=== PATIENT | female | born 1955 | race Caucasian/White ===

== ENCOUNTER 2022-09-25 13:59 | Outpatient (RCR) | payer MEDICARE, SELFPAY | END 2022-10-31 16:17 | disposition home or self-care (01) | LOC: PT 13:59 | PROVIDERS: PCP Internal Medicine; Visit Provider Internal Medicine | DX: M19.012 Primary osteoarthritis, left shoulder (principal); M25.512 Pain in left shoulder | CPT/HCPCS: 97010; 97035; 97110; 97140; 97161; G0283 ==

== ENCOUNTER 2022-12-15 09:55 | Outpatient (OUT) | payer MEDICARE, SELFPAY ==
--- NOTE | 2022-12-15 | MM_ITS ---
Patient: CY NGO Exam Date: 12/15/2022 : 1955 Gender:F Ordering : DR Capo Palm D.O. Admission #: [id number] Family : Order #: [id number] CLICK HERE TO VIEW EXAM RADIOLOGY REPORT PROCEDURE: MM TOMOSYNTHESIS SCREENING BI COMPARISON: MG MAMM DX 3D RT CAD, 12/11/2021. MG MAMM RT DIAG FU, 06/06/2021. MG MAMM SCREEN 3D ASHU CAD, 05/24/2021. MG MAMM SCREEN ASHU W CAD, 12/18/2016. INDICATIONS: Z12.31 Calculator Name NCI Breast Cancer Risk Assessment Tool 5 Year Breast Cancer Risk 2.60% Lifetime Breast Cancer Risk 8.00% Personal Breast Cancer No Personal Ovarian Cancer No Treatments None Family Cancers Aunt-paternal with breast cancer at age ~60; Father with leukemia cancer at age 45. LOCATION: [facility] BREAST COMPOSITION: Heterogeneously dense,which may obscure small masses. FINDINGS: DIAGNOSTIC CATEGORY 2--BENIGN FINDING: RIGHT BREAST: No significant suspicious finding. Scattered benign-appearing calcifications are present. No significant change has occurred. LEFT BREAST: No significant suspicious finding. Scattered benign-appearing calcifications are present. No significant change has occurred. RECOMMENDATIONS: ROUTINE MAMMOGRAM AND CLINICAL EVALUATION IN 12 MONTHS. PLEASE NOTE: A NORMAL MAMMOGRAM DOES NOT EXCLUDE THE POSSIBILITY OF BREAST CANCER. A CLINICALLY SUSPICIOUS PALPABLE LUMP SHOULD BE BIOPSIED. Dictated by: Luis Ascencio M.D. on 12/15/2022 at 14:36 Approved by: Luis Ascencio M.D. on 12/15/2022 at 14:39
== END 2022-12-15 09:56 | disposition home or self-care (01) ==
LOC: MAMMO 09:55
PROVIDERS: PCP Internal Medicine; Visit Provider Internal Medicine
DX: Z12.31 Encounter for screening mammogram for malignant neoplasm of breast (principal); Z80.3 Family history of malignant neoplasm of breast; Z80.6 Family history of leukemia
CPT/HCPCS: 77063; 77067

== ENCOUNTER 2022-12-22 09:52 | Outpatient (OUT) | payer MEDICARE, SELFPAY ==
--- NOTE | 2022-12-22 10:00 | XR_ITS ---
The [address] [address] Patient Name: CY NGO MRN: [id number] date: 1955 Sex: F Assigned Patient Location[facility] Current Patient Location: RAD Accession/Order Number: [id number] Exam Date: 12/22/2022 10:08 Report Date: 12/22/2022 17:41 At the request of: REJI DUNN Procedure: XR DEXA axial skeleton EXAMINATION: XR DEXA axial skeleton, 12/22/2022 10:08 AM EDT HISTORY: Menopause Z78.0 COMPARISON: 2017. TECHNIQUE: Dual-energy X-ray absorptiometry (DEXA) bone density study performed for the axial skeleton. FINDINGS: Bone mineral density AP spine L1-L4 measures 1.492 g/sq cm. Young adult T score 2.6. WHO classification: Normal. Lowest bone mineral density left femoral neck measures 1.090 g/sq cm. T score 0.4. WHO classification: Normal. XR/XR DEXA axial skeleton IMPRESSION: Normal bone mineral density. Low fracture risk Electronically authenticated by: GINGER JANE Date: 12/22/2022 17:41
== END 2022-12-22 09:53 | disposition home or self-care (01) ==
LOC: RAD 09:52
PROVIDERS: PCP Internal Medicine; Visit Provider Internal Medicine
DX: Z78.0 Asymptomatic menopausal state (principal)
CPT/HCPCS: 77080

== ENCOUNTER 2023-07-20 11:40 | Outpatient (OUT) | payer MEDICARE, SELFPAY ==
--- NOTE | 2023-07-20 11:48 | XR_ITS ---
The [address] [address] Patient Name: CY NGO MRN: [id number] date: 1955 Sex: F Assigned Patient Location: [facility] Current Patient Location: Accession/Order Number: [id number] Exam Date: 07/20/2023 11:57 Report Date: 07/21/2023 06:50 At the request of: REJI DUNN Procedure: XR shoulder LT min 2V PROCEDURE: XR shoulder LT min 2V HISTORY: left shoulder pain M25.512 COMPARISON: None. FINDINGS: BONES:Marked narrowing of the glenohumeral joint space with suspected zimt-ln-iraw articulation and small subchondral cysts. Suspect periarticular degenerative osteophytes along the inferior margin of the humeral head. Moderate narrowing of acromioclavicular joint with small undersurface osteophytes. SOFT TISSUES:No visible soft tissue swelling. EFFUSION:None visible. OTHER: Negative. XR/XR shoulder LT min 2V IMPRESSION: 1. 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 Electronically authenticated by: FANY MEDRANO Date: 07/21/2023 06:50
== END 2023-07-20 11:41 | disposition home or self-care (01) ==
LOC: RAD 11:42
PROVIDERS: PCP Internal Medicine; Visit Provider Internal Medicine
DX: M25.512 Pain in left shoulder (principal); M19.012 Primary osteoarthritis, left shoulder
CPT/HCPCS: 73030

== ENCOUNTER 2023-08-05 10:01 | Outpatient (OUT) | payer MEDICARE, SELFPAY ==
--- NOTE | 2023-08-05 10:09 | XR_ITS ---
The [address] [address] Patient Name: CY NGO MRN: [id number] date: 1955 Sex: F Assigned Patient Location: RAD Current Patient Location: [facility] Accession/Order Number: [id number] Exam Date: 08/05/2023 10:11 Report Date: 08/05/2023 13:26 At the request of: REJI DUNN Procedure: XR abdomen 1V EXAMINATION: XR abdomen 1V HISTORY: Right Lower Quadrant R10.31 COMPARISON: No relevant comparison available. FINDINGS: KIDNEY/URETER - RIGHT: No visible renal or ureteral calcifications. KIDNEY/URETER - LEFT: No visible renal or ureteral calcifications. PELVIS: No visible ureteral calcifications. Any visible calcifications favor phleboliths. BOWEL: Moderate amount of stool throughout the colon BONES: No acute abnormality. Degenerative changes of the spine and hips OTHER: Negative. No abnormal gaseous collections. XR/XR abdomen 1V IMPRESSION: Moderate stool throughout the colon Electronically authenticated by: GINGER JANE Date: 08/05/2023 13:26
== END 2023-08-05 10:02 | disposition home or self-care (01) ==
LOC: RAD 10:02
PROVIDERS: PCP Internal Medicine; Visit Provider Internal Medicine
DX: R10.31 Right lower quadrant pain (principal)
CPT/HCPCS: 74018

== ENCOUNTER 2023-09-01 14:01 | Outpatient (OUT) | payer MEDICARE, SELFPAY ==
[2023-09-01 14:50] LABS: Basophils Percent Auto 0.8 % (0.2-2.0); Eosinophils Absolute Auto 0.1 10^3/uL (0.0-0.7); Eosinophils Percent Auto 2.5 % (0.9-7.0); Hematocrit 39.8 % (36.0-48.0); Hemoglobin 13.2 g/dL (12.0-16.0); Immature Granulocytes Abs Auto 0.01 10^3/uL (0.00-0.03); Immature Granulocytes Pct Auto 0.2 % (0.0-0.5); Lymphocytes Absolute Auto 1.4 10^3/uL (1.2-3.8); Lymphocytes Percent Auto 26.2 % (20.5-60.0); Mean Corpuscular HGB Conc 33.2 g/dL (29.9-35.2); Mean Corpuscular Hemoglobin 31.9 pg (26.7-34.0); Mean Corpuscular Volume 96.1 fL (81.0-99.0); Mean Platelet Volume 11.2 fL (9.5-13.5); Monocytes Absolute Auto 0.5 10^3/uL (0.3-0.8); Monocytes Percent Auto 9.5 % (1.7-12.0); Neutrophils Absolute Auto 3.2 10^3/uL (1.4-6.5); Neutrophils Percent Auto 60.8 % (43.0-75.0); Platelet Count 222 10^3/uL (150-450); Red Blood Count 4.14 10^6/uL (4.20-5.40); Red Cell Distribution Width 13.2 % (11.0-15.0); White Blood Count 5.3 10^3/uL (4.0-11.0)
[2023-09-01 15:01] LABS: Alanine Aminotransferase 34 U/L (14-59); Albumin Level 3.6 g/dL (3.4-5.0); Alkaline Phosphatase 114 U/L (46-116); Anion Gap 14.4; Aspartate Amino Transferase 23 U/L (15-37); BUN Creatinine Ratio 16.9; Bilirubin Total 0.6 mg/dL (0.2-1.0); Calcium 9.4 mg/dL (8.5-10.1); Carbon Dioxide 27.3 mmol/L (21.0-32.0); Chloride 106 mmol/L (98-107); Estimated GFR (African America >60 (>=60); Estimated GFR (Non-African Ame >60 (>=60); Globulin 3.5 g/dL; Glucose 93 mg/dL (74-106); Potassium 3.7 mmol/L (3.5-5.1); Sodium 144 mmol/L (136-145); Total Protein 7.1 g/dL (6.4-8.2)
[2023-09-02 15:00] LABS: C. Difficile PCR NEGATIVE (NEGATIVE)
== END 2023-09-01 14:02 | disposition home or self-care (01) ==
LOC: LAB 14:03
PROVIDERS: PCP Internal Medicine; Visit Provider Internal Medicine
DX: R19.7 Diarrhea, unspecified (principal)
CPT/HCPCS: 36415; 80053; 85025; 87045; 87046; 87427; 87493

== ENCOUNTER 2023-12-08 08:34 | Outpatient (OUT) | payer MEDICARE, SELFPAY ==
--- NOTE | 2023-12-08 | CT_ITS ---
The [address] [address] Patient Name: CY NGO MRN: [id number] date: 1955 Sex: F Assigned Patient Location: CT Current Patient Location: Accession/Order Number: [id number] Exam Date: 12/08/2023 09:30 Report Date: 12/09/2023 11:53 At the request of: REJI DUNN Procedure: CT abdomen pelvis wo con EXAM: CT abdomen pelvis wo con HISTORY: UNSPECIFIED ABDOMINAL PAIN, RIGHT FLANK PAIN COMPARISON: None. TECHNIQUE: Axial soft tissue windows of the abdomen and pelvis with coronal and sagittal reformats. CT dose reduction technique was used including Automated Exposure Control. Findings: The liver, gallbladder, spleen, pancreas, and adrenal glands are unremarkable. No renal stones or collecting system dilatation. Small bilateral extrarenal pelvises. The visualized portions of the bilateral ureters are nondilated. The bowel is unremarkable without evidence of wall thickening or obstruction. The appendix is not definitely identified. The aorta is normal caliber. No enlarged abdominal lymph nodes or free abdominal fluid. Tiny fat-containing umbilicus hernia. Pelvis: Unremarkable bladder. The uterus is surgically absent. No enlarged pelvic lymph nodes or free pelvic fluid. No aggressive sclerotic or lytic osseous lesions. Grade 1 anterolisthesis of L4 on L5. Multilevel degenerative spondylosis. CT/CT abdomen pelvis wo con IMPRESSION: 1. No acute abdominal or pelvic abnormality. 2. Other nonemergent findings, as described above. Electronically authenticated by: ANABELLE ZAMBRANO Date: 12/09/2023 11:53
== END 2023-12-08 08:35 | disposition home or self-care (01) ==
LOC: CT 08:34
PROVIDERS: PCP Internal Medicine; Visit Provider Internal Medicine
DX: R10.9 Unspecified abdominal pain (principal)
CPT/HCPCS: 74176

== ENCOUNTER 2023-12-17 13:57 | Outpatient (OUT) | payer MEDICARE, SELFPAY ==
--- NOTE | 2023-12-17 | MM_ITS ---
Patient Name: CY NGO MR#: [id number] : 1955 Exam Date: 12/17/2023 Ordering Doctor: DR Capo Palm D.O. RADIOLOGY REPORT PROCEDURE: MM TOMOSYNTHESIS SCREENING BI COMPARISON: MM TOMOSYNTHESIS SCREENING BI, 12/15/2022. MG MAMM DX 3D RT CAD, 12/11/2021. MG MAMM RT DIAG FU, 06/06/2021. MG MAMM SCREEN ASHU W CAD, 12/18/2016. INDICATIONS: Screening for malignant neoplasm Calculator Name [facility] Breast Cancer Risk Assessment Tool 5 Year Breast Cancer Risk 2.60% Lifetime Breast Cancer Risk 7.60% Personal Breast Cancer No Personal Ovarian Cancer No Treatments None Family Cancers Aunt-paternal with breast cancer at age ~60; Father with leukemia cancer at age 45. LOCATION: [facility] BREAST COMPOSITION: The breasts are heterogeneously dense,which may obscure small masses. FINDINGS: DIAGNOSTIC CATEGORY 2--BENIGN FINDING: RIGHT BREAST: No significant suspicious finding. Stable biopsy marker clip. Scattered benign-appearing calcifications are present. No significant change has occurred. LEFT BREAST: No significant suspicious finding. Scattered benign-appearing calcifications are present. Stable benign-appearing lymph node. No significant change has occurred. RECOMMENDATIONS: ROUTINE MAMMOGRAM AND CLINICAL EVALUATION IN 12 MONTHS. PLEASE NOTE: A NORMAL MAMMOGRAM DOES NOT EXCLUDE THE POSSIBILITY OF BREAST CANCER. A CLINICALLY SUSPICIOUS PALPABLE LUMP SHOULD BE BIOPSIED. Dictated by: Luis Ascencio M.D. on 12/17/2023 at 15:37 Approved by: Luis Ascencio M.D. on 12/17/2023 at 15:43
--- OUTSIDE RECORDS SUMMARY | 2023-12-17 14:20 | XMS_ITS | CCD ---
Author Organization [facility] Care Team Providers Care Study Specialist Name Role Phone CAPO PALM Primary Care Physician SHAUN, DR SCANLON Attending Unavailable BALL, DR SCANLON Admitting Unavailable BALL, DR SCANLON Primary Care Unavailable BALL, DR SCANLON Consulting Unavailable BALL, DR SCANLON Primary Care Unavailable BALL, DR SCANLON Consulting Unavailable BALL, DR SCANLON Attending Unavailable BALL, DR SCANLON Admitting Unavailable ZIEBER, DR FANY Brock Consulting Unavailable APLING, CARLOS ALBERTO Estrella Attending Unavailable APLING, CARLOS ALBERTO Estrella Admitting Unavailable BALL, DR SCANLON Primary Care Unavailable APLING, CARLOS ALBERTO Estrella Consulting Unavailable BALL, DR SCANLON Consulting Unavailable BALL, DR SCANLON Attending Unavailable BALL, DR SCANLON Primary Care Unavailable BALL, DR SCANLON Admitting Unavailable ZIEBER, DR FANY Brock Consulting Unavailable BALL, DR SCANLON Attending Unavailable BALL, DR SCANLON Primary Care Unavailable BALL, DR SCANLON Admitting Unavailable BALL, DR SCANLON Consulting Unavailable WEST, DR GINGER Monge Consulting Unavailable MISC, DR CUI Attending Unavailable MISC, DR CUI Admitting Unavailable BALL, DR SCANLON Primary Care Unavailable MISC, DR CUI Consulting Unavailable BALL, DR SCANLON Attending Unavailable BRIDGES, JOHN Consulting Unavailable BALL, DR SCANLON Primary Care Unavailable BALL, DR SCANLON Admitting Unavailable REQUEST, DR RICARDO LISTED Attending Unavaila ble REQUEST, DR RICARDO LISTED Admitting Unavaila ble BALL, DR SCANLON Primary Care Unavailable REQUEST, DR RICARDO LISTED Consulting Unavaila ble APLING, CARLOS ALBERTO Estrella Attending Unavailable APLING, CARLOS ALBERTO Estrella Admitting Unavailable BALL, DR SCANLON Primary Care Unavailable BALL, DR SCANLON Attending Unavailable BALL, DR SCANLON Admitting Unavailable WEST, DR GINGER Monge Consulting Unavailable BALL, DR SCANLON Primary Care Unavailable BALL, DR SCANLON Attending Unavailable BALL, DR SCANLON Admitting Unavailable BALL, DR SCANLON Primary Care Unavailable BALL, DR SCANLON Consulting Unavailable WEST, DR GINGER Monge Consulting Unavailable BALL, DR SCANLON Attending Unavailable BALL, DR SCANLON Admitting Unavailable BALL, DR SCANLON Primary Care Unavailable BALL, DR SCANLON Consulting Unavailable Shaun, DO Scanlon Primary Care Provider [facility], [facility] Attending Provider [phone] Capo Palm Unavailable DO Capo Palm Primary Care Provider DO Akil Martinez Attending Provider JOSEFINA DOWNS Attending Unavailable HUNTERLIZZIE BALL Attending Unavailable RAVEN, RACQUEL Hunter Attending Unavailable BALL, CAPO Hahn Referring Unavailable RAVEN, RACQUEL Hunter Attending Unavailable BALL, CAPO Hahn Referring Unavailable RAVEN, RACQUEL Hunter Attending Unavailable BALL, CAPO E Referring Unavailable RAVEN, RACQUEL Hunter Attending Unavailable BALL, CAPO E Referring Unavailable RAVEN, RACQUEL Hunter Attending Unavailable BALL, CAPO Hahn Referring Unavailable KARIN, ANABELLE Sweet Attending Unavailable KARIN, ANABELLE Sweet Referring Unavailable RAVEN, RACQUEL Hunter Attending Unavailable BALL, CAPO Hahn Referring Unavailable RAVEN, RACQUEL Hunter Attending Unavailable BALL, CAPO E Referring Unavailable RAVEN, RACQUEL Hunter Attending Unavailable BALL, CAPO Hahn Referring Unavailable RAVEN, RACQUEL Hunter Attending Unavailable BALL, CAPO Hahn Referring Unavailable RAVEN, RACQUEL Hunter Attending Unavailable BALL, CAPO Hahn Referring Unavailable RAVEN, RACQUEL Hunter Attending Unavailable BALL, CAPO E Referring Unavailable Jeanmarie, Akil Sweet Attending Unavailable Jeanmarie, Akil A Admitting Unavailable Ball, Capo Primary Care Unavailable Ball, Capo Primary Care Unavailable Jeanmarie, Akil Sweet Attending Unavailable Jeanmarie, Akil A Admitting Unavailable Ball, Capo Primary Care Unavailable Jeanmarie, Akil Sweet Attending Unavailable Jeanmarie, Akil A Admitting Unavailable Ball, Capo Primary Care Unavailable Jeanmarie, Akil A Attending Unavailable Jeanmarie, Akil A Admitting Unavailable Ball, Capo Primary Care Unavailable Jeanmarie, Akil Sweet Attending Unavailable Jeanmarie, Akil A Admitting Unavailable Jeanmarie, Akil Sweet Attending Unavailable Ball, Capo Primary Care Unavailable Jeanmarie, Akil A Admitting Unavailable Jeanmarie, Akil A Attending Unavailable Jeanmarie, Akil A Admitting Unavailable Ball, Capo Primary Care Unavailable Allergies Allergy Classification Reported Allergen(s) Allergy Type Date of Onset Reaction(s) Facility (6 sources) Sulfonamides (Antibiotic); Translations: [sulfa drugs] Drug allergy Eruption of skin (disorder) [facility] (1 source) Sulfonamides (Antibiotic) Drug allergy (disorder) 05-20-19 17 [facility] (2 sources) Sulfonamides (Antibiotic); Translations: [Sulfa (Sulfonamide Antibiotics)] Allergy to substance [facility]-19 [facility] (7 sources) Sulf-10 Drug allergy rash [facility] (2 sources) patient allergy list reviewed by nurse or physicia Propensity to adverse reactions 10-22-19 14 Comment:Done [facility] (2 sources) Allergies Reconciled Propensity to adverse reactions Unknown [facility] (6 sources) Substance with sulfonamide structure and antibacterial mechanism of action (substance) Drug allergy 12-15-19 18 Unknown [facility] Other Medications Current Medications Medication Drug Class(es) Dates Sig (Normalized) Sig (Original) Daily Vitamins for Women (4 sources) Daily Vitamins f or Women Active [facility] (8 sources) Start: 08-25-2023 take 1 tablet by mouth once daily [facility] Active 1 TAB PO Daily August 25, 2023 12:00am meclizine hydrochloride 25 mg chewable tablet (2 sources) Antiemetic Start: 05-04-2023 take 1 tablet by mouth every eight hours as needed Meclizine HCl 25 MG 1 tablet as needed Orally every 8 hours as needed for vertigo, may cause sedation for 5 days Apr, Active Multivitamin preparation (14 sources) Start: 06-25-2021 take 1 tablet by mouth once daily Multivitamin Active 1 TAB PO Daily June 25, 2021 12:00am omeprazole 40 mg delayed release oral capsule (20 sources) Proton Pump Inhibitor Start: 11-17-2023 omeprazole 40 mg Cap-DR 40 mg = 1 cap(s), Refills(s) 0 Start Date: 11/17/23 Status: Ordered Start: 08-03-2023 Omeprazole Act mckinley 40 MG PO Daily August 03, 2023 12:00am Take on an empty stomach, 30 minutes prior to bkfst Start: 06-25-2021 End: 07-10-2023 take 20 mg by mouth once daily Omeprazole Discontinued 20 MG PO Daily June 25, 2021 12:00am July 10, 2023 10:00am Start: 01-07-2021 Prilosec Oral, Daily, Refills(s) 0 Start Date: 01/07/21 Status: Ordered One A Day Women 50 Plus (5 sources) Start: 12-07-2018 One A Day Wome n 50 Plus Refill(s) 0 Start Date: 12/07/18 Status: Ordered sertraline 100 mg oral tablet (20 sources) Serotonin Reuptake Inhibitor Start: 11-17-2023 sertraline 100 mg Ta b 100 mg = 1 tab(s), Refills(s) 0 Start Date: 11/17/23 Status: Ordered Start: 07-21-2023 End: 10-20-2023 take 100 mg by mouth once daily Sertraline Discontinued 100 MG PO Daily 90 July 22, 2023 9:26am October 20, 2023 6:15pm Completed/Discontinued Medications Medication Drug Class(es) Dates Sig (Normalized) Sig (Original) acetaminophen 500 mg oral tablet (6 sources) Start: 09-08-2023 End: 10-22-2023 take 500 mg by mouth every six hours Acetaminophen Discontinued 500 MG PO Q6H September 08, 2023 12:00am October 22, 2023 10:58am DO NOT RECONCILE UNTIL DOS 09/09/23 TO BE USED POST OP aspirin 81 mg chewable tablet (6 sources) Platelet Aggregation Inhibitor, Nonsteroidal Anti-inflammatory Drug Start: 09-08-2023 End: 10-22-2023 take 81 mg by mouth twice daily Aspirin Discontinued 81 MG PO Twice daily 60 30 September 08, 2023 12:00am October 22, 2023 10:53am DO NOT RECONCILE UNTIL DOS 09/09/23 TO BE USED POST OP citalopram 40 mg oral tablet (20 sources) Serotonin Reuptake Inhibitor Start: 07-16-2023 End: 07-21-2023 take 40 mg by mouth once daily Citalopram Discontinued 40 MG PO Daily 90 90 July 16, 2023 12:00am July 21, 2023 8:48am Start: 06-25-2021 End: 07-16-2023 take 20 mg by mouth once daily Citalopram Discontinued 20 MG PO Daily June 25, 2021 12:00am July 16, 2023 9:47pm Start: 12-07-2018 citalopram Ora l, Daily, Refills(s) 0 Start Date: 12/07/18 Status: Ordered diclofenac sodium 0.03 mg/mg topical gel (17 sources) Nonsteroidal Anti-inflammatory Drug Start: 07-10-2023 End: 08-25-2023 Diclofenac Sodium Discontinued 1 APPLIC TOPICAL Twice daily July 10, 2023 12:00am August 25, 2023 11:38am Diclofenac Sodiu m 3 % 1 application Externally Twice a day Active docusate sodium 100 mg oral capsule (6 sources) Start: 09-08-2023 End: 10-22-2023 take 1 capsule by mouth twice daily Docusate Sodium (Colace) 100 mg capsule Discontinued 100 MG PO Twice daily 20 September 08, 2023 12:00am October 22, 2023 10:53am DO NOT RECONCILE UNTIL DOS 09/09/23 TO BE USED POST OP hyoscyamine sulfate 0.125 mg disintegrating oral tablet (7 sources) Start: 08-27-2023 End: 09-09-2023 take 0.125 mg by mouth four times daily Hyoscyamine Sulfate Discontinued 0.125 MG PO Four times daily 20 August 27, 2023 12:00am September 09, 2023 6:34am lactobacillus acidophilus [id number] unt oral capsule (14 sources) Start: 06-25-2021 End: 07-10-2023 Lactobacillus Acidophilus (Acidophilus) Capsule Discontinued 1000 MMU CELLS PO Daily June 25, 2021 12:00am July 10, 2023 9:59am Start: 06-25-2021 End: 07-10-2023 Lactobacillus Acidophilus (A cidophilus) Capsule Discontinued 1000 MMU CELLS PO Daily June 25, 2021 12:00am July 10, 2023 9:59am Start: 06-25-2021 Lactobacillus Acidophilus (Acidophilus) Capsule Active 1000 MMU CELLS PO Daily June 25, 2021 12:00am meloxicam 15 mg oral tablet (20 sources) Nonsteroidal Anti-inflammatory Drug Start: 09-08-2023 End: 10-22-2023 take 15 mg by mouth once daily Meloxicam Discontinued 15 MG PO daily 14 September 08, 2023 12:00am October 22, 2023 10:53am DO NOT RECONCILE UNTIL DOS 09/09/23 TO BE USED POST OP Start: 05-11-2023 End: 08-25-2023 take 15 mg by mouth once daily Meloxicam Discontinued 15 MG PO Daily 30 May 11, 2023 1:00am August 25, 2023 11:38am Start: 09-16-2022 take 1 tablet by cristi th every twenty-four hours Meloxicam 15 MG 1 tablet Orally Once a day for 30 days Aug, Active oxybutynin chloride 5 mg oral tablet (20 sources) Cholinergic Muscarinic Antagonist Start: 07-10-2023 End: 07-16-2023 take 5 mg by mouth once daily Oxybutynin Chloride Discontinued 5 MG PO Daily July 10, 2023 12:00am July 16, 2023 11:08am Start: 04-15-2022 End: 11-11-2022 take 1 tablet by mouth once daily oxybutynin 5 mg ER Tab 5 mg = 1 tab(s), Oral, Daily, # 90 tab(s), Refills(s) 3, Pharmacy: [facility], 157, cm, 10/21/22 9:06:00 EDT, Height/Length Dosing, 90, kg, 10/21/22 9:06:00 EDT, Weight Dosing Start Date: 10/21/22 Status: Ordered Start: 08-14-2021 take 1 tablet by cristi once daily Ditropan XL 5 mg Tab-ER 5 mg = 1 tab(s), Oral, Daily, # 30 tab(s), Refills(s) 6, Pharmacy: [facility]/pharmacy #[id number], 157, cm, 08/14/21 14:15:00 EDT, Height/Length Dosing, 90, kg, 08/14/21 14:15:00 EDT, Weight Dosing Start Date: 08/14/21 Status: Ordered take 1 tablet by cristi th every twenty-four hours oxyBUTYnin Chloride 5 MG 1 tablet Orally Once a day Active oxyCODONE hydrochloride 5 mg oral tablet (6 sources) Opioid Agonist Start: 09-08-2023 End: 10-22-2023 take 5 mg by mouth every six hours Oxycodone Discontinued 5 MG PO Q6H 28 7 September 08, 2023 October 22, 2023 10:53am DO NOT RECONCILE UNTIL DOS 09/09/23 TO BE USED POST OP polyethylene glycol 3350 [id number] mg powder for oral solution (6 sources) Osmotic Laxative Start: 09-08-2023 End: 10-22-2023 Polyethylene Glycol 3350 (Miralax) 17 gram powder in packet Discontinued 17 GM PO daily 14 September 08, 2023 12:00am October 22, 2023 10:58am 1 packet mixed with 8 ounces of fluid. DO NOT RECONCILE UNTIL DOS 09/09/23 TO BE USED POST OP Problems Active Problems Problem Classification Problem Date Documented Da te Episodic/Chronic Abdominal pain (20 sources) Abdominal pain; Translations: [Flank pain] Onset: 2 Resolved: 2 12-07-2018 Episodic Acquired foot deformities (8 sources) Talipes planus; Translations: [Flat foot [pes planus] (acquired), right foot] Episodic Acquired foot deformities (8 sources) Talipes planus; Translations: [Flat foot [pes planus] (acquired), left foot] Episodic Anxiety disorders (20 sources) Generalized anxiety disorder; Translations: [Generalized anxiety disorder] Onset: 6 07-16-2023 Chronic Cancer of breast (1 source) Personal history of malignant neoplasm of breast; Translations: [PERS HX MALIGNANT NEOPLASM BREAST] Onset: 2 Episodic Complications of surgical procedures or medical care (3 sources) Postprocedural asymptomatic ovarian failure; Translations: [Asymptomatic postprocedural ovarian failure] Chronic Conditions associated with dizziness or vertigo (20 sources) Benign paroxysmal positional vertigo; Translations: [Benign paroxysmal positional vertigo] Onset: 6 Episodic Diabetes mellitus without complication (3 sources) Type 2 diabetes mellitus without complication; Translations: [Diabetes mellitus without mention of complication, type II or unspecified type, not stated as uncontrolled] Onset: 3 Chronic Diabetes mellitus without complication (20 sources) Impaired fasting glycemia; Translations: [Impaired fasting glucose] 07-10-2023 Episodic Esophageal disorders (13 sources) Gastroesophageal reflux disease; Translations: [Gastroesophageal reflux disease with hiatal hernia] 12-07-2018 Chronic Genitourinary symptoms and ill-defined conditions (18 sources) Urge incontinence; Translations: [Post-micturition incontinence ] Onset: 2 Chronic Genitourinary symptoms and ill-defined conditions (20 sources) Increased frequency of urination; Translations: [Frequency of micturition] Onset: 7 Episodic Headache; including migraine (3 sources) Headache; Translations: [Headache, unspecified] Episodic Immunizations and screening for infectious disease (6 sources) Vaccination given; Translations: [Encounter for immunization] Resolved: 2 Episodic Leukemias (1 source) Personal history of leukemia; Translations: [PERSONAL HISTORY OF LEUKEMIA] Onset: 2 Episodic Menopausal disorders (10 sources) Decreased estrogen level; Translations: [Other primary ovarian failure] Chronic Miscellaneous mental health disorders (7 sources) Occipital headache; Translations: [Occipital headache] Chronic Mood disorders (16 sources) Depressive disorder; Translations: [Single episode of major depression in full remission] 12-07-2018 Chronic Nonspecific chest pain (8 sources) Chest wall pain; Translations: [Other chest pain] Episodic Osteoarthritis (20 sources) Osteoarthritis; Translations: [Osteoarthritis of joint of left shoulder region] Onset: 3 12-07-2018 Chronic Other and unspecified benign neoplasm (7 sources) History of polyp of colon; Translations: [Personal history of colonic polyps] Episodic Other connective tissue disease (4 sources) Presence of left artificial knee joint; Translations: [PRESENCE LEFT ARTIFICIAL KNEE JOINT] Onset: 1 Chronic Other connective tissue disease (5 sources) History of reverse prosthetic total arthroplasty of left shoulder; Translations: [Presence of left artificial shoulder joint] 09-17-2023 Chronic Other connective tissue disease (8 sources) Presence of left artificial shoulder joint; Translations: [Shoulder joint replacement] Onset: 4 09-17-2023 Chronic Other connective tissue disease (7 sources) Tendinitis of left rotator cuff; Translations: [Other shoulder lesions, left shoulder] Episodic Other connective tissue disease (2 sources) Other shoulder lesions, left shoulder Episodic Other connective tissue disease (3 sources) Nontraumatic rupture of rotator cuff of left shoulder; Translations: [Unspecified rotator cuff tear or rupture of left shoulder, not specified as traumatic] Episodic Other diseases of bladder and urethra (3 sources) Overactive bladder; Translations: [Overactive bladder] Onset: 8 Chronic Other diseases of bladder and urethra (10 sources) Traumatic urethral stricture; 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, female] Onset: 2 Episodic Other diseases of kidney and ureters (5 sources) Cyst of kidney 01-27-2019 Episodic Other diseases of veins and lymphatics (20 sources) Peripheral venous insufficiency; Translations: [Venous insufficiency (chronic) (peripheral)] 07-10-2023 Episodic Other diseases of veins and lymphatics (7 sources) Venous insufficiency (chronic) (peripheral); Translations: [Venous (peripheral) insufficiency, unspecified] 08-27-2023 Episodic Other ear and sense organ disorders (3 sources) Infective otitis externa; Translations: [Unspecified infective otitis externa] Onset: 4 Chronic Other ear and sense organ disorders (3 sources) Malignant otitis externa; Translations: [Malignant otitis externa, unspecified ear] Onset: 4 Chronic Other ear and sense organ disorders (9 sources) Impacted cerumen; Translations: [Impacted cerumen, bilateral] Onset: 4 Resolved: 0 Episodic Other eye disorders (11 sources) Other forms of nystagmus; Translations: [OTHER FORMS OF NYSTAGMUS] Onset: 2 Chronic Other eye disorders (3 sources) Nystagmus; Translations: [Other forms of nystagmus] Chronic Other gastrointestinal disorders (5 sources) Diarrhea, unspecified; Translations: [Diarrhea] Onset: 1 Episodic Other gastrointestinal disorders (4 sources) Diarrhea; Translations: [Diarrhea, unspecified] Resolved: 2 10-28-2023 Episodic Other inflammatory condition of skin (2 sources) Pruritus, unspecified; Translations: [Pruritus] 10-28-2023 Episodic Other injuries and conditions due to external causes (3 sources) History of fall; Translations: [History of falling] Episodic Other injuries and conditions due to external causes (3 sources) Sprains and strains of joints and adjacent muscles; Translations: [Other specified sites of sprains and strains] Episodic Other nervous system disorders (10 sources) Abnormal gait; Translations: [Unsteadiness on feet] Episodic Other nervous system disorders (12 sources) Impaired cognition; Translations: [Other symptoms and signs involving cognitive functions and awareness] 07-16-2023 Episodic Other nervous system disorders (10 sources) Other symptoms and signs involving cognitive functions and awareness; Translations: [Other signs and symptoms involving cognition] 07-16-2023 Episodic Other non-traumatic joint disorders (20 sources) Pain in left shoulder; Translations: [Left shoulder pain] Onset: 4 07-16-2023 Episodic Other nutritional; endocrine; and metabolic disorders (15 sources) Obesity; Translations: [Obesity, unspecified] 12-07-2018 Chronic Other nutritional; endocrine; and metabolic disorders (9 sources) Body mass index 30+ - obesity; Translations: [Body mass index 36.0-36.9, adult] Onset: 3 10-21-2022 Chronic Other nutritional; endocrine; and metabolic disorders (6 sources) Obese class II; Translations: [Body mass index (BMI) 35.0-35.9, adult] Onset: 3 Chronic Other nutritional; endocrine; and metabolic disorders (4 sources) Obesity caused by energy imbalance; Translations: [Other obesity due to excess calories] Chronic Other nutritional; endocrine; and metabolic disorders (2 sources) Other obesity due to excess calories Chronic Other nutritional; endocrine; and metabolic disorders (2 sources) Body mass index (BMI) 32.0-32.9, adult Chronic Other nutritional; endocrine; and metabolic disorders (1 source) Obesity, unspecified; Translations: [Obesity, unspecified] 08-27-2023 Chronic Other screening for suspected conditions (not mental disorders or infectious disease) (20 sources) Other abnormal and inconclusive findings on diagnostic imaging of breast; Translations: [Encounter for screening mammogram for malignant neoplasm of breast] Onset: 2 Episodic Other upper respiratory infections (15 sources) Acute pharyngitis; Translations: [Acute pharyngitis, unspecified] Onset: 3 Episodic Residual codes; unclassified (10 sources) Obstructive sleep apnea syndrome; Translations: [Obstructive sleep apnea (adult) (pediatric)] Chronic Residual codes; unclassified (2 sources) Obstructive sleep apnea (adult) (pediatric) Chronic Residual codes; unclassified (3 sources) Family history of diabetes mellitus; Translations: [Family history of diabetes mellitus] Episodic Residual codes; unclassified (1 source) Asymptomatic menopausal state Episodic Screening and history of mental health and substance abuse codes (5 sources) Ex-smoker 12-07-2018 Episodic Sprains and strains (3 sources) Sprain of knee and leg; Translations: [Sprain and strain of other specified sites of knee and leg] Episodic Unclassified (3 sources) CONTACT W/AND (SUSP) EXPOS COVID-19; Translations: [CONTACT W/AND (SUSP) EXPOS COVID-19] Onset: 1 Past or Other Problems Problem Classification Problem Date Documented Date Episodic/Chronic Acute bronchitis (3 sources) Acute bronchitis; Translations: [Acute bronchitis, unspecified] Onset: 05-21-2015 Episodic Bacterial infection; unspecified site (3 sources) Bacterial infectious disease; Translations: [Bacterial infection, unspecified, in conditions classified elsewhere and of unspecified site] Onset: 06-15-2018 Episodic Intestinal infection (3 sources) Clostridial gastroenteritis; Translations: [Enterocolitis due to Clostridium difficile, not specified as recurrent] Resolved: 02-04-2022 Episodic Malaise and fatigue (3 sources) Malaise and fatigue; Translations: [Other malaise and fatigue] Onset: 08-07-2014 Episodic Nonmalignant breast conditions (1 source) Mammographic calcification found on diagnostic imaging of breast; Translations: [MAMMO CALCIF FOUND DX IMAG BRST] Onset: 05-28-2021 Episodic Other ear and sense organ disorders (3 sources) Acute contact otitis externa; Translations: [Acute contact otitis externa, right ear] Resolved: 02-04-2022 Episodic Other nutritional; endocrine; and metabolic disorders (3 sources) Morbid obesity; Translations: [Morbid (severe) obesity due to excess calories] Resolved: 02-04-2022 Chronic Otitis media and related conditions (6 sources) Otitis media; Translations: [Otitis media, unspecified, right ear] Resolved: 02-04-2022 Episodic Residual codes; unclassified (1 source) Acquired absence of both cervix and uterus; Translations: [ACQUIRED ABSENCE BOTH CERVIX AND UTERUS] Onset: 09-05-2021 Episodic Residual codes; unclassified (1 source) Acquired absence of ovaries, unilateral; Translations: [ACQUIRED ABSENCE OVARIES UNILATERAL] Onset: 09-05-2021 Episodic Residual codes; unclassified (1 source) Family history of malignant neoplasm of breast; Translations: [FAMILY HX MALIG NEOPLASM OF BREAST] Onset: 05-28-2021 Episodic Residual codes; unclassified (1 source) Family history of leukemia; Translations: [FAMILY HISTORY OF LEUKEMIA] Onset: 05-28-2021 Episodic Unclassified (1 source) CONTACT W/AND (SUSP) EXPOS COVID-19; Translations: [CONTACT W/AND (SUSP) EXPOS COVID-19] Onset: 02-28-2021 Viral infection (6 sources) Herpes zoster without complication; Translations: [Herpes zoster without mention of complication] Onset: 07-29-2013 Episodic Results Test Name Value Interpretation Reference Range Facility Urology Office/Clinic Noteon 11-17-2023 Urology Office/Clinic Note Urology Office/Clinic Note Chief Complaint urethral strictura and leaking of urine HPI Staff 1 year f/u Dx: other post-traumatic urethral stricture in female, leaking of urine. Last cysto/UD 01/21/21. *Oxybutynin ER 5mg qd. Pt states that her PCP had her stop this medication. Dysuria: denies Incomplete bladder emptying: pt feels she is emptying PVR 12ml today Hematuria: denies Frequency: every 2-3 hours Urgency: moderate can delay 10- 60 minutes. Sudden urge that makes her lowry to the bathroom a few times a week Nocturia: denies Stream: strong the majority of the time Leaking: yes Post void dripping: denies Wearing pads/ Depends: wears a pad for peace of mind Urge incontinence: yes a few times but states not as often as it used to be Stress incontinence: denies Incontinence without Sensory Awareness: denies Abdominal pain: denies Flank pain: _denies Sexual complaints: no History of Present Illness Tests reviewed: reviewed UA I have reviewed the previous health record information and history for this patient from LILIANA Nicholas. I have reviewed and verified the staff HPI to be accurate for this encounter. Review of Systems PHQ Score Initial Depression Screen Score: 0 SCORE No fever, chills, malaise, myalgia. No rash/lesions. No chest pain, palpitations, or SOB. No abdominal pain, nausea, vomiting. No unilateral calf swelling, redness, pain Physical Exam Vitals & Measurements T: 37 ?C(Temporal Artery) HR: 63(Peripheral) RR: 16 BP: 123/71 HT: 62 in HT: 157 cm WT: 87.3 kg WT: 192.06 lb BMI: 35.42 General: nontoxic, NAD Mouth: moist mucosa Lungs: normal respiratory effort Cardio: regular rate, good distal perfusion Abdomen: nondistended, no suprapubic distention or tenderness, no CVA tenderness Neurologic: Grossly normal Skin: No rashes or suspicious lesions Assessment/Plan 1. Leaking of urine (N39.41: Urge incontinence) PVR (cc): 01/07/21 - 116 04/15/22 - 0 10/21/22 - 16 11/17/23 - 12 BBSQ 16 (moderate sxs). UA today shows trace-intact blood, negative nitrites + small leuks. Pt was started on Oxybutynin 5mg daily at last OV but pt states her PCP had her d/c med. [place] like it was causing some GI issues. Reassured pt she is emptying well & offered pt to try a different medication if she felt necessary but pt declines any further treatment as of right now as her sxs are not very bothersome. No urinary complaints, denies any UTIs, denies gross hematuria or dysuria. -Follow up PRN 2. Other post-traumatic urethral stricture, female (N35.028: Other post-traumatic urethral stricture, female) S/p cysto/UD 01/21/21. Continues to have good strong/steady stream. No straining/hesitancy. No UTIs in the past year. No complaints. -See #1. Offered continued scheduled follow up with our clinic vs following up PRN. Pt prefers the latter Follow-up With When Contact Information HIMANSHU BENÍTEZ, JOSEFINA Hahn, URL [address] [address] Additional Instructions: PRN Patient Education Overactive Bladder, Adult Documentation recorded by the gurinder Jack accurately reflects the services(s) I performed and decisions made by me. Authenticated by Josefina Downs PA-C on 11/17/2023 13:08:08. Clement Silva, personally scribed for Josefina Downs PA-C on 11/17/2023 13:04:44. . Problem List/Past Medical History Ongoing Abdominal pain BMI 36.0-36.9,adult Cyst of left kidney Depression Flank pain Former smoker GERD (gastroesophageal reflux disease) Hematuria Hiatal hernia with GERD Leaking of urine OA (osteoarthritis) Obesity Other post-traumatic urethral stricture, female Post-void dribbling Urinary urgency Urine frequency Historical No qualifying data Procedure/Surgical History Arthroplasty of left shoulder (2023), Cystourethroscopy with dilation of urethral stricture (01/21/2021), Cystourethroscopy with dilation of urethral stricture (12/16/2018), Total knee arthroplasty. (06/21/2018), Total knee arthroplasty (2008), Appendectomy, Biopsy of breast, Colonoscopy, Oophorectomy. Medications omeprazole 40 mg Cap-DR, 40 mg= 1 cap(s) One A Day Women 50 Plus oxybutynin 5 mg ER Tab, 5 mg= 1 tab(s), Oral, Daily, 3 refills, Not taking: PCP had pt stop Prilosec, Oral, Daily sertraline 100 mg Tab, 100 mg= 1 tab(s) Allergies sulfa drugs (Rash) Social History Alcohol Current, 1-2 times per month, 12/07/2018 Tobacco Former smoker, quit more than 30 days ago Tobacco Use:. Never Smokeless Tobacco Use:. Cigarettes, Stopped age 19 Years. Household tobacco concerns: No. Yes, 11/17/2023 Family History Dementia: Mother. Diabetes: Mother. Leukemia: Father. Immunizations Vaccine Date Status Comments SARS-CoV-2 (COVID-19) [id number] 09/16/2022 Recorded influenza virus vaccine, inactivated 01/27/2022 Recorded SARS-CoV-2 (COVID-19) (more content not included)... Normal [facility] Comment on above: Result Comment: Elec tronically Signed By: JOSEFINA DOWNS PA-C\.br\Date and Time Signed: 11/17/23 13:08 EDT\.br\Electronically Co-Signed By: Clement Jack\.br\Date and Time Co-Signed: 11/17/23 13:[address] shoulder LT wo [place] 09-20 CT shoulder LT wo [facility] Main [address] [address] [address] Scan Report Signed Patient: Sayda Fraire MR#: [id number] [birth year] : 1955 Acct:[id number] Age/Sex: 68 / F ADM Date: 09/30/23 Loc: CT Room: Type: REG CLI Attending Dr: Akil Martinez DO Copies to: Akil Martinez DO Ordering Provider: Akil Martinez DO Date of Service: 09/30/23 CT/CT shoulder LT wo con: assess position of RTSA components CT LEFT SHOULDER WITHOUT CONTRAST WITH 3-D RECONSTRUCTIONS COMPARISON: 09/17/[address] 08/14/2023 CLINICAL DATA: Follow-up after recent shoulder replacement. Spiral images were obtained to the shoulder without contrast. Sagittal, coronal and 3-D volume rendered reconstructions were reviewed. This CT exam was performed using one or more following dose reduction techniques: Automated exposure control, adjustment of the mA and/or kV according to patient size, or use of iterative reconstruction technique. There is a reverse shoulder prosthesis. There is some associated streak artifact. No dislocation is identified. There is minimal irregularity at the proximal humerus along the inferior margin of the articular aspect of the humeral component. This is unchanged in the comparison and is likely related to degenerative changes seen previously. There is also still mild hypertrophic degenerative change at the acromioclavicular joint. There is no obvious acute fracture in the field of view. No hematoma or sizable joint effusion is seen. There is minimal atelectasis or scarring at the left lung. CT/CT shoulder LT wo con IMPRESSION: LEFT SHOULDER PROSTHESIS, WITHOUT OBVIOUS COMPLICATION. Impression dictated by: Wendy Olson M.D.09/30/2023 4:19 PM Dictation Location: [place] [address] Transcribed By: [facility] 09/30/23 1619 Dictated By: Wendy Olson MD 09/30/23 1612 Signed By: 09/30/23 1619 Normal [facility] XR shoulder LT min 2V*on XR shoulder LT min 2V* [facility] [place] [facility] [address] [place] [address] XRay Report Signed Patient: Sayda Fraire MR#: [id number] [birth year] : 1955 Acct:[id number] Age/Sex: 68 / F ADM Date: 09/17/23 Loc: [facility] Room: Type: REG CLI Attending Dr: Akil Martinez DO Copies to: Akil Martinez DO Ordering Provider: Akil Martinez DO Date of Service: 09/17/23 XR/XR shoulder LT min 2V*: Z96.612 - Presence of left artificial shoulder joint LEFT SHOULDER - - 7 views. CLINICAL HISTORY: Status post reverse left total shoulder arthroplasty COMPARISON: Left shoulder 09/09/2023 FINDINGS: No hardware complication or acute bony process. XR/XR shoulder LT min 2V* IMPRESSION: NO HARDWARE COMPLICATION. Impression dictated by: Gonzalez Galo Jr., D.OJose09/17/2023 3:43 PM Dictation Location: [facility] Transcribed By: [facility] 09/17/23 154 Dictated By: Gonzalez Galo Jr, DO 09/17/23 154 Signed By: 09/17/23 154 Normal [facility] Sahil 09-09-2023 L Specimen: [id number] Received: 09/09/23 Status: GUY Regrace Num: [id number] Spec Type: Surgical Subm Dr: Akil Martinez DO Tissues: A Joint/Knee (LT SHOULDER) Procedures: HE/2, Gross/Micro L4, Decalcification Age/ Patient Sex Location Account Attending Physician Sayda Fraire 68/F [place] [id number] Akil Martinez DO SPEC NUM: [id number] RECD: 09/09/23 STATUS: GUY VAZQUEZ NUM: [id number] BROCK: 09/09/23- SUBM DR: Akil Martinez DO ENTERED: 09/09/[address] [facility] [address]: SPEC TYPE: Surgical DEPT: S ORDERED: HE/2, Gross/Micro L4, Decalcification ORDERED: HE/2, Gross/Micro L4, Decalcification Pathological Diagnosis Bone and tissue, left shoulder, arthroplasty: Degenerative changes consistent with osteoarthritis. Clinical Information DJD Gross Description Received in formalin labeled with the patient's name, date of and left shoulder bone and tissue is a 4.4 cm in diameter hemispherical humeral head along with a 5.2 x 4.1 x 1.0 cm aggregate of hemorrhagic soft tissue. There is a 3.4 x 3.0 cm focus of eburnation on the articular surface of the bone. Sectioning into the bone reveals unremarkable yellow spongy bone matrix with no lesions or necrosis present. A gross photo is included. [employer] sections are submitted in A1 (bone following decalcification) and A2 (soft tissue). CPT Codes 33896 BONE AND TISSUE ---- ---- Specimen: [id number] Received: 09/09/23 Status: GUY Ginette Num: [id number] Spec Type: Surgical Subm Dr: Akil Martinez DO Tissues: A Joint/Knee (LT SHOULDER) Procedures: HE/2, Gross/Micro L4, Decalcification ---- Patient: Sayda Fraire [id number] (Continued) ---- Signed (signature on file) Chidi Ng MD 09/10/23 0312 Normal [facility] XR shoulder LT 1Von 09-09-19 XR shoulder LT 1V [facility] [place] [address] XRay Report Signed Patient: Sayda Fraire MR#: [id number] [birth year] : 1955 Acct:[id number] Age/Sex: 68 / F ADM Date: 09/09/23 Loc: [place] Room: Type: [facility] Attending Dr: Akil Martinez DO Copies to: Akil Martinez DO Ordering Provider: Akil Martinez DO Date of Service: 09/09/23 XR/XR shoulder LT 1V: LEFT SHOULDER IN OR PORTABLE LEFT SHOULDER - 1 image CLINICAL DATA: Shoulder replacement COMPARISON: 08/13/2023 A single AP view of the shoulder was obtained following placement of a reverse shoulder prosthesis. As visualized, the hardware appears intact and in appropriate position. There is no obvious acute fracture or dislocation within limits of this single view. XR/XR shoulder LT 1V IMPRESSION: INTERVAL SHOULDER REPLACEMENT. Impression dictated by: Wendy Olson M.D.09/09/2023 11:07 AM Dictation Location: [place] [address] Transcribed By: [facility] 09/09/23 1107 Dictated By: Wendy Olson MD 09/09/23 1106 Signed By: 09/09/23 1107 Normal [facility] Basophils Auto (Bld) [#/Vol] on 09-01-2023 Basophils (Bld) [#/Vol] 0.0 10 3/uL 0.0-0.1 [facility] Basophils/100 WBC Auto (Bld) on 09-01-2023 Basophils/100 WBC (Bld) 0.8 % 0.2-2.0 [facility] Eosinophils/100 WBC Auto (Bl d)on 09-01-2023 Eosinophils/100 WBC (Bld) 2.5 % 0.9-7.0 [facility] Erythrocyte distribution wid th Auto (RBC) [Ratio]on 09-01-2023 Erythrocyte distribution width (RBC) [Ratio] 13.2 % 11.0-15.0 [facility] Estimated glomerular filtrat ion rate (GFR) non- Americanon 09-01-2023 GFR/1.73 sq M.predicted among non-blacks MDRD (S/P/Bld) [Vol rate/Area] mL/min/{1.73_m2} >=60 [facility] Globulin Calc (S) [Mass/Vol] on 09-01-2023 Globulin (S) [Mass/Vol] 3.5 g/dL [facility] Hematocrit Auto (Bld) [Volum e fraction]on 09-01-2023 Hematocrit (Bld) [Volume fraction] 39.8 % 36.0-48.0 [facility] Hemoglobin [Mass/volume] in Bloodon 09-01-2023 Hemoglobin (Bld) [Mass/Vol] 13.2 g/dL 12.0-16.0 [facility] Laboratory - Chemistry and C hemistry - challengeon 09-01-2023 Albumin [Mass/Vol] 3.6 g/dL 3.4-5.0 [facility] ALP [Catalytic activity/Vol] 114 U/L 46-116 [facility] ALT [Catalytic activity/Vol] 34 U/L 14-59 [facility] AST [Catalytic activity/Vol] 23 U/L 15-37 [facility] Bilirubin [Mass/Vol] 0.6 mg/dL 0.2-1.0 [facility] Calcium [Mass/Vol] 9.4 mg/dL 8.5-10.1 [facility] Chloride [Moles/Vol] 106 mmol/L 98-107 [facility] CO2 [Moles/Vol] 27.3 mmol/L 21.0-32.0 [facility] Creatinine [Mass/Vol] 0.77 mg/dL 0.55-1.02 [facility] GFR/1.73 sq M.predicted MDRD (S/P/Bld) [Vol rate/Area] mL/min/{1.73_m2} >=60 [facility] Glucose [Mass/Vol] 93 mg/dL 74-106 [facility] Potassium [Moles/Vol] 3.7 mmol/L 3.5-5.1 [facility] Protein [Mass/Vol] 7.1 g/dL 6.4-8.2 [facility] Sodium [Moles/Vol] 144 mmol/L 136-145 [facility] Urea nitrogen [Mass/Vol] 13.0 mg/dL 7.0-18.0 [facility] Urea nitrogen/Creatinine [Mass ratio] 16.9 mg/mg [facility] Laboratory - Hematology and Cell countson 09-01-2023 Immature granulocytes/100 WBC (Bld) 0.2 % 0.0-0.5 [facility] Leukocytes [#/volume] correc beckie for nucleated erythrocytes in Blood by Automated counon 09-01-2023 WBC corrected for nucl RBC Auto (Bld) [#/Vol] 5.3 10 3/uL 4.0-11.0 [facility] Lymphocytes Auto (Bld) [#/Vo l]on 09-01-2023 Lymphocytes (Bld) [#/Vol] 1.4 10 3/uL 1.2-3.8 [facility] Lymphocytes/100 WBC Auto (Bl d)on 09-01-2023 Lymphocytes/100 WBC (Bld) 26.2 % 20.5-60.0 [facility] MCH Auto (RBC) [Entitic mass ]on 09-01-2023 MCH (RBC) [Entitic mass] 31.9 pg 26.7-34.0 [facility] MCHC Auto (RBC) [Mass/Vol]on 09-01-2023 MCHC (RBC) [Mass/Vol] 33.2 g/dL 29.9-35.2 [facility] MCV Auto (RBC) [Entitic vol] on 09-01-2023 MCV (RBC) [Entitic vol] 96.1 fL 81.0-99.0 [facility] Monocytes Auto (Bld) [#/Vol] on 09-01-2023 Monocytes (Bld) [#/Vol] 0.5 10 3/uL 0.3-0.8 [facility] Monocytes/100 WBC Auto (Bld) on 09-01-2023 Monocytes/100 WBC (Bld) 9.5 % 1.7-12.0 [facility] Neutrophils Auto (Bld) [#/Vo l]on 09-01-2023 Neutrophils (Bld) [#/Vol] 3.2 10 3/uL 1.4-6.5 [facility] Neutrophils/100 WBC Auto (Bl d)on 09-01-2023 Neutrophils/100 WBC (Bld) 60.8 % 43.0-75.0 [facility] No Panel Informationon 08-31 Clostridium difficile (PCR)(LAB) Negative NEGATIVE [facility] Miscellaneous Test Comment See comment [facility] Comment on above: Specimen Source: ST - Stool - Stool - 700.100 Stool Campylobacter Culture Res 1 \R\ Campylobacter Culture\R\ No Campylobacter species isolated. [facility] Comment on above: [facility], Eosinophils # (Auto) 0.1 10 3/uL 0.0-0.7 [facility] Immature Granulocyte # (Auto) 0.01 10 3/uL 0.00-0.03 [facility] No Panel InformationOrdered By: [place] on 09-01-2023 E coli Shiga Toxin EIA Fi [facility] Salmonella/Shigella Screen [facility] Platelet mean volume Auto (B ld) [Entitic vol]on 09-01-2023 Platelet mean volume (Bld) [Entitic vol] 11.2 fL 9.5-13.5 [facility] Platelets Auto (Bld) [#/Vol] on 09-01-2023 Platelets (Bld) [#/Vol] 222 10 3/uL 150-450 [facility] RBC Auto (Bld) [#/Vol]on RBC (Bld) [#/Vol] 4.14 10 6/uL Low 4.20-5.40 [facility] Serum or plasma albumin/glob ulin mass ratioon 09-01-2023 Albumin/Globulin [Mass ratio] 1.0 {ratio} [facility] Serum or plasma anion gap de terminationon 09-01-2023 Anion gap [Moles/Vol] 14.4 mmol/L [facility] Alanine aminotransferase [En zymatic activity/volume] in Serum or PlasmaOrdered By: Akil Martinez on 08-25-2023 ALT [Catalytic activity/Vol] 18 U/L Normal 7-52 [facility] Comment on above: Performed By: #### C BC, CMP wRFX A1C #### [place] [address] [place] Albumin [Mass/volume] in Ser um or Plasma by Bromocresol green (BCG) dye binding methoOrdered By: Akil Martinez on 08-25-2023 Albumin BCG dye [Mass/Vol] 4.2 g/dL 3.5-5.7 [facility] Alkaline phosphatase [Enzyma tic activity/volume] in Serum or PlasmaOrdered By: Akil Martinez on 08-25-2023 ALP [Catalytic activity/Vol] 88 U/L Normal 34-104 [facility] Comment on above: Result Comment: PERF ORMED BY: [place] [address] PATHOLOGIST [employer]ET[employer]ATION KANDI ECHEVARRIA M.D. Performed By: #### C BC, CMP wRFX A1C #### [address] Aspartate aminotransferase [ Enzymatic activity/volume] in Serum or PlasmaOrdered By: Akil Martinez on 08-25-2023 AST [Catalytic activity/Vol] 18 U/L Normal 13-39 [facility] Comment on above: Performed By: #### C BC, CMP wRFX A1C #### [address] Automated basophil %Ordered By: Akil Martinez on 08-25-2023 Basophils/100 WBC (Bld) 0.9 % Normal . [facility] Comment on above: Performed By: #### C BC, CMP wRFX A1C #### [place] [address] [place] Automated basophil countOrde red By: Akil Martinez on 08-25-2023 Basophils (Bld) [#/Vol] 0.0 10*3/uL Normal 0.0-0.2 [facility] Comment on above: Result Comment: PERF ORMED BY: [place] [address] PATHOLOGIST [employer] KANDI ECHEVARRIA M.D. Performed By: #### C BC, CMP wRFX A1C #### [facility] [address] [place] [address] Automated blood monocyte cou ntOrdered By: Akil Martinez on 08-25-2023 Monocytes (Bld) [#/Vol] 0.5 10*3/uL Normal 0.0-0.8 [facility] Comment on above: Performed By: #### C BC, CMP wRFX A1C #### [address] Automated eosinophil %Ordere d By: Akil Martinez on 08-25-2023 Eosinophils/100 WBC (Bld) 2.2 % Normal . [facility] Comment on above: Performed By: #### C BC, CMP wRFX A1C #### [address] Automated eosinophil countOr dered By: Akil Martinez on 08-25-2023 Eosinophils (Bld) [#/Vol] 0.1 10*3/uL Normal 0.0-0.45 [facility] Comment on above: Performed By: #### C BC, CMP wRFX A1C #### [facility] [address] [place] [address] Automated monocyte %Ordered By: Akil Martinez on 08-25-2023 Monocytes/100 WBC (Bld) 8.9 % Normal . [facility] Comment on above: Performed By: #### C BC, CMP wRFX A1C #### [facility] [address] [place] [address] Automated neutrophil %Ordere d By: Akil Martinez on 08-25-2023 Neutrophils/100 WBC (Bld) 65.3 % Normal . [facility] Comment on above: Performed By: #### C BC, CMP wRFX A1C #### [facility] [address] Bilirubin Test strip Ql (U)O rdered By: Akil Martinez on 08-25-2023 Bilirubin Ql (U) Negative Negative [facility] Bilirubin.total [Mass/volume ] in Serum or PlasmaOrdered By: Akil Martinez on 08-25-2023 Bilirubin [Mass/Vol] 0.5 mg/dL Normal 0.3-1.0 [facility] Comment on above: Performed By: #### C BC, CMP wRFX A1C #### [address] CMP with reflex to A1Con Albumin [Mass/Vol] 4.2 g/dL Normal 3.5-5.7 [facility] Comment on above: Performed By: #### C BC, CMP wRFX A1C #### [address] GFR/1.73 sq M.predicted MDRD (S/P/Bld) [Vol rate/Area] mL/min/{1.73_m2} Normal [facility] Comment on above: Performed By: #### C BC, CMP wRFX A1C #### [address] Calcium [Mass/volume] in Ser um or PlasmaOrdered By: Akil Martinez on 08-25-2023 Calcium [Mass/Vol] 9.6 mg/dL Normal 8.6-10.3 [facility] Comment on above: Performed By: #### C BC, CMP wRFX A1C #### [place] [address] [place] Carbon dioxide, total [Moles /volume] in Serum or PlasmaOrdered By: Akil Martinez on 08-25-2023 CO2 [Moles/Vol] 27.5 mmol/L Normal 21.0-31.0 [facility] Comment on above: Performed By: #### C BC, CMP wRFX A1C #### [place] [address] [place] Chloride [Moles/volume] in S raheel or PlasmaOrdered By: Akil Martinez on 08-25-2023 Chloride [Moles/Vol] 107 mmol/L Normal 98-107 [facility] Comment on above: Performed By: #### C BC, CMP wRFX A1C #### [address] Color of Urine by AutoOrdere d By: Akil Martinez on 08-25-2023 Color (U) Light-yellow Normal Yellow [facility] Comment on above: Order Comment: Name Collection Type:: Clean-Voided Midstream Performed By: #### U A #### [address] Complete Blood Count Auto Di ffon 08-25-2023 Mean Corpuscular HGB Conc 33.6 g/dL Normal 32.0-35.0 [facility] Comment on above: Performed By: #### C BC, CMP wRFX A1C #### [address] NRBC% 0.1 /100{WBC} Normal 0-0.5 [facility] Comment on above: Performed By: #### C BC, CMP wRFX A1C #### [address] Creatinine [Mass/volume] in Serum or PlasmaOrdered By: Akil Martinez on 08-25-2023 Creatinine [Mass/Vol] 0.73 mg/dL Normal 0.60-1.20 [facility] Comment on above: Performed By: #### C BC, CMP wRFX A1C #### [place] [address] [place] ECG 12 lead ECGon 08-25-2023 ECG 12 lead ECG [facility] Main [place] [address] [place] [address] Electrocardiograph Report Signed Patient: Sayda Fraire MR#: [id number] [birth year] : 1955 Acct:[id number] Age/Sex: 68 / F ADM Date: 08/25/23 Loc: PS Room: Type: [facility] Attending Dr: Akil Martinez DO Ordering Provider: Akil Martinez DO Date of Service: 08/25/2307/14/1100 ECG/ECG 12 lead ECG: LEFT REVERSE TOTAL SHOULDER ARTHROPLASTY Copies to: Test Reason : Blood Pressure : / mmHG Vent. Rate : 056 BPM Atrial Rate : 056 BPM P-R Int : 134 ms QRS Dur : 090 ms QT Int : 428 ms P-R-T Axes : 042 -05 040 degrees QTc Int : 413 ms Sinus bradycardia Otherwise normal ECG No previous ECGs available Confirmed by SANTANA STEPHENS MD ([id number]) on 08/25/2023 5:46:17 PM Referred By: JEANMARIE Electronically Signed By:SANTANA STEPHENS MD Transcribed By: ASHA Signed By Santana Stephens MD 0 08/25/23 1746 Normal [facility] Erythrocyte distribution wid th [Ratio] by Automated countOrdered By: Akil Martinez on 08-25-2023 Erythrocyte distribution width (RBC) [Ratio] 13.8 % Normal 11.9-15.3 [facility] Comment on above: Performed By: #### C BC, CMP wRFX A1C #### [facility] [address] [place] [id number] [place] Erythrocytes [#/volume] in B lood by Automated countOrdered By: Akil Martinez on 08-25-2023 RBC (Bld) [#/Vol] 3.95 10*6/uL Normal 3.60-5.00 [facility] Comment on above: Performed By: #### C BC, CMP wRFX A1C #### [facility] [address] [place] [address] [place] Glucose [Mass/volume] in Ser um or PlasmaOrdered By: Akil Martinez on 08-25-2023 Glucose [Mass/Vol] 97 mg/dL Normal 70-100 [facility] Comment on above: Performed By: #### C BC, CMP wRFX A1C #### [facility] [address] [place] [address] [place] Glucose [Mass/volume] in Uri ne by Test stripOrdered By: Akil Martinez on 08-25-2023 Glucose Test strip (U) [Mass/Vol] Normal mg/dL Normal [facility] Hematocrit [Volume Fraction] of Blood by Automated countOrdered By: Akil Martinez on 08-25-2023 Hematocrit (Bld) [Volume fraction] 37.7 % Normal 34.0-46.4 [facility] Comment on above: Performed By: #### C BC, CMP wRFX A1C #### [address] Hemoglobin Test strip Ql (U) Ordered By: Akil Martinez on 08-25-2023 Hemoglobin Ql (U) Trace High Negative [facility] Hemoglobin [Mass/volume] in BloodOrdered By: Akil Martinez on 08-25-2023 Hemoglobin (Bld) [Mass/Vol] 12.7 g/dL Normal 11.8-15.4 [facility] Comment on above: Performed By: #### C BC, CMP wRFX A1C #### [address] Ketones [Presence] in Urine by Test stripOrdered By: Akil Martinez on 08-25-2023 Ketones Ql (U) Negative Normal Negative [facility] Comment on above: Order Comment: Name Collection Type:: Clean-Voided Midstream Performed By: #### U A #### [address] Leukocyte esterase [Presence ] in Urine by Test stripOrdered By: Akil Martinez on 08-25-2023 Leukocyte esterase Test strip Ql (U) Negative Normal Negative [facility] Comment on above: Order Comment: Name Collection Type:: Clean-Voided Midstream Performed By: #### U A #### [place] [address] [place] Leukocytes [#/volume] correc beckie for nucleated erythrocytes in Blood by Automated counOrdered By: Akil Martinez on 08-25-2023 WBC corrected for nucl RBC Auto (Bld) [#/Vol] 5.6 10*3/uL 3.8-11.6 [facility] Leukocytes [#/volume] in Blo od by Automated countOrdered By: Akil Martinez on 08-25-2023 WBC (Bld) [#/Vol] 5.6 10*3/uL Normal 3.8-11.6 [facility] Comment on above: Performed By: #### C BC, CMP wRFX A1C #### [facility] [address] [place] [address] [place] Lymphocytes [#/volume] in Bl ood by Automated countOrdered By: Akil Martinez on 08-25-2023 Lymphocytes (Bld) [#/Vol] 1.3 10*3/uL Normal 1.00-4.8 [facility] Comment on above: Performed By: #### C BC, CMP wRFX A1C #### [address] Lymphocytes/100 leukocytes i n Blood by Automated countOrdered By: Akil Martinez on 08-25-2023 Lymphocytes/100 WBC (Bld) 22.7 % Normal . [facility] Comment on above: Performed By: #### C BC, CMP wRFX A1C #### [facility] [address] [place] [address] [place] MCH [Entitic mass] by Automa beckie countOrdered By: Akil Martinez on 08-25-2023 MCH (RBC) [Entitic mass] 32.1 pg Normal 24.7-34.3 [facility] Comment on above: Performed By: #### C BC, CMP wRFX A1C #### [facility] [address] [place] [address] MCHC Auto (RBC) [Mass/Vol]Or dered By: Akil Martinez on 08-25-2023 MCHC (RBC) [Mass/Vol] 33.6 g/dL 32.0-35.0 [facility] MCV [Entitic volume] by Auto mated countOrdered By: Akil Martinez on 08-25-2023 MCV (RBC) [Entitic vol] 95.4 fL Normal 80-100 [facility] Comment on above: Performed By: #### C BC, CMP wRFX A1C #### [facility] [address] [place] [address] [place] MRSA Cultureon 08-25-2023 MRSA Culture No MRSA Isolated 2 Days PERFORMED BY: [place] [address] PATHOLOGIST SVP MONETIZATION KANDI ECHEVARRIA M.D. Normal [facility] Comment on above: Performed By: #### C UMRSA #### [place] [address] [place] Neutrophils [#/volume] in Bl ood by Automated countOrdered By: Akil Martinez on 08-25-2023 Neutrophils (Bld) [#/Vol] 3.7 10*3/uL Normal 1.8-7.7 [facility] Comment on above: Performed By: #### C BC, CMP wRFX A1C #### [address] Nitrite Test strip Ql (U)Ord ered By: Akil Martinez on 08-25-2023 Nitrite Ql (U) Negative Negative [facility] No Panel InformationOrdered By: Akil Martinez on 08-25-2023 Estimated GFR (CKD-EPI) > 60.0 mL/Min [facility] Creatinine Clearance (Chem N/A [facility] Nucleated erythrocytes [Pres ence] in Blood by Automated countOrdered By: Akil Martinez on 08-25-2023 Nucleated RBC Auto Ql (Bld) 0.1 /100{WBC} 0-0.5 [facility] Platelet mean volume [Entiti c volume] in Blood by Automated countOrdered By: Akil Martinez on 08-25-2023 Platelet mean volume (Bld) [Entitic vol] 9.5 fL Normal 6.3-10.7 [facility] Comment on above: Performed By: #### C BC, CMP wRFX A1C #### [place] [address] [place] Platelets [#/volume] in Bloo d by Automated countOrdered By: Akil Martinez on 08-25-2023 Platelets (Bld) [#/Vol] 192 10*3/uL Normal 150-450 [facility] Comment on above: Performed By: #### C BC, CMP wRFX A1C #### [facility] [address] [place] [address] Potassium [Moles/volume] in Serum or PlasmaOrdered By: Akil Martinez on 08-25-2023 Potassium [Moles/Vol] 3.8 mmol/L Normal 3.5-5.1 [facility] Comment on above: Performed By: #### C BC, CMP wRFX A1C #### [address] Protein Test strip (U) [Mass /Vol]Ordered By: Akil Martinez on 08-25-2023 Protein (U) [Mass/Vol] Negative Negative [facility] Protein [Mass/volume] in Ser um or PlasmaOrdered By: Akil Martinez on 08-25-2023 Protein [Mass/Vol] 6.4 g/dL Normal 6.4-8.9 [facility] Comment on above: Performed By: #### C BC, CMP wRFX A1C #### [address] Serum globulin measurement b y calculation (mass/volume)Ordered By: Akil Martinez on 08-25-2023 Globulin (S) [Mass/Vol] 2.2 g/dL Normal [facility] Comment on above: Performed By: #### C BC, CMP wRFX A1C #### [facility] [address] [place] [address] Serum or plasma albumin/glob ulin mass ratioOrdered By: Akil Martinez on 08-25-2023 Albumin/Globulin [Mass ratio] 1.9 {ratio} Normal [facility] Comment on above: Performed By: #### C BC, CMP wRFX A1C #### [address] Serum or plasma anion gap de terminationOrdered By: Akil Martinez on 08-25-2023 Anion gap [Moles/Vol] 11.3 mmol/L Normal 6.0-15.0 [facility] Comment on above: Performed By: #### C BC, CMP wRFX A1C #### [address] Sodium [Moles/volume] in Ser um or PlasmaOrdered By: Akil Martinez on 08-25-2023 Sodium [Moles/Vol] 142 mmol/L Normal 136-145 [facility] Comment on above: Performed By: #### C BC, CMP wRFX A1C #### [facility] [address] [place] [address] Specific gravity Test strip (U) [Rel density]Ordered By: Akil Martinez on 08-25-2023 Specific gravity (U) [Rel density] 1.015 1.001-1.030 [facility] Urea nitrogen [Mass/volume] in Serum or PlasmaOrdered By: Akil Martinez on 08-25-2023 Urea nitrogen [Mass/Vol] 15 mg/dL Normal 7-25 [facility] Comment on above: Performed By: #### C BC, CMP wRFX A1C #### [address] Urinalysison 08-25-2023 Bilirubin,Urine Negative Normal Negative [facility] Comment on above: Order Comment: Name Collection Type:: Clean-Voided Midstream Performed By: #### U A #### [address] Glucose Ql (U) Normal Normal Normal [facility] Comment on above: Order Comment: Name Collection Type:: Clean-Voided Midstream Performed By: #### U A #### [place] [address] [place] Nitrite,Urine Negative Normal Negative [facility] Comment on above: Order Comment: Name Collection Type:: Clean-Voided Midstream Performed By: #### U A #### [address] Occult Blood,Urine Trace High Negative [facility] Comment on above: Order Comment: Name Collection Type:: Clean-Voided Midstream Result Comment: PERF ORMED BY: [place] [address] PATHOLOGIST SVP MONETIZATION KANDI ECHEVARRIA M.D. Performed By: #### U A #### [address] Protein,Urine Negative Normal Negative [facility] Comment on above: Order Comment: Name Collection Type:: Clean-Voided Midstream Performed By: #### U A #### [address] Specificy [place],Urine 1.015 Normal 1.001-1.030 [facility] Comment on above: Order Comment: Name Collection Type:: Clean-Voided Midstream Performed By: #### U A #### [address] Urobilinogen,Urine Normal Normal Normal [facility] Comment on above: Order Comment: Name Collection Type:: Clean-Voided Midstream Performed By: #### U A #### [address] Urine appearanceOrdered By: Akil Martinez on 08-25-2023 Appearance (U) Clear Normal Clear [facility] Comment on above: Order Comment: Name Collection Type:: Clean-Voided Midstream Performed By: #### U A #### [address] Urobilinogen Test strip (U) [Mass/Vol]Ordered By: Akil Martinez on 08-25-2023 Urobilinogen (U) [Mass/Vol] Normal mg/dL Normal [facility] Wound methicillin resistant Staphylococcus aureus (MRSA) cultureOrdered By: Akil Martinez on 08-25-2023 MRSA isol Org specific cx Ql (Unsp spec) No MRSA Isolated 2 Days [facility] pH of Urine by Test stripOrd ered By: Akil Martinez on 08-25-2023 pH (U) 5.5 [pH] Normal 5.0-9.0 [facility] Comment on above: Order Comment: Name Collection Type:: Clean-Voided Midstream Performed By: #### U A #### [place] [address] [facility] [address] shoulder LT wo conon - CT shoulder LT wo con [facility] [address] [place] [address] [place] [address] CT Scan Report Signed Patient: Sayda Fraire MR#: [id number] [birth year] : 1955 Acct:[id number] Age/Sex: 68 / F ADM Date: 08/14/23 Loc: CT Room: Type: [facility] Attending Dr: Akil Martinez DO Copies to: Akil Martinez DO Ordering Provider: Akil Martinez DO Date of Service: 08/14/23 CT/CT shoulder LT wo con: M19.012 - Primary osteoarthritis, left shoulder CT shoulder LT wo con 08/14/2023 3:11 PM SIGNS AND SYMPTOMS: M19.012 - Primary osteoarthritis, left shoulder TECHNIQUE: Multidetector CT axial slices of the left shoulder without IV contrast. Multiplanar and 3-D reformats were performed and viewed on a separate workstation and reviewed to further define anatomy and possible pathology. CT was performed with one or more of the following dose reduction techniques: Automated exposure control, adjustment of the mA and/or kV according to patient size, or use of iterative reconstruction technique. COMPARISON: None. FINDINGS: There is mild hypertrophy of the acromioclavicular joint. There is severe narrowing of the glenohumeral joint with subcortical cystic change and sclerosis on both sides of the joint space. Osteophyte formation is noted diffusely. There is an accompanying glenohumeral joint effusion with a ganglion cyst extending anteriorly measuring 3.2 x 0.9 x 1.4 cm. There is no evidence of fracture or dislocation. The visualized left hemithorax is grossly intact. There is dependent atelectasis with mild interstitial prominence. Atherosclerotic changes are noted in the thoracic aorta. CT/CT shoulder LT wo con IMPRESSION: No fracture or dislocation. Severe degenerative changes are noted in the glenohumeral joint with an accompanying joint effusion. There is mild hypertrophy of the acromioclavicular joint. Impression dictated by: Forrest Johnston M.D.08/14/2023 4:02 PM Dictation Location: RADIO-PC-07 Transcribed By: [facility] 08/14/23 1602 Dictated By: Forrest Johnston II, MD 08/14/23 1556 Signed By: 08/14/23 1602 Normal [facility] XR shoulder LT min 2V*on XR shoulder LT min 2V* [facility] [address] [place] [address] XRay Report Signed Patient: Sayda Fraire MR#: [id number] [birth year] : 1955 Acct:[id number] Age/Sex: 68 / F ADM Date: 08/13/23 Loc: [facility] Room: Type: [facility] Attending Dr: Akil Martinez DO Copies to: Akil Martinez DO Ordering Provider: Akil Martinez DO Date of Service: 08/13/23 XR/XR shoulder LT min 2V*: M19.012 - Primary osteoarthritis, left shoulder LEFT SHOULDER - - 4 views CLINICAL HISTORY: Posterolateral left shoulder pain which is chronic. COMPARISON: None FINDINGS: Severe degenerative changes of the glenohumeral joint without acute bony process. There appears to be associated anterior subluxation. Moderate degenerative changes of the AC joint. No acute bony process. XR/XR shoulder LT min 2V* IMPRESSION: SEVERE DEGENERATIVE CHANGES OF THE GLENOHUMERAL JOINT WITHOUT ACUTE BONY PROCESS. Impression dictated by: Gonzalez Galo Jr., D.O.08/13/2023 3:51 PM Dictation Location: [facility]14 Transcribed By: [facility] 08/13/23 1551 Dictated By: Gonzalez Galo Jr, DO 08/13/23 1549 Signed By: 08/13/23 1551 Normal [facility] Albumin [Mass/volume] in Ser um or PlasmaOrdered By: [facility] on 12-28-2021 Albumin [Mass/Vol] 3.7 g/dL 3.2-5.5 [facility] Blood hemoglobin measurement (mass/volume)Ordered By: [facility] on 12-28-2021 Hemoglobin (Bld) [Mass/Vol] 13.7 g/dL 11.8-15.4 [facility] Cholesterol [Mass/volume] in Serum or PlasmaOrdered By: [facility] on 12-28-2021 Cholesterol [Mass/Vol] 215 mg/dL 140-200 [facility] Comment on above: Chol less than 200 m g/dl low riskChol 201-239 mg/dl borderline riskChol 240 mg/dl and greater high risk Cholesterol in LDL Calc [Mas s/Vol]Ordered By: [facility] on 12-28-2021 Cholesterol in LDL [Mass/Vol] 142 mg/dL 0-100 [facility] Comment on above: LDL ATP III CLASSIFI CATIONLDL less than 100 mg/dL OptimalLDL 100-129 mg/dL Near or above optimalLDL 130-159 mg/dL Borderline highLDL 160-189 mg/dL HighLDL greater than 189 mg/dL Very high Cholesterol in VLDL Calc [Ma ss/Vol]Ordered By: [facility] on 12-28-2021 Cholesterol in VLDL [Mass/Vol] 16 mg/dL [facility] Creatinine and Glomerular fi ltration rate.predicted panel (S/P/Bld)Ordered By: [facility] on 12-28-2021 Creatinine [Mass/Vol] 0.81 mg/dL 0.44-1.03 [facility] Erythrocyte distribution wid th Auto (RBC) [Ratio]Ordered By: [facility] on 12-28-2021 Erythrocyte distribution width (RBC) [Ratio] 13.6 % 11.9-15.3 [facility] Estimated glomerular filtrat ion rate (GFR) non- AmericanOrdered By: [facility] on 12-28-2021 GFR/1.73 sq M.predicted among non-blacks MDRD (S/P/Bld) [Vol rate/Area] > 60 mL/Min [facility] Glucose mean value [Mass/vol ume] in Blood Estimated from glycated hemoglobinOrdered By: [facility] on 12-28-2021 Average glucose Estimated from glycated hemoglobin (Bld) [Mass/Vol] 123 mg/dL [facility] Hematocrit Auto (Bld) [Volum e fraction]Ordered By: [facility] on 12-28-2021 Hematocrit (Bld) [Volume fraction] 41.0 % 34.0-46.4 [facility] Laboratory - Hematology and Cell countsOrdered By: [facility] on 12-28-2021 HbA1c (Bld) [Mass fraction] 5.9 % 4.3-5.6 [facility] Comment on above: Increased risk for d iabetes: 5.7 - 6.4diabetes: >6.4glycemic control for adults with diabetes: <7.0 MCH Auto (RBC) [Entitic mass ]Ordered By: [facility] on 12-28-2021 MCH (RBC) [Entitic mass] 32.0 pg 24.7-34.3 [facility] MCHC Auto (RBC) [Mass/Vol]Or dered By: [facility] on 12-28-2021 MCHC (RBC) [Mass/Vol] 33.5 g/dL 32.0-35.0 [facility] MCV Auto (RBC) [Entitic vol] Ordered By: [facility] on 12-28-2021 MCV (RBC) [Entitic vol] 95.7 fL 80-100 [facility] No Panel InformationOrdered By: [facility] on 12-28-2021 Estimated GFR () > 60 mL/Min [facility] Comment on above: GFR estimated refere nce range: According to KDOQI guidelines, <60 ml/min/1.73m2 is sufficient to diagnose a patient with chronic kidney disease. Pharmacy Creatinine Clearance (Chem N/A [facility] Triglycerides Reflex 83 mg/dL 35-149 [facility] Comment on above: TRIG ATP III CLASSIF ICATIONTRIG less than 150 mg/dL NormalTRIG 150-199 mg/dL Borderline highTRIG 200-500 mg/dL High TRIG greater than 500 mg/dL Very highStandard traceable to the Center for Disease Conrtrol and Prevention (CDC) test method. Platelet mean volume Auto (B ld) [Entitic vol]Ordered By: [facility] on 12-28-2021 Platelet mean volume (Bld) [Entitic vol] 10.2 fL 6.3-10.7 [facility] Platelets Auto (Bld) [#/Vol] Ordered By: [facility] on 12-28-2021 Platelets (Bld) [#/Vol] 190 10*3/uL 150-450 [facility] Protein [Mass/volume] in Ser um or PlasmaOrdered By: [facility] on 12-28-2021 Protein [Mass/Vol] 6.2 g/dL 6.1-7.9 [facility] RBC Auto (Bld) [#/Vol]Ordere d By: [facility] on 12-28-2021 RBC (Bld) [#/Vol] 4.29 10*6/uL 3.60-5.00 [facility] Serum or plasma alanine stephenson otransferase measurement without P-5'-P (enzymatic activiOrdered By: [facility] on 12-28-2021 ALT No additional P-5'-P [Catalytic activity/Vol] 16 U/L 10-60 [facility] Serum or plasma alkaline brandy sphatase measurement (enzymatic activity/volume)Ordered By: [facility] on 12-28-2021 ALP [Catalytic activity/Vol] 91 U/L 32-92 [facility] Serum or plasma anion gap de terminationOrdered By: [facility] on 12-28-2021 Anion gap [Moles/Vol] 9.3 mmol/L 6.0-15.0 [facility] Serum or plasma aspartate am inotransferase measurement (enzymatic activity/volume)Ordered By: [facility] on 12-28-2021 AST [Catalytic activity/Vol] 19 U/L 10-42 [facility] Serum or plasma calcium jennifer urement (mass/volume)Ordered By: [facility] on 12-28-2021 Calcium [Mass/Vol] 9.7 mg/dL 8.2-10.2 [facility] Serum or plasma chloride claudia surement (moles/volume)Ordered By: [facility] on 12-28-2021 Chloride [Moles/Vol] 105 mmol/L 95-114 [facility] Serum or plasma glucose jennifer urement (mass/volume)Ordered By: [facility] on 12-28-2021 Glucose [Mass/Vol] 111 mg/dL 70-100 [facility] Comment on above: ADA recommended refe rence rangeRandom Glucose Reference Range is dependent on time and content of last meal. Glucose of more than 200 mg/dL in a nonstressed, ambulatory subject supports the diagnosis of Diabetes Mellitus. Serum or plasma high density lipoprotein (HDL) cholesterol measurementOrdered By: [facility] on 12-28-2021 Cholesterol in HDL [Mass/Vol] 56 mg/dL 35-85 [facility] Comment on above: HDL CHOL ATP-III CLA SSIFICATION Cardiovascular RiskHDL > or equal to 60 mg/dL LOWHDL < 40 mg/dL HIGH Serum or plasma potassium me asurement (moles/volume)Ordered By: [facility] on 12-28-2021 Potassium [Moles/Vol] 4.1 mmol/L 3.5-5.1 [facility] Serum or plasma sodium measu rement (moles/volume)Ordered By: [facility] on 12-28-2021 Sodium [Moles/Vol] 140 mmol/L 136-146 [facility] Serum or plasma total biliru bin measurement (mass/volume)Ordered By: [facility] on 12-28-2021 Bilirubin [Mass/Vol] 0.7 mg/dL 0.3-1.2 [facility] Serum or plasma total carbon dioxide measurement (moles/volume)Ordered By: [facility] on 12-28-2021 CO2 [Moles/Vol] 29.8 mmol/L 22.0-30.0 [facility] Serum or plasma total choles terol/high density lipoprotein (HDL) cholesterol mass ratOrdered By: [facility] on 12-28-2021 Cholesterol.total/Crystal sterol in HDL [Mass ratio] 3.8 {ratio} <5.0 [facility] Serum or plasma urea nitroge n measurement (mass/volume)Ordered By: [facility] on 12-28-2021 Urea nitrogen [Mass/Vol] 13 mg/dL 9-23 [facility] TSH DL <= 0.005 mIU/L QnOrde red By: [facility] on 12-28-2021 TSH Qn 2.13 m[IU]/L 0.45-5.33 [facility] WBC Auto (Bld) [#/Vol]Ordere d By: [facility] on 12-28-2021 WBC (Bld) [#/Vol] 4.3 10*3/uL 3.8-11.6 [facility] MG MAMM DX 3D RT CADon 12-11 MG MAMM DX 3D RT CAD Patient: JENI TAMIKA ASHLEY Estrella. Exam Date: 12/11/2021 : 1955 Gender:F Ordering : DR CAPO PALM D.O. Admission #: [id number] Family : Order #: [id number] CLICK HERE TO VIEW EXAM RADIOLOGY REPORT PROCEDURE: MAMMOGRAM DIAGNOSTIC 3D RIGHT CAD COMPARISON: MG MAMM RT DIAG FU, 06/06/2021. MG MAMM SCREEN 3D ASHU CAD, 05/24/2021. MG MAMM SCREEN ASHU W CAD, 04/24/2020. DIGITIZED_MAMMO, 03/20/2009. INDICATIONS: Abnormal findings on diagnostic imaging of breast Calculator Name NCI Breast Cancer Risk Assessment Tool 5 Year Breast Cancer Risk 2.60% Lifetime Breast Cancer Risk 8.30% Personal Breast Cancer No Personal Ovarian Cancer No Treatments None Family Cancers Aunt-paternal with breast cancer at age 60; Father with leukemia cancer at age 45. LOCATION: [facility] BREAST COMPOSITION: Heterogeneously dense,which may obscure small masses. FINDINGS: DIAGNOSTIC CATEGORY 2--BENIGN FINDING: RIGHT BREAST: No significant suspicious finding. Stable appearance of the numerous calcifications within the anterior breast which have been biopsied twice with benign results. No significant interval change. Annual screening mammography is recommended. RECOMMENDATIONS: ROUTINE MAMMOGRAM AND CLINICAL EVALUATION IN 12 MONTHS. PLEASE NOTE: A NORMAL MAMMOGRAM DOES NOT EXCLUDE THE POSSIBILITY OF BREAST CANCER. A CLINICALLY SUSPICIOUS PALPABLE LUMP SHOULD BE BIOPSIED. Dictated by: Fany Ascencio M.D. on 12/11/2021 at 08:30 Approved by: Fany Ascencio M.D. on 12/11/2021 at 08:34 Normal [facility] ASIYA - VITAMIN D LCon 022 Vitamin D, 25-Hydroxy 45.7 ng/mL Normal 30.0-100.0 [facility] Comment on above: Result Comment: Mahi min D deficiency has been defined by the [place] of [employer] and an Endocrine Society practice guideline as a level of serum 25-OH vitamin D less than 20 ng/mL (1,2). The Endocrine Society went on to further define vitamin D insufficiency as a level between 21 and 29 ng/mL (2). 1. IOM ([place] [employer]). 2010. Dietary reference intakes for calcium and D. [place]: The National Academies Press. 2. Isela MF, Mathew GERBER, Max MCMAHON, et al. Evaluation, treatment, and prevention of vitamin D deficiency: an Endocrine Society clinical practice guideline. JCEM. 2010; 96(7):1911-30. Performed By: #### D ATVDLC #### [facility] [address] [place] [address] Dr. Oksana Shaw CBC AUTO DIFFon 11-21-2021 BASO # 0.1 103/ul Normal 0.0-0.1 [facility] Comment on above: Performed By: #### D ATCBC #### [facility] [address] [place] [address] Dr. Oksana Shaw Basophils/100 WBC (Bld) 1.4 % Normal 0.2-2.0 [facility] Comment on above: Performed By: #### D ATCBC #### [facility] [address] [place] [address] Dr. Oksana Shaw EO # 0.2 103/ul Normal 0.0-0.7 [facility] Comment on above: Performed By: #### D ATCBC #### [facility] [address] [place] [address] Dr. Oksana Shaw Eosinophils/100 WBC (Bld) 4.2 % Normal 0.9-7.0 [facility] Comment on above: Performed By: #### D ATCBC #### [facility] [address] [place] [address] Dr. Oksana Shaw Erythrocyte distribution width (RBC) [Ratio] 13.1 % Normal 11.0-15.0 [facility] Comment on above: Performed By: #### D ATCBC #### [facility] [address] [place] [address] Dr. Oksana Shaw Hematocrit (Bld) [Volume fraction] 41.2 % Normal 36.0-48.0 [facility] Comment on above: Performed By: #### D ATCBC #### [facility] [address] [place] [address] Dr. Oksana Shaw Hemoglobin (Bld) [Mass/Vol] 13.7 g/dL Normal 12.0-16.0 [facility] Comment on above: Performed By: #### D ATCBC #### [facility] [address] [address] [address] Oksana Shaw IG # 0.00 10e3/ul Normal 0.00-0.03 [facility] Comment on above: Performed By: #### D ATCBC #### [facility] [address] [place] [address] Dr. Oksana Shaw IG % 0.0 % Normal 0.0-0.5 [facility] Comment on above: Performed By: #### D ATCBC #### [facility] [address] [place] [address] Dr. Oksana Shaw LYMPH # 1.6 103/ul Normal 1.2-3.8 [facility] Comment on above: Performed By: #### D ATCBC #### [facility] [address] [place] [address] Dr. Oksana Shaw Lymphocytes/100 WBC (Bld) 31.5 % Normal 20.5-60.0 [facility] Comment on above: Performed By: #### D ATCBC #### [facility] [address] [place] [address] Dr. Oksana Shaw MCH (RBC) [Entitic mass] 32.0 pg Normal 26.7-34.0 [facility] Comment on above: Performed By: #### D ATCBC #### [facility] [address] [place] [address] Dr. Oksana Shaw MCHC (RBC) [Mass/Vol] 33.3 g/dL Normal 29.9-35.2 [facility] Comment on above: Performed By: #### D ATCBC #### [facility] [address] [place] [address] Dr. Oksana Shaw MCV (RBC) [Entitic vol] 96.3 fL Normal 81.0-99.0 [facility] Comment on above: Performed By: #### D ATCBC #### [facility] [address] [place] [address] Dr. Oksana Shaw MONO # 0.5 103/ul Normal 0.3-0.8 [facility] Comment on above: Performed By: #### D ATCBC #### [facility] [address] [place] [address] Dr. Oksana Shaw Monocytes/100 WBC (Bld) 10.0 % Normal 1.7-12.0 [facility] Comment on above: Performed By: #### D ATCBC #### [facility] [address] [place] [address] Dr. Oksana Shaw NEUT # 2.7 103/ul Normal 1.4-6.5 [facility] Comment on above: Performed By: #### D ATCBC #### [facility] [address] [place] [address] Dr. Oksana Shaw Neutrophils/100 WBC (Bld) 52.9 % Normal 43.0-75.0 [facility] Comment on above: Performed By: #### D ATCBC #### [facility] [address] [place] [address] Dr. Oksana Shaw Platelet mean volume (Bld) [Entitic vol] 10.8 fL Normal 9.5-13.5 [facility] Comment on above: Performed By: #### D ATCBC #### [facility] [address] [place] [address] Dr. Oksana Shaw PLT 199 103/ul Normal 150-450 [facility] Comment on above: Performed By: #### D ATCBC #### [facility] [address] [place] [address] Dr. Oksana Shaw RBC 4.28 106/ul Normal 4.20-5.40 [facility] Comment on above: Performed By: #### D ATCBC #### [facility] [address] [place] [address] Dr. Oksana Shaw WBC 5.0 103/ul Normal 4.0-11.0 [facility] Comment on above: Performed By: #### D ATCBC #### [facility] [address] [place] [address] Dr. Oksana Shaw ASIYA - TSHon 11-21-2021 TSH 1.881 uIU/mL Normal 0.358-3.740 [facility] Comment on above: Performed By: #### D ATBMP, DATTSH ####[facility] [address] [address]Dr. Oksana Shaw TSH RANGE SEE BELOW Normal [facility] Comment on above: Result Comment: <0.3 4 UIU/ml HYPERTHYROID 0.34-5.60 UIU/ml EUTHYROID >5.60 UIU/ml HYPOTHYROID Performed By: #### D ATBMP, DATTSH ####[facility] [address] [place], [place] [address]Dr. Oksana Shaw ASIYA- BMP WITH LIPIDon 2021 Anion gap [Moles/Vol] 13.7 mmol/L Normal [facility] Comment on above: Performed By: #### D ATBMP, DATTS ####[facility] [address] [place], [place] [address]Dr. Oksana Shaw Calcium [Mass/Vol] 9.4 mg/dL Normal 8.5-10.1 [facility] Comment on above: Performed By: #### D ATBMP, DATTS ####[facility] [address] [place], [place] [address]Dr. Oksana Shaw Chloride [Moles/Vol] 104 mmol/L Normal 98-107 [facility] Comment on above: Performed By: #### D ATBMP, DATTS ####[facility] [address] [place], [place] [address]Dr. Oksana Shaw Cholesterol [Mass/Vol] 222 mg/dL Critically high <=200 [facility] Comment on above: Performed By: #### D ATBMP, DATTS ####[facility] [address] [place], [place] [address]Dr. Oksana Shaw Cholesterol in HDL [Mass/Vol] 54 mg/dL Normal 40-60 [facility] Comment on above: Performed By: #### D ATBMP, DATTSH ####[facility] [address] [place], [place] [address]Dr. Oksana Shaw Cholesterol in LDL [Mass/Vol] 144.4 mg/dL Normal [facility] Comment on above: Performed By: #### D ATBMP, DATTS ####[facility] [address] [id number]. Oksana Shaw CO2 [Moles/Vol] 28.3 mmol/L Normal 21.0-32.0 [facility] Comment on above: Performed By: #### D ATBMP, DATTSH ####[facility] [address] [id number]. Oksana Shaw Creatinine [Mass/Vol] 0.91 mg/dL Normal 0.55-1.02 [facility] Comment on above: Performed By: #### D ATP, DATTSH ####[facility] [address] [place], [place] [address]Dr. Oksana Shaw EGFR-AF LAO >60 Normal >=60 [facility] Comment on above: Performed By: #### D ATP, DATTSH ####[facility] [address] [place], [place] [address]Dr. Oksana Shaw EGFR-NON AF LAO >60 Normal >=60 [facility] Comment on above: Performed By: #### D AT[facility], DATTS ####[facility] [address] [place], [place] [address]Dr. Oksana Shaw Glucose [Mass/Vol] 110 mg/dL Critically high 74-106 T [facility] Comment on above: Performed By: #### D ATBMP, DATTS ####[facility] [address] [place], [place] [address]Dr. Oksana Shaw HDL NORMAL > or = 60 mg/dl - LO W CARDIOVASCULAR RISK <40 mg/dl - HIGH CARDIOVASCULAR RISK Normal [facility] Comment on above: Performed By: #### D ATBMP, DATTSH ####[facility] [address] [place], [place] [address]Dr. Oksana Shaw LDL CALC NORMAL SEE BELOW Normal [facility] Comment on above: Result Comment: <100 mg/dl OPTIMAL 100 - 129 mg/dl NEAR OR ABOVE OPTIMAL 130 - 159 mg/dl BORDERLINE HIGH 160 - 189 mg/dl HIGH >190 mg/dl VERY HIGH Performed By: #### D ATBMP, DATTS ####[facility] [address] [address]Dr. Oksana Shaw Potassium [Moles/Vol] 4.0 mmol/L Normal 3.5-5.1 [facility] Comment on above: Performed By: #### D ATBMP, DATTSH ####[facility] [address] [address]Dr. Oksana Shaw Sodium [Moles/Vol] 142 mmol/L Normal 136-145 [facility] Comment on above: Performed By: #### D ATP, DATTSH ####[facility] [address] [address]Dr. Oksana Shaw Triglyceride [Mass/Vol] 118 mg/dL Normal <=150 T [facility] Comment on above: Performed By: #### D ATP, DATTS ####[facility] [address] [address]Dr. Natalyleta Shaw Urea nitrogen [Mass/Vol] 16.0 mg/dL Normal 7.0-18.0 [facility] Comment on above: Performed By: #### D ATCOMM[facility], DATTS ####[facility] [address] [place], [place] [address]Dr. Oksana Shaw Urea nitrogen/Creatinine [Mass ratio] 17.6 mg/mg Normal [facility] Comment on above: Performed By: #### D ATP, DATTS ####[facility] [address] [address]Dr. Oksana Shaw VLDL CALC 23.6 mg/dL Normal [facility] Comment on above: Performed By: #### D ATP, DATTS ####[facility] [address] [place], [place] [address]Dr. Oksana Shaw MRI BRAIN WO W CONon 022 MRI BRAIN WO W CON Begin Addendum # 1 Additional thin sections pre and postcontrast performed through the IACs.. No focal or enhancing mass identified within the internal auditory canals or cerebellar pontine angle. No evidence of acoustic schwannoma. Original Report EXAMINATION: MRI BRAIN WO W CON HISTORY: Nystagmus COMPARISON: No relevant comparison available. TECHNIQUE: A variety of imaging planes and parameters were utilized for visualization of suspected pathology. Images were performed with 16 ml Dotarem contrast. FINDINGS: CEREBRUM: No edema, hemorrhage, mass, acute infarction, or inappropriate atrophy. Mild to moderate scattered hyperintense foci are present, typical for a patient of this age, most commonly caused by small vessel ischemic changes. CEREBELLUM: No edema, hemorrhage, mass, acute infarction, or inappropriate atrophy. BRAINSTEM: No edema, hemorrhage, mass, acute infarction, or inappropriate atrophy. CSF SPACES: Ventricles, cisterns, and sulci are appropriate for age. No hydrocephalus, subarachnoid hemorrhage, or mass. SKULL: No mass or other significant visible lesion. SINUSES: Limited views demonstrate no significant mucosal thickening or fluid. ORBITS: Limited views are unremarkable. OTHER: No abnormal meningeal or parenchymal enhancement. IMPRESSION: Mild to moderate white matter signal abnormality. Chronic small vessel ischemic changes are favored No acute infarct Normal [facility] CREATININEon 11-01-2021 Creatinine [Mass/Vol] 0.81 mg/dL Normal 0.55-1.02 [facility] Comment on above: Performed By: #### C SILKE #### [facility] [address] [address] [address] Oksana Shaw EGFR-AF LAO >60 Normal >=60 [facility] Comment on above: Performed By: #### C SILKE #### [facility] [address] [address] [address] Oksana Shaw EGFR-NON AF LAO >60 Normal >=60 [facility] Comment on above: Performed By: #### C SILKE #### [facility] [address] [address] [address] Oksana Shaw US PELVISon 09-03-2021 US PELVIS Ultrasound pelvis, non-obstetric CLINICAL: Lower abdominal pain difficulty urinating, bilateral pelvic pain TECHNIQUE: Transabdominal pelvic ultrasound was performed. FINDINGS: Comparison: None. The uterus and right ovary are not visualized compatible with history of surgical resection. The left ovary measures 2.1 x 1.9 x 1.4 cm. There is color flow to the left ovary. There is no dominant left ovarian or adnexal abnormality. There is no free pelvic fluid or mass seen on either side. Bladder appears grossly normal on limited images. IMPRESSION: 1. Small left ovary, normal in appearance for patient's age. 2. Hysterectomy and right oophorectomy. No adnexal abnormality. 3. No free pelvic fluid. Electronically authenticated by: JOHN BRIDGES Date: 2021-09-03 13:45 Normal [facility] MG MAMM RT DIAG FUon 022 MG MAMM RT DIAG FU Patient: ALVIN FRAIRE. Exam Date: 06/06/2021 : 1955 Gender:F Ordering : DR CAPO PALM D.O. Admission #: [id number] Family : Order #: [id number] CLICK HERE TO VIEW EXAM RADIOLOGY REPORT PROCEDURE: MAMMOGRAM RIGHT DIAGNOSTIC DIGITAL FOLLOW UP COMPARISON: MG MAMM SCREEN ASHU W CAD, 04/24/2020. MG MAMM SCREEN 3D ASHU CAD, 05/24/2021. INDICATIONS: Abnormal findings on diagnostic imaging of breast Calculator Name NCI Breast Cancer Risk Assessment Tool 5 Year Breast Cancer Risk 2.60% Lifetime Breast Cancer Risk 8.30% Personal Breast Cancer No Personal Ovarian Cancer No Treatments None Family Cancers Aunt-paternal with breast cancer at age 60; Father with leukemia cancer at age 45. LOCATION: [facility] BREAST COMPOSITION: Heterogeneously dense,which may obscure small masses. FINDINGS: DIAGNOSTIC CATEGORY 3--PROBABLY BENIGN FINDING. THE FOLLOWING FINDING(S) HAS A HIGH PROBABILITY OF A BENIGN ETIOLOGY: Geographic and clustered microcalcifications identified in the upper-outer quadrant, while this is slightly changed from prior exams this area has been biopsied twice in the past. The calcifications are somewhat coarse. Six-month follow-up was recommended to the patient. RECOMMENDATIONS: SHORT TERM FOLLOW-UP DIAGNOSTIC MAMMOGRAM RIGHT BREAST IN 6 MONTHS. PLEASE NOTE: A NORMAL MAMMOGRAM DOES NOT EXCLUDE THE POSSIBILITY OF BREAST CANCER. A CLINICALLY SUSPICIOUS PALPABLE LUMP SHOULD BE BIOPSIED. Dictated by: Ginger Iraheta MD on 06/06/2021 at 15:28 Approved by: Ginger Iraheta MD on 06/06/2021 at 15:29 Normal [facility] MG MAMM SCREEN 3D ASHU CADon 05-24-2021 MG MAMM SCREEN 3D ASHU CAD Patient: SAYDA FRAIRE Exam Date: 05/24/2021 : 1955 Gender:F Ordering : DR CAPO PALM D.O. Admission #: [id number] Family : Order #: [id number] CLICK HERE TO VIEW EXAM RADIOLOGY REPORT PROCEDURE: MAMMOGRAM SCREENING 3D BILATERAL CAD COMPARISON: MG MAMM SCREEN ASHU W CAD, 12/28/2018. MG MAMM SCREEN ASHU W CAD, 04/24/2020. INDICATIONS: Screening mammography Calculator Name NCI Breast Cancer Risk Assessment Tool 5 Year Breast Cancer Risk 2.60% Lifetime Breast Cancer Risk 8.30% Personal Breast Cancer No Personal Ovarian Cancer No Treatments None Family Cancers Aunt-paternal with breast cancer at age 60; Father with leukemia cancer at age 45. LOCATION: [facility] BREAST COMPOSITION: Heterogeneously dense,which may obscure small masses. FINDINGS: DIAGNOSTIC CATEGORY 0--INCOMPLETE: NEED ADDITIONAL IMAGING EVALUATION. Scattered benign-appearing calcifications are present. Scattered benign-appearing lymph nodes are present. RIGHT BREAST: Interval change in a cluster of microcalcifications upper outer quadrant, mid breast previously with 3 calcifications, currently with 5 calcifications. This is in an area that has been biopsied twice previously indicated by a spring and top hat micro clip marker. Spot compression recommended for further evaluation. LEFT BREAST: No significant suspicious finding. RECOMMENDATIONS: ADDITIONAL MAMMOGRAPHIC VIEWS REQUIRED: RIGHT BREAST - spot compression PLEASE NOTE: A NORMAL MAMMOGRAM DOES NOT EXCLUDE THE POSSIBILITY OF BREAST CANCER. A CLINICALLY SUSPICIOUS PALPABLE LUMP SHOULD BE BIOPSIED. Dictated by: Ginger Iraheta MD on 05/24/2021 at 13:47 Approved by: Ginger Iraheta MD on 05/24/2021 at 14:26 Normal [facility] CLOSTRIDIUM DIFFICILE PCRon 03-08-2021 C difficile Toxin Gene DEMETRIUS Positive Abnormal Negative [facility] Comment on above: Result Comment: Dang nt Requested Flag Toxigenic C difficile: Positive Epidemic Strain Bl/NAP1/027: Presumptive Negative Performed By: #### C DIFNAA #### [facility] [address] [address] [address] Oksana Shaw CULTURE STOOLon 03-06-2021 CULTURE STOOL Culture Observations : NO GROWTH SALMONELLA, SHIGELLA, YERSINIA, CAMPY, E.COLI 0157, OR STAPH AT 72 HRS Normal [facility] Comment on above: Performed By: #### S TOOLCX ####[facility] [address] [address]Dr. Oksana Shaw CBC AUTO DIFFon 03-05-2021 BASO # 0.0 103/ul Normal 0.0-0.1 [facility] Comment on above: Performed By: #### C BC #### [facility] [address] [address] [address] Oksana Shaw Basophils/100 WBC (Bld) 0.5 % Normal 0.2-2.0 [facility] Comment on above: Performed By: #### C BC #### [facility] [address] [address] [address] Oksana Shaw EO # 0.1 103/ul Normal 0.0-0.7 [facility] Comment on above: Performed By: #### C BC #### [facility] [address] [place] [address] Dr. Oksana Shaw Eosinophils/100 WBC (Bld) 1.8 % Normal 0.9-7.0 [facility] Comment on above: Performed By: #### C BC #### [facility] [address] [address] [address] Oksana Shaw Erythrocyte distribution width (RBC) [Ratio] 13.2 % Normal 11.0-15.0 [facility] Comment on above: Performed By: #### C BC #### [facility] [address] [place] [address] Dr. Oksana Shaw Hematocrit (Bld) [Volume fraction] 40.4 % Normal 36.0-48.0 [facility] Comment on above: Performed By: #### C BC #### [facility] [address] [address] [address] Oksana Shaw Hemoglobin (Bld) [Mass/Vol] 13.4 g/dL Normal 12.0-16.0 [facility] Comment on above: Performed By: #### C BC #### [facility] [address] [address] [address] Oksana Shaw IG # 0.01 10e3/ul Normal 0.00-0.03 [facility] Comment on above: Performed By: #### C BC #### [facility] [address] [place] [address] Dr. Oksana Shaw IG % 0.2 % Normal 0.0-0.5 [facility] Comment on above: Performed By: #### C BC #### [facility] [address] [place] [address] Dr. Oksana Shaw LYMPH # 2.0 103/ul Normal 1.2-3.8 [facility] Comment on above: Performed By: #### C BC #### [facility] [address] [place] [address] Dr. Oksana Shaw Lymphocytes/100 WBC (Bld) 31.6 % Normal 20.5-60.0 [facility] Comment on above: Performed By: #### C BC #### [facility] [address] [place] [address] Dr. Oksana Shaw MANUAL DIFF REQ NO Normal [facility] Comment on above: Performed By: #### C BC #### [facility] [address] [place] [address] Dr. Oksana Shaw MCH (RBC) [Entitic mass] 31.5 pg Normal 26.7-34.0 [facility] Comment on above: Performed By: #### C BC #### [facility] [address] [place] [address] Dr. Oksana Shaw MCHC (RBC) [Mass/Vol] 33.2 g/dL Normal 29.9-35.2 [facility] Comment on above: Performed By: #### C BC #### [facility] [address] [place] [address] Dr. Oksana Shaw MCV (RBC) [Entitic vol] 95.1 fL Normal 81.0-99.0 [facility] Comment on above: Performed By: #### C BC #### [facility] [address] [place] [address] Dr. Oksana Shaw MONO # 0.7 103/ul Normal 0.3-0.8 [facility] Comment on above: Performed By: #### C BC #### [facility] [address] [place] [address] Dr. Oksana Shaw Monocytes/100 WBC (Bld) 10.6 % Normal 1.7-12.0 [facility] Comment on above: Performed By: #### C BC #### [facility] [address] [place] [address] Dr. Oksana Shaw NEUT # 3.4 103/ul Normal 1.4-6.5 [facility] Comment on above: Performed By: #### C BC #### [facility] [address] [place] [address] Dr. Oksana Shaw Neutrophils/100 WBC (Bld) 55.3 % Normal 43.0-75.0 [facility] Comment on above: Performed By: #### C BC #### [facility] [address] [place] [address] Dr. Oksana Shaw Platelet mean volume (Bld) [Entitic vol] 10.4 fL Normal 9.5-13.5 [facility] Comment on above: Performed By: #### C BC #### [facility] [address] [place] [address] Dr. Oksana Shaw PLT 247 103/ul Normal 150-450 [facility] Comment on above: Performed By: #### C BC #### [facility] [address] [place] [address] Dr. Oksana Shaw RBC 4.25 106/ul Normal 4.20-5.40 [facility] Comment on above: Performed By: #### C BC #### [facility] [address] [place] [address] Dr. Oksana Shaw WBC 6.2 103/ul Normal 4.0-11.0 [facility] Comment on above: Performed By: #### C BC #### [facility] [address] [place] [address] Dr. Oksana Shaw PROF CHEM 8 (BAS METB)on Anion gap [Moles/Vol] 12.5 mmol/L Normal [facility] Comment on above: Performed By: #### B MP #### [facility] [address] [place], [place] [address] Dr. Oksana Shaw Calcium [Mass/Vol] 9.6 mg/dL Normal 8.4-10.[address] [facility] Comment on above: Performed By: #### B MP #### [facility] [address] [place] [address] Dr. Oksana Shaw Chloride [Moles/Vol] 105 mmol/L Normal 98-107 [facility] Comment on above: Performed By: #### B MP #### [facility] [address] [address] [address] Oksana Shaw CO2 [Moles/Vol] 28.8 mmol/L Normal 22.0-30.0 [facility] Comment on above: Performed By: #### B MP #### [facility] [address] [place] [address] Dr. Oksana Shaw Creatinine [Mass/Vol] 0.87 mg/dL Normal 0.52-1.04 [facility] Comment on above: Performed By: #### B MP #### [facility] [address] [place] [address] Dr. Oksana Shaw EGFR-AF LAO >60 Normal >=60 [facility] Comment on above: Performed By: #### B MP #### [facility] [address] [address] [address] Oksana Shaw EGFR-NON AF LAO >60 Normal >=60 [facility] Comment on above: Performed By: #### B MP #### [facility] [address] [place] [address] Dr. kOsana Shaw Glucose [Mass/Vol] 95 mg/dL Normal 74-[address] [facility] Comment on above: Performed By: #### B MP #### [facility] [address] [address] [address] Oksnaa Shaw Potassium [Moles/Vol] 3.3 mmol/L Critically low 3.4-5.0 [facility] Comment on above: Performed By: #### B MP #### [facility] [address] [place] [address] Dr. Oksana Shaw Sodium [Moles/Vol] 143 mmol/L Normal 137-145 [facility] Comment on above: Performed By: #### B MP #### [facility] [address] [place], [place] [address] Dr. Oksana Shaw Urea nitrogen [Mass/Vol] 15.0 mg/dL Normal 7.0-17.0 [facility] [facility] Comment on above: Performed By: #### B MP #### [facility] [address] [place], [place] [address] Dr. Oksana Shaw Urea nitrogen/Creatinine [Mass ratio] 17.2 mg/mg Normal [facility] Comment on above: Performed By: #### B MP #### [facility] [address] [place], [place] [address] Dr. Oksana Shaw Covid-19 PCR ([facility])on SARS-CoV-2 (COVID-19) RNA DEMETRIUS+probe Ql (Unsp spec) Not detected Normal NOT DETECTED [facility] Comment on above: Result Comment: This test is not yet approved or cleared by the [place] FDA. When there are no FDA-approved or cleared tests available, and other criteria are met, FDA can make tests available under an emergency access mechanism called an Emergency Use Authorization (EUA). The EUA for this test is supported by the [place] of Health and Human Service's (HHS's) declaration that circumstances exist to justify the emergency use of in vitro diagnostics for the detection and/or diagnosis of the virus that causes COVID-19. This EUA will remain in effect (meaning this test can be used) for the duration of the COVID-19 declaration justifying emergency of IVDs, unless it is terminated or revoked by FDA (after which the test may no longer be used). When diagnostic testing is negative, the possibility of a false negative should be considered in the context of a patient's recent exposures and the presence of clinical signs and symptoms consistent with SARS-CoV-2. Performed By: #### C VDTBH ####[facility] [id number] [place], [place] [address]ZoDr. Oksana Shaw GLYCOHEMOGLOBIN A1Con 2020 ADA RECOMMENDATION ADA THERAPEUTIC TARG ET 6.0 - 7.0 ACTION SUGGESTED > 7.0 Normal [facility] Comment on above: Performed By: #### A 1C ####[facility] [id number] [place], [place] [address]No. Oksana Shaw Glucose [Mass/Vol] 123 mg/dL Normal [facility] Comment on above: Performed By: #### A 1C ####[facility] [id number] [place], [place] [address]Hz. kOsana Shaw HbA1c (Bld) [Mass fraction] 5.9 % Normal <=6.0 [facility] Comment on above: Performed By: #### A 1C ####[facility] [id number] [place], [place] [address]Vd. Oksana Shaw NM BONE IMAGE 3 PHASEon 12-22 NM BONE IMAGE 3 PHASE EXAMINATION: [facility] NE IMAGE 3 PHASE HISTORY: Artificial knee joint present ; left knee pain COMPARISON: No relevant comparison available. TECHNIQUE: 25.1 mCi Technetium 99m MDP was injected intravenously followed by acquisition of dynamic flow, immediate blood pool, and delayed static images. FINDINGS: IMAGED AREA: Bilateral knees FLOW PHASE: Normal. BLOOD POOL PHASE: Normal. DELAYED IMAGES: Mildly increased radiotracer activity of the left femoral condyles and tibial plateau along the margins of the prosthetic components. OTHER: Negative. IMPRESSION: 1. No suspicious findings. Expected mild radiotracer activity along the margins of left knee prosthetic components secondary to chronic ongoing bone remodeling. Electronically authenticated by: FANY ASCENCIO Date: 2021-01-11 17:22 Normal [facility] Vital Signs Date Time Vital Sign Value Performing Clinician Facility 11-17-2023 12:33-0400 Blood Pressure Location JOSEFINA DOWNS [facility] 11-17-2023 12:33-0400 Body temperature 98.6 [degF] JOSEFINA DOWNS [facility] 11-17-2023 12:33-0400 Diastolic blood pressure 71 mm[Hg] JOSEFINA DOWNS [facility] 11-17-2023 12:33-0400 Heart rate 63 /min JOSEFINA HIMANSHU [facility] 11-17-2023 12:33-0400 Respiratory rate 16 /min JOSEFINA HIMANSHU [facility] 11-17-2023 12:33-0400 Systolic blood pressure 123 mm[Hg] JOSEFINA HIMANSHU [facility] 10-28-2023 12:14-0400 Body height 160.02 cm DO Capo Ball Work Phone: [facility] 10-28-2023 12:14-0400 Body mass index (BMI) [Ratio] 31.4 kg/m2 DO Capo Ball Work Phone: [facility] 10-28-2023 12:14-0400 Body weight 80.34 kg DO Capo Ball Work Phone: [facility] 10-28-2023 12:14-0400 Diastolic blood pressure 76 mm[Hg] DO Capo Ball Work Phone: [facility] 10-28-2023 12:14-0400 Heart rate 60 /min DO Capo Ball Work Phone: [facility] 10-28-2023 12:14-0400 Respiratory rate 12 /min DO Capo Ball Work Phone: [facility] 10-28-2023 12:14-0400 Systolic blood pressure 120 mm[Hg] DO Capo Ball Work Phone: [facility] 09-09-2023 10:50-0400 Diastolic blood pressure 72 mm[Hg] DO Capo Ball Work Phone: [facility] 09-09-2023 10:50-0400 Heart rate 70 /min DO Capo Ball Work Phone: [facility] 09-09-2023 10:50-0400 Respiratory rate 20 /min DO Capo Ball Work Phone: [facility] 09-09-2023 10:50-0400 SaO2% (BldA) [Mass fraction] 96 % DO Capo Ball Work Phone: [facility] 09-09-2023 10:50-0400 Systolic blood pressure 116 mm[Hg] DO Capo Ball Work Phone: [facility] 09-09-2023 09:55-0400 Body temperature 98 [degF] DO Capo Ball Work Phone: [facility] 09-09-2023 09:30-0400 Inhaled oxygen flow rate 10 L/min DO Capo Ball Work Phone: [facility] 09-09-2023 07:28-0400 Body mass index (BMI) [Ratio] 33.5 kg/m2 DO Capo Ball Work Phone: [facility] 09-09-2023 06:59-0400 Body height 160.02 cm DO Capo Ball Work Phone: [facility] 09-09-2023 06:59-0400 Body weight 86 kg DO Capo Ball Work Phone: [facility] 08-27-2023 11:07-0400 Body height 157.48 cm DO Capo Ball Work Phone: [facility] 08-27-2023 11:07-0400 Body mass index (BMI) [Ratio] 34.2 kg/m2 DO Capo Ball Work Phone: [facility] 08-27-2023 11:07-0400 Body weight 85.04 kg DO Capo Ball Work Phone: [facility] 08-27-2023 11:07-0400 Diastolic blood pressure 82 mm[Hg] DO Capo Ball Work Phone: [facility] 08-27-2023 11:07-0400 Heart rate 60 /min DO Capo Ball Work Phone: [facility] 08-27-2023 11:07-0400 Respiratory rate 12 /min DO Capo Ball Work Phone: [facility] 08-27-2023 11:07-0400 Systolic blood pressure 127 mm[Hg] DO Capo Ball Work Phone: [facility] 08-13-2023 13:06-0400 Body height 157.48 cm DO Capo Ball Work Phone: [facility] 08-13-2023 13:06-0400 Body mass index (BMI) [Ratio] 34.4 kg/m2 DO Capo Ball Work Phone: [facility] 08-13-2023 13:06-0400 Body weight 85.27 kg DO Capo Ball Work Phone: [facility] 08-03-2023 10:48-0400 Body height 160.02 cm [facility] 08-03-2023 10:48-0400 Body mass index (BMI) [Ratio] 33.7 kg/m2 [facility] 08-03-2023 10:48-0400 Body weight 86.35 kg [facility] 08-03-2023 10:48-0400 Diastolic blood pressure 85 mm[Hg] [facility] 08-03-2023 10:48-0400 Heart rate 62 /min [facility] 08-03-2023 10:48-0400 Respiratory rate 12 /min [facility] 08-03-2023 10:48-0400 Systolic blood pressure 144 mm[Hg] [facility] 07-16-2023 10:32-0400 Body height 160.02 cm [facility] 07-16-2023 10:32-0400 Body mass index (BMI) [Ratio] 34.1 kg/m2 [facility] 07-16-2023 10:32-0400 Body weight 87.31 kg [facility] 07-16-2023 10:32-0400 Diastolic blood pressure 82 mm[Hg] [facility] 07-16-2023 10:32-0400 Heart rate 54 /min [facility] 07-16-2023 10:32-0400 Respiratory rate 12 /min [facility] 07-16-2023 10:32-0400 Systolic blood pressure 128 mm[Hg] [facility] 05-04-2023 14:30-0500 Body height 160.02 cm Capo Ball Other [employer] Other 05-04-2023 14:30-0500 Body mass index (BMI) [Ratio] 34.33 kg/m2 Capo Ball Other [employer] Other 05-04-2023 14:30-0500 Body weight 87.91 kg Capo Ball Other [employer] Other 05-04-2023 14:30-0500 Diastolic blood pressure 88 mm[Hg] Capo Ball Other [employer] Other 05-04-2023 14:30-0500 Respiratory rate 12 /min Capo Ball Other [employer] Other 05-04-2023 14:30-0500 Systolic blood pressure 139 mm[Hg] Capo Ball Other [employer] Other 02-26-2023 12:00-0500 Body height 160.02 cm Capo Ball Other [employer] Other 02-26-2023 12:00-0500 Body mass index (BMI) [Ratio] 32.77 kg/m2 Capo Ball Other [employer] Other 02-26-2023 12:00-0500 Body weight 83.92 kg Capo Ball Other [employer] Other 02-02-2023 10:30-0500 Body height 160.02 cm Capo Ball Other [employer] Other 02-02-2023 10:30-0500 Body mass index (BMI) [Ratio] 32.91 kg/m2 Capo Ball Other [employer] Other 02-02-2023 10:30-0500 Body weight 84.28 kg Capo Ball Other [employer] Other 02-02-2023 10:30-0500 Diastolic blood pressure 83 mm[Hg] Capo Ball Other [employer] Other 02-02-2023 10:30-0500 Respiratory rate 12 /min Capo Ball Other [employer] Other 02-02-2023 10:30-0500 Systolic blood pressure 132 mm[Hg] Capo Ball Other [place] [employer] Other 10-21-2022 08:52-0400 Blood Pressure Location JOSEFINA HIMANSHU [facility] 10-21-2022 08:52-0400 Diastolic blood pressure 83 mm[Hg] JOSEFINA HIMANSHU [facility] 10-21-2022 08:52-0400 Heart rate 49 /min JOSEFINA HIMANSHU [facility] 10-21-2022 08:52-0400 Systolic blood pressure 145 mm[Hg] JOSEFINA HIMANSHU [facility] 09-16-2022 13:30-0400 Body height 160.02 cm Capo Ball Other [employer] Other 09-16-2022 13:30-0400 Body mass index (BMI) [Ratio] 32.2 kg/m2 Capo Ball Other [employer] Other 09-16-2022 13:30-0400 Body weight 82.46 kg Capo Ball Other [facility] [employer] Other 09-16-2022 13:30-0400 Diastolic blood pressure 83 mm[Hg] Capo Ball Other [facility] [employer] Other 09-16-2022 13:30-0400 Respiratory rate 12 /min Capo Ball Other [facility] [employer] Other 09-16-2022 13:30-0400 Systolic blood pressure 125 mm[Hg] Capo Ball Other [facility] [employer] Other 04-15-2022 09:28-0500 Blood Pressure Location JOSEFINA HIMANSHU [facility] 04-15-2022 09:28-0500 Diastolic blood pressure 74 mm[Hg] JOSEFINA HIMANSHU [facility] 04-15-2022 09:28-0500 Heart rate 68 /min JOSEFINA HIMANSHU [facility] 04-15-2022 09:28-0500 Respiratory rate 16 /min JOSEFINA HIMANSHU [facility] 04-15-2022 09:28-0500 Systolic blood pressure 132 mm[Hg] JOSEFINA HIMANSHU [facility] 10-02-2021 13:15-0400 Blood Pressure Location JOSEFINA HIMANSHU [facility] 10-02-2021 13:15-0400 Diastolic blood pressure 77 mm[Hg] JOSEFINA HIMANSHU [facility] 10-02-2021 13:15-0400 Heart rate 80 /min [facility]FINA HIMANSHU [facility] 10-02-2021 13:15-0400 Respiratory rate 16 /min JOSEFINA HIMANSHU [facility] 10-02-2021 13:15-0400 Systolic blood pressure 128 mm[Hg] JOSEFINA HIMANSHU [facility] 08-14-2021 14:13-0400 Blood Pressure Location JOSEFINA HIMANSHU [facility] [employer] 08-14-2021 14:13-0400 Diastolic blood pressure 79 mm[Hg] JOSEFINA HIMANSHU [facility] [employer] 08-14-2021 14:13-0400 Heart rate 68 /min JOSEFINA HIMANSHU [facility] 08-14-2021 14:13-0400 Systolic blood pressure 132 mm[Hg] JOSEFINA HIMANSHU [facility] Encounters Encounter Date Encounter Type Care Provider Facility Start: 12-14-2023 ambulatory Akil Martinez Facility :[facility] Start: 12-09-2023 End: 12-09-2023 ambulatory RACQUEL CARBAJAL Not Available Start: 12-02-2023 End: 12-02-2023 ambulatory RACQUEL CARBAJAL Not Available Start: 11-18-2023 End: 11-18-2023 ambulatory RACQUEL Hunter RAVEN Not Available Start: 11-17-2023 End: 11-17-2023 ambulatory JOSEFINA DOWNS Facility: [facility] Start: 11-17-2023 End: 11-17-2023 Patient encounter procedure JOSEFINA DOWNS [facility] Start: 11-04-2023 End: 11-04-2023 ambulatory RACQUEL Hunter RAVEN Not Available Start: 10-28-2023 End: 10-28-2023 ambulatory DO Capo Ball Work Phone: [facility] Work Phone: Start: 10-28-2023 End: 10-28-2023 Patient encounter procedure DO Capo Ball Work Phone: [facility] Work Phone: Start: 10-26-2023 Registered Recurring DO Benjam in Ball Work Phone: [facility] [place] Start: 10-22-2023 End: 10-22-2023 ambulatory DO Capo Ball Work Phone: [facility] Work Phone: Start: 10-22-2023 End: 10-22-2023 Patient encounter procedure DO Capo Ball Work Phone: [facility] Work Phone: Start: 10-20-2023 Registered Recurring DO Benjam in Ball Work Phone: [facility] [place] Start: 09-30-2023 End: 09-30-2023 Patient encounter procedure DO Capo Ball Work Phone: [facility]-CT Scan [place] Work Phone: Start: 09-30-2023 End: 09-30-2023 ambulatory DO Capo Ball Work Phone: [facility] Work Phone: Start: 09-17-2023 End: 09-17-2023 ambulatory DO Capo Ball Work Phone: [facility] Work Phone: Start: 09-17-2023 End: 09-17-2023 Patient encounter procedure DO Capo Ball Work Phone: [facility] Work Phone: Start: 09-09-2023 Non-patient / Non-visit DO Fletcher rené Ball Work Phone: [facility] Work Phone: Start: 09-09-2023 End: 09-09-2023 Admission to same day surgery center DO Capo Ball Work Phone: [facility]Surgery Center [place] Start: 09-09-2023 End: 09-09-2023 ambulatory DO Capo Ball Work Phone: [facility] Work Phone: Start: 09-07-2023 End: 09-07-2023 ambulatory RACQUEL CARBAJAL Not Available Start: 09-01-2023 Non-patient / Non-visit DO Fletcher rené Ball [facility] Phone[facility] Work Phone: Start: 08-27-2023 End: 08-27-2023 ambulatory DO Capo Ball Work Phone: [facility] Work Phone: Start: 08-27-2023 End: 08-27-2023 Patient encounter procedure DO Capo Ball Work Phone: [facility] Work Phone: Start: 08-25-2023 End: 08-25-2023 Patient encounter procedure DO Capo Ball Work Phone: [facility]-Pre-Surgical Testing Work Phone: Start: 08-25-2023 End: 08-25-2023 ambulatory DO Capo Ball Work Phone: [facility] Work Phone: Start: 08-25-2023 Encounter for preprocedural laboratory examination Akil Martinez [facility] Start: 08-21-2023 End: 08-21-2023 ambulatory RACQUEL CARBAJAL Not Available Start: 08-14-2023 End: 08-14-2023 Patient encounter procedure DO Capo Ball Work Phone: [facility] [place] Work Phone: Start: 08-14-2023 End: 08-14-2023 ambulatory DO Capo Ball Work Phone: [facility] Work Phone: Start: 08-13-2023 End: 08-13-2023 ambulatory DO Capo Ball Work Phone: [facility] Work Phone: Start: 08-13-2023 End: 08-13-2023 Patient encounter procedure DO Capo Ball Work Phone: [facility] Work Phone: Start: 08-03-2023 End: 08-03-2023 ambulatory [facility] Work Phone: Start: 08-03-2023 End: 08-03-2023 Patient encounter procedure [facility] Work Phone: Start: 07-16-2023 End: 07-16-2023 ambulatory [facility] Work Phone: Start: 07-16-2023 End: 07-16-2023 Patient encounter procedure [facility] Work Phone: Start: 07-14-2023 End: 07-14-2023 ambulatory ANABELLE FRAZIER Not Available Start: 07-01-2023 End: 07-01-2023 ambulatory RACQUEL CARBAJAL Not Available Start: 06-22-2023 End: 06-22-2023 ambulatory RACQUEL CARBAJAL Not Available Start: 06-01-2023 End: 06-01-2023 ambulatory RACQUEL CARBAJAL Not Available Start: 05-20-2023 End: 05-20-2023 ambulatory RACQUEL CARBAJAL Not Available Start: 05-12-2023 End: 05-12-2023 ambulatory RACQUEL CARBAJAL Not Available Start: 05-04-2023 End: 05-04-2023 ambulatory Capo Palm Other [employer] Other Start: 05-04-2023 Office outpatient vi sit 15 minutes Capo Ball [facility] Start: 05-04-2023 Telephone encounter Capo Ball [facility] Start: 04-14-2023 End: 04-14-2023 ambulatory LIZZIE HARRISON Not Available Start: 02-26-2023 End: 02-26-2023 ambulatory Capo Ball Other [employer] Other Start: 02-26-2023 Office outpatient vi sit 15 minutes Capo Ball [facility] Start: 02-02-2023 End: 02-02-2023 ambulatory Capo Ball Other [employer] Other Start: 02-02-2023 Patient encounter procedure Capo Ball [facility] Start: 12-23-2022 End: 12-23-2022 ambulatory Capo Ball Other [employer] Other Start: 12-23-2022 Telephone encounter Capo Ball [facility] Start: 12-15-2022 End: 12-15-2022 ambulatory Capo Ball Other [employer] Other Start: 12-15-2022 Telephone encounter Capo Ball [facility] Start: 10-21-2022 End: 10-21-2022 Patient encounter procedure JOSEFINA DOWNS [facility] Start: 09-16-2022 End: 09-16-2022 ambulatory Capo Ball Other [employer] Other Start: 09-16-2022 Office outpatient vi sit 15 minutes [facility] Start: 04-15-2022 End: 04-15-2022 Patient encounter procedure JOSEFINA DOWNS [facility] Start: 01-27-2022 Adult health examination Terrence Palm Other [place] [employer] Other Start: 12-28-2021 End: 12-28-2021 ambulatory DO Capo Palm Work Phone: [facility] Work Phone: Start: 12-28-2021 End: 12-28-2021 Departed Referred DO Capo Palm Work Phone: [facility] Start: 12-11-2021 End: 12-12-[address] CAPO PALM Facility:[facility] Start: 11-21-2021 End: 11-22-[address] HALEIGH SHAY Facility:[facility] Start: 11-01-2021 End: 11-02-[address] CAPO PALM Facility:[facility] Start: 10-02-2021 End: 10-02-2021 Patient encounter procedure JOSEFINA DOWNS [facility] Start: 09-03-2021 End: 09-04-[address] CAPO PALM Facility:[facility] Start: 08-14-2021 End: 08-14-2021 Patient encounter procedure JOSEFINA DOWNS [facility] Start: 06-06-2021 End: 06-07-[address] CAPO PALM Facility:[facility] Start: 05-24-2021 End: 05-25-[address] CAPO PALM Facility:[facility] Start: 03-06-2021 End: 03-06-[address] CAPO PALM Facility:[facility] Start: 03-05-2021 End: 03-06-[address] CAPO PALM Facility:[facility] Start: 02-28-2021 End: 02-28-[address] CAPO PALM Facility:[facility] Start: 01-25-2021 End: 03-04-2021 ambulatory CARLOS ALBERTO WHITE Facility:[facility] Start: 01-21-2021 End: 01-22-[address] DOCTOR SIFUENTES Facility:[facility] Start: 01-11-2021 End: 01-12-[address] FANY ASCENCIO Facility:[facility] Start: 04-16-2020 Gynecological examination normal Capo Teranode Other [employer] Other Procedures Date Procedure Procedure Detail Performing Clinician Start: 09-30-2023 CT of left shoulder DO Capo Ball Work Phone: Start: 09-17-2023 Plain X-ray of left shoulder DO Capo Ball Work Phone: Start: 09-09-2023 Plain X-ray of left shoulder DO Capo Ball Work Phone: Start: 09-09-2023 OR Total Shoulder Reverse & Anatomic (Left) DO Capo Ball Work Phone: Start: 09-01-2023 E coli Shiga Toxin EIA DO Capo Ball Work Phone: Start: 09-01-2023 Salmonella/Shigella Screen DO Capo B all Work Phone: Start: 08-25-2023 Methicillin resistant Staphylococcus aureus culture DO Capo Ball Work Phone: Start: 08-14-2023 CT of left shoulder DO Capo Ball Work Phone: Start: 08-13-2023 Plain X-ray of left shoulder DO Capo Ball Work Phone: Start: 03-23-2023 Arthroplasty of left shoulder JOSEFINA DOWNS Start: 01-21-2021 Cystourethroscopy with dilation of urethral stricture JOSEFINA DOWNS Start: 12-16-2018 Cystourethroscopy with dilation of urethral stricture JOSEFINA DOWNS Start: 06-21-2018 Total knee replacement JOSEFINA Dumont Start: 06-01-2018 Pre-surgery evaluation Capo Martinez Start: 11-04-2016 General examination of patient Capo Martinez Start: 11-04-2016 Screening mammography Capo Martinez Start: 03-23-2008 Total knee replacement JOSEFINA DOWNS Appendectomy JOSEFINA DOWNS Biopsy of breast JOSEFINA OLMSTEAD Colonoscopy JOSEFINA DOWNS End: 02-04-2022 Depression screening Capo Martinez H/O: artificial joint Status pos t total shoulder arthroplasty DO Capo Palm Work Phone: Oophorectomy JOSEFINA DOWNS Screening for malign ant neoplasm of breast Capo Martinez Plan of Treatment Date Care Activity Detail Author Start: 09-17-2023 Plain X-ray of left shoulder XR shoulder LT min 2V* [facility] Start: 09-17-2023 XR Shoulder - left Views [facility] Start: 09-09-2023 [facility] Start: 09-09-2023 [facility] Start: 09-09-2023 Referral to occupati onal therapist [facility] Start: 08-25-2023 Methicillin resistan t Staphylococcus aureus culture MRSA Culture [facility] Start: 08-25-2023 MRSA Culture MRSA Culture [facility] Start: 08-13-2023 Plain X-ray of left shoulder XR shoulder LT min 2V* [facility] Start: 08-13-2023 XR Shoulder - left Views [facility] Start: 08-04-2023 Patient referral [facility] Work Phone: CT Shoulder - left W O contrast [facility] CT Shoulder - left W O contrast [facility] Diagnostic radiograp hy of abdomen [facility] Methicillin resistan t Staphylococcus aureus [Presence] in Unspecified specimen by Organism specific culture [facility] Patient Education Know your Meds [facility] Work Phone: Patient referral [place] [facility] Work Phone: XR Shoulder - left Views [facility] Immunizations Immunization Date Immunization Notes Care Provider Fa silvano 02-02-2023 influenza virus vaccine, unspecified formulation [facility] 02-02-2023 influenza, high dose seasonal, preservative-free [facility] Other [facility] 09-16-2022 COVID-19 Pfizer (bivalent) [facility] [place] Other [facility] 01-27-2022 influenza virus vaccine, split virus (incl. purified surface antigen) [facility] Other [facility] 01-27-2022 influenza virus vaccine, unspecified formulation JOSEFINA DOWNS [facility] 01-27-2022 influenza, high dose seasonal, preservative-free [place] [place] Other [facility] Other 08-16-2021 SARS-CoV-2 (COVID-19 ) Ad26 vaccine, recombinant JOSEFINA HIMANSHU [facility] Comment on above: Result Comment: 2022: [id number] 01-30-2021 influenza virus vaccine, split virus (incl. purified surface antigen) [facility] Other [facility] 01-30-2021 influenza virus vaccine, unspecified formulation [facility] 01-21-2021 influenza virus vaccine, unspecified formulation JOSEFINA DOWNS [facility] 09-14-2020 tetanus and diphther ia toxoids, adsorbed, preservative free, for adult use (2 Lf of tetanus toxoid and 2 Lf of diphtheria toxoid) JOSEFINA DOWNS [facility] 09-14-2020 tetanus and diphther ia toxoids, adsorbed, preservative free, for adult use (5 Lf of tetanus toxoid and 2 Lf of diphtheria toxoid) [facility] Other [facility] 06-08-2020 COVID-19 Ad26.COV2.S ([facility]) DO [facility] Work Phone: [facility] Comment on above: Result Comment: 2022: [id number] 05-21-2020 SARS-CoV-2 (COVID-19 ) Ad26 vaccine, recombinant JOSEFINA DOWNS [facility] 01-30-2020 influenza virus vaccine, split virus (incl. purified surface antigen) [facility] Other [facility] 01-30-2020 influenza virus vaccine, unspecified formulation JOESFINA DOWNS [facility] 01-30-2020 pneumococcal polysaccharide vaccine, 23 valent JOSEFINA DOWNS [facility] 02-08-2019 influenza virus vaccine, unspecified formulation JOSEFINA DOWNS [facility] 01-25-2019 influenza virus vaccine, split virus (incl. purified surface antigen) Capo Shaun Other [facility] 01-25-2019 influenza virus vaccine, unspecified formulation [facility] 01-25-2019 pneumococcal conjuga te vaccine, 13 valent [facility] Other [facility] 01-06-2018 influenza virus vaccine, unspecified formulation JOSEFINA HIMANSHU [facility] 12-26-2017 influenza virus vaccine, unspecified formulation JOSEFNIA HIMANSHU [facility] 01-01-2017 influenza virus vaccine, unspecified formulation JOSEFINA HIMANSHU [facility] 01-12-2015 influenza virus vaccine, unspecified formulation JOSEFINA HIMANSHU [facility] 12-21-2014 influenza virus vaccine, unspecified formulation JOSEFINA HIMANSHU [facility] 01-04-2013 tetanus and diphther ia toxoids, adsorbed, preservative free, for adult use (5 Lf of tetanus toxoid and 2 Lf of diphtheria toxoid) [facility] Other [facility] Payers Date Payer Category Payer Self-pay [id number] 1961 Medicare [id number] 1961 Medicare [id number] 1961 Self-pay [id number] 1955 Unknown [id number] 2.16.84 0.1.890812.3.579.2.593 1953 Unknown [id number] 2.16.84 0.1.099324.3.579.2.593 1953 Unknown [id number] 2.16.84 0.1.604882.3.579.2.593 1953 Unknown [id number] 2.16.84 0.1.432171.3.579.2.593 1953 Unknown [id number] 2.16.84 0.1.779598.3.579.2.593 1953 Unknown [id number] 2.16.84 0.1.978292.3.579.2.593 1953 Unknown [id number] 2.16.84 0.1.955848.3.579.2.593 1953 Unknown [id number] 2.16.84 0.1.286478.3.579.2.593 1953 Unknown [id number] 2.16.84 0.1.660068.3.579.2.593 1953 Unknown [id number] 2.16.84 0.1.740537.3.579.2.593 1953 Unknown [id number] 2.16.8 40.1.796726.3.579.2.727 1953 Unknown [id number] 2.16.84 0.1.427415.3.579.2.1259 1953 Unknown [id number] 2.16.84 0.1.111812.3.579.2.1259 1953 Unknown [id number] 2.16.84 0.1.052753.3.579.2.1259 1953 Unknown [id number] 2.16.84 0.1.619327.3.579.2.1259 1953 Unknown [id number] 2.16.84 0.1.184222.3.579.2.1259 1953 Unknown [id number] 2.16.84 0.1.053202.3.579.2.1259 1953 Unknown [id number] 2.16.84 0.1.049145.3.579.2.1259 1953 Unknown [id number] 2.16.84 0.1.378022.3.579.2.1259 1953 Unknown [id number] 2.16.84 0.1.321029.3.579.2.1259 1953 Unknown [id number] 2.16.84 0.1.607855.3.579.2.1259 1953 Unknown [id number] 2.16.84 0.1.287904.3.579.2.1259 1953 Unknown [id number] 2.16.84 0.1.399686.3.579.2.1259 1953 Unknown [id number] 2.16.84 0.1.009799.3.579.2.1259 1953 Unknown [id number] 2.16.84 0.1.685511.3.579.2.1259 Unknown [id number] 2.16.84 0.1.301956.3.579.2.593 Unknown [id number] 2.16.84 0.1.286871.3.579.2.593 Unknown [facility] [id number] Unknown [id number] 2.16.8 40.1.552475.3.579.2.531 Unknown [id number] 2.16.8 40.1.589260.3.579.2.531 Unknown [id number] 2.16.8 40.1.970888.3.579.2.531 Unknown [id number] 2.16.8 40.1.174637.3.579.2.531 Unknown [id number] 2.16.8 40.1.354873.3.579.2.531 Unknown [id number] 2.16.8 40.1.383015.3.579.2.531 Unknown [id number] 2.16.8 40.1.334687.3.579.2.531 Social History Date Type Detail Facility Start: 04-02-2021 End: 11-17-2023 Tobacco smoking status Ex-smoker (finding) [facility] Tobacco smoking status Never [facility] Sex Assigned At Female [facility] Start: 06-25-2021 Tobacco smoking stat us AZIS Never smoked tobacco (finding) [facility] Start: 1955 Sex Assigned At Female F [facility] Medical Equipment Procedure Code Equipment Code Equipment Origin al Text Equipment Identifier Dates Orthopaedic bone screw, non-bioabsorbable, non-sterile ()[id number] FDA Start: 09-09-2023 Orthopaedic bone screw, non-bioabsorbable, non-sterile ()[id number] FDA Start: 09-09-2023 Polyethylene rev erse shoulder prosthesis cup ()[id number] FDA Start: 09-09-2023 Coated shoulder humeral stem prosthesis ()[id number] FDA Start: 09-09-2023 Reverse shoulder prosthesis head ()[id number] FDA Start: 09-09-2023 Orthopaedic bone screw, non-bioabsorbable, non-sterile ()[id number] FDA Start: 09-09-2023 Reverse shoulder prosthesis base plate ()[id number] FDA Start: 09-09-2023 Goals Date Patient Goal Desired Activity /State Functional Status Date Assessment Result Facility 11-17-2023 Functional Status N/A [facility] 10-21-2022 Functional Status N/A [facility] 04-15-2022 Functional Status N/A [facility] 10-02-2021 Functional Status N/A [facility] Clinical Notes 08-14-2021 to 11-17-2023 Note Date & Type Note Facility 11-17-2023 Hospital Discharg e instructions Patient Education 11/17/2023 13:02:40 Overactive Bladder, Adult Overactive Bladder, Adult Overactive bladder is a condition in which a person has a sudden and frequent need to urinate. A person might also leak urine if he or she cannot get to the bathroom fast enough (urinary incontinence). Sometimes, symptoms can interfere with work or social activities. What are the causes? Overactive bladder is associated with poor nerve signals between your bladder and your brain. Your bladder may get the signal to empty before it is full. You may also have very sensitive muscles that make your bladder squeeze too soon. This condition may also be caused by other factors, such as: Medical conditions: ?Urinary tract infection. ?Infection of nearby tissues. ?Prostate enlargement. ?Bladder stones, inflammation, or tumors. ?Diabetes. ?Muscle or nerve weakness, especially from these conditions: ?A spinal cord injury. ?Stroke. ?Multiple sclerosis. ?Parkinson's disease. Other causes: ?Surgery on the uterus or urethra. ?Drinking too much caffeine or alcohol. ?Certain medicines, especially those that eliminate extra fluid in the body (diuretics). ?Constipation. What increases the risk? You may be at greater risk for overactive bladder if you: Are an older adult. Smoke. Are going through menopause. Have prostate problems. Have a neurological disease, such as stroke, dementia, Parkinson's disease, or multiple sclerosis (MS). Eat or drink alcohol, spicy food, caffeine, and other things that irritate the bladder. Are overweight or obese. What are the signs or symptoms? Symptoms of this condition include a sudden, strong urge to urinate. Other symptoms include: Leaking urine. Urinating 8 or more times a day. Waking up to urinate 2 or more times overnight. How is this diagnosed? This condition may be diagnosed based on: Your symptoms and medical history. A physical exam. Blood or urine tests to check for possible causes, such as infection. You may also need to see a health care provider who specializes in urinary tract problems. This is called a urologist. How is this treated? Treatment for overactive bladder depends on the cause of your condition and whether it is mild or severe. Treatment may include: Bladder training, such as: ?Learning to control the urge to urinate by following a schedule to urinate at regular intervals. ?Doing Kegel exercises to strengthen the pelvic floor muscles that support your bladder. Special devices, such as: ?Biofeedback. This uses sensors to help you become aware of your body's signals. ?Electrical stimulation. This uses electrodes placed inside the body (implanted) or outside the body. These electrodes send gentle pulses of electricity to strengthen the nerves or muscles that control the bladder. ?Women may use a plastic device, called a pessary, that fits into the vagina and supports the bladder. Medicines, such as: ?Antibiotics to treat bladder infection. ?Antispasmodics to stop the bladder from releasing urine at the wrong time. ?Tricyclic antidepressants to relax bladder muscles. ?Injections of botulinum toxin type A directly into the bladder tissue to relax bladder muscles. Surgery, such as: ?A device may be implanted to help manage the nerve signals that control urination. ?An electrode may be implanted to stimulate electrical signals in the bladder. ?A procedure may be done to change the shape of the bladder. This is done only in very severe cases. Follow these instructions at home: Eating and drinking Make diet or lifestyle changes recommended by your health care provider. These may include: ?Drinking fluids throughout the day and not only with meals. ?Cutting down on caffeine or alcohol. ?Eating a healthy and balanced diet to prevent constipation. This may include: ?Choosing foods that are high in fiber, such as beans, whole grains, and fresh fruits and vegetables. ?Limiting foods that are high in fat and processed sugars, such as fried and sweet foods. Lifestyle Lose weight if needed. Do not use any products that contain nicotine or tobacco. These include cigarettes, chewing tobacco, and vaping devices, such as e-cigarettes. If you need help quitting, ask your health care provider. General instructions Take dwwp-jjo-xmpuqzi and prescription medicines only as told by your health care provider. If you were prescribed an antibiotic medicine, take it as told by your health care provider. Do not stop taking the antibiotic even if you start to feel better. Use any implants or pessary as told by your health care provider. If needed, wear pads to absorb urine leakage. Keep a log to track how much and when you drink, and when you need to urinate. This will help your health care provider monitor your condition. Keep all follow-up visits. This is important. Contact a health care provider if: You have a fever or chills. Your symptoms do not get better with treatment. Your pain and discomfort get worse. You have more frequent urges to urinate. Get help right away if: You are not able to control your bladder. Summary Overactive bladder refers to a condition in which a person has a sudden and frequent need to urinate. Several conditions may lead to an overactive bladder. Treatment for overactive bladder depends on the cause and severity of your condition. Making lifestyle changes, doing Kegel exercises, keeping a log, and taking medicines can help with this condition. This information is not intended to replace advice given to you by your health care provider. Make sure you discuss any questions you have with your health care provider. Document Revised: 11/26/2020 Document Reviewed: 11/26/2020 [employer] Patient Education 2022 [email or web address]. Follow Up Care 10/21/2022 09:32:15 With:HIMANSHU BENÍTEZ, JOSEFINA Hahn, URL Address: [address] [place] [address] When: Unknown Comments:BANDAR [facility] 11-17-2023 Note Patient Education Obstetrics and Gynecology Overactive Bladder, Adult Overactive bladder is a condition in which a person has a sudden and frequent need to urinate. A person might also leak urine if he or she cannot get to the bathroom fast enough (urinary incontinence). Sometimes, symptoms can interfere with work or social activities. What are the causes? Overactive bladder is associated with poor nerve signals between your bladder and your brain. Your bladder may get the signal to empty before it is full. You may also have very sensitive muscles that make your bladder squeeze too soon. This condition may also be caused by other factors, such as: ? Medical conditions: ? Urinary tract infection. ? Infection of nearby tissues. ? Prostate enlargement. ? Bladder stones, inflammation, or tumors. ? Diabetes. ? Muscle or nerve weakness, especially from these conditions: ? A spinal cord injury. ? Stroke. ? Multiple sclerosis. ? Parkinson's disease. ? Other causes: ? Surgery on the uterus or urethra. ? Drinking too much caffeine or alcohol. ? Certain medicines, especially those that eliminate extra fluid in the body (diuretics). ? Constipation. What increases the risk? You may be at greater risk for overactive bladder if you: ? Are an older adult. ? Smoke. ? Are going through menopause. ? Have prostate problems. ? Have a neurological disease, such as stroke, dementia, Parkinson's disease, or multiple sclerosis (MS). ? Eat or drink alcohol, spicy food, caffeine, and other things that irritate the bladder. ? Are overweight or obese. What are the signs or symptoms? Symptoms of this condition include a sudden, strong urge to urinate. Other symptoms include: ? Leaking urine. ? Urinating 8 or more times a day. ? Waking up to urinate 2 or more times overnight. How is this diagnosed? This condition may be diagnosed based on: ? Your symptoms and medical history. ? A physical exam. ? Blood or urine tests to check for possible causes, such as infection. You may also need to see a health care provider who specializes in urinary tract problems. This is called a urologist. How is this treated? Treatment for overactive bladder depends on the cause of your condition and whether it is mild or severe. Treatment may include: ? Bladder training, such as: ? Learning to control the urge to urinate by following a schedule to urinate at regular intervals. ? Doing Kegel exercises to strengthen the pelvic floor muscles that support your bladder. ? Special devices, such as: ? Biofeedback. This uses sensors to help you become aware of your body's signals. ? Electrical stimulation. This uses electrodes placed inside the body (implanted) or outside the body. These electrodes send gentle pulses of electricity to strengthen the nerves or muscles that control the bladder. ? Women may use a plastic device, called a pessary, that fits into the vagina and supports the bladder. ? Medicines, such as: ? Antibiotics to treat bladder infection. ? Antispasmodics to stop the bladder from releasing urine at the wrong time. ? Tricyclic antidepressants to relax bladder muscles. ? Injections of botulinum toxin type A directly into the bladder tissue to relax bladder muscles. ? Surgery, such as: ? A device may be implanted to help manage the nerve signals that control urination. ? An electrode may be implanted to stimulate electrical signals in the bladder. ? A procedure may be done to change the shape of the bladder. This is done only in very severe cases. Follow these instructions at home: Eating and drinking ? Make diet or lifestyle changes recommended by your health care provider. These may include: ? Drinking fluids throughout the day and not only with meals. ? Cutting down on caffeine or alcohol. ? Eating a healthy and balanced diet to prevent constipation. This may include: ? Choosing foods that are high in fiber, such as beans, whole grains, and fresh fruits and vegetables. ? Limiting foods that are high in fat and processed sugars, such as fried and sweet foods. Lifestyle ? Lose weight if needed. ? Do not use any products that contain nicotine or tobacco. These include cigarettes, chewing tobacco, and vaping devices, such as e-cigarettes. If you need help quitting, ask your health care provider. General instructions ? Take kuls-ovu-jiktkbf and prescription medicines only as told by your health care provider. ? If you were prescribed an antibiotic medicine, take it as told by your health care provider. Do not stop taking the antibiotic even if you start to feel better. ? Use any implants or pessary as told by your health care provider. ? If needed, wear pads to absorb urine leakage. ? Keep a log to track how much and when you drink, and when you need to urinate. This will help your health care (more content not included)... [facility] 05-04-2023 Evaluation note Encounter Date Diagnosis Assessment Notes Apr, Benign paroxysmal positional vertigo of right ear (ICD-10 - H81.11) Hallpike's maneuver positive for right sided BPPV. Instructed on Garret maneuvers. Initiate Meclizine but understands may cause sedation and isn't a cure. Continue home exercises Refer to PT Apr, Obstructive sleep apnea (ICD-10 - G47.33) This patient is aware of the benefits associated with VIV: With continued use, the patient reduces the risk for IN, CVA, HTN, cardiac dysrhythmias and sudden cardiac deaths.The patient is also aware of the association between VIV and morning headaches, daytime somnolence, fatigue and obesity, which also has been improved with continued use.The patient is compliant with treatment, wearing the equipment every night for greater than 4 hours.The patient is instructed to continue use of the CPAP for VIV treatment. [facility] Other [id number] Evaluation note* Encounter Date Diagnosis Assessment Notes Treatment Notes Treatment Clinical Notes Feb, Obstructive sleep apnea (ICD-10 - G47.33) This patient is aware of the benefits associated with VIV: With continued use, the patient reduces the risk for IN, CVA, HTN, cardiac dysrhythmias and sudden cardiac deaths.The patient is also aware of the association between VIV and morning headaches, daytime somnolence, fatigue and obesity, which also has been improved with continued use.The patient is compliant with treatment, wearing the equipment every night for greater than 4 hours.The patient is instructed to continue use of the CPAP for VIV treatment. Feb, Other obesity due to excess calories (ICD-10 - E66.09) This patient has been instructed on a low-fat, high-fiber diet. They are instructed to reduce calories, portion sizes and snacks. It is recommended that they exercise for 30 minutes, 3-5 times weekly. Feb, Body mass index [BMI] 32.0-32.9, adult (ICD-10 - Z68.32) [facility] 11-13-2023 Evaluation note* Encounter Date Diagnosis Assessment Notes Treatment Notes Treatment Clinical Notes Jan, Medicare annual wellness visit, subsequent (ICD-10 - Z00.00) Personalized health advice was given to the beneficiary including a written plan for screenings discussed and provided. Advanced care planning reviewed and/or information given as requested. Additional counseling was provided here today in regards to, [ ]. The above visit was performed by [ ], under direct supervision of [ ]. Document reviewed and amended by provider signed below. Jan, Tendinitis of left rotator cuff (ICD-10 - M75.82) ROM exercises, ice/heat and Mobic. Tylenol and Voltaren Gel. Completed PT and instructed to continue ROM exercises. Discussed subacromial injection and referral to orthopedics Jan, Primary osteoarthritis of left shoulder (ICD-10 - M19.012) ROM exercises, ice/heat and Mobic. Tylenol and Voltaren Gel. Completed PT and instructed to continue ROM exercises. Discussed subacromial injection and referral to orthopedics Jan, Other obesity due to excess calories (ICD-10 - E66.09) This patient has been instructed on a low-fat, high-fiber diet. They are instructed to reduce calories, portion sizes and snacks. It is recommended that they exercise for 30 minutes, 3-5 times weekly. Jan, Body mass index [BMI ] 32.0-32.9, adult (ICD-10 - Z68.32) Jan, Recurrent major depressive disorder, in full remission (ICD-10 - F33.42) Healthy diet and exercise. Keep active No change in medical therapy Jan, Screening mammogram for breast cancer (ICD-10 - Z12.31) Instructed patient on monthly SBE and yearly mammograms. [facility] Other 09-25-2023 Evaluation note* Encounter Date Diagnosis Assessment Notes Treatment Notes Treatment Clinical Notes Nov, Menopause (ICD-10 - Z78.0) [facility] 08-01-2023 Hospital Discharge instructions Patient Education 10/21/2022 09:29:33 Urinary Incontinence Urinary Incontinence Urinary incontinence refers to a condition in which a person is unable to control where and when topass urine. A person with this condition will urinate involuntarily. This means that the person urinates when he or she does not mean to. What are the causes? This condition may be caused by: Medicines. Infections. Constipation. Overactive bladder muscles. Weak bladder muscles. Weak pelvic floor muscles. These muscles provide support for the bladder, intestine, and, in women,the uterus. Enlarged prostate in men. The prostate is a gland near the bladder. When it gets too big, it can pinch the urethra. With the urethra blocked, the bladder can weaken and lose the ability to empty properly. Surgery. Emotional factors, such as anxiety, stress, or post-traumatic stress disorder (PTSD). Spinal cord injury, nerve injury, or other neurological conditions. Pelvic organ prolapse. This happens in women when organs move out of place and into the vagina. This movement can prevent the bladder and urethra from working properly. What increases the risk? The following factors may make you more likely to develop this condition: Age. The older you are, the higher the risk. Obesity. Being physically inactive. and childbirth. Menopause. Diseases that affect the nerves or spinal cord. Long-term, or chronic, coughing. This can increase pressure on the bladder and pelvic floor muscles. What are the signs or symptoms? Symptoms may vary depending on the type of urinary incontinence you have. They include: A sudden urge to urinate, and passing urine involuntarily before you can get to a bathroom (urge incontinence). Suddenly passing urine when doing activities that force urine to pass, such as coughing, laughing, exercising, or sneezing (stress incontinence). Needing to urinate often but urinating only a small amount, or constantly dribbling urine (overflowincontinence). Urinating because you cannot get to the bathroom in time due to a physical disability, such as arthritis or injury, or due to a communication or thinking problem, such as Alzheimer's disease (functional incontinence). How is this diagnosed? This condition may be diagnosed based on: Your medical history. A physical exam. Tests, such as: ?Urine tests. ?X-rays of your kidney and bladder. ?Ultrasound. ?CT scan. ?Cystoscopy. In this procedure, a health care provider inserts a tube with a light and camera (cystoscope) through the urethra and into the bladder to check for problems. ?Urodynamic testing. These tests assess how well the bladder, urethra, and sphincter can store and release urine. There are different types of urodynamic tests, and they vary depending on what the test is measuring. To help diagnose your condition, your health care provider may recommend that you keep a log of when you urinate and how much you urinate. How is this treated? Treatment for this condition depends on the type of incontinence that you have and its cause. Treatment may include: Lifestyle changes, such as: ?Quitting smoking. ?Maintaining a healthy weight. ?Staying active. Try to get 150 minutes of moderate-intensity exercise every week. Ask your health care provider which activities are safe for you. ?Eating a healthy diet. ?Avoid high-fat foods, like fried foods. ?Avoid refined carbohydrates like white bread and white rice. ?Limit how much alcohol and caffeine you drink. ?Increase your fiber intake. Healthy sources of fiber include beans, whole grains, and fresh fruitsand vegetables. Behavioral changes, such as: ?Pelvic floor muscle exercises. ?Bladder training, such as lengthening the amount of time between bathroom breaks, or using the bathroom at regular intervals. ?Using techniques to suppress bladder urges. This can include distraction techniques or controlled breathing exercises. Medicines, such as: ?Medicines to relax the bladder muscles and prevent bladder spasms. ?Medicines to help slow or prevent the growth of a man's prostate. ?Botox injections. These can help relax the bladder muscles. Treatments, such as: ?Using pulses of electricity to help change bladder reflexes (electrical nerve stimulation). ?For women, using a mobile paramedical examiner to prevent urine leaks. This is a small, tampon-like, disposabledevice that is inserted into the urethra. ?Injecting collagen or carbon beads (bulking agents) into the urinary sphincter. These can help thicken tissue and close the bladder opening. ?Surgery. Follow these instructions at home: Lifestyle Limit alcohol and caffeine. These can fill your bladder quickly and irritate it. Keep yourself clean to help prevent odors and skin damage. Ask your health care provider about special skin creams and cleansers that can protect the skin from urine. Consider wearing pads or adult diapers. Make sure to change them regularly, and always change them right after experiencing incontinence. General instructions Take kfcd-rfr-[id number] and prescription medicines only as told by your health care provider. Use the bathroom about every 3 4 hours, even if you do not feel the need to urinate. Try to empty your bladder completely every time. After urinating, wait a minute. Then try to urinate again. Make sure you are in a relaxed position while urinating. If your incontinence is caused by nerve problems, keep a log of the medicines you take and the times you go to the bathroom. Keep all follow-up visits. This is important. Where to find more information [employer] [place] [employer]estive [employer] Kidney [employer]: www.niddk.nih.gov [employer] [employer]: www.urologyhealth.org Contact a health care provider if: You have pain that gets worse. Your incontinence gets worse. Get help right away if: You have a fever or chills. You are unable to urinate. You have redness in your groin area or down your legs. Summary Urinary incontinence refers to a condition in which a person is unable to control where and when topass urine. This condition may be caused by medicines, infection, weak bladder muscles, weak pelvic floor muscles, enlargement of the prostate (in men), or surgery. Factors such as older age, obesity, and childbirth, menopause, neurological diseases, andchronic coughing may increase your risk for developing this condition. Types of urinary incontinence include urge incontinence, stress incontinence, overflow incontinence, and functional incontinence. This condition is usually treated first with lifestyle and behavioral changes, such as quitting smoking, eating a healthier diet, and doing regular pelvic floor exercises. Other treatment options include medicines, bulking agents, medical devices, electrical nerve stimulation, or surgery. This information is not intended to replace advice given to you by your health care provider. Make sure you discuss any questions you have with your health care provider. Document Revised: 10/12/2020 Document Reviewed: 10/12/2020 [employer] Patient Education 2022 [email or web address]. Follow Up Care 04/15/2022 10:00:46 With:JOSEFINA DOWNS PA-C, URL Address: [address] [place] [address] When: Unknown [facility] [email or web address] 06-27-2023 Evaluation note* Encounter Date Diagnosis Assessment Notes Treatment Notes Treatment Clinical Notes Aug, Primary osteoarthritis of left shoulder (ICD-10 - M19.012) ROM exercises, heat/ice and Mobic. Tylenol as needed. Refer to PT Subacromial injection? MRI if no improvement Aug, Tendinitis of left rotator cuff (ICD-10 - M75.82) Aug, Right-sided chest wall pain (ICD-10 - R07.89) Reassure, Tylenol as needed. Notify office w/ SOB, cough, N/V or abdominal pain Aug, Flat foot [pes planus] (acquired), right foot (ICD-10 - M21.41) Continue to wear custom orthotics have helped. Ice, heat and elevate. Weight reduction would be helpful Aug, Flat foot [pes planus] (acquired), left foot (ICD-10 - M21.42) [employer] Other 01-24-2023 Hospital Discharge instructions Patient Education 04/15/2022 09:23:46 Overactive Bladder, Adult Overactive Bladder, Adult Overactive bladder refers to a condition in which a person has a sudden need to pass urine. The person may leak urine if he or she cannot get to the bathroom fast enough (urinary incontinence). A person with this condition may also wake up several times in the night to go to the bathroom. Overactive bladder is associated with poor nerve signals between your bladder and your brain. Your bladder may get the signal to empty before it is full. You may also have very sensitive muscles thatmake your bladder squeeze too soon. These symptoms might interfere with daily work or social activities. What are the causes? This condition may be associated with or caused by: Urinary tract infection. Infection of nearby tissues, such as the prostate. Prostate enlargement. Surgery on the uterus or urethra. Bladder stones, inflammation, or tumors. Drinking too much caffeine or alcohol. Certain medicines, especially medicines that get rid of extra fluid in the body (diuretics). Muscle or nerve weakness, especially from: ?A spinal cord injury. ?Stroke. ?Multiple sclerosis. ?Parkinson's disease. Diabetes. Constipation. What increases the risk? You may be at greater risk for overactive bladder if you: Are an older adult. Smoke. Are going through menopause. Have prostate problems. Have a neurological disease, such as stroke, dementia, Parkinson's disease, or multiple sclerosis (MS). Eat or drink things that irritate the bladder. These include alcohol, spicy food, and caffeine. Are overweight or obese. What are the signs or symptoms? Symptoms of this condition include: Sudden, strong urge to urinate. Leaking urine. Urinating 8 or more times a day. Waking up to urinate 2 or more times a night. How is this diagnosed? Your health care provider may suspect overactive bladder based on your symptoms. He or she will diagnose this condition by: A physical exam and medical history. Blood or urine tests. You might need bladder or urine tests to help determine what is causing your overactive bladder. You might also need to see a health care provider who specializes in urinary tract problems (urologist). How is this treated? Treatment for overactive bladder depends on the cause of your condition and whether it is mild or severe. You can also make lifestyle changes at home. Options include: Bladder training. This may include: ?Learning to control the urge to urinate by following a schedule that directs you to urinate at regular intervals (timed voiding). ?Doing Kegel exercises to strengthen your pelvic floor muscles, which support your bladder. Toning these muscles can help you control urination, even if your bladder muscles are overactive. Special devices. This may include: ?Biofeedback, which uses sensors to help you become aware of your body's signals. ?Electrical stimulation, which uses electrodes placed inside the body (implanted) or outside the body. These electrodes send gentle pulses of electricity to strengthen the nerves or muscles that control the bladder. ?Women may use a plastic device that fits into the vagina and supports the bladder (pessary). Medicines. ?Antibiotics to treat bladder infection. ?Antispasmodics to stop the bladder from releasing urine at the wrong time. ?Tricyclic antidepressants to relax bladder muscles. ?Injections of botulinum toxin type A directly into the bladder tissue to relax bladder muscles. Lifestyle changes. This may include: ?Weight loss. Talk to your health care provider about weight loss methods that would work best for you. ?Diet changes. This may include reducing how much alcohol and caffeine you consume, or drinking fluids at different times of the day. ?Not smoking. Do not use any products that contain nicotine or tobacco, such as cigarettes and e-cigarettes. If you need help quitting, ask your health care provider. Surgery. ?A device may be implanted to help manage the nerve signals that control urination. ?An electrode may be implanted to stimulate electrical signals in the bladder. ?A procedure may be done to change the shape of the bladder. This is done only in very severe cases. Follow these instructions at home: Lifestyle Make any diet or lifestyle changes that are recommended by your health care provider. These may include: ?Drinking less fluid or drinking fluids at different times of the day. ?Cutting down on caffeine or alcohol. ?Doing Kegel exercises. ?Losing weight if needed. ?Eating a healthy and balanced diet to prevent constipation. This may include: ?Eating foods that are high in fiber, such as fresh fruits and vegetables, whole grains, and beans. ?Limiting foods that are high in fat and processed sugars, such as fried and sweet foods. General instructions Take sbvi-tgs-bzdmjdy and prescription medicines only as told by your health care provider. If you were prescribed an antibiotic medicine, take it as told by your health care provider. Do notstop taking the antibiotic even if you start to feel better. Use any implants or pessary as told by your health care provider. If needed, wear pads to absorb urine leakage. Keep a journal or log to track how much and when you drink and when you feel the need to urinate. This will help your health care provider monitor your condition. Keep all follow-up visits as told by your health care provider. This is important. Contact a health care provider if: You have a fever. Your symptoms do not get better with treatment. Your pain and discomfort get worse. You have more frequent urges to urinate. Get help right away if: You are not able to control your bladder. Summary Overactive bladder refers to a condition in which a person has a sudden need to pass urine. Several conditions may lead to an overactive bladder. Treatment for overactive bladder depends on the cause and severity of your condition. Follow your health care provider's instructions about lifestyle changes, doing Kegel exercises, keeping a journal, and taking medicines. This information is not intended to replace advice given to you by your health care provider. Make sure you discuss any questions you have with your health care provider. Document Released: 01/03/2010 Document Revised: 06/30/2019 Document Reviewed: 03/25/2018 [employer] Patient Education 2019 [email or web address]. Follow Up Care 04/02/2021 10:16:29 With:HIMANSHU BENÍTEZ, JOSEFINA Hahn, URL Address: [address] [place] [address] When: Unknown [facility] 07-13-2022 Hospital Discharge instructions Patient Education 10/02/2021 13:39:53 Overactive Bladder, Adult Overactive Bladder, Adult Overactive bladder refers to a condition in which a person has a sudden need to pass urine. The person may leak urine if he or she cannot get to the bathroom fast enough (urinary incontinence). A person with this condition may also wake up several times in the night to go to the bathroom. Overactive bladder is associated with poor nerve signals between your bladder and your brain. Your bladder may get the signal to empty before it is full. You may also have very sensitive muscles thatmake your bladder squeeze too soon. These symptoms might interfere with daily work or social activities. What are the causes? This condition may be associated with or caused by: Urinary tract infection. Infection of nearby tissues, such as the prostate. Prostate enlargement. Surgery on the uterus or urethra. Bladder stones, inflammation, or tumors. Drinking too much caffeine or alcohol. Certain medicines, especially medicines that get rid of extra fluid in the body (diuretics). Muscle or nerve weakness, especially from: ?A spinal cord injury. ?Stroke. ?Multiple sclerosis. ?Parkinson's disease. Diabetes. Constipation. What increases the risk? You may be at greater risk for overactive bladder if you: Are an older adult. Smoke. Are going through menopause. Have prostate problems. Have a neurological disease, such as stroke, dementia, Parkinson's disease, or multiple sclerosis (MS). Eat or drink things that irritate the bladder. These include alcohol, spicy food, and caffeine. Are overweight or obese. What are the signs or symptoms? Symptoms of this condition include: Sudden, strong urge to urinate. Leaking urine. Urinating 8 or more times a day. Waking up to urinate 2 or more times a night. How is this diagnosed? Your health care provider may suspect overactive bladder based on your symptoms. He or she will diagnose this condition by: A physical exam and medical history. Blood or urine tests. You might need bladder or urine tests to help determine what is causing your overactive bladder. You might also need to see a health care provider who specializes in urinary tract problems (urologist). How is this treated? Treatment for overactive bladder depends on the cause of your condition and whether it is mild or severe. You can also make lifestyle changes at home. Options include: Bladder training. This may include: ?Learning to control the urge to urinate by following a schedule that directs you to urinate at regular intervals (timed voiding). ?Doing Kegel exercises to strengthen your pelvic floor muscles, which support your bladder. Toning these muscles can help you control urination, even if your bladder muscles are overactive. Special devices. This may include: ?Biofeedback, which uses sensors to help you become aware of your body's signals. ?Electrical stimulation, which uses electrodes placed inside the body (implanted) or outside the body. These electrodes send gentle pulses of electricity to strengthen the nerves or muscles that control the bladder. ?Women may use a plastic device that fits into the vagina and supports the bladder (pessary). Medicines. ?Antibiotics to treat bladder infection. ?Antispasmodics to stop the bladder from releasing urine at the wrong time. ?Tricyclic antidepressants to relax bladder muscles. ?Injections of botulinum toxin type A directly into the bladder tissue to relax bladder muscles. Lifestyle changes. This may include: ?Weight loss. Talk to your health care provider about weight loss methods that would work best for you. ?Diet changes. This may include reducing how much alcohol and caffeine you consume, or drinking fluids at different times of the day. ?Not smoking. Do not use any products that contain nicotine or tobacco, such as cigarettes and e-cigarettes. If you need help quitting, ask your health care provider. Surgery. ?A device may be implanted to help manage the nerve signals that control urination. ?An electrode may be implanted to stimulate electrical signals in the bladder. ?A procedure may be done to change the shape of the bladder. This is done only in very severe cases. Follow these instructions at home: Lifestyle Make any diet or lifestyle changes that are recommended by your health care provider. These may include: ?Drinking less fluid or drinking fluids at different times of the day. ?Cutting down on caffeine or alcohol. ?Doing Kegel exercises. ?Losing weight if needed. ?Eating a healthy and balanced diet to prevent constipation. This may include: ?Eating foods that are high in fiber, such as fresh fruits and vegetables, whole grains, and beans. ?Limiting foods that are high in fat and processed sugars, such as fried and sweet foods. General instructions Take ayir-wax-zpbbsek and prescription medicines only as told by your health care provider. If you were prescribed an antibiotic medicine, take it as told by your health care provider. Do notstop taking the antibiotic even if you start to feel better. Use any implants or pessary as told by your health care provider. If needed, wear pads to absorb urine leakage. Keep a journal or log to track how much and when you drink and when you feel the need to urinate. This will help your health care provider monitor your condition. Keep all follow-up visits as told by your health care provider. This is important. Contact a health care provider if: You have a fever. Your symptoms do not get better with treatment. Your pain and discomfort get worse. You have more frequent urges to urinate. Get help right away if: You are not able to control your bladder. Summary Overactive bladder refers to a condition in which a person has a sudden need to pass urine. Several conditions may lead to an overactive bladder. Treatment for overactive bladder depends on the cause and severity of your condition. Follow your health care provider's instructions about lifestyle changes, doing Kegel exercises, keeping a journal, and taking medicines. This information is not intended to replace advice given to you by your health care provider. Make sure you discuss any questions you have with your health care provider. Document Released: 01/03/2010 Document Revised: 06/30/2019 Document Reviewed: 03/25/2018 [employer] Patient Education 2020 [email or web address]. Follow Up Care 08/14/2021 14:49:03 With:JOSEFINA DOWNS PA-C, URL Address: [address] [place] [address] When: Unknown [facility] 05-25-2022 Hospital Discharge instructions Patient Education 08/14/2021 14:35:29 Urinary Incontinence Urinary Incontinence Urinary incontinence refers to a condition in which a person is unable to control where and when topass urine. A person with this condition will urinate when he or she does not mean to (involuntarily). What are the causes? This condition may be caused by: Medicines. Infections. Constipation. Overactive bladder muscles. Weak bladder muscles. Weak pelvic floor muscles. These muscles provide support for the bladder, intestine, and, in women,the uterus. Enlarged prostate in men. The prostate is a gland near the bladder. When it gets too big, it can pinch the urethra. With the urethra blocked, the bladder can weaken and lose the ability to empty properly. Surgery. Emotional factors, such as anxiety, stress, or post-traumatic stress disorder (PTSD). Pelvic organ prolapse. This happens in women when organs shift out of place and into the vagina. This shift can prevent the bladder and urethra from working properly. What increases the risk? The following factors may make you more likely to develop this condition: Older age. Obesity and physical inactivity. and childbirth. Menopause. Diseases that affect the nerves or spinal cord (neurological diseases). Long-term (chronic) coughing. This can increase pressure on the bladder and pelvic floor muscles. What are the signs or symptoms? Symptoms may vary depending on the type of urinary incontinence you have. They include: A sudden urge to urinate, but passing urine involuntarily before you can get to a bathroom (urge incontinence). Suddenly passing urine with any activity that forces urine to pass, such as coughing, laughing, exercise, or sneezing (stress incontinence). Needing to urinate often, but urinating only a small amount, or constantly dribbling urine (overflow incontinence). Urinating because you cannot get to the bathroom in time due to a physical disability, such as arthritis or injury, or communication and thinking problems, such as Alzheimer disease (functional incontinence). How is this diagnosed? This condition may be diagnosed based on: Your medical history. A physical exam. Tests, such as: ?Urine tests. ?X-rays of your kidney and bladder. ?Ultrasound. ?CT scan. ?Cystoscopy. In this procedure, a health care provider inserts a tube with a light and camera (cystoscope) through the urethra and into the bladder in order to check for problems. ?Urodynamic testing. These tests assess how well the bladder, urethra, and sphincter can store and release urine. There are different types of urodynamic tests, and they vary depending on what the test is measuring. To help diagnose your condition, your health care provider may recommend that you keep a log of when you urinate and how much you urinate. How is this treated? Treatment for this condition depends on the type of incontinence that you have and its cause. Treatment may include: Lifestyle changes, such as: ?Quitting smoking. ?Maintaining a healthy weight. ?Staying active. Try to get 150 minutes of moderate-intensity exercise every week. Ask your health care provider which activities are safe for you. ?Eating a healthy diet. ?Avoid high-fat foods, like fried foods. ?Avoid refined carbohydrates like white bread and white rice. ?Limit how much alcohol and caffeine you drink. ?Increase your fiber intake. Foods such as fresh fruits, vegetables, beans, and whole grains are healthy sources of fiber. Pelvic floor muscle exercises. Bladder training, such as lengthening the amount of time between bathroom breaks, or using the bathroom at regular intervals. Using techniques to suppress bladder urges. This can include distraction techniques or controlled breathing exercises. Medicines to relax the bladder muscles and prevent bladder spasms. Medicines to help slow or prevent the growth of a man's prostate. Botox injections. These can help relax the bladder muscles. Using pulses of electricity to help change bladder reflexes (electrical nerve stimulation). For women, using a mobile paramedical examiner to prevent urine leaks. This is a small, tampon-like, disposable device that is inserted into the urethra. Injecting collagen or carbon beads (bulking agents) into the urinary sphincter. These can help thicken tissue and close the bladder opening. Surgery. Follow these instructions at home: Lifestyle Limit alcohol and caffeine. These can fill your bladder quickly and irritate it. Keep yourself clean to help prevent odors and skin damage. Ask your doctor about special skin creams and cleansers that can protect the skin from urine. Consider wearing pads or adult diapers. Make sure to change them regularly, and always change them right after experiencing incontinence. General instructions Take axee-rgl-xxgaays and prescription medicines only as told by your health care provider. Use the bathroom about every 3 4 hours, even if you do not feel the need to urinate. Try to empty your bladder completely every time. After urinating, wait a minute. Then try to urinate again. Make sure you are in a relaxed position while urinating. If your incontinence is caused by nerve problems, keep a log of the medicines you take and the times you go to the bathroom. Keep all follow-up visits as told by your health care provider. This is important. Contact a health care provider if: You have pain that gets worse. Your incontinence gets worse. Get help right away if: You have a fever or chills. You are unable to urinate. You have redness in your groin area or down your legs. Summary Urinary incontinence refers to a condition in which a person is unable to control where and when topass urine. This condition may be caused by medicines, infection, weak bladder muscles, weak pelvic floor muscles, enlargement of the prostate (in men), or surgery. The following factors increase your risk for developing this condition: older age, obesity, and childbirth, menopause, neurological diseases, and chronic coughing. There are several types of urinary incontinence. They include urge incontinence, stress incontinence, overflow incontinence, and functional incontinence. This condition is usually treated first with lifestyle and behavioral changes, such as quitting smoking, eating a healthier diet, and doing regular pelvic floor exercises. Other treatment options include medicines, bulking agents, medical devices, electrical nerve stimulation, or surgery. This information is not intended to replace advice given to you by your health care provider. Make sure you discuss any questions you have with your health care provider. Document Released: 04/16/2005 Document Revised: 03/19/2018 Document Reviewed: 06/18/2017 [employer] Patient Education 2020 [employer] Follow Up Care 08/09/2021 15:38:15 With:JOSEFINA DOWNS PA-C, URL Address: [address] [place] [place] [id number] [phone] When: Unknown [facility] evaluation + Plan note Future Appointments Appointment Date:10/02/2021 01:00:00 PM Scheduled Provider:JOSEFINA DOWNS PA-C Location:[facility] Appointment Type:URO Office Visit Appointment Date:04/08/2022 10:45:00 AM Scheduled Provider:Charly Blanton Jr., MD Location:[facility] Appointment Type:URO Office Visit [facility] evaluation + Plan note Future Appointments Appointment Date:04/08/2022 10:45:00 AM Scheduled Provider:Charly Blanton Jr., MD Location:[facility] Appointment Type:URO Office Visit [facility] evaluation + Plan note Future Appointments Appointment Date:10/14/2022 10:00:00 AM Scheduled Provider:JOSEFINA DOWNS PA-C Location:[facility] Appointment Type:URO Office Visit [facility] evaluation + Plan note Future Appointments Appointment Date:10/27/2023 10:00:00 AM Scheduled Provider:JOSEFINA DOWNS PA-C Location:[facility] Appointment Type:URO Office Visit [facility] evaluation noteNo assessment information available [facility] Work Phone: Evaluzqygr noteNo InformationNort [employer] Other Evaluunlnq note* Diagnosis Onset Date Resolution Status Left shoulder pain acute [facility] Work Phone: Evaluation note* Diagnosis Onset Date Resolution Status BPPV (benign paroxysmal positional vertigo) acute Brain fog acute SHERRILL (generalized anxiety disorder) acute Left shoulder pain acute Primary osteoarthritis of left shoulder acute Abdominal pain, RLQ (right lower quadrant) acute BPPV (benign paroxysmal positional vertigo) acute SHERRILL (generalized anxiety disorder) acute IFG (impaired fasting glucose) acute Left shoulder pain acute Primary osteoarthritis of left shoulder acute [facility] Work Phone: Evaluation note* Diagnosis Onset Date Resolution Status BPPV (benign paroxysmal positional vertigo) acute Brain fog acute SHERRILL (generalized anxiety disorder) acute Left shoulder pain acute Primary osteoarthritis of left shoulder acute Abdominal pain, RLQ (right lower quadrant) acute BPPV (benign paroxysmal positional vertigo) acute SHERRILL (generalized anxiety disorder) acute IFG (impaired fasting glucose) acute Left shoulder pain acute Primary osteoarthritis of left shoulder acute Primary osteoarthritis of left shoulder acute Pre-op examination noneactiv e [facility] Work Phone: Evaluation note* Diagnosis Onset Date Resolution Status BPPV (benign paroxysmal positional vertigo) acute SHERRILL (generalized anxiety disorder) acute Left shoulder pain acute Primary osteoarthritis of left shoulder acute Brain fog resolved BPPV (benign paroxysmal positional vertigo) acute SHERRILL (generalized anxiety disorder) acute IFG (impaired fasting glucose) acute Left shoulder pain acute Primary osteoarthritis of left shoulder acute Primary osteoarthritis of left shoulder acute Pre-op examination noneactiv e [facility] Work Phone: Evaluation note* Diagnosis Onset Date Resolution Status BPPV (benign paroxysmal positional vertigo) acute SHERRILL (generalized anxiety disorder) acute Left shoulder pain acute Primary osteoarthritis of left shoulder acute Brain fog resolved BPPV (benign paroxysmal positional vertigo) acute SHERRILL (generalized anxiety disorder) acute IFG (impaired fasting glucose) acute Left shoulder pain acute Primary osteoarthritis of left shoulder acute Primary osteoarthritis of left shoulder acute Pre-op examination noneactiv e Chronic venous insufficiency acute SHERRILL (generalized anxiety disorder) acute IFG (impaired fasting glucose) acute Obesity acute Primary osteoarthritis of left shoulder acute Preop exam for internal medicine noneactive [facility] Work Phone: Evaluation note* Diagnosis Onset Date Resolution Status BPPV (benign paroxysmal positional vertigo) acute SHERRILL (generalized anxiety disorder) acute Left shoulder pain acute Primary osteoarthritis of left shoulder acute Brain fog resolved BPPV (benign paroxysmal positional vertigo) acute SHERRILL (generalized anxiety disorder) acute IFG (impaired fasting glucose) acute Left shoulder pain acute Primary osteoarthritis of left shoulder acute Primary osteoarthritis of left shoulder acute Pre-op examination noneactiv e Chronic venous insufficiency acute SHERRILL (generalized anxiety disorder) acute IFG (impaired fasting glucose) acute Primary osteoarthritis of left shoulder acute Preop exam for internal medicine noneactive [facility] Work Phone: Evaluation note* Diagnosis Onset Date Resolution Status BPPV (benign paroxysmal positional vertigo) acute HSERRILL (generalized anxiety disorder) acute Left shoulder pain acute Primary osteoarthritis of left shoulder acute Brain fog resolved BPPV (benign paroxysmal positional vertigo) acute SHERRILL (generalized anxiety disorder) acute IFG (impaired fasting glucose) acute Left shoulder pain acute Primary osteoarthritis of left shoulder acute Primary osteoarthritis of left shoulder acute Pre-op examination noneactiv e Chronic venous insufficiency acute SHERRILL (generalized anxiety disorder) acute IFG (impaired fasting glucose) acute Primary osteoarthritis of left shoulder acute Preop exam for internal medicine noneactive 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 acute [facility] Work Phone: Evaluation note* Diagnosis Onset Date Resolution Status BPPV (benign paroxysmal positional vertigo) acute SHERRILL (generalized anxiety disorder) acute IFG (impaired fasting glucose) acute Left shoulder pain acute Primary osteoarthritis of left shoulder acute Primary osteoarthritis of left shoulder acute Pre-op examination noneactiv e Chronic venous insufficiency acute SHERRILL (generalized anxiety disorder) acute IFG (impaired fasting glucose) acute Primary osteoarthritis of left shoulder acute Preop exam for internal medicine noneactive 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 acute 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 acute [facility] Work Phone: Evaluation note* Diagnosis Onset Date Resolution Status BPPV (benign paroxysmal positional vertigo) acute SHERRILL (generalized anxiety disorder) acute IFG (impaired fasting glucose) acute Left shoulder pain acute Primary osteoarthritis of left shoulder acute Primary osteoarthritis of left shoulder acute Pre-op examination noneactiv e Chronic venous insufficiency acute SHERRILL (generalized anxiety disorder) acute IFG (impaired fasting glucose) acute Primary osteoarthritis of left shoulder acute Preop exam for internal medicine noneactive 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 acute 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 acute BPPV (benign paroxysmal positional vertigo) acute Diarrhea acute SHERRILL (generalized anxiety disorder) acute IFG (impaired fasting glucose) acute Pruritus acute [facility] Work Phone: History general Narrative - Reported* Type Description Date Medical History Depression, unspecified depressi on type Medical History IFG (impaired fasting glucose) Medical History Unsteadiness Medical History Occipital headache Medical History Nystagmus, end-position Medical History Estrogen deficiency Medical History Chronic venous insufficiency Medical History Obstructive sleep apnea Surgical History colonoscopy Surgical History EGD Surgical History hysterectomy Surgical History knee replacement Surgical History appendectomy Surgical History CTS Surgical History biopsy Hospitalization History see above Official [employer] Other Hospital course Narrative No data available for this section [facility] Hospital Discharge instructions Additional Instructions POSTOPERATIVE INSTRUCTIONS FOR SHOULDER ARTHROPLASTY Akil Matrinez DO Orthopedic Surgeon [facility] GENERAL INSTRUCTIONS: Use Cryocuff/ice packs to the shoulder as much as you can tolerate (30 minutes on/30 minutes off) over the first 48-72 hours post-operatively. DO NOT apply ice directly to the skin. Always place a towel between the ice pack and skin. Low grade temperatures are common after surgery. Please notify the office if your temperature exceeds 101.5 degrees Fahrenheit. DO NOT make critical decisions or sign legal papers for the first 24 hours after surgery or while taking pain medication. MEDICATIONS AND DIET: You may resume all pre-operative medications unless otherwise specified. Only take pain medication as prescribed, as needed. We encourage ambulation to help prevent blood clots from developing in your legs You should take pain medication with food. It is not uncommon to have nausea or an upset stomach after surgery. Medication refills require a 48 hour notice; no exceptions will be made. NO REFILLS will be authorized over the weekend. A maximum of 4g (4,000mg) of acetaminophen can be taken within a 24 hour period. Ensure no more than this is taken in a day If you have a reaction to your medications, stop taking them and call the office immediately. If you develop a significant rash, or have trouble breathing, call 911 or go immediately to the nearest emergency room. ACTIVITY: Your operative extremity is in shoulder sling. Please wear this as all times. You may remove this for bathing purposes. You may also come out of the sling 2-3 times per day and work on gentle range of motion to your elbow. Wear the sling while sleeping at night. You are non-weightbearing on your operative arm. DRESSING/BANDAGES: Your surgical bandage may show some drainage over the first 24-48 hours following surgery. You may remove your dressing on post-operative day 7 If your bandage becomes saturated, please notify the office. You may shower 5 days after your surgery with your incision on. Ensure there is a tight seal around your dressing to make sure your incision stays dry. Once the bandage is off on post-operative day 7, you may shower if there has been no drainage from the incision for 24 hours. For showering, simply allow water to wash over the incision. Do not scrub the area. DO NOT submerge the incision in a bath, hot tub, swimming pool, or any other body of water for the first 4 weeks following surgery. Do not put any lotions or creams on the incision for the first 4-6 weeks after the surgery FOLLOW UP: Your first post-operative appointment should already be scheduled for you. If you do not already have a post-operative appointment, call the office to schedule an appointment. You should be seen in the office 10-14 days following your surgery unless otherwise specified. If you notice any increasing swelling, wound redness, or drainage, please contact our office immediately. Akil Martinez DO Orthopedic Surgeon [facility] Office: [address] [place] [address] Office number: [phone] [facility] Work Phone: Progress note No data available for this section [facility] Summary Purpose Family History No Family History Records Found Relationship Condition Age at Onset Recorded Date/T shandra Not Specified Dementia Unknown father Malignant neoplasm Unknown Relationship Condition Age at Onset Recorded Date/T shandra Not Specified Dementia Unknown father Malignant neoplasm Unknown father Unknown Malignant neoplasm Unknown Relationship Condition Age at Onset Recorded Date/T shandra Not Specified Dementia Unknown Unknown Hypertension Unknown father Blood disorder Unknown Relationship Condition Age at Onset Recorded Date/T shandra mother Dementia Unknown Unknown Hypertension Unknown father Blood disorder Unknown Advance Directives No Advanced Directives Records Found Advance Directive Response Recorded Date/ Time Advance Directives No April 14, 2023 3:03pm Chief Complaint and Reason for Visit Chief Complaint CBC, A1C, TSH Chief Complaint shoulder pain worsen ing Reason for Visit Left shoulder pain Chief Complaint shoulder pain worsen ing 6 month follow up Reason for Visit BPPV (benign paroxys mal positional vertigo) Brain fog SHERRILL (generalized anxiety disorder) Left shoulder pain Primary osteoarthritis of left shoulder Abdominal pain, RLQ (right lower quadrant) BPPV (benign paroxysmal positional vertigo) SHERRILL (generalized anxiety disorder) IFG (impaired fasting glucose) Left shoulder pain Primary osteoarthritis of left shoulder Chief Complaint shoulder pain worsen ing 6 month follow up CON[address]ULT [address] SHAUN BAHENA SHOULDER PAIN, WX M19.012 - Primary osteoarthritis, left shoulder Reason for Visit BPPV (benign paroxys mal positional vertigo) Brain fog SHERRILL (generalized anxiety disorder) Left shoulder pain Primary osteoarthritis of left shoulder Abdominal pain, RLQ (right lower quadrant) BPPV (benign paroxysmal positional vertigo) SHERRILL (generalized anxiety disorder) IFG (impaired fasting glucose) Left shoulder pain Primary osteoarthritis of left shoulder Primary osteoarthritis of left shoulder Pre-op examination Chief Complaint shoulder pain worsen ing 6 month follow up CONSULT DR SHAUN BAHENA SHOULDER PAIN, WX M19.012 - Primary osteoarthritis, left shoulder M19.012 Reason for Visit BPPV (benign paroxys mal positional vertigo) Brain fog SHERRILL (generalized anxiety disorder) Left shoulder pain Primary osteoarthritis of left shoulder Abdominal pain, RLQ (right lower quadrant) BPPV (benign paroxysmal positional vertigo) SHERRILL (generalized anxiety disorder) IFG (impaired fasting glucose) Left shoulder pain Primary osteoarthritis of left shoulder Primary osteoarthritis of left shoulder Pre-op examination Chief Complaint shoulder pain worsen ing 6 month follow up CONSULT DR PALM LT SHOULDER PAIN, WX M19.012 - Primary osteoarthritis, left shoulder M19.012 Shoulder pain Reason for Visit BPPV (benign paroxys mal positional vertigo) SHERRILL (generalized anxiety disorder) Left shoulder pain Primary osteoarthritis of left shoulder Brain fog BPPV (benign paroxysmal positional vertigo) SHERRILL (generalized anxiety disorder) IFG (impaired fasting glucose) Left shoulder pain Primary osteoarthritis of left shoulder Primary osteoarthritis of left shoulder Pre-op examination Chief Complaint shoulder pain worsen ing 6 month follow up CONSULT DR SHAUN BAHENA SHOULDER PAIN, WX M19.012 - Primary osteoarthritis, left shoulder M19.012 Shoulder pain Surgery Clearance Reason for Visit BPPV (benign paroxys mal positional vertigo) SHERRILL (generalized anxiety disorder) Left shoulder pain Primary osteoarthritis of left shoulder Brain fog BPPV (benign paroxysmal positional vertigo) SHERRILL (generalized anxiety disorder) IFG (impaired fasting glucose) Left shoulder pain Primary osteoarthritis of left shoulder Primary osteoarthritis of left shoulder Pre-op examination Chronic venous insufficiency SHERRILL (generalized anxiety disorder) IFG (impaired fasting glucose) Obesity Primary osteoarthritis of left shoulder Preop exam for internal medicine Chief Complaint shoulder pain worsen ing 6 month follow up CONSULT DR SHAUN BAHENA SHOULDER PAIN, WX M19.012 - Primary osteoarthritis, left shoulder M19.012 Shoulder pain Surgery Clearance Shoulder pain Shoulder pain Reason for Visit BPPV (benign paroxys mal positional vertigo) SHERRILL (generalized anxiety disorder) Left shoulder pain Primary osteoarthritis of left shoulder Brain fog BPPV (benign paroxysmal positional vertigo) SHERRILL (generalized anxiety disorder) IFG (impaired fasting glucose) Left shoulder pain Primary osteoarthritis of left shoulder Primary osteoarthritis of left shoulder Pre-op examination Chronic venous insufficiency SHERRILL (generalized anxiety disorder) IFG (impaired fasting glucose) Primary osteoarthritis of left shoulder Preop exam for internal medicine Chief Complaint shoulder pain worsen ing 6 month follow up CONSULT DR PALM LT SHOULDER PAIN, WX M19.012 - Primary osteoarthritis, left shoulder M19.012 Shoulder pain Surgery Clearance Shoulder pain Shoulder pain 1 WEEK POST OP Z96.612 - Presence of left artificial shoulder magaly Reason for Visit BPPV (benign paroxys mal positional vertigo) SHERRILL (generalized anxiety disorder) Left shoulder pain Primary osteoarthritis of left shoulder Brain fog BPPV (benign paroxysmal positional vertigo) SHERRILL (generalized anxiety disorder) IFG (impaired fasting glucose) Left shoulder pain Primary osteoarthritis of left shoulder Primary osteoarthritis of left shoulder Pre-op examination Chronic venous insufficiency SHERRILL (generalized anxiety disorder) IFG (impaired fasting glucose) Primary osteoarthritis of left shoulder Preop exam for internal medicine Status post reverse total arthroplasty of left shoulder Chief Complaint shoulder pain worsen ing 6 month follow up CONSULT DR SHAUN BAHENA SHOULDER PAIN, WX M19.012 - Primary osteoarthritis, left shoulder M19.012 Shoulder pain Surgery Clearance Shoulder pain Shoulder pain 1 WEEK POST OP Z96.612 - Presence of left artificial shoulder magaly Z96.612 Reason for Visit BPPV (benign paroxys mal positional vertigo) SHERRILL (generalized anxiety disorder) Left shoulder pain Primary osteoarthritis of left shoulder Brain fog BPPV (benign paroxysmal positional vertigo) SHERRILL (generalized anxiety disorder) IFG (impaired fasting glucose) Left shoulder pain Primary osteoarthritis of left shoulder Primary osteoarthritis of left shoulder Pre-op examination Chronic venous insufficiency SHERRILL (generalized anxiety disorder) IFG (impaired fasting glucose) Primary osteoarthritis of left shoulder Preop exam for internal medicine Status post reverse total arthroplasty of left shoulder Chief Complaint 6 month follow up CONSULT DR PALM LT SHOULDER PAIN, WX M19.012 - Primary osteoarthritis, left shoulder M19.012 Shoulder pain Surgery Clearance Shoulder pain Shoulder pain 1 WEEK POST OP Z96.612 - Presence of left artificial shoulder magaly Z96.612 L reverse shoulder arthroplasty Reason for Visit BPPV (benign paroxys mal positional vertigo) SHERRILL (generalized anxiety disorder) IFG (impaired fasting glucose) Left shoulder pain Primary osteoarthritis of left shoulder Primary osteoarthritis of left shoulder Pre-op examination Chronic venous insufficiency SHERRILL (generalized anxiety disorder) IFG (impaired fasting glucose) Primary osteoarthritis of left shoulder Preop exam for internal medicine 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 Chief Complaint 6 month follow up CONSULT DR PALM LT SHOULDER PAIN, WX M19.012 - Primary osteoarthritis, left shoulder M19.012 Shoulder pain Surgery Clearance Shoulder pain Shoulder pain 1 WEEK POST OP Z96.612 - Presence of left artificial shoulder magaly Z96.612 L reverse shoulder arthroplasty all over itchiness Reason for Visit BPPV (benign paroxys mal positional vertigo) SHERRILL (generalized anxiety disorder) IFG (impaired fasting glucose) Left shoulder pain Primary osteoarthritis of left shoulder Primary osteoarthritis of left shoulder Pre-op examination Chronic venous insufficiency SHERRILL (generalized anxiety disorder) IFG (impaired fasting glucose) Primary osteoarthritis of left shoulder Preop exam for internal medicine 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 BPPV (benign paroxysmal positional vertigo) Diarrhea SHERRILL (generalized anxiety disorder) IFG (impaired fasting glucose) Pruritus Additional Source Comments Care Team (unrecognized sect ion and content) Team Status: Inactive Member Role Status Dates Capo Palm DO Primary Care Provider Active Outreach Community Attending Provider Active Team Status: Active Member Role Status Dates Capo Palm DO Primary Care Provider Active Team Status: Inactive Member Role Status Dates Capo Palm DO Primary Care Provide r, Attending Provider Active Start: July 16, 2023 End: July 16, 2023 Team Status: Inactive Member Role Status Dates Capo Palm DO Primary Care Provide r, Attending Provider Active Start: August 03, 2023 End: August 03, 2023 Team Status: Inactive Member Role Status Dates Capo Ball , DO Primary Care Provider Active Start: August 13, 2023 End: August 13, 2023 Akil Martinez , DO Attending Provider Active St art: August 13, 2023 End: August 13, 2023 Team Status: Active Member Role Status Dates Capo Palm DO Primary Care Provider Active Start: August 13, 2023 Akil Martinez , DO Attending Provider Active St art: August 13, 2023 Team Status: Inactive Member Role Status Dates Capo Palm DO Primary Care Provider Active Start: August 14, 2023 End: August 14, 2023 Akil Martinez , DO Attending Provider Active St art: August 14, 2023 End: August 14, 2023 Team Status: Inactive Member Role Status Dates Capo Palm DO Primary Care Provider Active Start: August 25, 2023 End: August 25, 2023 Akil Martinez , DO Attending Provider Active St art: August 25, 2023 End: August 25, 2023 Team Status: Inactive Member Role Status Dates Capo Palm DO Primary Care Provide r, Attending Provider Active Start: August 27, 2023 End: August 27, 2023 Team Status: Active Member Role Status Dates Capo Palm DO Primary Care Provide r, Attending Provider Active Start: September 01, 2023 Team Status: Inactive Member Role Status Dates Capo Palm DO Primary Care Provider Active Start: September 09, 2023 End: September 09, 2023 Akil Martinez , Attending Provider Active St art: September 09, 2023 End: September 09, 2023 Team Status: Active Member Role Status Dates Capo Palm DO Primary Care Provider Active Start: September 09, 2023 Akil Martinez DO Attending Provider, Other Provider Active Start: September 09, 2023 Team Status: Inactive Member Role Status Dates Capo Palm DO Primary Care Provider Active Start: September 17, 2023 End: September 17, 2023 Akil Martinez , Attending Provider Active St art: September 17, 2023 End: September 17, 2023 Team Status: Active Member Role Status Dates Capo Palm DO Primary Care Provider Active Start: September 17, 2023 Akil Martinez DO Attending Provider Active St art: September 17, 2023 Team Status: Inactive Member Role Status Dates Capo Palm DO Primary Care Provider Active Start: September 30, 2023 End: September 30, 2023 Akil Martinez DO Attending Provider Active St art: September 30, 2023 End: September 30, 2023 Team Status: Active Member Role Status Dates Capo Palm DO Primary Care Provider Active Start: October 20, 2023 Akil Martinez DO Attending Provider Active St art: October 20, 2023 Team Status: Inactive Member Role Status Dates Capo Palm DO Primary Care Provider Active Start: October 22, 2023 End: October 22, 2023 Akil Martinez , DO Attending Provider Active St art: October 22, 2023 End: October 22, 2023 Team Status: Active Member Role Status Dates Capo Palm DO Primary Care Provider Active Start: October 26, 2023 Akil Martinez , DO Attending Provider Active St art: October 26, 2023 Team Status: Inactive Member Role Status Dates Capo Palm DO Primary Care Provide r, Attending Provider Active Start: October 28, 2023 End: October 28, 2023 INFORMATION SOURCE (unrecogn ized section and content) DATE CREATED AUTHOR 12/18/2021 [facility] DATE CREATED AUTHOR AUTHOR'S ORGANIZ ATION 11/19/2023 [facility] DATE CREATED AUTHOR AUTHOR'S ORGANIZ ATION 12/11/2023 [facility] EPIC DATE CREATED AUTHOR AUTHOR'S ORGANIZ ATION 12/16/2023 [facility] Goals (unrecognized section and content) Goals may be documented in a n alternate section REASON FOR VISIT (unrecogniz ed section and content) sore ankle and armBone densi ty testDexa [id number] cpap machineDizzinessdizziness FOR RECORDS PERTAINING TO PATIENTS WHO ARE OR HAVE BEEN ENROLLED IN A CHEMICAL DEPENDENCY/SUBSTANCEABUSE PROGRAM, SOME INFORMATION MAY BE OMITTED. This clinical summary was aggregated from multiple sources. Caution should be exercised in using it in the provision of clinical care. This summary normalizes information from multiple sources, and as a consequence, information in this document may materially change the coding, format and clinical context of patient data. In addition, data may be omitted in some cases. CLINICAL DECISIONS SHOULD BE BASED ON THE PRIMARY CLINICAL RECORDS. [facility] [employer] [facility]. provides no warranty or guarantee of the accuracy or completeness of information in this document.
== END 2023-12-17 13:58 | disposition home or self-care (01) ==
LOC: MAMMO 13:58
PROVIDERS: PCP Internal Medicine; Visit Provider Internal Medicine
DX: Z12.31 Encounter for screening mammogram for malignant neoplasm of breast (principal); Z80.3 Family history of malignant neoplasm of breast; Z80.6 Family history of leukemia
CPT/HCPCS: 77063; 77067

== ENCOUNTER 2023-12-31 15:14 | Outpatient (OUT) | payer MEDICARE, SELFPAY ==
--- OUTSIDE RECORDS SUMMARY | 2023-12-31 15:24 | XMS_ITS | CCD ---
Author Organization [facility] Care Team Providers Care Building Economist Name Role Phone CAPO PALM Primary Care [...] Unavailable Shaun, DO Scanlon Primary Care Provider Community, [facility] Attending Provider Capo Palm Unavailable DO Capo Palm Primary Care Provider [phone] DO Akil Martinez Attending Provider JOSEFINA DOWNS Attending Unavailable LIZZIE HARRISON Attending Unavailable RAVEN, RACQUEL Hunter Attending Unavailable BALL, CAPO E Referring Unavailable RAVEN, RACQUEL Hunter Attending Unavailable BALL, CAPO E Referring Unavailable RAVEN, RACQUEL Hunter Attending Unavailable BALL, CAPO E Referring Unavailable RAVEN, RACQUEL Hunter Attending Unavailable BALL, CAPO E Referring Unavailable RAVEN, RACQUEL Hunter Attending Unavailable BALL, CAPO E Referring Unavailable KARIN, ANABELLE Sweet Attending Unavailable KARIN, ANABELLE Sweet Referring Unavailable RAVEN, RACQUEL Hunter Attending Unavailable BALL, CAPO E Referring Unavailable RAVEN, RACQUEL Hunter Attending Unavailable BALL, CAPO E Referring Unavailable RAVEN, RACQUEL Hunter Attending Unavailable BALL, ACPO E Referring Unavailable RAVEN, RACQUEL Hunter Attending Unavailable BALL, CAPO E Referring Unavailable RAVEN, RACQUEL Hunter Attending Unavailable BALL, CAPO E Referring Unavailable RAVEN, RACQUEL Hunter Attending Unavailable BALL, CAPO E Referring Unavailable BallDO Scanlon Primary Care Provider DO Akil Martinez Attending Provider Capo Palm Primary Care Unavailable Jeanmarie, Akil A Admitting Unavailable Jeanmarie, Akil Sweet Attending Unavailable Jeanmarie, Akil A Admitting Unavailable Ball, Capo Primary Care Unavailable Jeanmarie, Akil A Attending Unavailable Jeanmarie, Akil A Admitting Unavailable Ball, Capo Primary Care Unavailable Jeanmarie, Akil A Attending Unavailable Jeanmarie, Akil A Attending Unavailable Ball, Capo Primary Care Unavailable Jeanmarie, Akil A Admitting Unavailable Jeanmarie, Akil A Admitting Unavailable Ball, Capo Primary Care Unavailable Jeanmarie, Akil A Attending Unavailable Jeanmarie, Akil A Attending Unavailable Ball, Capo Primary Care Unavailable Jeanmarie, Akil A Admitting Unavailable Jeanmarie, Akil A Attending Unavailable Ball, Capo Primary Care Unavailable Jeanmarie, Akil A Admitting Unavailable Ball, Capo Primary Care Unavailable Jeanmarie, Akil A Attending Unavailable Jeanmarie, Aikl A Admitting Unavailable Allergies Allergy Classification Reported Allergen(s) Allergy Type Date of Onset Reaction(s) Facility (6 sources) Sulfonamides (Antibiotic); Translations: [sulfa drugs] Drug allergy Eruption of skin (disorder) [facility] (1 source) Sulfonamides (Antibiotic) Drug allergy (disorder) 05-20-19 17 [facility] (2 sources) Sulfonamides (Antibiotic); Translations: [Sulfa (Sulfonamide Antibiotics)] Allergy to substance 06-26-19 22 [facility] (7 sources) Sulf-10 Drug allergy rash [facility] (2 sources) patient allergy list reviewed by nurse or physicia Propensity to adverse reactions 10-22-19 14 Comment:Done [facility] Other (2 sources) Allergies Reconciled Propensity to adverse reactions Unknown [facility] Other (6 sources) Substance with sulfonamide structure and antibacterial mechanism of action (substance) Drug allergy 12-15-19 18 Unknown [facility] Other Medications Current Medications Medication Drug Class(es) Dates Sig (Normalized) Sig (Original) Daily Vitamins for Women (4 sources) Daily Vitamins f or Women Active [facility] (10 sources) Start: 08-25-2023 take 1 tablet by [...] for 5 days Apr, Active Multivitamin preparation (16 sources) Start: 06-25-2021 take 1 tablet by mouth once daily Multivitamin Active 1 TAB PO Daily June 25, 2021 12:00am omeprazole 40 mg delayed release oral capsule (20 sources) Proton Pump Inhibitor Start: 08-03-2023 End: 11-05-2023 Omeprazole Active 40 MG PO Daily 90 90 November 05, 2023 2:10pm Take on an empty stomach, 30 minutes [...] Refill(s) 0 Start Date: 12/07/18 Status: Ordered Completed/Discontinued Medications Medication Drug Class(es) Dates Sig (Normalized) Sig (Original) acetaminophen 500 mg oral tablet (8 sources) Start: 09-08-2023 End: 10-22-2023 take 500 mg by mouth every six hours Acetaminophen Discontinued 500 MG PO Q6H September 08, 2023 12:00am October 22, 2023 10:58am DO NOT RECONCILE UNTIL DOS 09/09/23 TO BE USED POST OP aspirin 81 mg chewable tablet (8 sources) Platelet Aggregation Inhibitor, Nonsteroidal Anti-inflammatory Drug Start: 09-08-2023 End: 10-22-2023 take 81 mg by mouth twice daily Aspirin Discontinued 81 MG PO Twice daily 60 September 08, 2023 12:00am October 22, 2023 [...] Ordered diclofenac sodium 0.03 mg/mg topical gel (19 sources) Nonsteroidal Anti-inflammatory Drug Start: 07-10-2023 End: 08-25-2023 Diclofenac Sodium Discontinued 1 APPLIC TOPICAL Twice daily July 10, 2023 12:00am August 25, 2023 11:38am Diclofenac Sodiu m 3 % 1 application Externally Twice a day Active docusate sodium 100 mg oral capsule (8 sources) Start: 09-08-2023 End: 10-22-2023 take 1 capsule by mouth twice daily Docusate Sodium (Colace) 100 mg capsule Discontinued 100 MG PO Twice daily 20 September 08, 2023 12:00am October 22, 2023 10:53am DO NOT RECONCILE UNTIL DOS 09/09/23 TO BE USED POST OP hyoscyamine sulfate 0.125 mg disintegrating oral tablet (9 sources) Start: 08-27-2023 End: 09-09-2023 take 0.125 mg by mouth four times daily Hyoscyamine Sulfate Discontinued 0.125 MG PO Four times daily 20 August 27, 2023 12:00am September 09, 2023 6:34am lactobacillus acidophilus [id number] unt oral capsule (16 sources) Start: 06-25-2021 End: 07-10-2023 Lactobacillus Acidophilus [...] Daily, # 90 tab(s), Refills(s) 3, Pharmacy: [facility], 157, cm, 10/21/22 9:06:00 EDT, Height/Length Dosing, 90, kg, 10/21/22 9:06:00 EDT, Weight Dosing Start Date: 10/21/22 Status: Ordered Start: 08-14-2021 take 1 tablet by cristi th once daily Ditropan XL 5 mg Tab-ER 5 mg = 1 tab(s), Oral, Daily, # 30 tab(s), Refills(s) 6, Pharmacy: [facility]/pharmacy #[id number], 157, cm, 08/14/21 14:15:00 EDT, Height/Length Dosing, 90, kg, 08/14/21 14:15:00 EDT, Weight Dosing Start Date: 08/14/21 Status: Ordered take 1 tablet by cristi every twenty-four hours oxyBUTYnin Chloride 5 MG 1 tablet Orally Once a day Active oxyCODONE hydrochloride 5 mg oral tablet (8 sources) Opioid Agonist Start: 09-08-2023 End: 10-22-2023 take 5 mg by mouth every six hours Oxycodone Discontinued 5 MG PO Q6H 28 September 08, 2023 October 22, 2023 10:53am DO NOT RECONCILE UNTIL DOS 09/09/23 TO BE USED POST OP polyethylene glycol 3350 07698 mg powder for oral solution (8 sources) Osmotic Laxative Start: 09-08-2023 End: 10-22-2023 Polyethylene Glycol 3350 (Miralax) 17 gram powder in packet Discontinued 17 GM PO daily 14 September 08, 2023 12:00am October 22, 2023 10:58am 1 packet mixed with 8 ounces of fluid. DO NOT RECONCILE UNTIL DOS 09/09/23 TO BE USED POST OP sertraline 100 mg oral tablet (20 sources) Serotonin Reuptake Inhibitor Start: 07-21-2023 End: 10-20-2023 take 100 mg by mouth once daily Sertraline Discontinued 100 MG PO Daily 90 90 July 22, 2023 9:26am October 20, 2023 6:15pm Problems Active Problems Problem Classification Problem Date [...] Onset: 1 Chronic Other connective tissue disease (7 sources) History of reverse prosthetic total arthroplasty of left shoulder; Translations: [Presence of left artificial shoulder joint] 09-17-2023 Chronic Other connective tissue disease (12 sources) Presence of left artificial shoulder joint; [...] forms of nystagmus] Chronic Other gastrointestinal disorders (9 sources) Diarrhea, unspecified; Translations: [Diarrhea] Onset: 1 Episodic Other gastrointestinal disorders (6 sources) Diarrhea; Translations: [Diarrhea, unspecified] Resolved: 2 10-28-2023 Episodic Other inflammatory condition of skin (6 sources) Pruritus, unspecified; Translations: [Pruritus] 10-28-2023 Episodic [...] on feet] Episodic Other nervous system disorders (14 sources) Impaired cognition; Translations: [Other symptoms and signs involving cognitive functions and awareness] 07-16-2023 Episodic Other nervous system disorders (10 sources) Other symptoms and signs involving cognitive functions and awareness; Translations: [Other signs and symptoms involving cognition] 07-16-2023 Episodic Other non-traumatic joint disorders (20 sources) Pain in left shoulder; Translations: [Left shoulder pain] Onset: 4 07-16-2023 Episodic Other nutritional; endocrine; and metabolic disorders (17 sources) Obesity; Translations: [Obesity, unspecified] 12-07-2018 Chronic [...] Translations: [CONTACT W/AND (SUSP) EXPOS COVID-19] Onset: Past or Other Problems Problem Classification Problem [...] Test Name Value Interpretation Reference Range Facility XR shoulder LT min 2V*on XR shoulder LT min 2V* [facility] [address] [place] [address] XRay Report Signed Patient: Sayda Fraire MR#: [id number] [birth year] : 1955 Acct:[id number] Age/Sex: 68 / F ADM Date: 12/17/23 Loc: [facility] Room: Type[facility] Attending Dr: Akil Martinez DO Copies to: Akil Martinez DO Ordering Provider: Akil Martinez DO Date of Service: 12/17/23 XR/XR shoulder LT min 2V*: Z96.612 - 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 XR/XR shoulder LT min 2V* IMPRESSION: NO HARDWARE COMPLICATION. Impression dictated by: Gonzalez Galo Jr., D.OJose12/17/2023 3:44 PM Dictation Location: [place] [address] Transcribed By: [facility] 12/17/23 1544 Dictated By: Gonzalez Galo Jr, DO 12/17/23 1544 Signed By: 12/17/23 1544 Normal [facility] Urology Office/Clinic Noteon 11-17-2023 Urology Office/Clinic Note [...] states her PCP had her d/c med. [place] like it was causing some GI issues. [...] Contact Information HIMANSHU BENÍTEZ, JOSEFINA Hahn, URL [phone] [place] [address] Additional Instructions: PRN Patient Education Overactive Bladder, Adult Documentation recorded by the scribe Clement Jack accurately reflects the services(s) I performed and decisions made by me. Authenticated by Josefina Downs PA-C on 11/17/2023 13:08:08. I, Clement Jack, personally scribed for Josefina Downs PA-C on [...] Immunizations Vaccine Date Status Comments SARS-CoV-2 (COVID-19) [id number] 09/16/2022 Recorded influenza virus vaccine, inactivated 01/27/2022 Recorded SARS-CoV-2 (COVID-19) (more content not included)... Normal [facility] Comment on above: Result Comment: Elec tronically Signed By: JOSEFINA DOWNS PA-C\.br\Date and Time Signed: 11/17/23 13:08 EDT\.br\Electronically Co-Signed By: Clement Jack\.br\Date and Time Co-Signed: 11/17/23 13:[address] shoulder LT wo conon - CT shoulder LT wo con [facility] [place] [address] CT Scan Report Signed Patient: Sayda Fraire MR#: [id number] [birth year] : 1955 Acct:[id number] Age/Sex: 68 / F ADM Date: 09/30/23 Loc: CT Room: Type: [facility] Attending Dr: Akil Martinez DO Copies [...] Wendy Olson M.D.09/30/2023 4:19 PM Dictation Location: RADIO--02 Transcribed By: [facility] 09/30/23 161 Dictated By: Wendy Olson MD 09/30/23 161 Signed By: 09/30/231618 Normal [facility] XR shoulder LT min 2V*on XR shoulder LT min 2V* [facility] [address] [place] [address] XRay Report Signed Patient: Sayda Fraire MR#: [id number] [birth year] : 1955 Acct:[id number] Age/Sex: 68 / F ADM Date: 09/17/23 Loc: [facility] Room: Type[facility] Attending Dr: Akil Martinez DO Copies [...] Galo Jr., D.OJose09/17/2023 3:43 PM Dictation Location: [facility] [address] Transcribed By: [facility] 09/17/23 1543 Dictated By: Gonzalez Galo Jr, DO 09/17/23 1543 Signed By: 09/17/23 154 Normal [facility] Sahil 09-09-2023 L Specimen: [id number] Received: 09/09/23 Status: GUY Lópezq Num: [id number] Spec Type: Surgical Subm Dr: Akil Martinez DO Tissues: A Joint/Knee (LT SHOULDER) Procedures: HE/2, Gross/Micro L4, Decalcification Age/ Patient Sex Location Account Attending Physician Sayda Fraire 68/F [place] [id number] Akil Martinez DO SPEC NUM: [id number] RECD: 09/09/23 STATUS: GUY PENG NUM: [id number] BROCK: 09/09/23- SUBM DR: Akil Martinez DO ENTERED: 09/09/[address] [facility] [address]: SPEC TYPE: Surgical DEPT: S ORDERED: [...] necrosis present. A gross photo is included. Audit Tech sections are submitted in A1 (bone following decalcification) and A2 (soft tissue). CPT Codes 42914 BONE AND TISSUE ---- ---- Specimen: [id number] Received: 09/09/23 Status: GUY Peng Num: [id number] Spec Type: Surgical Subm Dr: Akil Martinez DO Tissues: A Joint/Knee (LT SHOULDER) Procedures: HE/2, Gross/Micro L4, Decalcification ---- Patient: Sayda Fraire [id number] (Continued) ---- Signed (signature on file) Chidi Ng MD 09/10/23 4680 Normal [facility] XR shoulder LT 1Von 09-09-19 24 XR shoulder LT 1V [facility] [place] [address] XRay Report Signed Patient: Sayda Fraire MR#: [id number] : 1955 Acct:[id number] Age/Sex: 68 / F ADM Date: 09/09/23 Loc: [place] Room: Type: [facility] Attending Dr: Akil Martinez DO Copies [...] Wendy Olson M.D.09/09/2023 11:07 AM Dictation Location: [place] [address] Transcribed By: [facility] 09/09/23 110 Dictated By: Wendy Olson MD 09/09/23 110 Signed By: 09/09/23 110 Normal [facility] Basophils Auto (Bld) [#/Vol] on 09-01-2023 Basophils (Bld) [#/Vol] 0.0 10 3/uL 0.0-0.1 [facility] Basophils/100 WBC Auto (Bld) on 09-01-2023 Basophils/100 WBC (Bld) 0.8 % 0.2-2.0 [facility] Eosinophils/100 WBC Auto (Bl d)on 09-01-2023 Eosinophils/100 WBC (Bld) 2.5 % 0.9-7.0 [facility] Erythrocyte distribution wid th Auto (RBC) [Ratio]on 09-01-2023 Erythrocyte distribution width (RBC) [Ratio] 13.2 % 11.0-15.0 [facility] Estimated glomerular filtrat ion rate (GFR) non- Americanon 09-01-2023 GFR/1.73 sq M.predicted among non-blacks MDRD (S/P/Bld) [Vol rate/Area] mL/min/{1.73_m2} >=60 [facility] Globulin Calc (S) [Mass/Vol] on 09-01-2023 Globulin (S) [Mass/Vol] 3.5 g/dL [facility] Hematocrit Auto (Bld) [Volum e fraction]on 09-01-2023 Hematocrit (Bld) [Volume fraction] 39.8 % 36.0-48.0 [facility] Hemoglobin [Mass/volume] in Bloodon 09-01-2023 Hemoglobin (Bld) [Mass/Vol] 13.2 g/dL 12.0-16.0 [facility] Laboratory - Chemistry and C hemistry - challengeon 09-01-2023 Albumin [Mass/Vol] 3.6 g/dL 3.4-5.0 [facility] ALP [Catalytic activity/Vol] 114 U/L 46-116 [facility] ALT [Catalytic activity/Vol] 34 U/L 14-59 [facility] AST [Catalytic activity/Vol] 23 U/L 15-37 [facility] Bilirubin [Mass/Vol] 0.6 mg/dL 0.2-1.[address] [facility] Calcium [Mass/Vol] 9.4 mg/dL 8.5-10.1 [facility] Chloride [Moles/Vol] 106 mmol/L 98-[address] [facility] CO2 [Moles/Vol] 27.3 mmol/L 21.0-32.0 [facility] Creatinine [Mass/Vol] 0.77 mg/dL 0.55-1.02 [facility] GFR/1.73 sq M.predicted MDRD (S/P/Bld) [Vol rate/Area] mL/min/{1.73_m2} >=60 [facility] Glucose [Mass/Vol] 93 mg/dL 74-106 [facility] Potassium [Moles/Vol] 3.7 mmol/L 3.5-5.1 [facility] Protein [Mass/Vol] 7.1 g/dL 6.4-8.2 [facility] Sodium [Moles/Vol] 144 mmol/L 136-145 [facility] Urea nitrogen [Mass/Vol] 13.0 mg/dL 7.0-18.0 [facility] Urea nitrogen/Creatinine [Mass ratio] 16.9 mg/mg [facility] - Hematology and Cell countson 09-01-2023 Immature granulocytes/100 WBC (Bld) 0.2 % 0.0-0.5 [facility] Leukocytes [#/volume] correc beckie for nucleated erythrocytes in Blood by Automated counon 09-01-2023 WBC corrected for nucl RBC Auto (Bld) [#/Vol] 5.3 10 3/uL 4.0-11.0 [facility] Lymphocytes Auto (Bld) [#/Vo l]on 09-01-2023 Lymphocytes (Bld) [#/Vol] 1.4 10 3/uL 1.2-3.8 [facility] Lymphocytes/100 WBC Auto (Bl d)on 09-01-2023 Lymphocytes/100 WBC (Bld) 26.2 % 20.5-60.0 [facility] MCH Auto (RBC) [Entitic mass ]on 09-01-2023 MCH (RBC) [Entitic mass] 31.9 pg 26.7-34.0 [facility] MCHC Auto (RBC) [Mass/Vol]on 09-01-2023 MCHC (RBC) [Mass/Vol] 33.2 g/dL 29.9-35.2 [facility] MCV Auto (RBC) [Entitic vol] on 09-01-2023 MCV (RBC) [Entitic vol] 96.1 fL 81.0-99.0 [facility] Monocytes Auto (Bld) [#/Vol] on 09-01-2023 Monocytes (Bld) [#/Vol] 0.5 10 3/uL 0.3-0.8 [facility] Monocytes/100 WBC Auto (Bld) on 09-01-2023 Monocytes/100 WBC (Bld) 9.5 % 1.7-12.0 [facility] Neutrophils Auto (Bld) [#/Vo l]on 09-01-2023 Neutrophils (Bld) [#/Vol] 3.2 10 3/uL 1.4-6.5 [facility] Neutrophils/100 WBC Auto (Bl d)on 09-01-2023 Neutrophils/100 WBC (Bld) 60.8 % 43.0-75.0 [facility] No Panel Informationon 08-31 Clostridium difficile (PCR)(LAB) Negative NEGATIVE [facility] Miscellaneous Test Comment See comment [facility] Comment on above: Specimen Source: ST - Stool - Stool - 700.100 Stool Campylobacter Culture Res 1 \R\ Campylobacter Culture\R\ No Campylobacter species isolated. [facility] Comment on above: [facility], Eosinophils # (Auto) 0.1 10 3/uL 0.0-0.7 [facility] Immature Granulocyte # (Auto) 0.01 10 3/uL 0.00-0.03 [facility] No Panel InformationOrdered By: Capo Palm on 09-01-2023 E coli Shiga Toxin EIA [facility] Salmonella/Shigella Screen [facility] Platelet mean volume Auto (B ld) [Entitic vol]on 09-01-2023 Platelet mean volume (Bld) [Entitic vol] 11.2 fL 9.5-13.5 [facility] Platelets Auto (Bld) [#/Vol] on 09-01-2023 Platelets (Bld) [#/Vol] 222 10 3/uL 150-450 [facility] RBC Auto (Bld) [#/Vol]on RBC (Bld) [#/Vol] 4.14 10 6/uL Low 4.20-5.40 [facility] Serum or plasma albumin/glob ulin mass ratioon 09-01-2023 Albumin/Globulin [Mass ratio] 1.0 {ratio} [facility] Serum or plasma anion gap de terminationon 09-01-2023 Anion gap [Moles/Vol] 14.4 mmol/L [facility] Alanine aminotransferase [En zymatic activity/volume] in Serum or PlasmaOrdered By: Akil Martinez on 08-25-2023 ALT [Catalytic activity/Vol] 18 U/L Normal 7-52 [facility] Comment on above: Performed By: #### C BC, CMP wRFX A1C #### [facility] [address] Albumin [Mass/volume] in Ser um or Plasma by Bromocresol green (BCG) dye binding methoOrdered By: Akil Martinez on 08-25-2023 Albumin BCG dye [Mass/Vol] 4.2 g/dL 3.5-5.7 [facility] Alkaline phosphatase [Enzyma tic activity/volume] in Serum or PlasmaOrdered By: Akil Martinez on 08-25-2023 ALP [Catalytic activity/Vol] 88 U/L Normal 34-104 [facility] Comment on above: Result Comment: PERF ORMED BY: [place] [address] PATHOLOGIST [employer] KANDI ECHEVARRIA M.D. Performed By: #### C BC, CMP wRFX A1C #### [address] Aspartate aminotransferase [ Enzymatic activity/volume] in Serum or PlasmaOrdered By: Akil Martinez on 08-25-2023 AST [Catalytic activity/Vol] 18 U/L Normal 13-39 [facility] Comment on above: Performed By: #### C BC, CMP wRFX A1C #### [address] Automated basophil %Ordered By: Akil Martinez on 08-25-2023 Basophils/100 WBC (Bld) 0.9 % Normal . [facility] Comment on above: Performed By: #### C BC, CMP wRFX A1C #### [address] Automated basophil countOrde red By: Akil Martinez on 08-25-2023 Basophils (Bld) [#/Vol] 0.0 10*3/uL Normal 0.0-0.2 [facility] Comment on above: Result Comment: PERF ORMED BY: [place] [address] PATHOLOGIST [employer] KANDI ECHEVARRIA M.D. Performed By: #### C BC, CMP wRFX A1C #### [address] Automated blood monocyte cou ntOrdered By: Akil Martinez on 08-25-2023 Monocytes (Bld) [#/Vol] 0.5 10*3/uL Normal 0.0-0.8 [facility] Comment on above: Performed By: #### C BC, CMP wRFX A1C #### [address] Automated eosinophil %Ordere d By: Akil Martinez on 08-25-2023 Eosinophils/100 WBC (Bld) 2.2 % Normal . [facility] Comment on above: Performed By: #### C BC, CMP wRFX A1C #### [facility] [address] Automated eosinophil countOr dered By: Akil Martinez on 08-25-2023 Eosinophils (Bld) [#/Vol] 0.1 10*3/uL Normal 0.0-0.45 [facility] Comment on above: Performed By: #### C BC, CMP wRFX A1C #### [facility] [address] Automated monocyte %Ordered By: Akil Martinez on 08-25-2023 Monocytes/100 WBC (Bld) 8.9 % Normal . [facility] Comment on above: Performed By: #### C BC, CMP wRFX A1C #### [facility] [address] [place] [address] Automated neutrophil %Ordere d By: Akil Martinez on 08-25-2023 Neutrophils/100 WBC (Bld) 65.3 % Normal . [facility] Comment on above: Performed By: #### C BC, CMP wRFX A1C #### [address] Bilirubin Test strip Ql (U)O rdered By: Akil Martinez on 08-25-2023 Bilirubin Ql (U) Negative Negative [facility] Bilirubin.total [Mass/volume ] in Serum or PlasmaOrdered By: Akil Martinez on 08-25-2023 Bilirubin [Mass/Vol] 0.5 mg/dL Normal 0.3-1.[address] [facility] Comment on above: Performed By: #### C BC, CMP wRFX A1C #### [facility] [address] [place] [address] CMP with reflex to A1Con Albumin [Mass/Vol] 4.2 g/dL Normal 3.5-5.7 [facility] Comment on above: Performed By: #### C BC, CMP wRFX A1C #### [place] [address] [place] GFR/1.73 sq M.predicted MDRD (S/P/Bld) [Vol rate/Area] mL/min/{1.73_m2} Normal [facility] Comment on above: Performed By: #### C BC, CMP wRFX A1C #### [place] [address] [place] Calcium [Mass/volume] in Ser um or PlasmaOrdered By: Akil Martinez on 08-25-2023 Calcium [Mass/Vol] 9.6 mg/dL Normal 8.6-10.3 [facility] Comment on above: Performed By: #### C BC, CMP wRFX A1C #### [address] Carbon dioxide, total [Moles /volume] in Serum or PlasmaOrdered By: Akil Martinez on 08-25-2023 CO2 [Moles/Vol] 27.5 mmol/L Normal 21.0-31.0 [facility] Comment on above: Performed By: #### C BC, CMP wRFX A1C #### [place] [address] [place] Chloride [Moles/volume] in S raheel or PlasmaOrdered By: Akil Martinez on 08-25-2023 Chloride [Moles/Vol] 107 mmol/L Normal 98-[address] [facility] Comment on above: Performed By: #### C BC, CMP wRFX A1C #### [place] [address] [place] Color of Urine by AutoOrdere d By: Akil Martinez on 08-25-2023 Color (U) Light-yellow Normal Yellow [facility] Comment on above: Order Comment: Name Collection Type:: Clean-Voided Midstream Performed By: #### U A #### [address] Complete Blood Count Auto Di ffon 08-25-2023 Mean Corpuscular HGB Conc 33.6 g/dL Normal 32.0-35.0 [facility] Comment on above: Performed By: #### C BC, CMP wRFX A1C #### [facility] [address] NRBC% 0.1 /100{WBC} Normal 0-0.5 [facility] Comment on above: Performed By: #### C BC, CMP wRFX A1C #### [facility] [address] Creatinine [Mass/volume] in Serum or PlasmaOrdered By: Akil Martinez on 08-25-2023 Creatinine [Mass/Vol] 0.73 mg/dL Normal 0.60-1.20 [facility] Comment on above: Performed By: #### C BC, CMP wRFX A1C #### [facility] [address] ECG 12 lead ECGon 08-25-2023 ECG 12 lead ECG [facility] Main [place] [address] [place] [address] Electrocardiograph Report Signed Patient: Sayda Fraire MR#: [id number] 19 : 1955 Acct:[id number] Age/Sex: 68 / F ADM Date: 08/25/23 Loc: Room: [facility] Attending Dr: Akil Martinez DO Ordering Provider: [...] Electronically Signed By:SANTANA STEPHENS MD Transcribed By: MUS Signed By Santana Stephens MD 0 08/25/23 1746 Normal [facility] Erythrocyte distribution wid th [Ratio] by Automated countOrdered By: Akil Martinez on 08-25-2023 Erythrocyte distribution width (RBC) [Ratio] 13.8 % Normal 11.9-15.3 [facility] Comment on above: Performed By: #### C BC, CMP wRFX A1C #### [facility] [address] [place] [address] [place] Erythrocytes [#/volume] in B lood by Automated countOrdered By: Akil Martinez on 08-25-2023 RBC (Bld) [#/Vol] 3.95 10*6/uL Normal 3.60-5.00 [facility] Comment on above: Performed By: #### C BC, CMP wRFX A1C #### [facility] [address] [place] [address] [place] Glucose [Mass/volume] in Ser um or PlasmaOrdered By: Akil Martinez on 08-25-2023 Glucose [Mass/Vol] 97 mg/dL Normal 70-100 [facility] Comment on above: Performed By: #### C BC, CMP wRFX A1C #### [facility] [address] [place] [address] [place] Glucose [Mass/volume] in Uri ne by Test stripOrdered By: Akil Martinez on 08-25-2023 Glucose Test strip (U) [Mass/Vol] Normal mg/dL Normal [facility] Hematocrit [Volume Fraction] of Blood by Automated countOrdered By: Akil Martinez on 08-25-2023 Hematocrit (Bld) [Volume fraction] 37.7 % Normal 34.0-46.4 [facility] Comment on above: Performed By: #### C BC, CMP wRFX A1C #### [facility] [address] [place] [address] [place] Hemoglobin Test strip Ql (U) Ordered By: Akil Martinez on 08-25-2023 Hemoglobin Ql (U) Trace High Negative [facility] Hemoglobin [Mass/volume] in BloodOrdered By: Akil Martinez on 08-25-2023 Hemoglobin (Bld) [Mass/Vol] 12.7 g/dL Normal 11.8-15.4 [facility] Comment on above: Performed By: #### C BC, CMP wRFX A1C #### [place] [address] [place] Ketones [Presence] in Urine by Test stripOrdered By: Akil Martinez on 08-25-2023 Ketones Ql (U) Negative Normal Negative [facility] Comment on above: Order Comment: Name Collection Type:: Clean-Voided Midstream Performed By: #### U A #### [place] [address] [place] Leukocyte esterase [Presence ] in Urine by Test stripOrdered By: Akil Martinez on 08-25-2023 Leukocyte esterase Test strip Ql (U) Negative Normal Negative [facility] Comment on above: Order Comment: Name Collection Type:: Clean-Voided Midstream Performed By: #### U A #### [place] [address] [place] Leukocytes [#/volume] correc beckie for nucleated erythrocytes in Blood by Automated counOrdered By: Akil Martinez on 08-25-2023 WBC corrected for nucl RBC Auto (Bld) [#/Vol] 5.6 10*3/uL 3.8-11.6 [facility] Leukocytes [#/volume] in Blo od by Automated countOrdered By: Akil Martinez on 08-25-2023 WBC (Bld) [#/Vol] 5.6 10*3/uL Normal 3.8-11.6 [facility] Comment on above: Performed By: #### C BC, CMP wRFX A1C #### [place] [address] [place] Lymphocytes [#/volume] in Bl ood by Automated countOrdered By: Akil Martinez on 08-25-2023 Lymphocytes (Bld) [#/Vol] 1.3 10*3/uL Normal 1.00-4.8 [facility] Comment on above: Performed By: #### C BC, CMP wRFX A1C #### [place] [address] [place] Lymphocytes/100 leukocytes i n Blood by Automated countOrdered By: Akil Martinez on 08-25-2023 Lymphocytes/100 WBC (Bld) 22.7 % Normal . [facility] Comment on above: Performed By: #### C BC, CMP wRFX A1C #### [address] MCH [Entitic mass] by Automa beckie countOrdered By: Akil Martinez on 08-25-2023 MCH (RBC) [Entitic mass] 32.1 pg Normal 24.7-34.3 [facility] Comment on above: Performed By: #### C BC, CMP wRFX A1C #### [address] MCHC Auto (RBC) [Mass/Vol]Or dered By: Akil Martinez on 08-25-2023 MCHC (RBC) [Mass/Vol] 33.6 g/dL 32.0-35.0 [facility] MCV [Entitic volume] by Auto mated countOrdered By: Akil Martinez on 08-25-2023 MCV (RBC) [Entitic vol] 95.4 fL Normal 80-100 [facility] Comment on above: Performed By: #### C BC, CMP wRFX A1C #### [address] MRSA Cultureon 08-25-2023 MRSA Culture No MRSA Isolated 2 Days PERFORMED BY: [place] [address] PATHOLOGIST [employer] KANDI ECHEVARRIA M.D. Normal [facility] Comment on above: Performed By: #### C UMRSA #### [place] [address] [place] Neutrophils [#/volume] in Bl ood by Automated countOrdered By: Akil Martinez on 08-25-2023 Neutrophils (Bld) [#/Vol] 3.7 10*3/uL Normal 1.8-7.7 [facility] Comment on above: Performed By: #### C BC, CMP wRFX A1C #### [address] Nitrite Test strip Ql (U)Ord ered By: Akil Martinez on 08-25-2023 Nitrite Ql (U) Negative Negative [facility] No Panel InformationOrdered By: Akil Martinez on 08-25-2023 Estimated GFR (CKD-EPI) > 60.0 mL/Min [facility] Creatinine Clearance (Chem N/A [facility] Nucleated erythrocytes [Pres ence] in Blood by Automated countOrdered By: Akil Martinez on 08-25-2023 Nucleated RBC Auto Ql (Bld) 0.1 /100{WBC} 0-0.5 [facility] Platelet mean volume [Entiti c volume] in Blood by Automated countOrdered By: Akil Martinez on 08-25-2023 Platelet mean volume (Bld) [Entitic vol] 9.5 fL Normal 6.3-10.7 [facility] Comment on above: Performed By: #### C BC, CMP wRFX A1C #### [facility] [address] [place] [address] Platelets [#/volume] in Bloo d by Automated countOrdered By: Akil Martinez on 08-25-2023 Platelets (Bld) [#/Vol] 192 10*3/uL Normal 150-450 [facility] Comment on above: Performed By: #### C BC, CMP wRFX A1C #### [address] Potassium [Moles/volume] in Serum or PlasmaOrdered By: Akil Martinez on 08-25-2023 Potassium [Moles/Vol] 3.8 mmol/L Normal 3.5-5.1 [facility] Comment on above: Performed By: #### C BC, CMP wRFX A1C #### [place] [address] [place] Protein Test strip (U) [Mass /Vol]Ordered By: Akil Martinez on 08-25-2023 Protein (U) [Mass/Vol] Negative Negative [facility] Protein [Mass/volume] in Ser um or PlasmaOrdered By: Akil Martinez on 08-25-2023 Protein [Mass/Vol] 6.4 g/dL Normal 6.4-8.9 [facility] Comment on above: Performed By: #### C BC, CMP wRFX A1C #### [address] Serum globulin measurement b y calculation (mass/volume)Ordered By: Akil Martinez on 08-25-2023 Globulin (S) [Mass/Vol] 2.2 g/dL Normal [facility] Comment on above: Performed By: #### C BC, CMP wRFX A1C #### [address] Serum or plasma albumin/glob ulin mass ratioOrdered By: Akil Martinez on 08-25-2023 Albumin/Globulin [Mass ratio] 1.9 {ratio} Normal [facility] Comment on above: Performed By: #### C BC, CMP wRFX A1C #### [address] Serum or plasma anion gap de terminationOrdered By: Akil Martinez on 08-25-2023 Anion gap [Moles/Vol] 11.3 mmol/L Normal 6.0-15.0 [facility] Comment on above: Performed By: #### C BC, CMP wRFX A1C #### [address] Sodium [Moles/volume] in Ser um or PlasmaOrdered By: Akil Martinez on 08-25-2023 Sodium [Moles/Vol] 142 mmol/L Normal 136-145 [facility] Comment on above: Performed By: #### C BC, CMP wRFX A1C #### [address] Specific gravity Test strip (U) [Rel density]Ordered By: Akil Martinez on 08-25-2023 Specific gravity (U) [Rel density] 1.015 1.001-1.030 [facility] Urea nitrogen [Mass/volume] in Serum or PlasmaOrdered By: Akil Martinez on 08-25-2023 Urea nitrogen [Mass/Vol] 15 mg/dL Normal 7-25 [facility] Comment on above: Performed By: #### C BC, CMP wRFX A1C #### [address] Urinalysison 08-25-2023 Bilirubin,Urine Negative Normal Negative [facility] Comment on above: Order Comment: Name Collection Type:: Clean-Voided Midstream Performed By: #### U A #### [address] Glucose Ql (U) Normal Normal Normal [facility] Comment on above: Order Comment: Name Collection Type:: Clean-Voided Midstream Performed By: #### U A #### [address] Nitrite,Urine Negative Normal Negative [facility] Comment on above: Order Comment: Name Collection Type:: Clean-Voided Midstream Performed By: #### U A #### [address] Occult Blood,Urine Trace High Negative [facility] Comment on above: Order Comment: Name Collection Type:: Clean-Voided Midstream Result Comment: PERF ORMED BY: [place] [address] PATHOLOGIST [employer] KANDI ECHEVARRIA M.D. Performed By: #### U A #### [address] Protein,Urine Negative Normal Negative [facility] Comment on above: Order Comment: Name Collection Type:: Clean-Voided Midstream Performed By: #### U A #### [place] [address] [place] Specificy [place],Urine 1.015 Normal 1.001-1.030 [facility] Comment on above: Order Comment: Name Collection Type:: Clean-Voided Midstream Performed By: #### U A #### [address] Urobilinogen,Urine Normal Normal Normal [facility] Comment on above: Order Comment: Name Collection Type:: Clean-Voided Midstream Performed By: #### U A #### [facility] [address] [place] [address] Urine appearanceOrdered By: Akil Martinez on 08-25-2023 Appearance (U) Clear Normal Clear [facility] Comment on above: Order Comment: Name Collection Type:: Clean-Voided Midstream Performed By: #### U A #### [facility] [address] [place] [address] Urobilinogen Test strip (U) [Mass/Vol]Ordered By: Akil Martinez on 08-25-2023 Urobilinogen (U) [Mass/Vol] Normal mg/dL Normal [facility] Wound methicillin resistant Staphylococcus aureus (MRSA) cultureOrdered By: Akil Martinez on 08-25-2023 MRSA isol Org specific cx Ql (Unsp spec) No MRSA Isolated 2 Days [facility] pH of Urine by Test stripOrd ered By: Akil Martinez on 08-25-2023 pH (U) 5.5 [pH] Normal 5.0-9.0 [facility] Comment on above: Order Comment: Name Collection Type:: Clean-Voided Midstream Performed By: #### U A #### [address] shoulder LT wo conon 07-22 CT shoulder LT wo con [facility] [place] [address] CT Scan Report Signed Patient: Sayda Fraire MR#: [id number] 19 : 1955 Acct:[id number] Age/Sex: 68 / F ADM Date: 08/14/23 Loc: CT Room: [facility] Attending Dr: Akil Martinez DO Copies [...] Forrest Johnston M.D.08/14/2023 4:02 PM Dictation Location: [place] [address] Transcribed By: [facility] 08/14/23 1602 Dictated By: Forrest Johnston II, MD 08/14/23 1556 Signed By: 08/14/23 1602 Normal [facility] XR shoulder LT min 2V*on XR shoulder LT min 2V* [facility] [address] [place] [address] XRay Report Signed Patient: Sayda Fraire MR#: [id number] [birth year] : 1955 Acct:[id number] Age/Sex: 68 / F ADM Date: 08/13/23 Loc: [facility] Room: [facility] Attending Dr: Akil Martinez DO Copies [...] PROCESS. Impression dictated by: Gonzalez Galo Jr., D.OJose08/13/2023 3:51 PM Dictation Location: [facility] Transcribed By: [facility] 08/13/23 1551 Dictated By: Gonzalez Galo Jr, DO 08/13/23 1549 Signed By: 08/13/23 1551 Normal [facility] Albumin [Mass/volume] in Ser um or PlasmaOrdered By: [facility] on 12-28-2021 Albumin [Mass/Vol] 3.7 g/dL 3.2-5.5 [facility] Blood hemoglobin measurement (mass/volume)Ordered By: [facility] on 12-28-2021 Hemoglobin (Bld) [Mass/Vol] 13.7 g/dL 11.8-15.4 [facility] Cholesterol [Mass/volume] in Serum or PlasmaOrdered By: OUTREACH [facility]CLUDES [facility] on 12-28-2021 Cholesterol [Mass/Vol] 215 mg/dL 140-200 [facility] Comment on above: Chol less than 200 m g/dl low riskChol 201-239 mg/dl borderline riskChol 240 mg/dl and greater high risk Cholesterol in LDL Calc [Mas s/Vol]Ordered By: [facility] on 12-28-2021 Cholesterol in LDL [Mass/Vol] 142 mg/dL 0-100 [facility] Comment on above: LDL ATP III CLASSIFI CATIONLDL less than 100 mg/dL OptimalLDL 100-129 mg/dL Near or above optimalLDL 130-159 mg/dL Borderline highLDL 160-189 mg/dL HighLDL greater than 189 mg/dL Very high Cholesterol in VLDL Calc [Ma ss/Vol]Ordered By: [facility] on 12-28-2021 Cholesterol in VLDL [Mass/Vol] 16 mg/dL [facility] Creatinine and Glomerular fi ltration rate.predicted panel (S/P/Bld)Ordered By: [facility]CLUDES [facility] on 12-28-2021 Creatinine [Mass/Vol] 0.81 mg/dL 0.44-1.03 [facility] Erythrocyte distribution wid th Auto (RBC) [Ratio]Ordered By: [facility] on 12-28-2021 Erythrocyte distribution width (RBC) [Ratio] 13.6 % 11.9-15.3 [facility] Estimated glomerular filtrat ion rate (GFR) non- AmericanOrdered By: [facility]RE[facility]CLUDES [facility] on 12-28-2021 GFR/1.73 sq M.predicted among non-blacks MDRD (S/P/Bld) [Vol rate/Area] > 60 mL/Min [facility] Glucose mean value [Mass/vol ume] in Blood Estimated from glycated hemoglobinOrdered By: [facility] on 12-28-2021 Average glucose Estimated from glycated hemoglobin (Bld) [Mass/Vol] 123 mg/dL [facility] Hematocrit Auto (Bld) [Volum e fraction]Ordered By: [facility] on 12-28-2021 Hematocrit (Bld) [Volume fraction] 41.0 % 34.0-46.4 [facility] - Hematology and Cell countsOrdered By: [facility] on 12-28-2021 HbA1c (Bld) [Mass fraction] 5.9 % 4.3-5.6 [facility] Comment on above: Increased risk for d iabetes: 5.7 - 6.4diabetes: >6.4glycemic control for adults with diabetes: <7.0 MCH Auto (RBC) [Entitic mass ]Ordered By: [facility]RE[facility] INCLUDES [facility] on 12-28-2021 MCH (RBC) [Entitic mass] 32.0 pg 24.7-34.3 [facility] MCHC Auto (RBC) [Mass/Vol]Or dered By: [facility] on 12-28-2021 MCHC (RBC) [Mass/Vol] 33.5 g/dL 32.0-35.0 [facility] MCV Auto (RBC) [Entitic vol] Ordered By: OUTREACH COUNT INCLUDES [facility] on 12-28-2021 MCV (RBC) [Entitic vol] 95.7 fL 80-100 [facility] No Panel InformationOrdered By: [facility] on 12-28-2021 Estimated GFR () > 60 mL/Min [facility] Comment on above: GFR estimated refere nce range: According to KDOQI guidelines, <60 ml/min/1.73m2 is sufficient to diagnose a patient with chronic kidney disease. Pharmacy Creatinine Clearance (Chem N/A [facility] Triglycerides Reflex 83 mg/dL 35-[address] [facility] Comment on above: TRIG ATP III CLASSIF ICATIONTRIG less than 150 mg/dL NormalTRIG 150-199 mg/dL Borderline highTRIG 200-500 mg/dL High TRIG greater than 500 mg/dL Very highStandard traceable to the Center for Disease Conrtrol and Prevention (CDC) test method. Platelet mean volume Auto (B ld) [Entitic vol]Ordered By: [facility] on 12-28-2021 Platelet mean volume (Bld) [Entitic vol] 10.2 fL 6.3-10.7 [facility] Platelets Auto (Bld) [#/Vol] Ordered By: [facility] on 12-28-2021 Platelets (Bld) [#/Vol] 190 10*3/uL 150-450 [facility] Protein [Mass/volume] in Ser um or PlasmaOrdered By: [facility] on 12-28-2021 Protein [Mass/Vol] 6.2 g/dL 6.1-7.9 [facility] RBC Auto (Bld) [#/Vol]Ordere d By: [facility] on 12-28-2021 RBC (Bld) [#/Vol] 4.29 10*6/uL 3.60-5.00 [facility] Serum or plasma alanine stephenson otransferase measurement without P-5'-P (enzymatic activiOrdered By: [facility] on 12-28-2021 ALT No additional P-5'-P [Catalytic activity/Vol] 16 U/L 10-60 [facility] Serum or plasma alkaline brandy sphatase measurement (enzymatic activity/volume)Ordered By: [facility] on 12-28-2021 ALP [Catalytic activity/Vol] 91 U/L 32-92 [facility] Serum or plasma anion gap de terminationOrdered By: OUTRE[facility] COUNT [facility]CLUDES [facility] on 12-28-2021 Anion gap [Moles/Vol] 9.3 mmol/L 6.0-15.0 [facility] Serum or plasma aspartate am inotransferase measurement (enzymatic activity/volume)Ordered By: [facility] on 12-28-2021 AST [Catalytic activity/Vol] 19 U/L 10-42 [facility] Serum or plasma calcium jennifer urement (mass/volume)Ordered By: [facility] on 12-28-2021 Calcium [Mass/Vol] 9.7 mg/dL 8.2-10.2 [facility] Serum or plasma chloride claudia surement (moles/volume)Ordered By: [facility] on 12-28-2021 Chloride [Moles/Vol] 105 mmol/L 95-[address] [facility] Serum or plasma glucose jennifer urement (mass/volume)Ordered By: [facility] on 12-28-2021 Glucose [Mass/Vol] 111 mg/dL 70-100 [facility] Comment on above: ADA recommended refe rence rangeRandom Glucose Reference Range is dependent on time and content of last meal. Glucose of more than 200 mg/dL in a nonstressed, ambulatory subject supports the diagnosis of Diabetes Mellitus. Serum or plasma high density lipoprotein (HDL) cholesterol measurementOrdered By: [facility] on 12-28-2021 Cholesterol in HDL [Mass/Vol] 56 mg/dL 35-85 [facility] Comment on above: HDL CHOL ATP-III CLA SSIFICATION Cardiovascular RiskHDL > or equal to 60 mg/dL LOWHDL < 40 mg/dL HIGH Serum or plasma potassium me asurement (moles/volume)Ordered By: [facility] on 12-28-2021 Potassium [Moles/Vol] 4.1 mmol/L 3.5-5.1 [facility] Serum or plasma sodium measu rement (moles/volume)Ordered By: [facility] on 12-28-2021 Sodium [Moles/Vol] 140 mmol/L 136-146 [facility] Serum or plasma total biliru bin measurement (mass/volume)Ordered By: [facility] on 12-28-2021 Bilirubin [Mass/Vol] 0.7 mg/dL 0.3-1.[address] [facility] Serum or plasma total carbon dioxide measurement (moles/volume)Ordered By: [facility] on 12-28-2021 CO2 [Moles/Vol] 29.8 mmol/L 22.0-30.0 [facility] Serum or plasma total choles terol/high density lipoprotein (HDL) cholesterol mass ratOrdered By: [facility] on 12-28-2021 Cholesterol.total/Crystal sterol in HDL [Mass ratio] 3.8 {ratio} <5.0 [facility] Serum or plasma urea nitroge n measurement (mass/volume)Ordered By: [facility] on 12-28-2021 Urea nitrogen [Mass/Vol] 13 mg/dL 12-13 [facility] TSH DL <= 0.005 mIU/L QnOrde red By: [facility] on 12-28-2021 TSH Qn 2.13 m[IU]/L 0.45-5.33 [facility] WBC Auto (Bld) [#/Vol]Ordere d By: [facility] on 12-28-2021 WBC (Bld) [#/Vol] 4.3 10*3/uL 3.8-11.6 [facility] MG MAMM DX 3D RT CADon 12-11 MG MAMM DX 3D RT CAD Patient: TAMIKA FRAIRE Exam Date: 12/11/2021 : 1955 Gender:F Ordering : DR CAPO PALM D.O. Admission #: [id number] Family : Order #: [id number] CLICK HERE TO VIEW EXAM RADIOLOGY REPORT [...] leukemia cancer at age 43. LOCATION: [facility] BREAST COMPOSITION: Heterogeneously dense,which may obscure small [...] Ascencio M.D. on 12/11/2021 at 08:34 Normal [facility] AISYA - VITAMIN D LCon 022 Vitamin D, 25-Hydroxy 45.7 ng/mL Normal 30.0-100.0 [facility] Comment on above: Result Comment: Mahi min D deficiency has been defined by the Howe of Medicine and an Endocrine Society practice guideline as a level of serum 25-OH vitamin D less than 20 ng/mL (1,2). The Endocrine Society went on to further define vitamin D insufficiency as a level between 21 and 29 ng/mL (2). 1. IOM (Howe of Medicine). 2010. Dietary reference intakes for calcium and D. [place]ervantes [place]: The National Academies Press. 2. Isela MF, Mathew NC, Max MCMAHON, et al. Evaluation, treatment, and prevention of vitamin D deficiency: an Endocrine Society clinical practice guideline. JCEM. 2010; 96(7):1911-30. Performed By: #### D ATVDLC #### [facility] [address] [place] [address] [address] Oksana Shaw CBC AUTO DIFFon 11-21-2021 BASO # 0.1 103/ul Normal 0.0-0.1 [facility] Comment on above: Performed By: #### D ATCBC #### [facility] [address] [place] [address] [address] Oksana Shaw Basophils/100 WBC (Bld) 1.4 % Normal 0.2-2.0 [facility] Comment on above: Performed By: #### D ATCBC #### [facility] [address] [place] [address] [address] Oksana Shaw EO # 0.2 103/ul Normal 0.0-0.7 [facility] Comment on above: Performed By: #### D ATCBC #### [facility] [address] [place] [address] Dr. Oksana Shaw Eosinophils/100 WBC (Bld) 4.2 % Normal 0.9-7.0 [facility] Comment on above: Performed By: #### D ATCBC #### [facility] [address] [place] [address] Dr. Oksana Shaw Erythrocyte distribution width (RBC) [Ratio] 13.1 % Normal 11.0-15.0 [facility] Comment on above: Performed By: #### D ATCBC #### [facility] [address] [place] [address] Dr. Oksana Shaw Hematocrit (Bld) [Volume fraction] 41.2 % Normal 36.0-48.0 [facility] Comment on above: Performed By: #### D ATCBC #### [facility] [address] [place] [address] Dr. Oksana Shaw Hemoglobin (Bld) [Mass/Vol] 13.7 g/dL Normal 12.0-16.0 [facility] Comment on above: Performed By: #### D ATCBC #### [facility] [address] [place] [address] Dr. Oksana Shaw IG # 0.00 10e3/ul Normal 0.00-0.03 [facility] Comment on above: Performed By: #### D ATCBC #### [facility] [address] [place] [address] Dr. Oksana Shaw IG % 0.0 % Normal 0.0-0.5 [facility] Comment on above: Performed By: #### D ATCBC #### [facility] [address] [place] [address] Dr. Oksana Shaw LYMPH # 1.6 103/ul Normal 1.2-3.8 [facility] Comment on above: Performed By: #### D ATCBC #### [facility] [address] [place] [address] Dr. Oksana Shaw Lymphocytes/100 WBC (Bld) 31.5 % Normal 20.5-60.0 [facility] Comment on above: Performed By: #### D ATCBC #### [facility] [address] [place] [address] Dr. Oksana Shaw MCH (RBC) [Entitic mass] 32.0 pg Normal 26.7-34.0 [facility] Comment on above: Performed By: #### D ATCBC #### [facility] [address] [place] [address] Dr. Oksana Shaw MCHC (RBC) [Mass/Vol] 33.3 g/dL Normal 29.9-35.2 [facility] Comment on above: Performed By: #### D ATCBC #### [facility] [address] [place] [address] Dr. Oksana Shaw MCV (RBC) [Entitic vol] 96.3 fL Normal 81.0-99.0 [facility] Comment on above: Performed By: #### D ATCBC #### [facility] [address] [place] [address] Dr. Oksana Shaw MONO # 0.5 103/ul Normal 0.3-0.8 [facility] Comment on above: Performed By: #### D ATCBC #### [facility] [address] [place] [address] Dr. Oksana Shaw Monocytes/100 WBC (Bld) 10.0 % Normal 1.7-12.0 [facility] Comment on above: Performed By: #### D ATCBC #### [facility] [address] [place] [address] Dr. Oksana Shaw NEUT # 2.7 103/ul Normal 1.4-6.5 [facility] Comment on above: Performed By: #### D ATCBC #### [facility] [address] [place] [address] Dr. Oksana Shaw Neutrophils/100 WBC (Bld) 52.9 % Normal 43.0-75.0 [facility] Comment on above: Performed By: #### D ATCBC #### [facility] [address] [place] [address] Dr. Oksana Shaw Platelet mean volume (Bld) [Entitic vol] 10.8 fL Normal 9.5-13.5 [facility] Comment on above: Performed By: #### D ATCBC #### [facility] [address] [address] [address] Oksana Shaw PLT 199 103/ul Normal 150-450 [facility] Comment on above: Performed By: #### D ATCBC #### [facility] [address] [address] [address] Oksana Shaw RBC 4.28 106/ul Normal 4.20-5.40 [facility] Comment on above: Performed By: #### D ATCBC #### [facility] [address] [address] [address] Oksana Shaw WBC 5.0 103/ul Normal 4.0-11.0 [facility] Comment on above: Performed By: #### D ATCBC #### [facility] [address] [address] [address] Oksana Shaw ASIYA - TSHon 11-21-2021 TSH 1.881 uIU/mL Normal 0.358-3.740 [facility] Comment on above: Performed By: #### D ATBMP, DATTS ####[facility] [address] [address]DrJose Shaw TSH RANGE SEE BELOW Normal [facility] Comment on above: Result Comment: <0.3 4 UIU/ml HYPERTHYROID 0.34-5.60 UIU/ml EUTHYROID >5.60 UIU/ml HYPOTHYROID Performed By: #### D ATBMP, DATTSH ####[facility] [address] [address]Dr. Oksana Shaw ASIYA- BMP WITH LIPIDon 2021 Anion gap [Moles/Vol] 13.7 mmol/L Normal [facility] Comment on above: Performed By: #### D ATBMP, DATTSH ####[facility] [address] [address]Dr. Oksana Shaw Calcium [Mass/Vol] 9.4 mg/dL Normal 8.5-10.1 [facility] Comment on above: Performed By: #### D ATBMP, DATTS ####[facility] [address] [address]Dr. Oksana Shaw Chloride [Moles/Vol] 104 mmol/L Normal 98-107 [facility] Comment on above: Performed By: #### D ATBMP, DATTSH ####[facility] [address] [place], [place] [address]Dr. Oksana Shaw Cholesterol [Mass/Vol] 222 mg/dL Critically high <=200 [facility] Comment on above: Performed By: #### D ATBMP, DATTSH ####[facility] [address] [place], [place] [address]Dr. Oksana Shaw Cholesterol in HDL [Mass/Vol] 54 mg/dL Normal 40-60 [facility] Comment on above: Performed By: #### D ATBMP, DATTS ####[facility] [address] [place], [place] [address]Dr. Oksana Shaw Cholesterol in LDL [Mass/Vol] 144.4 mg/dL Normal [facility] Comment on above: Performed By: #### D ATBMP, DATTS ####[facility] [address] [place], [place] [address]Dr. Oksana Shaw CO2 [Moles/Vol] 28.3 mmol/L Normal 21.0-32.0 [facility] Comment on above: Performed By: #### D ATBMP, DATTS ####[facility] [address] [place], [place] [address]Dr. Oksana Shaw Creatinine [Mass/Vol] 0.91 mg/dL Normal 0.55-1.02 [facility] Comment on above: Performed By: #### D ATBMP, DATTSH ####[facility] [address] [place], [place] [address]Dr. Oksana Shaw EGFR-AF AFGHAN >60 Normal >=60 [facility] Comment on above: Performed By: #### D ATBMP, DATTSH ####[facility] [address] [id number]. Oksana Shaw EGFR-NON AF AFGHAN >60 Normal >=60 [facility] Comment on above: Performed By: #### D [facility], DATTSH ####[facility] [address] [address]Dr. Natalyleta Colin Glucose [Mass/Vol] 110 mg/dL Critically high 74-106 [facility] Comment on above: Performed By: #### D [facility], DATTS ####[facility] [address] [address]Dr. Oksana Shaw HDL NORMAL > or = 60 mg/dl - LO W CARDIOVASCULAR RISK <40 mg/dl - HIGH CARDIOVASCULAR RISK Normal [facility] Comment on above: Performed By: #### D [facility], DATTS ####[facility] [address] [address]Dr. Oksana Shaw LDL CALC NORMAL SEE BELOW Normal [facility] Comment on above: Result Comment: <100 mg/dl OPTIMAL 100 - 129 mg/dl NEAR OR ABOVE OPTIMAL 130 - 159 mg/dl BORDERLINE HIGH 160 - 189 mg/dl HIGH >190 mg/dl VERY HIGH Performed By: #### D [facility], DATTS ####[facility] [address] [address]Dr. Oksana Shaw Potassium [Moles/Vol] 4.0 mmol/L Normal 3.5-5.1 [facility] Comment on above: Performed By: #### D [facility], DATTS ####[facility] [address] [id number]. Oksana Shaw Sodium [Moles/Vol] 142 mmol/L Normal 136-145 [facility] Comment on above: Performed By: #### D ATP, DATTS ####[facility] [address] [address]Dr. Oksana Shaw Triglyceride [Mass/Vol] 118 mg/dL Normal <=150 [facility] Comment on above: Performed By: #### D ATBMP, DATTS ####[facility] [address] [place], [place] [address]Ws. Oksana Shaw Urea nitrogen [Mass/Vol] 16.0 mg/dL Normal 7.0-18.0 [facility] Comment on above: Performed By: #### D ATBMP, DATTSH ####[facility] [address] [place], [place] [address]Vo. Oksana Shaw Urea nitrogen/Creatinine [Mass ratio] 17.6 mg/mg Normal [facility] Comment on above: Performed By: #### D [facility], DATTSH ####[facility] [address] [place], [place] [address]Vn. Oksana Shaw VLDL CALC 23.6 mg/dL Normal [facility] Comment on above: Performed By: #### D ATP, DATTS ####[facility] [address] [place], [place] [address]Tz. Oksana Shaw MRI BRAIN WO W CONon [...] changes are favored No acute infarct Normal [facility] CREATININEon 11-01-2021 Creatinine [Mass/Vol] 0.81 mg/dL Normal 0.55-1.02 [facility] Comment on above: Performed By: #### C SILKE #### [facility] [address] [address] [address] Oksana Shaw EGFR-AF AFGHAN >60 Normal >=60 [facility] Comment on above: Performed By: #### C SILKE #### [facility] [address] [address] [address] Oksana Shaw EGFR-NON AF AFGHAN >60 Normal >=60 [facility] Comment on above: Performed By: #### C SILKE #### [facility] [address] [address] [address] Oksana Shaw US PELVISon 09-03-2021 US [...] JOHN BRIDGES Date: 2021-09-03 13:45 Normal [facility] MG MAMM RT DIAG FUon 022 MG MAMM RT DIAG FU Patient: ALVIN FRAIRE MAT Robertson Exam Date: 06/06/2021 : 1955 Gender:F Ordering : DR CAPO PALM D.O. Admission #: [id number] Family : Order #: [id number] CLICK HERE TO VIEW EXAM RADIOLOGY REPORT [...] leukemia cancer at age 43. LOCATION: [facility] BREAST COMPOSITION: Heterogeneously dense,which may obscure small [...] MD on 06/06/2021 at 15:29 Normal [facility] MAMM SCREEN 3D ASHU CADon 05-24-2021 MG MAMM SCREEN 3D ASHU CAD Patient: SAYDA FRAIRE Exam Date: 05/24/2021 : 1955 Gender:F Ordering : DR CAPO PALM D.O. Admission #: [id number] Family : Order #: [id number] CLICK HERE TO VIEW EXAM RADIOLOGY REPORT [...] leukemia cancer at age 43. LOCATION: [facility] BREAST COMPOSITION: Heterogeneously dense,which may obscure small [...] Iraheta MD on 05/24/2021 at 14:26 Normal [facility] CLOSTRIDIUM DIFFICILE PCRon 03-08-2021 C difficile Toxin Gene DEMETRIUS Positive Abnormal Negative [facility] Comment on above: Result Comment: Dang stevens Requested Flag Toxigenic C difficile: Positive Epidemic Strain Bl/NAP1/027: Presumptive Negative Performed By: #### C DIFNAA #### [facility] [address] [place] [address] Dr. Oksana Shaw CULTURE STOOLon 03-06-2021 CULTURE STOOL Culture Observations : NO GROWTH SALMONELLA, SHIGELLA, YERSINIA, CAMPY, E.COLI 0157, OR STAPH AT 72 HRS Normal [facility] Comment on above: Performed By: #### S TOOLCX ####[facility] [address] [address]Dr. Oksana Shaw CBC AUTO DIFFon 03-05-2021 BASO # 0.0 103/ul Normal 0.0-0.1 [facility] Comment on above: Performed By: #### C BC #### [facility] [address] [place] [address] Dr. Oksana Shaw Basophils/100 WBC (Bld) 0.5 % Normal 0.2-2.0 [facility] Comment on above: Performed By: #### C BC #### [facility] [address] [place] [address] Dr. Oksana Shaw EO # 0.1 103/ul Normal 0.0-0.7 [facility] Comment on above: Performed By: #### C BC #### [facility] [address] [place] [address] Dr. Oksana Shaw Eosinophils/100 WBC (Bld) 1.8 % Normal 0.9-7.0 [facility] Comment on above: Performed By: #### C BC #### [facility] [address] [place] [address] Dr. Oksana Shaw Erythrocyte distribution width (RBC) [Ratio] 13.2 % Normal 11.0-15.0 [facility] Comment on above: Performed By: #### C BC #### [facility] [address] [place] [address] Dr. Oksana Shaw Hematocrit (Bld) [Volume fraction] 40.4 % Normal 36.0-48.0 [facility] Comment on above: Performed By: #### C BC #### [facility] [address] [place] [address] Dr. Oksana Shaw Hemoglobin (Bld) [Mass/Vol] 13.4 g/dL Normal 12.0-16.0 [facility] Comment on above: Performed By: #### C BC #### [facility] [address] [place] [address] Dr. Oksana Shaw IG # 0.01 10e3/ul Normal 0.00-0.03 [facility] Comment on above: Performed By: #### C BC #### [facility] [address] [place] [address] Dr. Oksana Shaw IG % 0.2 % Normal 0.0-0.5 [facility] Comment on above: Performed By: #### C BC #### [facility] [address] [place] [address] Dr. Oksana Shaw LYMPH # 2.0 103/ul Normal 1.2-3.8 [facility] Comment on above: Performed By: #### C BC #### [facility] [address] [place] [address] Dr. Oksana Shaw Lymphocytes/100 WBC (Bld) 31.6 % Normal 20.5-60.0 [facility] Comment on above: Performed By: #### C BC #### [facility] [address] [place] [address] Dr. Oksana Shaw MANUAL DIFF REQ NO Normal [facility] Comment on above: Performed By: #### C BC #### [facility] [address] [place] [address] Dr. Oksana Shaw MCH (RBC) [Entitic mass] 31.5 pg Normal 26.7-34.0 [facility] Comment on above: Performed By: #### C BC #### [facility] [address] [place] [address] Dr. Oksana Shaw MCHC (RBC) [Mass/Vol] 33.2 g/dL Normal 29.9-35.2 [facility] Comment on above: Performed By: #### C BC #### [facility] [address] [place] [address] Dr. Oksana Shaw MCV (RBC) [Entitic vol] 95.1 fL Normal 81.0-99.0 [facility] Comment on above: Performed By: #### C BC #### [facility] [address] [place] [address] Dr. Oksana Shaw MONO # 0.7 103/ul Normal 0.3-0.8 [facility] Comment on above: Performed By: #### C BC #### [facility] [address] [place] [address] Dr. Oksana Shaw Monocytes/100 WBC (Bld) 10.6 % Normal 1.7-12.0 [facility] Comment on above: Performed By: #### C BC #### [facility] [address] [place] [address] Dr. Oksana Shaw NEUT # 3.4 103/ul Normal 1.4-6.5 [facility] Comment on above: Performed By: #### C BC #### [facility] [address] [place] [address] Dr. Oksana Shaw Neutrophils/100 WBC (Bld) 55.3 % Normal 43.0-75.0 [facility] Comment on above: Performed By: #### C BC #### [facility] [address] [place] [address] Dr. Oksana Shaw Platelet mean volume (Bld) [Entitic vol] 10.4 fL Normal 9.5-13.5 [facility] Comment on above: Performed By: #### C BC #### [facility] [address] [place] [address] Dr. Oksana Shaw PLT 247 103/ul Normal 150-450 [facility] Comment on above: Performed By: #### C BC #### [facility] [address] [place] [address] Dr. Oksana Shaw RBC 4.25 106/ul Normal 4.20-5.40 [facility] Comment on above: Performed By: #### C BC #### [facility] [address] [place] [address] Dr. Oksana Shaw WBC 6.2 103/ul Normal 4.0-11.0 [facility] Comment on above: Performed By: #### C BC #### [facility] [address] [place] [address] Dr. Oksana Shaw PROF CHEM 8 (BAS METB)on Anion gap [Moles/Vol] 12.5 mmol/L Normal [facility] Comment on above: Performed By: #### B MP #### [facility] [address] [place] [address] Dr. Oksana Shaw Calcium [Mass/Vol] 9.6 mg/dL Normal 8.4-10.2 [facility] Comment on above: Performed By: #### B MP #### [facility] [address] [place] [address] Dr. Oksana Shaw Chloride [Moles/Vol] 105 mmol/L Normal 98-107 [facility] Comment on above: Performed By: #### B MP #### [facility] [address] [place] [address] Dr. Oksana Shaw CO2 [Moles/Vol] 28.8 mmol/L Normal 22.0-30.0 [facility] Comment on above: Performed By: #### B MP #### [facility] [address] [place] [address] Dr. Oksana Shaw Creatinine [Mass/Vol] 0.87 mg/dL Normal 0.52-1.04 [facility] Comment on above: Performed By: #### B MP #### [facility] [address] [address] [address] Oksana Shaw EGFR-AF AFGHAN >60 Normal >=60 [facility] Comment on above: Performed By: #### B MP #### [facility] [address] [address] [address] Oksana Shaw EGFR-NON AF AFGHAN >60 Normal >=60 [facility] Comment on above: Performed By: #### B MP #### [facility] [address] [address] [address] Oksana Shaw Glucose [Mass/Vol] 95 mg/dL Normal 74-106 [facility] Comment on above: Performed By: #### B MP #### [facility] [address] [place] [address] Dr. Oksana Shaw Potassium [Moles/Vol] 3.3 mmol/L Critically low 3.4-5.0 [facility] Comment on above: Performed By: #### B MP #### [facility] [address] [address] [address] Oksana Shaw Sodium [Moles/Vol] 143 mmol/L Normal 137-145 [facility] Comment on above: Performed By: #### B MP #### [facility] [address] [place] [address] Dr. Oksana Shaw Urea nitrogen [Mass/Vol] 15.0 mg/dL Normal 7.0-17.0 [facility] Comment on above: Performed By: #### B MP #### [facility] [address] [address] [address] Oksana Shaw Urea nitrogen/Creatinine [Mass ratio] 17.2 mg/mg Normal [facility] Comment on above: Performed By: #### B MP #### [facility] [address] [address] [address] Oksana Shaw [facility]on SARS-CoV-2 (COVID-19) RNA DEMETRIUS+probe Ql (Unsp spec) Not detected Normal NOT DETECTED [facility] Comment on above: Result Comment: This test is not yet approved or cleared by the [place] FDA. When there are no FDA-approved or cleared tests available, and other criteria are met, FDA can make tests available under an emergency access mechanism called an Emergency Use Authorization (EUA). The EUA for this test is supported by the Respite Worker of Health and Human Service's (HHS's) declaration [...] consistent with SARS-CoV-2. Performed By: #### C [facility] ####[facility] [address] [place], [place] [address]Dr. Oksana Shaw GLYCOHEMOGLOBIN A1Con 2020 ADA RECOMMENDATION ADA THERAPEUTIC TARG ET 6.0 - 7.0 ACTION SUGGESTED > 7.0 Normal [facility] Comment on above: Performed By: #### A 1C ####[facility] [address] [place], [place] [address]Dr. Oksana Shaw Glucose [Mass/Vol] 123 mg/dL Normal [facility] Comment on above: Performed By: #### A 1C ####[facility] [address] [place], [place] [address]Dr. Oksana Shaw HbA1c (Bld) [Mass fraction] 5.9 % Normal <=6.0 [facility] Comment on above: Performed By: #### A 1C ####[facility] [address] [place], [place] [address]Dr. Oksana Shaw NM BONE IMAGE 3 PHASEon 12-22 NM BONE IMAGE 3 PHASE EXAMINATION: NM JASPREET NE IMAGE 3 PHASE HISTORY: Artificial knee [...] by: FANY ASCENCIO Date: 2021-01-11 17:22 Normal [facility] Vital Signs Date Time Vital Sign Value Performing Clinician Facility 11-20-2023 15:24-0400 Body height 160.02 cm DO [employer] Work Phone: [facility] 11-20-2023 15:24-0400 Body mass index (BMI) [Ratio] 30.7 kg/m2 DO [employer] Work Phone: [facility] 11-20-2023 15:24-0400 Body weight 78.52 kg DO Capo Ball Work Phone: [facility] 11-20-2023 15:24-0400 Diastolic blood pressure 79 mm[Hg] DO Capo Mandae Work Phone: [facility] 11-20-2023 15:24-0400 Respiratory rate 12 /min DO Capo Mandae Work Phone: [facility] 11-20-2023 15:24-0400 SaO2% (BldA) [Mass fraction] 65 % DO Capo Ball Work Phone: [facility] 11-20-2023 15:24-0400 Systolic blood pressure 121 mm[Hg] DO Capo Ball Work Phone: [facility] 11-17-2023 12:33-0400 Blood Pressure Location JOSEFINA DOWNS [facility] 11-17-2023 12:33-0400 Body temperature 98.6 [degF] JOSEFINA DOWNS [facility] 11-17-2023 12:33-0400 Diastolic blood pressure 71 mm[Hg] JOSEFINA HIMANSHU [facility] 11-17-2023 12:33-0400 Heart rate 63 /min JOSEFINA HIMANSHU [facility] 11-17-2023 12:33-0400 Respiratory rate 16 /min JOSEFINA HIMANSHU [facility] 11-17-2023 12:33-0400 Systolic blood pressure 123 mm[Hg] JOSEFINA HIMANSHU [facility] 10-28-2023 12:14-0400 Body height 160.02 cm DO Capo Ball Work Phone: [facility] 10-28-2023 12:14-0400 Body mass index (BMI) [Ratio] 31.4 kg/m2 DO Capo Ball Work Phone: [facility] 10-28-2023 12:14-0400 Body weight 80.34 kg DO Capo Ball Work Phone: [facility] 10-28-2023 12:14-0400 Diastolic blood pressure 76 mm[Hg] DO Capo Ball Work Phone: [facility] 10-28-2023 12:14-0400 Heart rate 60 /min DO Capo Ball Work Phone: [facility] 10-28-2023 12:14-0400 Respiratory rate 12 /min DO Capo Ball Work Phone: [facility] 10-28-2023 12:14-0400 Systolic blood pressure 120 mm[Hg] DO Capo Ball Work Phone: [facility] 09-09-2023 10:50-0400 Diastolic blood pressure 72 mm[Hg] DO Capo Ball Work Phone: [facility] 09-09-2023 10:50-0400 Heart rate 70 /min DO Capo Ball Work Phone: [facility] 09-09-2023 10:50-0400 Respiratory rate 20 /min DO Capo Ball Work Phone: [facility] 09-09-2023 10:50-0400 SaO2% (BldA) [Mass fraction] 96 % DO Capo Ball Work Phone: [facility] 09-09-2023 10:50-0400 Systolic blood pressure 116 mm[Hg] DO Capo Ball Work Phone: [facility] 09-09-2023 09:55-0400 Body temperature 98 [degF] DO Capo Ball Work Phone: [facility] 09-09-2023 09:30-0400 Inhaled oxygen flow rate 10 L/min DO Capo Ball Work Phone: [facility] 09-09-2023 07:28-0400 Body mass index (BMI) [Ratio] 33.5 kg/m2 DO Capo Ball Work Phone: [facility] 09-09-2023 06:59-0400 Body height 160.02 cm DO Capo Ball Work Phone: [facility] 09-09-2023 06:59-0400 Body weight 86 kg DO Capo Ball Work Phone: [facility] 08-27-2023 11:07-0400 Body height 157.48 cm DO Capo Ball Work Phone: [facility] 08-27-2023 11:07-0400 Body mass index (BMI) [Ratio] 34.2 kg/m2 DO Capo Ball Work Phone: [facility] 08-27-2023 11:07-0400 Body weight 85.04 kg DO Capo Ball Work Phone: [facility] 08-27-2023 11:07-0400 Diastolic blood pressure 82 mm[Hg] DO Capo Ball Work Phone: [facility] 08-27-2023 11:07-0400 Heart rate 60 /min DO Capo Ball Work Phone: [facility] 08-27-2023 11:07-0400 Respiratory rate 12 /min DO Capo Ball Work Phone: [facility] 08-27-2023 11:07-0400 Systolic blood pressure 127 mm[Hg] DO Capo Ball Work Phone: [facility] 08-13-2023 13:06-0400 Body height 157.48 cm DO Capo Ball Work Phone: [facility] 08-13-2023 13:06-0400 Body mass index (BMI) [Ratio] 34.4 kg/m2 DO Capo Ball Work Phone: [facility] 08-13-2023 13:06-0400 Body weight 85.27 kg DO Capo Ball Work Phone: [facility] 08-03-2023 10:48-0400 Body height 160.02 cm [facility] 08-03-2023 10:48-0400 Body mass index (BMI) [Ratio] 33.7 kg/m2 [facility] 08-03-2023 10:48-0400 Body weight 86.35 kg [facility] 08-03-2023 10:48-0400 Diastolic blood pressure 85 mm[Hg] [facility] 08-03-2023 10:48-0400 Heart rate 62 /min [facility] 08-03-2023 10:48-0400 Respiratory rate 12 /min [facility] 08-03-2023 10:48-0400 Systolic blood pressure 144 mm[Hg] [facility] 07-16-2023 10:32-0400 Body height 160.02 cm [facility] 07-16-2023 10:32-0400 Body mass index (BMI) [Ratio] 34.1 kg/m2 [facility] 07-16-2023 10:32-0400 Body weight 87.31 kg [facility] 07-16-2023 10:32-0400 Diastolic blood pressure 82 mm[Hg] [facility] 07-16-2023 10:32-0400 Heart rate 54 /min [facility] 07-16-2023 10:32-0400 Respiratory rate 12 /min [facility] 07-16-2023 10:32-0400 Systolic blood pressure 128 mm[Hg] [facility] 05-04-2023 14:30-0500 Body height 160.02 cm Capo Ball Other [facility] [employer] Other 05-04-2023 14:30-0500 Body mass index (BMI) [Ratio] 34.33 kg/m2 Capo Ball Other [facility] [employer] Other 05-04-2023 14:30-0500 Body weight 87.91 kg Capo Ball Other [facility] [employer] Other 05-04-2023 14:30-0500 Diastolic blood pressure 88 mm[Hg] Capo Ball Other [facility] Other 05-04-2023 14:30-0500 Respiratory rate 12 /min Capo Ball Other [facility] Other 05-04-2023 14:30-0500 Systolic blood pressure 139 mm[Hg] Capo Ball Other [facility] Other 02-26-2023 12:00-0500 Body height 160.02 cm Capo Ball Other [facility] Other 02-26-2023 12:00-0500 Body mass index (BMI) [Ratio] 32.77 kg/m2 Cap[employer] Ball Other [facility] Other 02-26-2023 12:00-0500 Body weight 83.92 kg Capo Ball Other [facility] Other 02-02-2023 10:30-0500 Body height 160.02 cm Capo Ball Other [facility] Other 02-02-2023 10:30-0500 Body mass index (BMI) [Ratio] 32.91 kg/m2 Capo Ball Other [facility] Other 02-02-2023 10:30-0500 Body weight 84.28 kg Capo Ball Other [facility] Other 02-02-2023 10:30-0500 Diastolic blood pressure 83 mm[Hg] Capo Ball Other [facility] Other 02-02-2023 10:30-0500 Respiratory rate 12 /min Capo Ball Other [facility] Other 02-02-2023 10:30-0500 Systolic blood pressure 132 mm[Hg] Capo Ball Other [facility] Other 10-21-2022 08:52-0400 Blood Pressure Location JOSEFINAMOISES CHAUHANRY [facility] 10-21-2022 08:52-0400 Diastolic blood pressure 83 mm[Hg] JOSEFINA HIMANSHU [facility] 10-21-2022 08:52-0400 Heart rate 49 /min JOSEFINA HIMANSHU [facility] 10-21-2022 08:52-0400 Systolic blood pressure 145 mm[Hg] JOSEFINA HIMANSHU [facility] 09-16-2022 13:30-0400 Body height 160.02 cm Capo Ball Other [facility] Other 09-16-2022 13:30-0400 Body mass index (BMI) [Ratio] 32.2 kg/m2 Capo Ball Other [facility] Other 09-16-2022 13:30-0400 Body weight 82.46 kg Capo Ball Other [facility] Other 09-16-2022 13:30-0400 Diastolic blood pressure 83 mm[Hg] Capo Ball Other [facility] Other 09-16-2022 13:30-0400 Respiratory rate 12 /min Capo Ball Other [facility] Other 09-16-2022 13:30-0400 Systolic blood pressure 125 mm[Hg] Capo Ball Other [facility] [employer] Other 04-15-2022 09:28-0500 Blood Pressure Location JOSEFINA HIMANSHU [facility] 04-15-2022 09:28-0500 Diastolic blood pressure 74 mm[Hg] JOSEFNIA HIMANSHU [facility] 04-15-2022 09:28-0500 Heart rate 68 /min JOSEFINA HIMANSHU [facility] 04-15-2022 09:28-0500 Respiratory rate 16 /min JOSEFINA HIMANSHU [facility] 04-15-2022 09:28-0500 Systolic blood pressure 132 mm[Hg] JOSEFINA HIMANSHU [facility] 10-02-2021 13:15-0400 Blood Pressure Location JOSEFINA HIMANSHU [facility] [employer] 10-02-2021 13:15-0400 Diastolic blood pressure 77 mm[Hg] JOSEFINA HIMANSHU [facility] 10-02-2021 13:15-0400 Heart rate 80 /min JOSEFINA HIMANSHU [facility] [employer] 10-02-2021 13:15-0400 Respiratory rate 16 /min JOSEFINA HIMANSHU [facility] [employer] 10-02-2021 13:15-0400 Systolic blood pressure 128 mm[Hg] JOSEFINA HIMANSHU [facility] [employer] 08-14-2021 14:13-0400 Blood Pressure Location JOSEFINA HIMANSHU [facility] [employer] 08-14-2021 14:13-0400 Diastolic blood pressure 79 mm[Hg] JOSEFINA HIMANSHU [facility] 08-14-2021 14:13-0400 Heart rate 68 /min JOSEFINA HIMANSHU [facility] 08-14-2021 14:13-0400 Systolic blood pressure 132 mm[Hg] JOSEFINA HIMANSHU [facility] Encounters Encounter Date Encounter Type Care Provider Facility Start: 12-24-2023 ambulatory [facility]il [facility] Start: 12-17-2023 Registered Recurring DO Benjam in Ball Work Phone: [facility] [place] Start: 12-17-2023 End: 12-17-2023 ambulatory DO Capo Ball Work Phone: [facility] [place] Work Phone: Start: 12-17-2023 End: 12-17-2023 Patient encounter procedure DO Capo Ball Work Phone: [facility] Work Phone: Start: 12-17-2023 End: 12-17-2023 Patient encounter procedure DO Capo Ball Work Phone: [facility] Start: 12-17-2023 End: 12-17-2023 ambulatory DO Capo Ball Work Phone: [facility] Work Phone: Start: 12-14-2023 Registered Recurring DO Benjam in Ball Work Phone: [facility] [place] Start: 12-09-2023 End: 12-09-2023 ambulatory RACQUEL CARBAJAL Not Available Start: 12-02-2023 End: 12-02-2023 ambulatory RACQUEL CARBAJAL Not Available Start: 11-20-2023 End: 11-20-2023 Patient encounter procedure DO Capo Ball Work Phone: [facility] Work Phone: Start: 11-18-2023 End: 11-18-2023 ambulatory RACQUEL CARBAJAL Not Available Start: 11-17-2023 End: 11-17-2023 ambulatory JOSEFINA DOWNS Facility:[facility] Start: 11-17-2023 End: 11-17-2023 Patient encounter procedure JOSEFINA DOWNS [facility] Start: 11-04-2023 End: 11-04-2023 ambulatory RACQUEL CARBAJAL Not Available Start: 10-28-2023 End: 10-28-2023 ambulatory DO Capo Ball Work Phone: [facility] [place] Work Phone: Start: 10-28-2023 End: 10-28-2023 Patient encounter procedure DO Capo Ball Work Phone: [facility] Work Phone: Start: 10-26-2023 Registered Recurring DO Benjam in Ball Work Phone: [facility] [place] Start: 10-22-2023 End: 10-22-2023 ambulatory DO Capo Ball Work Phone: [facility] [place] Work Phone: Start: 10-22-2023 End: 10-22-2023 Patient encounter procedure DO Capo Ball Work Phone: [facility] Work Phone: Start: 10-20-2023 Registered Recurring DO Benjam in Ball Work Phone: [facility] [place] Start: 09-30-2023 End: 09-30-2023 Patient encounter procedure DO Capo Ball Work Phone: [facility] [place] Work Phone: Start: 09-30-2023 End: 09-30-2023 ambulatory DO Capo Ball Work Phone: [facility] Work Phone: Start: 09-17-2023 End: 09-17-2023 ambulatory DO Capo Ball Work Phone: [facility] [place] Work Phone: Start: 09-17-2023 End: 09-17-2023 Patient encounter procedure DO Capo Ball Work Phone: [facility] Work Phone: Start: 09-09-2023 Non-patient / Non-visit DO Fletcher rené Ball Work Phone: [facility] Work Phone: Start: 09-09-2023 End: 09-09-2023 Admission to same day surgery center DO Capo Ball Work Phone: [facility] [place] Start: 09-09-2023 End: 09-09-2023 ambulatory DO Capo Ball Work Phone: [facility] Work Phone: Start: 09-07-2023 End: 09-07-2023 ambulatory RACQUEL CARBAJAL Not Available Start: 09-01-2023 Non-patient / Non-visit DO Fletcher rené Ball Work Phone: [facility] Work Phone: Start: 08-27-2023 End: 08-27-2023 ambulatory DO Capo Ball Work Phone: [facility] [place] Work Phone: Start: 08-27-2023 End: 08-27-2023 Patient encounter procedure DO Capo Ball Work Phone: [facility] Work Phone: Start: 08-25-2023 End: 08-25-2023 Patient encounter procedure DO Capo Ball Work Phone: [facility] Work Phone: Start: 08-25-2023 End: 08-25-2023 ambulatory DO Capo Ball Work Phone: [facility] Work Phone: Start: 08-25-2023 Encounter for preprocedural laboratory examination Akil Martinez [facility] Start: 08-21-2023 End: 08-21-2023 ambulatory RACQUEL CARBAJAL Not Available Start: 08-14-2023 End: 08-14-2023 Patient encounter procedure DO Capo Ball Work Phone: [facility] [place] Work Phone: Start: 08-14-2023 End: 08-14-2023 ambulatory DO Capo Ball Work Phone: [facility] Work Phone: Start: 08-13-2023 End: 08-13-2023 ambulatory DO Capo Ball Work Phone: [facility] [place] Work Phone: Start: 08-13-2023 End: 08-13-2023 Patient encounter procedure DO Capo Ball Work Phone: [facility] Work Phone: Start: 08-03-2023 End: 08-03-2023 ambulatory [facility] Work Phone: Start: 08-03-2023 End: 08-03-2023 Patient encounter procedure [facility] Work Phone: Start: 07-16-2023 End: 07-16-2023 ambulatory [facility] Work Phone: Start: 07-16-2023 End: 07-16-2023 Patient encounter procedure [facility] Work Phone: Start: 07-14-2023 [...] 05-04-2023 End: 05-04-2023 ambulatory Capo Palm Other [facility] Other Start: 05-04-2023 Office outpatient vi sit 15 minutes Capo Ball [facility] Start: 05-04-2023 Telephone encounter Capo Palm [facility] Start: 04-14-2023 End: 04-14-2023 ambulatory LIZZIE HARRISON Not Available Start: 02-26-2023 End: 02-26-2023 ambulatory Capo Palm Other [facility] Other Start: 02-26-2023 Office outpatient vi sit 15 minutes Capo Ball [facility] Start: 02-02-2023 End: 02-02-2023 ambulatory Capo Palm Other [facility] Other Start: 02-02-2023 Patient encounter procedure Capo Palm [facility] Start: 12-23-2022 End: 12-23-2022 ambulatory Capo Palm Other [facility] Other Start: 12-23-2022 Telephone encounter Capo Palm [facility] Start: 12-15-2022 End: 12-15-2022 ambulatory Capo Palm Other [facility] Other Start: 12-15-2022 Telephone encounter Capo Palm [facility] Start: 10-21-2022 End: 10-21-2022 Patient encounter procedure JOSEFINA DOWNS [facility] [employer] Start: 09-16-2022 End: 09-16-2022 ambulatory Capo Palm Other [facility] Other Start: 09-16-2022 Office outpatient vi sit 15 minutes Capo Ball [facility] Start: 04-15-2022 End: 04-15-2022 Patient encounter procedure JOSEFINA DOWNS [facility] [employer] Start: 01-27-2022 Adult health examination Terrence Palm Other [facility] [employer] Other Start: 12-28-2021 End: 12-28-2021 ambulatory DO Capo Palm Work Phone: [facility] Work Phone: Start: 12-28-2021 End: 12-28-2021 Departed Referred DO Capo Palm Work Phone: [facility] Start: 12-11-2021 End: 12-12-[address] CAPO PALM Facility:[facility] Start: 11-21-2021 End: 11-22-[address] HALEIGH SHAY Facility:[facility] Start: 11-01-2021 End: 11-02-[address] CAPO PALM Facility:[facility] Start: 10-02-2021 End: 10-02-2021 Patient encounter procedure JOSEFINA DOWNS [facility] Start: 09-03-2021 End: 09-04-[address] CAPO PALM Facility:[facility] Start: 08-14-2021 End: 08-14-2021 Patient encounter procedure JOSEFINA DOWNS [facility] Start: 06-06-2021 End: 06-07-[address] CAPO [...] ASCENCIO Facility:[facility] Start: 04-16-2020 Gynecological examination normal [employer] Other [facility] [employer] Other Procedures Date Procedure Procedure Detail Performing Clinician Start: 12-17-2023 Plain X-ray of left shoulder DO Capo Ball Work Phone: Start: 09-30-2023 CT of left shoulder DO [...] Work Phone: Start: 09-01-2023 Salmonella/Shigella Screen DO Responsa Work Phone: Start: 08-25-2023 Methicillin resistant Staphylococcus [...] DOWNS Start: 06-21-2018 Total knee replacement JOSEFINA DOWNS Start: 06-01-2018 Pre-surgery evaluation [employer] Other Start: 11-04-2016 General examination of patient Capo Martinez Start: 11-04-2016 Screening mammography Capo Martinez Start: 03-23-2008 Total knee replacement JOSEFINA DOWNS Appendectomy JOSEFINA DOWNS Biopsy of breast JOSEFINA OLMSTEAD Colonoscopy JOSEFINA DOWNS End: 02-04-2022 Depression screening Capo Palm Other H/O: artificial joint Status pos t total shoulder arthroplasty DO Capo Palm Work Phone: Oophorectomy JOSEFINA DOWNS Screening for malign ant neoplasm of breast Capo Palm Other Plan of Treatment Date Care Activity Detail Author Start: 12-17-2023 Plain X-ray of left shoulder XR shoulder LT min 2V* [facility] Start: 12-17-2023 XR Shoulder - left Views [facility] Start: 09-17-2023 Plain X-ray of left shoulder XR shoulder LT min 2V* [facility] Start: 09-17-2023 XR Shoulder - left Views [facility] Start: 09-09-2023 [facility] Start: 09-09-2023 [facility] Start: 09-09-2023 Referral to occupati onal therapist [facility] Start: 08-25-2023 Methicillin resistan t Staphylococcus aureus culture MRSA Culture [facility] Start: 08-25-2023 MRSA Culture MRSA Culture [facility] Start: 08-13-2023 Plain X-ray of left shoulder XR shoulder LT min 2V* [facility] Start: 08-13-2023 XR Shoulder - left Views [facility] Start: 08-04-2023 Patient referral [facility] Work Phone: CT Abdomen and Pelvi s WO contrast [facility] CT Shoulder - left W O contrast [facility] CT Shoulder - left W O contrast [facility] Diagnostic radiograp hy of abdomen [facility] Methicillin resistan t Staphylococcus aureus [Presence] in Unspecified specimen by Organism specific culture [facility] Patient Education Know your Meds [facility] Work Phone: Patient referral [facility] Work Phone: XR Shoulder - left Views [facility] Immunizations Immunization Date Immunization Notes Care Provider Fa silvano 02-02-2023 influenza virus vaccine, unspecified formulation [facility] 02-02-2023 influenza, high dose seasonal, preservative-free Capo Palm Other [facility] 09-16-2022 COVID-19 Pfizer (bivalent) Capo Palm Other [facility] 01-27-2022 influenza virus vaccine, split virus (incl. purified surface antigen) Capo Palm Other [facility] 01-27-2022 influenza virus vaccine, unspecified formulation JOSEFINAMARYELLEN DOWNS [facility] 01-27-2022 influenza, high dose seasonal, preservative-free Capo Palm Other [facility] Other 08-16-2021 SARS-CoV-2 (COVID-19 ) Ad26 vaccine, recombinant JOSEFINAMARYELLEN DOWNS [facility] Comment on above: Result Comment: 2022: [id number] 01-30-2021 influenza virus vaccine, split virus (incl. purified surface antigen) Capo Palm Other [facility] 01-30-2021 influenza virus vaccine, unspecified formulation [facility] 01-21-2021 influenza virus vaccine, unspecified formulation JOSEFINA HIMANSHU [facility] 09-14-2020 tetanus and diphther ia toxoids, adsorbed, preservative free, for adult use (2 Lf of tetanus toxoid and 2 Lf of diphtheria toxoid) JOSEFINA DOWNS [facility] 09-14-2020 tetanus and diphther ia toxoids, adsorbed, preservative free, for adult use (5 Lf of tetanus toxoid and 2 Lf of diphtheria toxoid) Capo Palm Other [facility] 06-08-2020 COVID-19 Ad26.COV2.S (Kristie) DO Capo Palm Work Phone: [facility] Comment on above: Result Comment: 2022: [id number] 05-21-2020 SARS-CoV-2 (COVID-19 ) Ad26 vaccine, recombinant JOSEFINA DOWNS [facility] 01-30-2020 influenza virus vaccine, split virus (incl. purified surface antigen) Capo Shaun Other [facility] 01-30-2020 influenza virus vaccine, unspecified formulation JOSEFINA DOWNS [facility] 01-30-2020 pneumococcal polysaccharide vaccine, 23 valent JOSEFINA DOWNS [facility] 02-08-2019 influenza virus vaccine, unspecified formulation JOSEFINA DOWNS [facility] 01-25-2019 influenza virus vaccine, split virus (incl. purified surface antigen) Capo Palm Other [facility] 01-25-2019 influenza virus vaccine, unspecified formulation [facility] 01-25-2019 pneumococcal conjuga te vaccine, 13 valent Capo Palm Other [facility] 01-06-2018 influenza virus vaccine, unspecified formulation JOSEFINAMOISES DOWNS [facility] 12-26-2017 influenza virus vaccine, unspecified formulation JOSEFINAMOISES CHAUHANRY [facility] 01-01-2017 influenza virus vaccine, unspecified formulation JOSEFINAMOISES DOWNS [facility] 01-12-2015 influenza virus vaccine, unspecified formulation JOSEFINAMOISES DOWNS [facility] 12-21-2014 influenza virus vaccine, unspecified formulation JOSEFINA HIMANSHU [facility] 01-04-2013 tetanus and diphther ia toxoids, adsorbed, preservative free, for adult use (5 Lf of tetanus toxoid and 2 Lf of diphtheria toxoid) Capo Martinez [facility] Payers Date Payer Category Payer Self-pay [id number] 1961 Medicare [id number] 1961 Medicare [id number] 1961 Self-pay [id number] 1955 Unknown [id number] 2.16.84 0.1.678111.3.579.2.593 1953 Unknown [id number] 2.16.84 0.1.372519.3.579.2.593 1953 Unknown [id number] 2.16.84 0.1.092652.3.579.2.593 1953 Unknown [id number] 2.16.84 0.1.373534.3.579.2.593 1953 Unknown [id number] 2.16.84 0.1.656785.3.579.2.593 1953 Unknown [id number] 2.16.84 0.1.788150.3.579.2.593 1953 Unknown [id number] 2.16.84 0.1.326426.3.579.2.593 1953 Unknown [id number] 2.16.84 0.1.333782.3.579.2.593 1953 Unknown [id number] 2.16.84 0.1.287513.3.579.2.593 1953 Unknown [id number] 2.16.84 0.1.875752.3.579.2.593 1953 Unknown [id number] 2.16.8 40.1.726975.3.579.2.727 1953 Unknown [id number] 2.16.84 0.1.987326.3.579.2.1259 1953 Unknown [id number] 2.16.84 0.1.247308.3.579.2.1259 1953 Unknown [id number] 2.16.84 0.1.052786.3.579.2.1259 1953 Unknown [id number] 2.16.84 0.1.871812.3.579.2.1259 1953 Unknown [id number] 2.16.84 0.1.851269.3.579.2.1259 1953 Unknown [id number] 2.16.84 0.1.566056.3.579.2.1259 1953 Unknown [id number] 2.16.84 0.1.573521.3.579.2.1259 1953 Unknown [id number] 2.16.84 0.1.108650.3.579.2.1259 1953 Unknown [id number] 2.16.84 0.1.838285.3.579.2.1259 1953 Unknown [id number] 2.16.84 0.1.769992.3.579.2.1259 1953 Unknown [id number] 2.16.84 0.1.760426.3.579.2.1259 1953 Unknown [id number] 2.16.84 0.1.605574.3.579.2.1259 1953 Unknown [id number] 2.16.84 0.1.760626.3.579.2.1259 1953 Unknown [id number] 2.16.84 0.1.975482.3.579.2.1259 Unknown [id number] 2.16.84 0.1.216716.3.579.2.593 Unknown [id number] 2.16.84 0.1.204627.3.579.2.593 Unknown [facility] [id number] Unknown [id number] 2.16.8 40.1.734914.3.579.2.531 Unknown [id number] 2.16.8 40.1.723311.3.579.2.531 Unknown [id number] 2.16.8 40.1.739812.3.579.2.531 Unknown [id number] 2.16.8 40.1.635118.3.579.2.531 Unknown [id number] 2.16.8 40.1.991394.3.579.2.531 Unknown [id number] 2.16.8 40.1.322712.3.579.2.531 Unknown [id number] 2.16.8 40.1.222751.3.579.2.531 Unknown [id number] 2.16.8 40.1.244087.3.579.2.531 Social History Date Type Detail Facility Start: 04-02-2021 End: 09-09-2023 Tobacco smoking status Ex-smoker (finding) [facility] Tobacco smoking status Never [facility] Sex Assigned At Female [facility] Start: 06-25-2021 Tobacco smoking stat us NEIS Never smoked tobacco (finding) [facility] Start: 1955 Sex Assigned At Female F [facility] Medical Equipment Procedure Code Equipment Code Equipment Origin al Text Equipment Identifier Dates Orthopaedic bone screw, non-bioabsorbable, non-sterile ()[id number] FDA Start: 09-09-2023 Orthopaedic bone screw, non-bioabsorbable, non-sterile ()[id number] FDA Start: 09-09-2023 Polyethylene rev erse shoulder prosthesis cup ()[id number] FDA Start: 09-09-2023 Coated shoulder humeral stem prosthesis ()[id number] FDA Start: 09-09-2023 Reverse shoulder prosthesis head ()[id number] FDA Start: 09-09-2023 Orthopaedic bone screw, non-bioabsorbable, non-sterile ()[id number] FDA Start: 09-09-2023 Reverse shoulder prosthesis base plate ()[id number] FDA Start: 09-09-2023 Goals Date Patient Goal Desired Activity /State Functional Status Date Assessment Result Facility 11-17-2023 Functional Status N/A [facility] 10-21-2022 Functional Status N/A [facility] 04-15-2022 Functional Status N/A [facility] 10-02-2021 Functional Status N/A [facility] Clinical Notes 08-14-2021 to 11-17-2023 Note Date [...] your health care provider. General instructions Take xqmz-xlm-kxyotci and prescription medicines only as told by [...] provider. Document Revised: 11/26/2020 Document Reviewed: 11/26/2020 [employer] Patient Education 2022 [employer]. Follow Up Care 10/21/2022 09:32:15 With:JOSEFINA DOWNS PA-C, URL Address: [facility] [address] [facility] [place] [address] When: Unknown Comments:PRN [facility] 11-17-2023 Note Patient Education Obstetrics and Gynecology [...] health care provider. General instructions ? Take vhci-wdo-wwxrntj and prescription medicines only as told by [...] your health care (more content not included)... [facility] 05-04-2023 Evaluation note Encounter Date Diagnosis Assessment [...] use, the patient reduces the risk for AL, CVA, HTN, cardiac dysrhythmias and sudden cardiac deaths.The patient is also aware of the association between VIV and morning headaches, daytime somnolence, fatigue and obesity, which also has been improved with continued use.The patient is compliant with treatment, wearing the equipment every night for greater than 4 hours.The patient is instructed to continue use of the CPAP for VIV treatment. [facility] Other [id number] Evaluation note* Encounter Date Diagnosis Assessment Notes Treatment Notes Treatment Clinical Notes Feb, Obstructive sleep apnea (ICD-10 - G47.33) This patient is aware of the benefits associated with VIV: With continued use, the patient reduces the risk for AL, CVA, HTN, cardiac dysrhythmias and sudden cardiac [...] index [BMI] 32.0-32.9, adult (ICD-10 - Z68.32) [facility] Other 11-13-2023 Evaluation note* Encounter Date Diagnosis [...] patient on monthly SBE and yearly mammograms. [facility] Other 09-25-2023 Evaluation note* Encounter Date Diagnosis Assessment Notes Treatment Notes Treatment Clinical Notes Nov, Menopause (ICD-10 - Z78.0) [facility] Other 08-01-2023 Hospital Discharge instructions Patient Education [...] (electrical nerve stimulation). ?For women, using a vice president medical affairs to prevent urine leaks. This is a [...] right after experiencing incontinence. General instructions Take ibeh-bom-qkapsmm and prescription medicines only as told by [...] important. Where to find more information National [employer] of Diabetes and Digestive and Kidney Diseases: www.niddk.nih.gov [place] [employer]: www.urologyhealth.org Contact a health care [...] provider. Document Revised: 10/12/2020 Document Reviewed: 10/12/2020 [employer] Patient Education 2022 [employer]. Follow Up Care 04/15/2022 10:00:46 With:HIMANSHU BENÍTEZ, JOSEFINA Hahn, URL Address: [address] [place] [address] When: Unknown [facility] 06-27-2023 Evaluation note* Encounter Date Diagnosis Assessment [...] planus] (acquired), left foot (ICD-10 - M21.42) [facility] Other 01-24-2023 Hospital Discharge instructions Patient Education [...] fried and sweet foods. General instructions Take qpsj-zov-cahhgrw and prescription medicines only as told by [...] 01/03/2010 Document Revised: 06/30/2019 Document Reviewed: 03/25/2018 [employer] Patient Education 2019 [employer]. Follow Up Care 04/02/2021 10:16:29 With:JOSEFINA DOWNS PA-C, URL Address: [address] [place] [address] When: Unknown [facility] 07-13-2022 Hospital Discharge instructions Patient Education 10/02/2021 [...] fried and sweet foods. General instructions Take bfvb-fbd-rbvtnjx and prescription medicines only as told by [...] 01/03/2010 Document Revised: 06/30/2019 Document Reviewed: 03/25/2018 [employer] Patient Education 2020 [employer]. Follow Up Care 08/14/2021 14:49:03 With:JOSEFINA DOWNS PA-C, URL Address: [address] [place] [address] When: Unknown [facility]22 Hospital Discharge instructions Patient Education 08/14/2021 [...] (electrical nerve stimulation). For women, using a vice president medical affairs to prevent urine leaks. This is a [...] right after experiencing incontinence. General instructions Take nbwm-sju-cqgbibm and prescription medicines only as told by [...] 04/16/2005 Document Revised: 03/19/2018 Document Reviewed: 06/18/2017 [employer] Patient Education 2020 [employer] Follow Up Care 08/09/2021 15:38:15 With:JOSEFINA DOWNS PA-C, URL Address: [address] [place] [address] [id number] When: Unknown [facility] evaluation + Plan note Future Appointments Appointment Date:10/02/2021 01:00:00 PM Scheduled Provider:JOSEFINA DOWNS PA-C Location:[facility] Appointment Type:URO Office Visit Appointment Date:04/08/2022 10:45:00 AM Scheduled Provider:Charly Blanton Jr., MD Location:[facility] Appointment Type:URO Office Visit [facility] evaluation + Plan note Future Appointments Appointment Date:04/08/2022 10:45:00 AM Scheduled Provider:Charly Blanton Jr., MD Location:[facility] Appointment Type:URO Office Visit [facility] evaluation + Plan note Future Appointments Appointment Date:10/14/2022 10:00:00 AM Scheduled Provider:JOSEFINA DOWNS PA-C Location:[facility] Appointment Type:URO Office Visit [facility] evaluation + Plan note Future Appointments Appointment Date:10/27/2023 10:00:00 AM Scheduled Provider:JOSEFINA DOWNS PA-C Location:[facility] Appointment Type:URO Office Visit [facility] evaluation noteNo assessment information available [facility] Work Phone: Evaluizdxg noteNo Information[facility] Qinging Weekly Flower Delivery Other Evaluation note* Diagnosis Onset Date Resolution Status Left shoulder pain acute [facility] Work Phone: Evaluation note* Diagnosis Onset Date [...] acute Primary osteoarthritis of left shoulder acute [facility] Work Phone: Evaluation note* Diagnosis Onset Date [...] left shoulder acute Pre-op examination noneactiv e [facility] Work Phone: Evaluation note* Diagnosis Onset Date [...] left shoulder acute Pre-op examination noneactiv e [facility] Work Phone: Evaluation note* Diagnosis Onset Date [...] acute Preop exam for internal medicine noneactive [facility] Work Phone: Evaluation note* Diagnosis Onset Date [...] acute Preop exam for internal medicine noneactive [facility] Work Phone: Evaluation note* Diagnosis Onset Date [...] total ar throplasty of left shoulder acute [facility] Work Phone: Evaluation note* Diagnosis Onset Date [...] total ar throplasty of left shoulder acute [facility] Work Phone: Evaluation note* Diagnosis Onset Date [...] IFG (impaired fasting glucose) acute Pruritus acute [facility] Work Phone: Evaluation note* Diagnosis Onset Date Resolution Status 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 acute BPPV (benign paroxysmal positional vertigo) acute Diarrhea acute SHERRILL (generalized anxiety disorder) acute IFG (impaired fasting glucose) acute Pruritus acute Abdominal pain acute Diarrhea acute Right flank pain acute 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 Akil Martinez DO Orthopedic Surgeon [facility] Office: [address] [place] [address] Office number: [phone] [facility] Work Phone: Progress note No data available for this section [facility] Summary Purpose Family History No Family History [...] anxiety disorder) IFG (impaired fasting glucose) Pruritus Chief Complaint Z96.612 all over itchiness Abdominal Pain L reverse shoulder arthroplasty Z96.612 - Presence of left artificial shoulder magaly 8 WEEKS Reason for Visit Status post reverse total arthroplasty of left shoulder BPPV (benign paroxysmal positional vertigo) Diarrhea SHERRILL (generalized anxiety disorder) IFG (impaired fasting glucose) Pruritus Abdominal pain Diarrhea Right flank pain Status post reverse total arthroplasty of left shoulder Chief Complaint Z96.612 all over itchiness Abdominal Pain Z96.612 - Presence of left artificial shoulder magaly 8 WEEKS L reverse shoulder arthroplasty Reason for Visit Status post reverse total arthroplasty of left shoulder BPPV (benign paroxysmal positional vertigo) Diarrhea SHERRILL (generalized anxiety disorder) IFG (impaired fasting glucose) Pruritus Abdominal pain Diarrhea Right flank pain Status post reverse total arthroplasty of left shoulder Additional Source Comments Care Team (unrecognized sect ion and content) Team Status: Inactive Member Role Status Brock Palm DO Primary Care Provider Active Outreach Community Attending Provider Active Team Status: Active Member Role Status Brock Palm DO Primary Care Provider Active Team Status: Inactive Member Role Status Brock Palm DO Primary Care Provide r, Attending Provider Active Start: July 16, 2023 End: July 16, 2023 Team Status: Inactive Member Role Status Brock Palm DO Primary Care Provide r, Attending Provider Active Start: August 03, 2023 End: August 03, 2023 Team Status: Inactive Member Role Status Brock Palm DO Primary Care Provider Active Start: August 13, 2023 End: August 13, 2023 Akil Martinez DO Attending Provider Active St art: August 13, 2023 End: August 13, 2023 Team Status: Active Member Role Status Brock Palm DO Primary Care Provider Active Start: August 13, 2023 Akil Martinez DO Attending Provider Active St art: August 13, 2023 Team Status: Inactive Member Role Status Brock Palm DO Primary Care Provider Active Start: August 14, 2023 End: August 14, 2023 Akil Martinez DO Attending Provider Active St art: August 14, 2023 End: August 14, 2023 Team Status: Inactive Member Role Status Brock Palm DO Primary Care Provider Active Start: August 25, 2023 End: August 25, 2023 Akil Martinez DO Attending Provider Active St art: August 25, 2023 End: August 25, 2023 Team Status: Inactive Member Role Status Brock Palm DO Primary Care Provide r, Attending Provider Active Start: August 27, 2023 End: August 27, 2023 Team Status: Active Member Role Status Brock Palm DO Primary Care Provide r, Attending Provider Active Start: September 01, 2023 Team Status: Inactive Member Role Status Dates Capo Palm DO Primary Care Provider Active Start: September 09, 2023 End: September 09, 2023 Akil Martinez , DO Attending Provider Active St art: September 09, 2023 End: September 09, 2023 Team Status: Active Member Role Status Dates Capo Palm DO Primary Care Provider Active Start: September 09, 2023 Akil Martinez , DO Attending Provider, Other Provider Active Start: September 09, 2023 Team Status: Inactive Member Role Status Dates Capo Palm DO Primary Care Provider Active Start: September 17, 2023 End: September 17, 2023 Akil Martinez , DO Attending Provider Active St art: September 17, 2023 End: September 17, 2023 Team Status: Active Member Role Status Dates Capo Palm DO Primary Care Provider Active Start: September 17, 2023 Akil Martinez , DO Attending Provider Active St art: September 17, 2023 Team Status: Inactive Member Role Status Dates Capo Palm DO Primary Care Provider Active Start: September 30, 2023 End: September 30, 2023 Akil aMrtinez , DO Attending Provider Active St art: September 30, 2023 End: September 30, 2023 Team Status: Active Member Role Status Dates Capo Palm DO Primary Care Provider Active Start: October 20, 2023 Akil Martinez , DO Attending Provider Active St art: October 20, 2023 Team Status: Inactive Member Role Status Dates Capo Palm DO Primary Care Provider Active Start: October 22, 2023 End: October 22, 2023 Akil Martinez , Attending Provider Active St art: October 22, 2023 End: October 22, 2023 Team Status: Active Member Role Status Dates Capo Palm DO Primary Care Provider Active Start: October 26, 2023 Akil Martinez , Attending Provider Active St art: October 26, 2023 Team Status: Inactive Member Role Status Dates Capo Palm DO Primary Care Provide r, Attending Provider Active Start: October 28, 2023 End: October 28, 2023 Team Status: Inactive Member Role Status Dates Capo Palm DO Primary Care Provide r, Attending Provider Active Start: November 20, 2023 End: November 20, 2023 Team Status: Active Member Role Status Dates Capo Palm DO Primary Care Provider Active Start: December 14, 2023 Akil Martinez , DO Attending Provider Active St art: December 14, 2023 Team Status: Active Member Role Status Dates Capo Palm DO Primary Care Provider Active Start: December 17, 2023 Akil Sweet Jeanmarie , DO Attending Provider Active St art: December 17, 2023 Team Status: Inactive Member Role Status Dates Capo Palm DO Primary Care Provider Active Start: December 17, 2023 End: December 17, 2023 Akil Kee Jeanmarie , DO Attending Provider Active St art: December 17, 2023 End: December 17, 2023 INFORMATION SOURCE (unrecogn ized section and content) DATE CREATED AUTHOR 12/18/2021 [facility] DATE CREATED AUTHOR AUTHOR'S ORGANIZ ATION 11/19/2023 [facility] DATE CREATED AUTHOR AUTHOR'S ORGANIZ ATION 12/11/2023 [facility] EPIC DATE CREATED AUTHOR AUTHOR'S ORGANIZ ATION 12/26/2023 [facility] Goals (unrecognized section and content) Goals may be documented in a n alternate section REASON FOR VISIT (unrecogniz ed section and content) sore ankle and armBone densi ty testDexa [phone] cpap machineDizzinessdizziness FOR RECORDS PERTAINING TO PATIENTS [...] BE BASED ON THE PRIMARY CLINICAL RECORDS. [employer] [facility]. provides no warranty or guarantee of the accuracy or completeness of information in this document.
--- NOTE | 2023-12-31 15:28 | MR_ITS ---
The [address] [address] Patient Name: CY NGO MRN: [facility]:[id number] date: 1955 Sex: F Assigned Patient Location: MRI Current Patient Location: MRI Accession/Order Number: [id number] Exam Date: 12/31/2023 15:35 Report Date: 01/01/2024 14:51 At the request of: REJI DUNN Procedure: MR head/brain wo/w con MRI BRAIN WITH AND WITHOUT CONTRAST, 12/31/2023. HISTORY: Vertigo for 3 months. COMPARISON: MRI brain with and without contrast, 11/01/2021. TECHNIQUE: Multiplanar, multisequence MRI imaging of the brain and internal auditory canals with and without contrast. FINDINGS: The paranasal sinuses are clear. Mastoid air cells are clear. Nasopharynx normal. Safety Investigator/Cause Analyst spaces normal. Orbital contents normal. Mild brain atrophy. Mild chronic microvascular ischemic changes are stable. No extra-axial fluid collection or mass effect. The diffusion images are normal. No acute ischemic infarction. No pathologic enhancement in the brain. No brain mass. There is no abnormal signal or pathologic enhancement in the internal auditory canals or inner ear structures. No pathologic cranial nerve enhancement. No cerebellopontine angle masses. MR/MR head/brain wo/w con IMPRESSION: 1. The internal auditory canals and cerebellopontine angle cisternal spaces are normal. 2. No acute infarction. No masses. 3. Mild brain atrophy and chronic microvascular ischemic changes are stable. Electronically authenticated by: JAMIE GREWAL Date: 01/01/2024 14:51
[2023-12-31 15:53] LABS: Estimated GFR (African America >60 (>=60 mL/min/1.73m^2); Estimated GFR (Non-African Ame 60 (>=60 mL/min/1.73m^2)
== END 2023-12-31 15:15 | disposition home or self-care (01) ==
LOC: MRI 15:20
PROVIDERS: PCP Internal Medicine; Visit Provider Internal Medicine
DX: R42 Dizziness and giddiness (principal); H93.19 Tinnitus, unspecified ear
CPT/HCPCS: 36415; 70553; 82565; A9575

== ENCOUNTER 2024-08-17 07:33 | Outpatient (OUT) | payer MEDICARE, SELFPAY ==
--- OUTSIDE RECORDS SUMMARY | 2024-08-17 07:35 | XMS_ITS | Clinical Summary ---
Author Organization [facility] Address [address] [place] [address] Care Team Providers Care Reaming Machine Operator Name Role Phone Capo Palm Primary Care Provider [phone] Allergies Active Allergy Reactions Criticality Noted Date Comments Sulfa Antibiotics Itching,Rash Low 07/10/2023 Sulfanilamide Hives 04/14/2023 Medications CeleXA 20 MG tablet take 1 tablet (10MG) by oral route every day Oral Active meloxicam (Mobic) 15 MG tablet Take 15 mg by mouth in the morning. 03/12/2023 Active oxybutynin XL (Ditropan-XL) 5 MG 24 hr tablet Take 5 mg by mouth 10/21/2022 Active Multiple Vitamin (multivitamin) capsule Take 1 capsule by mouth in the morning. Active Active Problems Problem Noted Date Diagnosed Date Unilateral vestibular weakness, right 11/04/2023 BPPV (benign paroxysmal positional vertigo), rig ht 05/12/2023 Balance disorder 05/12/2023 BPPV (benign paroxysmal positional vertigo), lef t 05/08/2023 Cervicalgia 05/08/2023 Family History Medical History Relation Name Comments Cancer Father Diabetes Mother Hypertension Mother Melanoma Neg Hx Relation Name Status Comments Father Mother Social History Tobacco Use Types Packs/Day Years Used Date Smoking Tobacco: Never Smokeless Tobacco: Never Tobacco Cessation:Counseling Given: Not Answered Alcohol Use Standard Drinks/Week Comments Yes 0 (1 standard drink = 0.6 oz pure alcohol) 1-2 drinks, every 2-4 times a month. caffeine intake: 1-2 cups per day. Comments Unknown Sex and Gender Information Value Date Recorded Sex Assigned at Female 04/07/2023 10:33 AM EST Legal Sex Female 7:01 PM EDT Gender Identity Female 04/07/2023 10:33 AM EST Sexual Orientation Choose not to disclose 2023 10:33 AM EST Last Filed Vital Signs Vital Sign Reading Time Taken Comments Blood Pressure 143/81 09/28/2019 12:00 PM EDT Pulse - - Temperature - - Respiratory Rate - - Oxygen Saturation - - Inhaled Oxygen Concentration - - Weight 81.6 kg (180 lb) 07/08/2022 12:00 PM EDT Height 157.5 cm (5' 2 ) 07/08/2022 12:00 PM EDT Body Mass Index 32.92 07/08/2022 12:00 PM EDT Plan of Treatment Upcoming Encounters Date Type Department Care Team (Late st Contact Info) Description 04/18/2025 2:30 PM EST Office Visit [facility] [address] [place] [address] Monica Goldman, [place] [address] [place] [address] Health Maintenance Due Date Last Done Comments CT Colonography 1953 Colonoscopy 1953 Colorectal Cancer Screening 1953 FIT-DNA 1953 FIT 1953 FOBT 1953 Sigmoidoscopy 1953 Mammogram 1993 Pneumococcal Vaccine: 65+ Ye ars (2 of 2 - PCV) 01/29/2021 01/30/2020, 01/21/2019 Influenza Vaccine Completed 02/04/2024, , 01/30/2020, Additional history exists Insurance [employer] MED[employer] Care Teams Reaming Machine Operator Relationship Specialty Start Date End Date Capo Palm DO PCP - General Internal Medicine 07/14/23
--- OUTSIDE RECORDS SUMMARY | 2024-08-17 07:42 | XMS_ITS | CCD ---
Author Organization [facility] CliniSynh Care Team Providers Care Receptionist Scheduler Name Role Phone CAPO PALM Primary Care [...] Unavailable WEST, DR GINGER Monge Consulting Unavailable SHAUN, DR SCANLON Primary Care Unavailable BALL, DR SCANLON Attending Unavailable BALL, DR SCANLON Admitting Unavailable BALL, DR SCANLON Primary Care Unavailable BALL, DR SCANLON Consulting Unavailable WEST, DR GINGER Monge Consulting Unavailable BALL, DR SCANLON Attending Unavailable BALL, DR SCANLON Admitting Unavailable BALL, DR SCANLON Primary Care Unavailable BALL, DR SCANLON Consulting Unavailable Shaun, DO Scanlon Primary Care Provider [facility] Attending Provider Capo Palm Unavailable Shaun, DO Scanlon Primary Care Provider DO Akil Martinez Attending Provider JOSEFINA DOWNS Attending Unavailable Ball, DO Capo Primary Care Provider DO Akil Martinez Attending Provider Capo Palm MD Primary Care Provider Shaun, DO Scanlon Primary Care Provider DO Akil Martinez Attending Provider Capo Palm DO Primary Care Provider Akil Martinez DO Attending Provider Shaun TOMLINSON, Capo Primary Care Provider [phone] Akil Martinez DO Attending Provider MONICA HARRISON Attending Unavailable RAVEN, RACQUEL Hunter Attending Unavailable BALL, CAPO E Referring Unavailable RAVEN, RACQUEL Hunter Attending Unavailable BALL, CAPO E Referring Unavailable RAVEN, RACQUEL Hunter Attending Unavailable BALL, CAPO E Referring Unavailable RAVEN, RACQUEL Hunter Attending Unavailable BALL, CAPO E Referring Unavailable RAVEN, RACQUEL Hunter Attending Unavailable BALL, CAPO E Referring Unavailable KARINANABELLE Attending Unavailable KARINANABELLE RIVERA Referring Unavailable RAVEN, RACQUEL Hunter Attending Unavailable [...] CAPO E Referring Unavailable Jeanmarie, Akil Sweet Admitting Unavailable Ball, Capo Primary Care Unavailable [...] Care Unavailable Jeanmarie, Akil A Attending Unavailable Ball, [...] Attending Unavailable Jeanmarie, Akil A Admitting Unavailable Ball DOCapo Primary Care Provider Akil Martinez DO Attending Provider Capo Palm DO Primary Care Provider [phone] Akil Martinez DO Attending Provider Allergies Allergy Classification Reported Allergen(s) Allergy Type Date of Onset Reaction(s) Facility (6 sources) Sulfonamides (Antibiotic); Translations: [sulfa drugs] Drug allergy Eruption of skin (disorder) [facility] (1 source) Sulfonamides (Antibiotic) Drug allergy (disorder) 05-20-19 17 [facility] (2 sources) Sulfonamides (Antibiotic); Translations: [Sulfa (Sulfonamide Antibiotics)] Allergy to substance 06-26-19 22 [facility] (7 sources) Sulf-10 Drug allergy rash [facility] Other (2 sources) patient allergy list reviewed by nurse or physicia Propensity to adverse reactions 10-22-19 14 Comment:Done [facility] Other (2 sources) Allergies Reconciled Propensity to adverse reactions Unknown [facility] Other (17 sources) Substance with sulfonamide structure and antibacterial mechanism of action (substance) Drug allergy 12-15-19 18 Itching, Rash [facility] (11 sources) Sulfanilamide Allergy to substance 04-14-19 Hives [facility] Medications Current Medications Medication Drug Class(es) Dates Sig (Normalized) Sig (Original) Daily Vitamins for Women (4 sources) Daily Vitamins f or Women Active famotidine 20 mg oral tablet (7 sources) Histamine-2 Receptor Antagonist Start: 02-04-2024 take 1 tablet by mouth once daily Famotidine (Pepcid) 20 mg tablet Active 20 MG PO Daily February 04, 2024 1:00am meclizine hydrochloride 25 mg chewable tablet (2 sources) Antiemetic Start: 05-04-2023 take 1 tablet by mouth every eight hours as needed Meclizine HCl 25 MG 1 tablet as needed Orally every 8 hours as needed for vertigo, may cause sedation for 5 days Apr, Active Multiple Vitamin (multivitamin) capsule (11 sources) take 1 capsule by mouth in the morning Multiple Vitamin (multivitamin) capsule Take 1 capsule by mouth in the morning. Active Multivitamin preparation (17 sources) Start: 06-25-2021 take 1 tablet by mouth once daily Multivitamin Active 1 TAB PO Daily June 25, 2021 12:00am One A Day Women 50 Plus (5 sources) Start: 12-07-2018 One A Day Women 50 Plus Refill(s) 0 Start Date: 12/07/18 Status: Ordered Completed/Discontinued Medications Medication Drug Class(es) Dates Sig (Normalized) Sig (Original) acetaminophen 500 mg oral tablet (16 sources) Start: 09-08-2023 End: 10-22-2023 take 1 tablet by mouth every six hours as needed for pain Acetaminophen 500 mg tablet Discontinued 500 MG PO Q6H as needed for Pain September 08, 2023 12:00am October 22, 2023 10:58am DO NOT RECONCILE UNTIL DOS 09/09/23 TO BE USED POST OP aspirin 81 mg chewable tablet (16 sources) Platelet Aggregation Inhibitor, Nonsteroidal Anti-inflammatory Drug Start: 09-08-2023 End: 10-22-2023 take 1 tablet by mouth twice daily Aspirin 81 mg tablet,chewable Discontinued 81 MG PO Twice daily 60 September 08, 2023 12:00am October 22, 2023 10:53am DO NOT RECONCILE UNTIL DOS 09/09/23 TO BE USED POST OP citalopram 40 mg oral tablet (20 sources) Serotonin Reuptake Inhibitor Start: 07-16-2023 End: 07-21-2023 take 1 tablet by mouth once daily Citalopram 40 mg tablet Discontinued 40 MG PO Daily 90 90 July 16, 2023 12:00am July 21, 2023 8:48am Start: 06-25-2021 End: 07-16-2023 take 1 tablet by mouth once daily Citalopram 20 mg tablet Discontinued 20 MG PO Daily June 25, 2021 12:00am July 16, 2023 9:47pm Start: 12-07-2018 citalopram Ora l, Daily, Refills(s) 0 Start Date: 12/07/18 Status: Ordered diclofenac sodium 0.03 mg/mg topical gel (20 sources) Nonsteroidal Anti-inflammatory Drug Start: 07-10-2023 End: 08-25-2023 Diclofenac Sodium 3 % gel Discontinued 1 APPLIC TOPICAL Twice daily July 10, 2023 12:00am August 25, 2023 11:38am Diclofenac Sodiu m 3 % 1 application Externally Twice a day Active docusate sodium 100 mg oral capsule (16 sources) Start: 09-08-2023 End: 10-22-2023 take 1 capsule by mouth twice daily as needed for constipation Docusate Sodium (Colace) 100 mg capsule Discontinued 100 MG PO Twice daily as needed for Constipation 20 September 08, 2023 12:00am October 22, 2023 10:53am DO NOT RECONCILE UNTIL DOS 09/09/23 TO BE USED POST OP [facility] (18 sources) Start: 08-25-2023 End: 08-01-2024 take 1 tablet by mouth once daily [facility] Discontinued 1 TAB PO Daily August 25, 2023 12:00am August 01, 2024 9:43am Start: 08-25-2023 take 1 tablet by mouth once da zena [facility] Active 1 TAB PO Daily August 24, 2023 11:00pm Start: 08-25-2023 take 1 tablet by mouth once da zena [facility] Active 1 TAB PO Daily August 25, 2023 12:00am hyoscyamine sulfate 0.125 mg disintegrating oral tablet (17 sources) Start: 08-27-2023 End: 09-09-2023 take 1 tablet by mouth four times daily as needed for diarrhea Hyoscyamine Sulfate 0.125 mg tablet,disintegrating Discontinued 0.125 MG PO Four times daily as needed for diarrhea 20 August 27, 2023 12:00am September 09, 2023 6:34am lactobacillus acidophilus [id number] unt oral capsule (20 sources) Start: 06-25-2021 End: 07-10-2023 Lactobacillus Acidophilus [...] tablet (20 sources) Nonsteroidal Anti-inflammatory Drug Start: 09-16-2022 End: 10-22-2023 take 1 tablet by mouth once daily Meloxicam 15 mg tablet Discontinued 15 MG PO daily September 08, 2023 12:00am October 22, 2023 10:53am DO NOT RECONCILE UNTIL DOS 09/09/23 TO BE USED POST OP Multivitamin Tablet (7 sources) Start: 06-25-2021 End: 08-01-2024 take 1 tablet by mouth once daily Multivitamin Tablet Discontinued 1 TAB PO Daily June 25, 2021 12:00am August 01, 2024 9:43am Start: 06-25-2021 take 1 tablet by cristi th once daily Multivitamin Tablet Active 1 TAB PO Daily June 25, 2021 12:00am Start: 06-25-2021 take 1 tablet by cristi th once daily Multivitamin Tablet Active 1 TAB PO Daily June 24, 2021 11:00pm omeprazole 40 mg delayed release oral capsule (20 sources) Proton Pump Inhibitor Start: 08-03-2023 End: 02-04-2024 Omeprazole 40 mg capsule,delayed release(DR/EC) Discontinued 40 MG PO Daily November 05, 2023 2:10pm February 04, 2024 11:05am Take on an empty stomach, 30 minutes prior to bkfst Start: 06-25-2021 End: 07-10-2023 take 1 capsule by mouth once daily Omeprazole 20 mg Capsule,Delayed Release(Dr/Ec) Discontinued 20 MG PO Daily June 25, 2021 12:00am July 10, 2023 10:00am Start: 01-07-2021 Prilosec Oral, Daily, Refills(s) 0 Start Date: 01/07/21 Status: Ordered oxybutynin chloride 5 mg oral tablet (20 sources) Cholinergic Muscarinic Antagonist Start: 07-10-2023 End: 07-16-2023 take 1 tablet by mouth once daily Oxybutynin Chloride 5 mg tablet Discontinued 5 MG PO Daily July 10, 2023 12:00am July 16, 2023 11:08am Start: 10-21-2022 take 1 tablet by cristi th every twenty-four hours oxybutynin XL (Ditropan-XL) 5 MG 24 hr tablet Take 5 mg by mouth 10/21/2022 Active Start: 04-15-2022 End: 11-11-2022 take 1 tablet by mouth once daily oxybutynin 5 mg ER T ab 5 mg = 1 tab(s), Oral, Daily, # 90 tab(s), Refills(s) 3, Pharmacy: [facility], 157, cm, 10/21/22 9:06:00 EDT, Height/Length Dosing, 90, kg, 10/21/22 9:06:00 EDT, Weight Dosing Start Date: 10/21/22 Status: Ordered Start: 08-14-2021 take 1 tablet by mouth once da zena Ditropan XL 5 mg Tab-ER 5 mg = 1 tab(s), Oral, Daily, # 30 tab(s), Refills(s) 6, Pharmacy: [facility]/pharmacy #[id number], 157, cm, 08/14/21 14:15:00 EDT, Height/Length Dosing, 90, kg, 08/14/21 14:15:00 EDT, Weight Dosing Start Date: 08/14/21 Status: Ordered take 1 tablet by cristi th every twenty-four hours oxyBUTYnin Chloride 5 MG 1 tablet Orally Once a day Active oxyCODONE hydrochloride 5 mg oral tablet (16 sources) Opioid Agonist Start: 09-08-2023 End: 10-22-2023 take 1 tablet by mouth every six hours as needed for pain Oxycodone 5 mg tablet Discontinued 5 MG PO Q6H as needed for Pain 17 10September 08, 2023 October 22, 2023 10:53am DO NOT RECONCILE UNTIL DOS 09/09/23 TO BE USED POST OP polyethylene glycol 3350 53799 mg powder for oral solution (16 sources) Osmotic Laxative Start: 09-08-2023 End: 10-22-2023 Polyethylene Glycol 3350 (Miralax) 17 gram powder in packet Discontinued 17 GM PO daily 14 September 08, 2023 12:00am October 22, 2023 10:58am 1 packet mixed with 8 ounces of fluid. DO NOT RECONCILE UNTIL DOS 09/09/23 TO BE USED POST OP predniSONE 5 mg oral tablet (2 sources) Start: 07-12-2024 End: 08-01-2024 Prednisone 5 mg tablet Discontinued 5 MG PO daily 19 July 12, 2024 12:00am August 01, 2024 9:43am Take 4 pills by mouth x2 days, take 3 pills by mouth x2 days, take 2 pills by mouth x2 days, take 1 pill by mouth x1 day. sertraline 100 mg oral tablet (20 sources) Serotonin Reuptake Inhibitor Start: 07-21-2023 End: 05-05-2024 take 1 tablet by mouth once daily Sertraline 100 mg tablet Discontinued 100 MG PO Daily 90 90 May 04, 2024 1:53pm May 05, 2024 11:59am traMADol hydrochloride 50 mg oral tablet (3 sources) Opioid Agonist Start: 06-02-2024 End: 08-01-2024 take 1 tablet by mouth every six hours as needed for pain Tramadol 50 mg tablet Discontinued 50 MG PO Every 6 hours as needed for pain 10 June 02, 2024 12:00am August 01, 2024 9:43am TO BE USED POST OP 06/03/24 Problems Active Problems Problem Classification Problem Date [...] full remission] 12-07-2018 Chronic Nonspecific chest pain (9 sources) Chest wall pain; Translations: [Other chest pain] Episodic Osteoarthritis (20 sources) Osteoarthritis; Translations: [Osteoarthritis of joint of left shoulder region] Onset: 3 12-07-2018 Chronic Other aftercare (3 sources) Encounter for removal of sutures; Translations: [Encounter for removal of sutures] 06-13-2024 Episodic Other and unspecified benign neoplasm (7 sources) History of polyp of colon; Translations: [Personal history of colonic polyps] Episodic Other and unspecified benign neoplasm (2 sources) Melanocytic nevus of trunk; Translations: [Melanocytic nevi of trunk] 04-18-2024 Episodic Other and unspecified benign neoplasm (2 sources) Senile angioma; Translations: [Hemangioma of skin and subcutaneous tissue] 04-18-2024 Episodic Other connective tissue disease (4 sources) Presence of left artificial knee joint; Translations: [PRESENCE LEFT ARTIFICIAL KNEE JOINT] Onset: 1 Chronic Other connective tissue disease (15 sources) History of reverse prosthetic total arthroplasty of left shoulder; Translations: [Presence of left artificial shoulder joint] 09-17-2023 Chronic Other connective tissue disease (20 sources) Presence of left artificial shoulder joint; [...] forms of nystagmus] Chronic Other gastrointestinal disorders (13 sources) Diarrhea, unspecified; Translations: [Diarrhea] Onset: 1 Episodic Other gastrointestinal disorders (14 sources) Diarrhea; Translations: [Diarrhea, unspecified] Resolved: 2 10-28-2023 Episodic Other inflammatory condition of skin (16 sources) Pruritus, unspecified; Translations: [Pruritus] 10-28-2023 Episodic Other injuries and conditions due to external causes (3 sources) History of fall; Translations: [History of falling] Episodic Other injuries and conditions due to external causes (3 sources) Sprains and strains of joints and adjacent muscles; Translations: [Other specified sites of sprains and strains] Episodic Other nervous system disorders (6 sources) Carpal tunnel syndrome of left wrist; Translations: [Carpal tunnel syndrome, left upper limb] 03-21-2024 Chronic Other nervous system disorders (15 sources) Carpal tunnel syndrome, left upper limb; Translations: [Carpal tunnel syndrome] Onset: 5 03-21-2024 Chronic Other nervous system disorders (4 sources) Lesion of ulnar nerve, left upper limb; Translations: [Cubital tunnel syndrome on left] 07-12-2024 Chronic Other nervous system disorders (10 sources) Abnormal gait; Translations: [Unsteadiness on feet] Episodic Other nervous system disorders (20 sources) Impaired cognition; Translations: [Other symptoms and signs involving cognitive functions and awareness] 07-16-2023 Episodic Other nervous system disorders (10 sources) Other symptoms and signs involving cognitive functions and awareness; Translations: [Other signs and symptoms involving cognition] 07-16-2023 Episodic Other non-traumatic joint disorders (20 sources) Pain in left shoulder; Translations: [Left shoulder pain] Onset: 4 07-16-2023 Episodic Other nutritional; endocrine; and metabolic disorders (20 sources) Obesity; Translations: [Obesity, unspecified] 12-07-2018 Chronic [...] Chronic Other nutritional; endocrine; and metabolic disorders (3 sources) Obesity, unspecified; Translations: [Obesity, unspecified] 08-27-2023 Chronic Other screening for suspected conditions (not mental disorders or infectious disease) (20 sources) Other abnormal and inconclusive findings on diagnostic imaging of breast; Translations: [Encounter for screening mammogram for malignant neoplasm of breast] Onset: 2 Episodic Other skin disorders (2 sources) Seborrheic keratosis; Translations: [Other seborrheic keratosis] 04-18-2024 Episodic Other upper respiratory infections (15 sources) [...] externa, right ear] Resolved: 02-04-2022 Episodic Other nervous system disorders (18 sources) Impairment of balance; Translations: [Other abnormalities of gait and mobility] Onset: 05-12-2023 12-29-2023 Episodic Other nutritional; endocrine; and metabolic disorders [...] [FAMILY HISTORY OF LEUKEMIA] Onset: 05-28-2021 Episodic Residual codes; unclassified (5 sources) Other specified postprocedural states; Translations: [Other postprocedural status] Onset: 03-23-2024 06-13-2024 Episodic Spondylosis; intervertebral disc disorders; other back problems (18 sources) Neck pain; Translations: [Cervicalgia] Onset: 05-08-2023 12-30-2023 Episodic Unclassified (1 source) CONTACT W/AND (SUSP) EXPOS COVID-19; Translations: [CONTACT W/AND (SUSP) EXPOS COVID-19] Onset: 02-28-2021 Viral infection (6 sources) Herpes zoster without complication; Translations: [Herpes zoster without mention of complication] Onset: 07-29-2013 Episodic Results Test Name Value Interpretation Reference Range Facility Alanine aminotransferase [En zymatic activity/volume] in Serum or PlasmaOrdered By: Akil Martinez on 05-19-2024 ALT [Catalytic activity/Vol] Alanine aminotransferase [Enzymatic activity/volume] in Serum or Plasma [address] [facility] Albumin [Mass/volume] in Ser um or Plasma by Bromocresol green (BCG) dye binding methoOrdered By: Akil Martinez on 05-19-2024 Albumin BCG dye [Mass/Vol] Albumin [Mass/volume] in Serum or Plasma by Bromocresol green (BCG) dye binding metho 3.5-5.7 [facility] Alkaline phosphatase [Enzyma tic activity/volume] in Serum or PlasmaOrdered By: Akil Martinez on 05-19-2024 ALP [Catalytic activity/Vol] Alkaline phosphatase [Enzymatic activity/volume] in Serum or Plasma 34-104 [facility] Aspartate aminotransferase [ Enzymatic activity/volume] in Serum or PlasmaOrdered By: Akil Martinez on 05-19-2024 AST [Catalytic activity/Vol] Aspartate aminotransferase [Enzymatic activity/volume] in Serum or Plasma 13-39 [facility] Basophils Auto (Bld) [#/Vol] Ordered By: Akil Martinez on 05-19-2024 Basophils (Bld) [#/Vol] Automated basoph il count 0.0-0.2 [facility] Basophils/100 WBC Auto (Bld) Ordered By: Akil Martinez on 05-19-2024 Basophils/100 WBC (Bld) Automated basophil % . [facility] Bilirubin.total [Mass/volume ] in Serum or PlasmaOrdered By: Akil Martinez on 05-19-2024 Bilirubin [Mass/Vol] Bilirubin.total [Mass/volume] in Serum or Plasma 0.3-1.0 [facility] CMP with reflex to A1Con Albumin [Mass/Vol] 4.2 g/dL Normal 3.5-5.7 [facility] Comment on above: Performed By: #### C BC, CMP wRFX A1C #### [address] Albumin/Globulin [Mass ratio] 1.8 {ratio} Normal [facility] Comment on above: Performed By: #### C BC, CMP wRFX A1C #### [address] ALP [Catalytic activity/Vol] 88 U/L Normal 34-104 [facility] Comment on above: Result Comment: PERF ORMED BY: [place] [address] PATHOLOGIST VICE PRESIDENT OF ENGINEERING CHIDI NG M.D. Performed By: #### C BC, CMP wRFX A1C #### [address] ALT [Catalytic activity/Vol] 10 U/L Normal 7-52 [facility] Comment on above: Performed By: #### C BC, CMP wRFX A1C #### [address] Anion gap [Moles/Vol] 9.8 mmol/L Normal 6.0-15.0 [facility] Comment on above: Performed By: #### C BC, CMP wRFX A1C #### [address] AST [Catalytic activity/Vol] 15 U/L Normal 13-39 [facility] Comment on above: Performed By: #### C BC, CMP wRFX A1C #### [address] Bilirubin [Mass/Vol] 0.5 mg/dL Normal 0.3-1.0 [facility] Comment on above: Performed By: #### C BC, CMP wRFX A1C #### [address] Calcium [Mass/Vol] 9.5 mg/dL Normal 8.6-10.3 [facility] Comment on above: Performed By: #### C BC, CMP wRFX A1C #### [address] Chloride [Moles/Vol] 108 mmol/L High 98-107 [facility] Comment on above: Performed By: #### C BC, CMP wRFX A1C #### [place] [address] [place] CO2 [Moles/Vol] 28.4 mmol/L Normal 21.0-31.0 [facility] Comment on above: Performed By: #### C BC, CMP wRFX A1C #### [place] [address] [place] Creatinine [Mass/Vol] 0.73 mg/dL Normal 0.60-1.20 [facility] Comment on above: Performed By: #### C BC, CMP wRFX A1C #### [place] [address] [place] GFR/1.73 sq M.predicted MDRD (S/P/Bld) [Vol rate/Area] mL/min/{1.73_m2} Normal [facility] Comment on above: Performed By: #### C BC, CMP wRFX A1C #### [place] [address] [place] Globulin (S) [Mass/Vol] 2.3 g/dL Normal T [facility] Comment on above: Performed By: #### C BC, CMP wRFX A1C #### [facility] [address] [place] [address] [place] Glucose [Mass/Vol] 85 mg/dL Normal 70-100 [facility] Comment on above: Performed By: #### C BC, CMP wRFX A1C #### [facility] [address] [place] [address] [place] Potassium [Moles/Vol] 4.2 mmol/L Normal 3.5-5.1 [facility] Comment on above: Performed By: #### C BC, CMP wRFX A1C #### [facility] [address] [place] [address] [place] Protein [Mass/Vol] 6.5 g/dL Normal 6.4-8.9 [facility] Comment on above: Performed By: #### C BC, CMP wRFX A1C #### [facility] [address] [place] [address] [place] Sodium [Moles/Vol] 142 mmol/L Normal 136-145 [facility] Comment on above: Performed By: #### C BC, CMP wRFX A1C #### [facility] [address] [place] [address] [place] Urea nitrogen [Mass/Vol] 14 mg/dL Normal 7-25 [facility] Comment on above: Performed By: #### C BC, CMP wRFX A1C #### [facility] [address] Calcium [Mass/volume] in Ser um or PlasmaOrdered By: Akil Martinez on 05-19-2024 Calcium [Mass/Vol] Calcium [Mass/volume ] in Serum or Plasma 8.6-10.3 [facility] Carbon dioxide, total [Moles /volume] in Serum or PlasmaOrdered By: Akil Martinez on 05-19-2024 CO2 [Moles/Vol] Carbon dioxide, tota l [Moles/volume] in Serum or Plasma 21.0-31.0 [facility] Chloride [Moles/volume] in S raheel or PlasmaOrdered By: Akil Martinez on 05-19-2024 Chloride [Moles/Vol] Chloride [Moles/volume] in Serum or Plasma High 98-107 [facility] Complete Blood Count Auto Di ffon 05-19-2024 Basophils (Bld) [#/Vol] 0.1 10*3/uL Normal 0.0-0.2 [facility] Comment on above: Result Comment: PERF ORMED BY: [place] [address] PATHOLOGIST VICE PRESIDENT OF ENGINEERING CHIDI NG M.D. Performed By: #### C BC, CMP wRFX A1C #### [place] [address] [place] Basophils/100 WBC (Bld) 1.1 % Normal . [facility] Comment on above: Performed By: #### C BC, CMP wRFX A1C #### [place] [address] [place] Eosinophils (Bld) [#/Vol] 0.3 10*3/uL Normal 0.0-0.45 [facility] Comment on above: Performed By: #### C BC, CMP wRFX A1C #### [place] [address] [place] Eosinophils/100 WBC (Bld) 4.9 % Normal . [facility] Comment on above: Performed By: #### C BC, CMP wRFX A1C #### [place] [address] [place] Erythrocyte distribution width (RBC) [Ratio] 13.4 % Normal 11.9-15.3 [facility] Comment on above: Performed By: #### C BC, CMP wRFX A1C #### [place] [address] [place] Hematocrit (Bld) [Volume fraction] 37.6 % Normal 34.0-46.4 [facility] Comment on above: Performed By: #### C BC, CMP wRFX A1C #### [place] [address] [place] Hemoglobin (Bld) [Mass/Vol] 12.7 g/dL Normal 11.8-15.4 [facility] Comment on above: Performed By: #### C BC, CMP wRFX A1C #### [address] Lymphocytes (Bld) [#/Vol] 1.4 10*3/uL Normal 1.00-4.8 [facility] Comment on above: Performed By: #### C BC, CMP wRFX A1C #### [address] Lymphocytes/100 WBC (Bld) 24.5 % Normal . [facility] Comment on above: Performed By: #### C BC, CMP wRFX A1C #### [address] MCH (RBC) [Entitic mass] 32.1 pg Normal 24.7-34.3 [facility] Comment on above: Performed By: #### C BC, CMP wRFX A1C #### [address] MCV (RBC) [Entitic vol] 95.0 fL Normal 80-100 [facility] Comment on above: Performed By: #### C BC, CMP wRFX A1C #### [address] Mean Corpuscular HGB Conc 33.8 g/dL Normal 32.0-35.0 [facility] Comment on above: Performed By: #### C BC, CMP wRFX A1C #### [address] Monocytes (Bld) [#/Vol] 0.6 10*3/uL Normal 0.0-0.8 [facility] Comment on above: Performed By: #### C BC, CMP wRFX A1C #### [address] Monocytes/100 WBC (Bld) 9.8 % Normal . [facility] Comment on above: Performed By: #### C BC, CMP wRFX A1C #### [address] Neutrophils (Bld) [#/Vol] 3.5 10*3/uL Normal 1.8-7.7 [facility] [facility] Comment on above: Performed By: #### C BC, CMP wRFX A1C #### [address] Neutrophils/100 WBC (Bld) 59.7 % Normal . [facility] Comment on above: Performed By: #### C BC, CMP wRFX A1C #### [address] NRBC% 0.2 /100{WBC} Normal 0-0.5 [facility] Comment on above: Performed By: #### C BC, CMP wRFX A1C #### [address] Platelet mean volume (Bld) [Entitic vol] 9.1 fL Normal 6.3-10.7 [facility] Comment on above: Performed By: #### C BC, CMP wRFX A1C #### [address] Platelets (Bld) [#/Vol] 202 10*3/uL Normal 150-450 [facility] Comment on above: Performed By: #### C BC, CMP wRFX A1C #### [address] RBC (Bld) [#/Vol] 3.95 10*6/uL Normal 3.60-5.00 [facility] Comment on above: Performed By: #### C BC, CMP wRFX A1C #### [place] [address] [place] WBC (Bld) [#/Vol] 5.9 10*3/uL Normal 3.8-11.6 [facility] Comment on above: Performed By: #### C BC, CMP wRFX A1C #### [place] [address] [place] Creatinine [Mass/volume] in Serum or PlasmaOrdered By: Akil Martinez on 05-19-2024 Creatinine [Mass/Vol] Creatinine [Mass/volume] in Serum or Plasma 0.60-1.20 [facility] ECG 12 lead ECGon 05-19-2024 ECG 12 lead ECG [facility] Main [place] [id number] Electrocardiograph Report Signed Patient: Sayda Fraire MR#: [id number] [birth year] : 1955 Acct:[id number] Age/Sex: 69 / F ADM Date: 05/19/24 Loc: Room: Type: [facility] Attending Dr: Akil Martinez DO Ordering [...] Otherwise normal ECG Confirmed by Nuha Buckner ([id number]) on 05/19/2024 10:06:22 AM Referred By: Electronically Signed By: Nuha Buckner Transcribed By: MUS Signed By Nuha Buckner MD 5 1006 Normal [facility] Eosinophils Auto (Bld) [#/Vo l]Ordered By: Akil Martinez on 05-19-2024 Eosinophils (Bld) [#/Vol] Automated eosinophil count 0.0-0.45 [facility] Eosinophils/100 WBC Auto (Bl d)Ordered By: Akil Martinez on 05-19-2024 Eosinophils/100 WBC (Bld) Automated eosinophil % . [facility] Erythrocyte distribution wid th Auto (RBC) [Ratio]Ordered By: Akil Martinez on 05-19-2024 Erythrocyte distribution width (RBC) [Ratio] Erythrocyte distribution width [Ratio] by Automated count 11.9-15.3 [facility] Globulin Calc (S) [Mass/Vol] Ordered By: Akil Martinez on 05-19-2024 Globulin (S) [Mass/Vol] Serum globulin measurement by calculation (mass/volume) [facility] Glucose [Mass/volume] in Ser um or PlasmaOrdered By: Akil Martinez on 05-19-2024 Glucose [Mass/Vol] Glucose [Mass/volume ] in Serum or Plasma 70-100 [facility] Hematocrit Auto (Bld) [Volum e fraction]Ordered By: Akil Martinez on 05-19-2024 Hematocrit (Bld) [Volume fraction] Hematocrit [Volume Fraction] of Blood by Automated count 34.0-46.4 [facility] Hemoglobin [Mass/volume] in BloodOrdered By: Akil Martinez on 05-19-2024 Hemoglobin (Bld) [Mass/Vol] Hemoglobin [Mass/volume] in Blood 11.8-15.4 [facility] Leukocytes [#/volume] correc beckie for nucleated erythrocytes in Blood by Automated counOrdered By: Akil Martinez on 05-19-2024 WBC corrected for nucl RBC Auto (Bld) [#/Vol] Leukocytes [#/volume] corrected for nucleated erythrocytes in Blood by Automated coun 3.8-11.6 [facility] Lymphocytes Auto (Bld) [#/Vo l]Ordered By: Akil Martinez on 05-19-2024 Lymphocytes (Bld) [#/Vol] Lymphocytes [#/volume] in Blood by Automated count 1.00-4.8 [facility] Lymphocytes/100 WBC Auto (Bl d)Ordered By: Akil Martinez on 05-19-2024 Lymphocytes/100 WBC (Bld) Lymphocytes/100 leukocytes in Blood by Automated count . [facility] MCH Auto (RBC) [Entitic mass ]Ordered By: Akil Martinez on 05-19-2024 MCH (RBC) [Entitic mass] MCH [Entitic mass] by Automated count 24.7-34.3 [facility] MCHC Auto (RBC) [Mass/Vol]Or dered By: Akil Martinez on 05-19-2024 MCHC (RBC) [Mass/Vol] MCHC [Mass/volume] by Automated count 32.0-35.0 [facility] MCV Auto (RBC) [Entitic vol] Ordered By: Akil Martinez on 05-19-2024 MCV (RBC) [Entitic vol] MCV [Entitic vol ume] by Automated count 80-100 [facility] Monocytes Auto (Bld) [#/Vol] Ordered By: Akil Martinez on 05-19-2024 Monocytes (Bld) [#/Vol] Automated blood monocyte count 0.0-0.8 [facility] Monocytes/100 WBC Auto (Bld) Ordered By: Akil Martinez on 05-19-2024 Monocytes/100 WBC (Bld) Automated monocyte % . [facility] Neutrophils Auto (Bld) [#/Vo l]Ordered By: Akil Martinez on 05-19-2024 Neutrophils (Bld) [#/Vol] Neutrophils [#/volume] in Blood by Automated count 1.8-7.7 [facility] Neutrophils/100 WBC Auto (Bl d)Ordered By: Akil Martinez on 05-19-2024 Neutrophils/100 WBC (Bld) Automated neutrophil % . [facility] No Panel InformationOrdered By: Akil Martinez on 05-19-2024 Estimated GFR (CKD-EPI) > 60.0 mL/Min [facility] Pharmacy Creatinine Clearance (Chem N/A [facility] Nucleated erythrocytes [Pres ence] in Blood by Automated countOrdered By: Akil Martinez on 05-19-2024 Nucleated RBC Auto Ql (Bld) Nucleated erythrocytes [Presence] in Blood by Automated count 0-0.5 [facility] Platelet mean volume Auto (B ld) [Entitic vol]Ordered By: Akil Martinez on 05-19-2024 Platelet mean volume (Bld) [Entitic vol] Platelet mean volume [Entitic volume] in Blood by Automated count 6.3-10.7 [facility] Platelets Auto (Bld) [#/Vol] Ordered By: Akil Martinez on 05-19-2024 Platelets (Bld) [#/Vol] Platelets [#/vol ume] in Blood by Automated count 150-450 [facility] Potassium [Moles/volume] in Serum or PlasmaOrdered By: Akil Martinez on 05-19-2024 Potassium [Moles/Vol] Potassium [Moles/volume] in Serum or Plasma 3.5-5.1 [facility] Protein [Mass/volume] in Ser um or PlasmaOrdered By: Akil Martinez on 05-19-2024 Protein [Mass/Vol] Protein [Mass/volume ] in Serum or Plasma 6.4-8.9 [facility] RBC Auto (Bld) [#/Vol]Ordere d By: Akil Martinez on 05-19-2024 RBC (Bld) [#/Vol] Erythrocytes [#/volume] in Blood by Automated count 3.60-5.00 [facility] Serum or plasma albumin/glob ulin mass ratioOrdered By: Akil Martinez on 05-19-2024 Albumin/Globulin [Mass ratio] Serum or plasma albumin/globulin mass ratio [facility] Serum or plasma anion gap de terminationOrdered By: Akil Martinez on 05-19-2024 Anion gap [Moles/Vol] Serum or plasma an ion gap determination 6.0-15.0 [facility] Sodium [Moles/volume] in Ser um or PlasmaOrdered By: Akil Martinez on 05-19-2024 Sodium [Moles/Vol] Sodium [Moles/volume ] in Serum or Plasma 136-145 [facility] Urea nitrogen [Mass/volume] in Serum or PlasmaOrdered By: Akil Martinez on 05-19-2024 Urea nitrogen [Mass/Vol] Urea nitrogen [Mass/volume] in Serum or Plasma 7-25 [facility] WBC Auto (Bld) [#/Vol]Ordere d By: Akil Martinez on 05-19-2024 WBC (Bld) [#/Vol] Leukocytes [#/volume ] in Blood by Automated count 3.8-11.6 [facility] XR shoulder LT min 2V*on XR shoulder LT min 2V* [facility] [address] [place] [address] XRay Report Signed Patient: Sayda Fraire MR#: [id number] [birth year] : 1955 Acct:[id number] Age/Sex: 69 / F ADM Date: 03/21/24 Loc: [facility] Room: Type: [facility] Attending Dr: Akil Martinez DO [...] Kehinde Erazo M.D.03/21/2024 4:08 PM Dictation Location: [facility]- Transcribed By: [facility] 03/21/24 1608 Dictated By: Kehinde Erazo DO 03/21/24 1607 Signed By: 03/21/24 1608 Normal [facility] Estimated glomerular filtrat ion rate (GFR) non- Americanon 12-31-2023 GFR/1.73 sq M.predicted among non-blacks MDRD (S/P/Bld) [Vol rate/Area] 60 mL/min/{1.73_m2} >=60 mL/min/1.73m 2 [facility] GFR/1.73 sq M.predicted among non-blacks MDRD (S/P/Bld) [Vol rate/Area] Estimated glomerular filtration rate (GFR) non- >=60 mL/min/1.73m 2 [facility] Laboratory - Chemistry and C hemistry - challengeon 12-31-2023 Creatinine [Mass/Vol] 0.93 mg/dL 0.55-1.02 [facility] GFR/1.73 sq M.predicted MDRD (S/P/Bld) [Vol rate/Area] mL/min/{1.73_m2} >=60 mL/min/1.73m 2 [facility] XR shoulder LT min 2V*on XR shoulder LT min 2V* [facility] [address] [place] [address] XRay Report Signed Patient: Sayda Fraire MR#: [id number] [birth year] : 1955 Acct:[id number] Age/Sex: 68 / F ADM Date: 12/17/23 Loc: [facility] Room: Type: [facility] Attending Dr: Akil Martinez DO [...] COMPLICATION. Impression dictated by: Gonzalez Galo Jr., D.O.12/17/2023 3:44 PM Dictation Location: [place] [address] Transcribed By: [facility] 12/17/23 1544 Dictated By: Gonzalez Galo Jr, DO 12/17/23 154 Signed By: 12/17/23 1544 Normal [facility] Urology Office/Clinic Noteon 11-17-2023 Urology Office/Clinic Note [...] states her PCP had her d/c med. [place] like it was causing some GI issues. [...] Contact Information HIMANSHU BENÍTEZ, JOSEFINA Hahn, URL [address] [place] [address] Additional Instructions: PRN Patient Education Overactive Bladder, Adult Documentation recorded by the [facility] accurately reflects the services(s) I performed and [...] Immunizations Vaccine Date Status Comments SARS-CoV-2 (COVID-19) [id number] 09/16/2022 Recorded influenza virus vaccine, inactivated 01/27/2022 Recorded SARS-CoV-2 (COVID-19) (more content not included)... Normal [facility] Comment on above: Result Comment: Elec tronically Signed By: JOSEFINA DOWNS PA-C\.br\Date and Time Signed: 11/17/23 13:08 EDT\.br\Electronically Co-Signed By: Clement Jack\.br\Date and Time Co-Signed: 11/17/23 13:[address] shoulder LT wo conon 07- CT shoulder LT wo con [facility] [place] [address] CT Scan Report Signed Patient: Sayda Fraire MR#: [id number] [birth year] : 1955 Acct:[id number] Age/Sex: 68 / F ADM Date: 09/30/23 Loc: CT Room: Type: [facility] Attending Dr: Akil Martinez DO [...] Wendy Olson M.D.09/30/2023 4:19 PM Dictation Location: [facility] Transcribed By: OTTO 09/30/23 161 Dictated By: Wendy Olson MD 09/30/23 161 Signed By: 09/30/23 161 Normal [facility] XR shoulder LT min 2V*on XR shoulder LT min 2V* [facility] [address] [place] [place] [address] XRay Report Signed Patient: Sayda Fraire MR#: [id number] [birth year] : 1955 Acct:[id number] Age/Sex: 68 / F ADM Date: 09/17/23 Loc: [facility] Room: Type: [facility] Attending Dr: Akil Martinez DO [...] COMPLICATION. Impression dictated by: Gonzalez Galo Jr., D.O.09/17/2023 3:43 PM Dictation Location: [facility] Transcribed By: [facility] 09/17/23 1543 Dictated By: Gonzalez Galo Jr, DO 09/17/23 1543 Signed By: 09/17/23 154 Normal [facility] Sahil 09-09-2023 L Specimen: [id number] Received: 09/09/23 Status: GUY Peng Num: [id number] Spec Type: Surgical Subm Dr: Akil Martinez DO Tissues: A Joint/Knee (LT SHOULDER) Procedures: HE/2, Gross/Micro L4, Decalcification Age/ Patient Sex Location Account Attending Physician Sayda Fraire 68/F SC [id number] Akil Martinez DO SPEC NUM: [id number] RECD: 09/09/23 STATUS: SOUT REQ NUM: [id number] BROCK: 09/09/23- SUBM DR: Akil Martinez DO ENTERED: 09/09/23 [facility] DR: SPEC TYPE: Surgical DEPT: S [...] necrosis present. A gross photo is included. [employer] sections are submitted in A1 (bone following decalcification) and A2 (soft tissue). CPT Codes 24119 BONE AND TISSUE ---- ---- Specimen: [id number] Received: 09/09/23 Status: GUY Ginette Num: [id number] Spec Type: Surgical Subm Dr: Akil Martinez DO Tissues: A Joint/Knee (LT SHOULDER) Procedures: HE/2, Gross/Micro L4, Decalcification ---- Patient: Sayda Fraire [id number] (Continued) ---- Signed (signature on file) Chidi Ng MD 09/10/23 1653 Normal [facility] XR shoulder LT 1Von 09-09-19 24 XR shoulder LT 1V [place] [address] XRay Report Signed Patient: Sayda Fraire MR#: [id number] [birth year] : 1955 Acct:[id number] Age/Sex: 68 / F ADM Date: 09/09/23 Loc: [place] Room: Type: [facility] Attending Dr: Akil Martinez DO Copies to: [...] Wendy Olson M.D.09/09/2023 11:07 AM Dictation Location: [facility]- Transcribed By: OTTO 09/09/23 110 Dictated By: Wendy Olson MD 09/09/23 110 Signed By: 09/09/23 110 Normal [facility] Basophils Auto (Bld) [#/Vol] on 09-01-2023 Basophils (Bld) [#/Vol] 0.0 10 3/uL 0.0-0.1 [facility] Basophils/100 WBC Auto (Bld) on 09-01-2023 Basophils/100 WBC (Bld) 0.8 % 0.2-2.0 [facility] Eosinophils/100 WBC Auto (Bl d)on 09-01-2023 Eosinophils/100 WBC (Bld) 2.5 % 0.9-7.0 [facility] Erythrocyte distribution wid th Auto (RBC) [Ratio]on 09-01-2023 Erythrocyte distribution width (RBC) [Ratio] 13.2 % 11.0-15.0 [facility] Estimated glomerular filtrat ion rate (GFR) non- Americanon 09-01-2023 GFR/1.73 sq M.predicted among non-blacks MDRD (S/P/Bld) [Vol rate/Area] mL/min/{1.73_m2} >=60 [facility] Globulin Calc (S) [Mass/Vol] on 09-01-2023 Globulin (S) [Mass/Vol] 3.5 g/dL [facility] Hematocrit Auto (Bld) [Volum e fraction]on 09-01-2023 Hematocrit (Bld) [Volume fraction] 39.8 % 36.0-48.0 [facility] Hemoglobin [Mass/volume] in Bloodon 09-01-2023 Hemoglobin (Bld) [Mass/Vol] 13.2 g/dL 12.0-16.0 [facility] Laboratory - Chemistry and C hemistry - challengeon 09-01-2023 Albumin [Mass/Vol] 3.6 g/dL 3.4-5.0 [facility] ALP [Catalytic activity/Vol] 114 U/L 46-116 [facility] ALT [Catalytic activity/Vol] 34 U/L 14-59 [facility] AST [Catalytic activity/Vol] 23 U/L 15-37 [facility] Bilirubin [Mass/Vol] 0.6 mg/dL 0.2-1.0 [facility] Calcium [Mass/Vol] 9.4 mg/dL 8.5-10.1 [facility] Chloride [Moles/Vol] 106 mmol/L 98-107 [facility] CO2 [Moles/Vol] 27.3 mmol/L 21.0-32.0 [facility] Creatinine [Mass/Vol] 0.77 mg/dL 0.55-1.02 [facility] GFR/1.73 sq M.predicted MDRD (S/P/Bld) [Vol rate/Area] mL/min/{1.73_m2} >=60 [facility] Glucose [Mass/Vol] 93 mg/dL 74-106 [facility] Potassium [Moles/Vol] 3.7 mmol/L 3.5-5.1 [facility] Protein [Mass/Vol] 7.1 g/dL 6.4-8.2 [facility] Sodium [Moles/Vol] 144 mmol/L 136-145 [facility] Urea nitrogen [Mass/Vol] 13.0 mg/dL 7.0-18.0 [facility] Urea nitrogen/Creatinine [Mass ratio] 16.9 mg/mg [facility] Laboratory - Hematology and Cell countson 09-01-2023 Immature granulocytes/100 WBC (Bld) 0.2 % 0.0-0.5 [facility] Leukocytes [#/volume] correc beckie for nucleated erythrocytes in Blood by Automated counon 09-01-2023 WBC corrected for nucl RBC Auto (Bld) [#/Vol] 5.3 10 3/uL 4.0-11.0 [facility] Lymphocytes Auto (Bld) [#/Vo l]on 09-01-2023 Lymphocytes (Bld) [#/Vol] 1.4 10 3/uL 1.2-3.8 [facility] Lymphocytes/100 WBC Auto (Bl d)on 09-01-2023 Lymphocytes/100 WBC (Bld) 26.2 % 20.5-60.0 [facility] MCH Auto (RBC) [Entitic mass ]on 09-01-2023 MCH (RBC) [Entitic mass] 31.9 pg 26.7-34.0 [facility] MCHC Auto (RBC) [Mass/Vol]on 09-01-2023 MCHC (RBC) [Mass/Vol] 33.2 g/dL 29.9-35.2 [facility] MCV Auto (RBC) [Entitic vol] on 09-01-2023 MCV (RBC) [Entitic vol] 96.1 fL 81.0-99.0 [facility] Monocytes Auto (Bld) [#/Vol] on 09-01-2023 Monocytes (Bld) [#/Vol] 0.5 10 3/uL 0.3-0.8 [facility] Monocytes/100 WBC Auto (Bld) on 09-01-2023 Monocytes/100 WBC (Bld) 9.5 % 1.7-12.0 [facility] Neutrophils Auto (Bld) [#/Vo l]on 09-01-2023 Neutrophils (Bld) [#/Vol] 3.2 10 3/uL 1.4-6.5 [facility] Neutrophils/100 WBC Auto (Bl d)on 09-01-2023 Neutrophils/100 WBC (Bld) 60.8 % 43.0-75.0 [facility] No Panel Informationon 08-31 Clostridium difficile (PCR)(LAB) Negative NEGATIVE [facility] Miscellaneous Test Comment See comment [facility] Comment on above: Specimen Source: ST - Stool - Stool - 700.100 Stool Campylobacter Culture Res 1 \R\ Campylobacter Culture\R\ No Campylobacter species isolated. [facility] Comment on above: [facility], Eosinophils # (Auto) 0.1 10 3/uL 0.0-0.7 [facility] Immature Granulocyte # (Auto) 0.01 10 3/uL 0.00-0.03 [facility] No Panel InformationOrdered By: [place] on 09-01-2023 E coli Shiga Toxin EIA [facility] Salmonella/Shigella Screen [facility] Platelet mean volume Auto (B ld) [Entitic vol]on 09-01-2023 Platelet mean volume (Bld) [Entitic vol] 11.2 fL 9.5-13.5 [facility] Platelets Auto (Bld) [#/Vol] on 09-01-2023 Platelets (Bld) [#/Vol] 222 10 3/uL 150-450 [facility] RBC Auto (Bld) [#/Vol]on RBC (Bld) [#/Vol] 4.14 10 6/uL Low 4.20-5.40 [facility] Serum or plasma albumin/glob ulin mass ratioon 09-01-2023 Albumin/Globulin [Mass ratio] 1.0 {ratio} [facility] Serum or plasma anion gap de terminationon 09-01-2023 Anion gap [Moles/Vol] 14.4 mmol/L [facility] Alanine aminotransferase [En zymatic activity/volume] in Serum or PlasmaOrdered By: Akil Martinez on 08-25-2023 ALT [Catalytic activity/Vol] 18 U/L Normal 7-52 [facility] Comment on above: Performed By: #### C BC, CMP wRFX A1C #### [facility] [address] [place] [address] [place] Albumin [Mass/volume] in Ser um or Plasma by Bromocresol green (BCG) dye binding methoOrdered By: Akil Martinez on 08-25-2023 Albumin BCG dye [Mass/Vol] 4.2 g/dL 3.5-5.7 [facility] Alkaline phosphatase [Enzyma tic activity/volume] in Serum or PlasmaOrdered By: Akil Martinez on 08-25-2023 ALP [Catalytic activity/Vol] 88 U/L Normal 34-104 [facility] Comment on above: Result Comment: PERF ORMED BY: [facility] [address] [place] [address] PATHOLOGIST VICE PRESIDENT OF ENGINEERING KANDI ECHEVARRIA M.D. Performed By: #### C BC, CMP wRFX A1C #### [facility] [address] [place] [id number] [place] Aspartate aminotransferase [ Enzymatic activity/volume] in Serum or PlasmaOrdered By: Akil Martinez on 08-25-2023 AST [Catalytic activity/Vol] 18 U/L Normal 13-39 [facility] Comment on above: Performed By: #### C BC, CMP wRFX A1C #### [address] Automated basophil %Ordered By: Akil Martinez on 08-25-2023 Basophils/100 WBC (Bld) 0.9 % Normal . [facility] Comment on above: Performed By: #### C BC, CMP wRFX A1C #### [facility] [address] [place] [address] Automated basophil countOrde red By: Akil Martinez on 08-25-2023 Basophils (Bld) [#/Vol] 0.0 10*3/uL Normal 0.0-0.2 [facility] Comment on above: Result Comment: PERF ORMED BY: [place] [address] PATHOLOGIST VICE PRESIDENT OF ENGINEERING KANDI ECHEVARRIA M.D. Performed By: #### C BC, CMP wRFX A1C #### [address] Automated blood monocyte cou ntOrdered By: Akil Martinez on 08-25-2023 Monocytes (Bld) [#/Vol] 0.5 10*3/uL Normal 0.0-0.8 [facility] Comment on above: Performed By: #### C BC, CMP wRFX A1C #### [facility] [address] [place] [address] Automated eosinophil %Ordere d By: Akil Martinez on 08-25-2023 Eosinophils/100 WBC (Bld) 2.2 % Normal . [facility] Comment on above: Performed By: #### C BC, CMP wRFX A1C #### [address] Automated eosinophil countOr dered By: Akil Martinez on 08-25-2023 Eosinophils (Bld) [#/Vol] 0.1 10*3/uL Normal 0.0-0.45 [facility] Comment on above: Performed By: #### C BC, CMP wRFX A1C #### [address] Automated monocyte %Ordered By: Akil Martinez on 08-25-2023 Monocytes/100 WBC (Bld) 8.9 % Normal . [facility] Comment on above: Performed By: #### C BC, CMP wRFX A1C #### [address] Automated neutrophil %Ordere d By: Akil Martinez on 08-25-2023 Neutrophils/100 WBC (Bld) 65.3 % Normal . [facility] Comment on above: Performed By: #### C BC, CMP wRFX A1C #### [address] Bilirubin Test strip Ql (U)O rdered By: Akil Martinez on 08-25-2023 Bilirubin Ql (U) Negative Negative [facility] Bilirubin.total [Mass/volume ] in Serum or PlasmaOrdered By: Akil Martinez on 08-25-2023 Bilirubin [Mass/Vol] 0.5 mg/dL Normal 0.3-1.0 [facility] Comment on above: Performed By: #### C BC, CMP wRFX A1C #### [address] CMP with reflex to A1Con Albumin [Mass/Vol] 4.2 g/dL Normal 3.5-5.7 [facility] Comment on above: Performed By: #### C BC, CMP wRFX A1C #### [place] [address] [place] GFR/1.73 sq M.predicted MDRD (S/P/Bld) [Vol rate/Area] mL/min/{1.73_m2} Normal [facility] Comment on above: Performed By: #### C BC, CMP wRFX A1C #### [address] Calcium [Mass/volume] in Ser um or PlasmaOrdered By: Akil Martinez on 08-25-2023 Calcium [Mass/Vol] 9.6 mg/dL Normal 8.6-10.3 [facility] Comment on above: Performed By: #### C BC, CMP wRFX A1C #### [address] Carbon dioxide, total [Moles /volume] in Serum or PlasmaOrdered By: Akil Martinez on 08-25-2023 CO2 [Moles/Vol] 27.5 mmol/L Normal 21.0-31.0 [facility] Comment on above: Performed By: #### C BC, CMP wRFX A1C #### [place] [address] [place] Chloride [Moles/volume] in S raheel or PlasmaOrdered By: Akil Martinez on 08-25-2023 Chloride [Moles/Vol] 107 mmol/L Normal 98-107 [facility] Comment on above: Performed By: #### C BC, CMP wRFX A1C #### [address] Color of Urine by AutoOrdere d By: Akil Martinez on 08-25-2023 Color (U) Light-yellow Normal Yellow [facility] Comment on above: Order Comment: Name Collection Type:: Clean-Voided Midstream Performed By: #### U A #### [address] Complete Blood Count Auto Di ffon 08-25-2023 Mean Corpuscular HGB Conc 33.6 g/dL Normal 32.0-35.0 [facility] Comment on above: Performed By: #### C BC, CMP wRFX A1C #### [place] [address] [place] NRBC% 0.1 /100{WBC} Normal 0-0.5 [facility] Comment on above: Performed By: #### C BC, CMP wRFX A1C #### [place] [address] [place] Creatinine [Mass/volume] in Serum or PlasmaOrdered By: Akil Martinez on 08-25-2023 Creatinine [Mass/Vol] 0.73 mg/dL Normal 0.60-1.20 [facility] Comment on above: Performed By: #### C BC, CMP wRFX A1C #### [facility] [address] [place] [address] ECG 12 lead ECGon 08-25-2023 ECG 12 lead ECG [facility] [place] [address] [place] [address] Electrocardiograph Report Signed Patient: Sayda Fraire MR#: [id number] 19 : 1955 Acct:[id number] Age/Sex: 68 / F ADM Date: 08/25/23 Loc: Room: Type: [facility] Attending Dr: Akil Martinez DO Ordering [...] ECGs available Confirmed by SANTANA STEPHENS MD ([facility]) on 08/25/2023 5:46:17 PM Referred By: JEANMARIE Electronically Signed By:SANTANA STEPHENS MD Transcribed By: MUS Signed By Santana Stephens MD 0 08/25/23 1746 Normal [facility] Erythrocyte distribution wid th [Ratio] by Automated countOrdered By: Akil Martinez on 08-25-2023 Erythrocyte distribution width (RBC) [Ratio] 13.8 % Normal 11.9-15.3 [facility] Comment on above: Performed By: #### C BC, CMP wRFX A1C #### [facility] [address] [place] [address] Erythrocytes [#/volume] in B lood by Automated countOrdered By: Akil Martinez on 08-25-2023 RBC (Bld) [#/Vol] 3.95 10*6/uL Normal 3.60-5.00 [facility] Comment on above: Performed By: #### C BC, CMP wRFX A1C #### [facility] [address] Glucose [Mass/volume] in Ser um or PlasmaOrdered By: Akil Martinez on 08-25-2023 Glucose [Mass/Vol] 97 mg/dL Normal 70-100 [facility] Comment on above: Performed By: #### C BC, CMP wRFX A1C #### [address] Glucose [Mass/volume] in Uri ne by Test stripOrdered By: Akil Martinez on 08-25-2023 Glucose Test strip (U) [Mass/Vol] Normal mg/dL Normal [facility] Hematocrit [Volume Fraction] of Blood by Automated countOrdered By: Akil Martinez on 08-25-2023 Hematocrit (Bld) [Volume fraction] 37.7 % Normal 34.0-46.4 [facility] Comment on above: Performed By: #### C BC, CMP wRFX A1C #### [address] Hemoglobin Test strip Ql (U) Ordered By: Akil Martinez on 08-25-2023 Hemoglobin Ql (U) Trace High Negative [facility] Hemoglobin [Mass/volume] in BloodOrdered By: Akil Martinez on 08-25-2023 Hemoglobin (Bld) [Mass/Vol] 12.7 g/dL Normal 11.8-15.4 [facility] Comment on above: Performed By: #### C BC, CMP wRFX A1C #### [address] Ketones [Presence] in Urine by Test stripOrdered By: Akil Martinez on 08-25-2023 Ketones Ql (U) Negative Normal Negative [facility] Comment on above: Order Comment: Name Collection Type:: Clean-Voided Midstream Performed By: #### U A #### [place] [address] [place] Leukocyte esterase [Presence ] in Urine by Test stripOrdered By: Akil Martinez on 08-25-2023 Leukocyte esterase Test strip Ql (U) Negative Normal Negative [facility] Comment on above: Order Comment: Name Collection Type:: Clean-Voided Midstream Performed By: #### U A #### [address] Leukocytes [#/volume] correc beckie for nucleated erythrocytes in Blood by Automated counOrdered By: Akil Martinez on 08-25-2023 WBC corrected for nucl RBC Auto (Bld) [#/Vol] 5.6 10*3/uL 3.8-11.6 [facility] Leukocytes [#/volume] in Blo od by Automated countOrdered By: Akil Martinez on 08-25-2023 WBC (Bld) [#/Vol] 5.6 10*3/uL Normal 3.8-11.6 [facility] Comment on above: Performed By: #### C BC, CMP wRFX A1C #### [address] Lymphocytes [#/volume] in Bl ood by Automated countOrdered By: Akil Martinez on 08-25-2023 Lymphocytes (Bld) [#/Vol] 1.3 10*3/uL Normal 1.00-4.8 [facility] Comment on above: Performed By: #### C BC, CMP wRFX A1C #### [place] [address] [place] Lymphocytes/100 leukocytes i n Blood by Automated countOrdered By: Akil Martinez on 08-25-2023 Lymphocytes/100 WBC (Bld) 22.7 % Normal . [facility] Comment on above: Performed By: #### C BC, CMP wRFX A1C #### [place] [address] [place] MCH [Entitic mass] by Automa beckie countOrdered By: Akil Martinez on 08-25-2023 MCH (RBC) [Entitic mass] 32.1 pg Normal 24.7-34.3 [facility] Comment on above: Performed By: #### C BC, CMP wRFX A1C #### [facility] [address] [place] [address] MCHC Auto (RBC) [Mass/Vol]Or dered By: Akil Martinez on 08-25-2023 MCHC (RBC) [Mass/Vol] 33.6 g/dL 32.0-35.0 [facility] MCV [Entitic volume] by Auto mated countOrdered By: Akil Martinez on 08-25-2023 MCV (RBC) [Entitic vol] 95.4 fL Normal 80-100 [facility] Comment on above: Performed By: #### C BC, CMP wRFX A1C #### [address] MRSA Cultureon 08-25-2023 MRSA Culture No MRSA Isolated 2 Days PERFORMED BY: [place] [address] PATHOLOGIST VICE PRESIDENT OF ENGINEERING KANDI ECHEVARRIA M.D. Normal [facility] Comment on above: Performed By: #### C UMRSA #### [place] [address] [place] Neutrophils [#/volume] in Bl ood by Automated countOrdered By: Akil Martinez on 08-25-2023 Neutrophils (Bld) [#/Vol] 3.7 10*3/uL Normal 1.8-7.7 [facility] Comment on above: Performed By: #### C BC, CMP wRFX A1C #### [facility] [address] [place] [address] Nitrite Test strip Ql (U)Ord ered By: Akil Martinez on 08-25-2023 Nitrite Ql (U) Negative Negative [facility] No Panel InformationOrdered By: Akil Martinez on 08-25-2023 Estimated GFR (CKD-EPI) > 60.0 mL/Min [facility] Pharmacy Creatinine Clearance (Chem N/A [facility] Nucleated erythrocytes [Pres ence] in Blood by Automated countOrdered By: Akil Martinez on 08-25-2023 Nucleated RBC Auto Ql (Bld) 0.1 /100{WBC} 0-0.5 [facility] Platelet mean volume [Entiti c volume] in Blood by Automated countOrdered By: Akil Martinez on 08-25-2023 Platelet mean volume (Bld) [Entitic vol] 9.5 fL Normal 6.3-10.7 [facility] Comment on above: Performed By: #### C BC, CMP wRFX A1C #### [facility] [address] Platelets [#/volume] in Bloo d by Automated countOrdered By: Akil Martinez on 08-25-2023 Platelets (Bld) [#/Vol] 192 10*3/uL Normal 150-450 [facility] Comment on above: Performed By: #### C BC, CMP wRFX A1C #### [address] Potassium [Moles/volume] in Serum or PlasmaOrdered By: Akil Martinez on 08-25-2023 Potassium [Moles/Vol] 3.8 mmol/L Normal 3.5-5.1 [facility] Comment on above: Performed By: #### C BC, CMP wRFX A1C #### [address] Protein Test strip (U) [Mass /Vol]Ordered By: Akil Martinez on 08-25-2023 Protein (U) [Mass/Vol] Negative Negative [facility] Protein [Mass/volume] in Ser um or PlasmaOrdered By: Akil Martinez on 08-25-2023 Protein [Mass/Vol] 6.4 g/dL Normal 6.4-8.9 [facility] Comment on above: Performed By: #### C BC, CMP wRFX A1C #### [facility] [address] [place] [address] Serum globulin measurement b y calculation (mass/volume)Ordered By: Akil Martinez on 08-25-2023 Globulin (S) [Mass/Vol] 2.2 g/dL Normal [facility] Comment on above: Performed By: #### C BC, CMP wRFX A1C #### [facility] [address] Serum or plasma albumin/glob ulin mass ratioOrdered By: Akil Martinez on 08-25-2023 Albumin/Globulin [Mass ratio] 1.9 {ratio} Normal [facility] Comment on above: Performed By: #### C BC, CMP wRFX A1C #### [address] Serum or plasma anion gap de terminationOrdered By: Akil Martinez on 08-25-2023 Anion gap [Moles/Vol] 11.3 mmol/L Normal 6.0-15.0 [facility] Comment on above: Performed By: #### C BC, CMP wRFX A1C #### [address] Sodium [Moles/volume] in Ser um or PlasmaOrdered By: Akil Martinez on 08-25-2023 Sodium [Moles/Vol] 142 mmol/L Normal 136-145 [facility] Comment on above: Performed By: #### C BC, CMP wRFX A1C #### [address] Specific gravity Test strip (U) [Rel density]Ordered By: Akil Martinez on 08-25-2023 Specific gravity (U) [Rel density] 1.015 1.001-1.030 [facility] Urea nitrogen [Mass/volume] in Serum or PlasmaOrdered By: Akil Martinez on 08-25-2023 Urea nitrogen [Mass/Vol] 15 mg/dL Normal 7-25 [facility] Comment on above: Performed By: #### C BC, CMP wRFX A1C #### [address] Urinalysison 08-25-2023 Bilirubin,Urine Negative Normal Negative [facility] Comment on above: Order Comment: Name Collection Type:: Clean-Voided Midstream Performed By: #### U A #### [address] Glucose Ql (U) Normal Normal Normal [facility] Comment on above: Order Comment: Name Collection Type:: Clean-Voided Midstream Performed By: #### U A #### [place] [address] [place] Nitrite,Urine Negative Normal Negative [facility] Comment on above: Order Comment: Name Collection Type:: Clean-Voided Midstream Performed By: #### U A #### [address] Occult Blood,Urine Trace High Negative [facility] Comment on above: Order Comment: Name Collection Type:: Clean-Voided Midstream Result Comment: PERF ORMED BY: [place] [address] PATHOLOGIST VICE PRESIDENT OF ENGINEERING KANDI ECHEVARRIA M.D. Performed By: #### U A #### [address] Protein,Urine Negative Normal Negative [facility] Comment on above: Order Comment: Name Collection Type:: Clean-Voided Midstream Performed By: #### U A #### [address] Specificy [place],Urine 1.015 Normal 1.001-1.030 [facility] Comment on above: Order Comment: Name Collection Type:: Clean-Voided Midstream Performed By: #### U A #### [address] Urobilinogen,Urine Normal Normal Normal [facility] Comment on above: Order Comment: Name Collection Type:: Clean-Voided Midstream Performed By: #### U A #### [address] Urine appearanceOrdered By: Akil Martinez on 08-25-2023 Appearance (U) Clear Normal Clear [facility] Comment on above: Order Comment: Name Collection Type:: Clean-Voided Midstream Performed By: #### U A #### [address] Urobilinogen Test strip (U) [Mass/Vol]Ordered By: Akil Martinez on 08-25-2023 Urobilinogen (U) [Mass/Vol] Normal mg/dL Normal [facility] Wound methicillin resistant Staphylococcus aureus (MRSA) cultureOrdered By: Aikl Martinez on 08-25-2023 MRSA isol Org specific cx Ql (Unsp spec) No MRSA Isolated 2 Days [facility] pH of Urine by Test stripOrd ered By: Akil Martinez on 08-25-2023 pH (U) 5.5 [pH] Normal 5.0-9.0 [facility] Comment on above: Order Comment: Name Collection Type:: Clean-Voided Midstream Performed By: #### U A #### [address] shoulder LT wo conon 07-22 CT shoulder LT wo con [facility] [address] [place] [address] [place] [address] CT Scan Report Signed Patient: Sayda Fraire MR#: [id number] [birth year] : 1955 Acct:[id number] Age/Sex: 68 / F ADM Date: 08/14/23 Loc: CT Room: Type: [facility] Attending Dr: Akil Martinez DO [...] Forrest Johnston M.D.08/14/2023 4:02 PM Dictation Location: [place] [address] Transcribed By: [facility] 08/14/23 1602 Dictated By: Forrest Johnston II, MD 08/14/23 1556 Signed By: 08/14/23 1602 Normal [facility] XR shoulder LT min 2V*on XR shoulder LT min 2V* [facility] [address] [place] [address] XRay Report Signed Patient: Sayda Fraire MR#: [id number] [birth year] : 1955 Acct:[id number] Age/Sex: 68 / F ADM Date: 08/13/23 Loc: [facility] Room: Type: [facility] Attending Dr: Akil Martinez DO [...] Galo Jr., D.OJose08/13/2023 3:51 PM Dictation Location: [facility] Transcribed By: [facility] 08/13/23 1551 Dictated By: Gonzalez Galo Jr, DO 08/13/23 1549 Signed By: 08/13/23 1551 Normal [facility] Albumin [Mass/volume] in Ser um or PlasmaOrdered By: OUTREACH [facility] on 12-28-2021 Albumin [Mass/Vol] 3.7 g/dL 3.2-5.5 [facility] Blood hemoglobin measurement (mass/volume)Ordered By: [facility] on 12-28-2021 Hemoglobin (Bld) [Mass/Vol] 13.7 g/dL 11.8-15.4 [facility] Cholesterol [Mass/volume] in Serum or PlasmaOrdered By: OUTREACH [facility] on 12-28-2021 Cholesterol [Mass/Vol] 215 mg/dL 140-200 [facility] Comment on above: Chol less than 200 m g/dl low riskChol 201-239 mg/dl borderline riskChol 240 mg/dl and greater high risk Cholesterol in LDL Calc [Mas s/Vol]Ordered By: [facility] on 12-28-2021 Cholesterol in LDL [Mass/Vol] 142 mg/dL 0-100 [facility] Comment on above: LDL ATP III CLASSIFI CATIONLDL less than 100 mg/dL OptimalLDL 100-129 mg/dL Near or above optimalLDL 130-159 mg/dL Borderline highLDL 160-189 mg/dL HighLDL greater than 189 mg/dL Very high Cholesterol in VLDL Calc [Ma ss/Vol]Ordered By: [facility] on 12-28-2021 Cholesterol in VLDL [Mass/Vol] 16 mg/dL [facility] Creatinine and Glomerular fi ltration rate.predicted panel (S/P/Bld)Ordered By: [facility] on 12-28-2021 Creatinine [Mass/Vol] 0.81 mg/dL 0.44-1.03 [facility] Erythrocyte distribution wid th Auto (RBC) [Ratio]Ordered By: [facility] on 12-28-2021 Erythrocyte distribution width (RBC) [Ratio] 13.6 % 11.9-15.3 [facility] Estimated glomerular filtrat ion rate (GFR) non- AmericanOrdered By: [facility] on 12-28-2021 GFR/1.73 sq M.predicted among non-blacks MDRD (S/P/Bld) [Vol rate/Area] > 60 mL/Min [facility] Glucose mean value [Mass/vol ume] in Blood Estimated from glycated hemoglobinOrdered By: OUTREACH [facility] on 12-28-2021 Average glucose Estimated from glycated hemoglobin (Bld) [Mass/Vol] 123 mg/dL [facility] Hematocrit Auto (Bld) [Volum e fraction]Ordered By: [facility]REACH [facility] on 12-28-2021 Hematocrit (Bld) [Volume fraction] 41.0 % 34.0-46.4 [facility] Laboratory - Hematology and Cell countsOrdered By: [facility] on 12-28-2021 HbA1c (Bld) [Mass fraction] 5.9 % 4.3-5.6 [facility] Comment on above: Increased risk for d iabetes: 5.7 - 6.4diabetes: >6.4glycemic control for adults with diabetes: <7.0 MCH Auto (RBC) [Entitic mass ]Ordered By: OUTREACH [facility] on 12-28-2021 MCH (RBC) [Entitic mass] 32.0 pg 24.7-34.3 [facility] MCHC Auto (RBC) [Mass/Vol]Or dered By: OUTREACH [facility] on 12-28-2021 MCHC (RBC) [Mass/Vol] 33.5 g/dL 32.0-35.0 [facility] MCV Auto (RBC) [Entitic vol] Ordered By: OUTREACH [facility] on 12-28-2021 MCV (RBC) [Entitic vol] 95.7 fL 80-100 [facility] No Panel InformationOrdered By: OUTREACH [facility] on 12-28-2021 Estimated GFR () > 60 mL/Min [facility] Comment on above: GFR estimated refere nce range: According to KDOQI guidelines, <60 ml/min/1.73m2 is sufficient to diagnose a patient with chronic kidney disease. Pharmacy Creatinine Clearance (Chem N/A [facility] Triglycerides Reflex 83 mg/dL 35-149 [facility] Comment on above: TRIG ATP III CLASSIF ICATIONTRIG less than 150 mg/dL NormalTRIG 150-199 mg/dL Borderline highTRIG 200-500 mg/dL High TRIG greater than 500 mg/dL Very highStandard traceable to the Center for Disease Conrtrol and Prevention (CDC) test method. Platelet mean volume Auto (B ld) [Entitic vol]Ordered By: [facility] on 12-28-2021 Platelet mean volume (Bld) [Entitic vol] 10.2 fL 6.3-10.7 [facility] Platelets Auto (Bld) [#/Vol] Ordered By: [facility] on 12-28-2021 Platelets (Bld) [#/Vol] 190 10*3/uL 150-450 [facility] Protein [Mass/volume] in Ser um or PlasmaOrdered By: [facility] on 12-28-2021 Protein [Mass/Vol] 6.2 g/dL 6.1-7.9 [facility] RBC Auto (Bld) [#/Vol]Ordere d By: [facility] on 12-28-2021 RBC (Bld) [#/Vol] 4.29 10*6/uL 3.60-5.00 [facility] Serum or plasma alanine stephenson otransferase measurement without P-5'-P (enzymatic activiOrdered By: [facility] on 12-28-2021 ALT No additional P-5'-P [Catalytic activity/Vol] 16 U/L 10-60 [facility] Serum or plasma alkaline brandy sphatase measurement (enzymatic activity/volume)Ordered By: [facility] on 12-28-2021 ALP [Catalytic activity/Vol] 91 U/L 32-92 [facility] Serum or plasma anion gap de terminationOrdered By: [facility] on 12-28-2021 Anion gap [Moles/Vol] 9.3 mmol/L 6.0-15.0 [facility] Serum or plasma aspartate am inotransferase measurement (enzymatic activity/volume)Ordered By: [facility] on 12-28-2021 AST [Catalytic activity/Vol] 19 U/L 10-42 [facility] Serum or plasma calcium jennifer urement (mass/volume)Ordered By: [facility] on 12-28-2021 Calcium [Mass/Vol] 9.7 mg/dL 8.2-10.2 [facility] Serum or plasma chloride claudia surement (moles/volume)Ordered By: [facility] on 12-28-2021 Chloride [Moles/Vol] 105 mmol/L 95-114 [facility] Serum or plasma glucose jennifer urement (mass/volume)Ordered By: [facility] on 12-28-2021 Glucose [Mass/Vol] 111 mg/dL 70-100 [facility] Comment on above: ADA recommended refe rence rangeRandom Glucose Reference Range is dependent on time and content of last meal. Glucose of more than 200 mg/dL in a nonstressed, ambulatory subject supports the diagnosis of Diabetes Mellitus. Serum or plasma high density lipoprotein (HDL) cholesterol measurementOrdered By: [facility] on 12-28-2021 Cholesterol in HDL [Mass/Vol] 56 mg/dL 35-85 [facility] Comment on above: HDL CHOL ATP-III CLA SSIFICATION Cardiovascular RiskHDL > or equal to 60 mg/dL LOWHDL < 40 mg/dL HIGH Serum or plasma potassium me asurement (moles/volume)Ordered By: [facility] on 12-28-2021 Potassium [Moles/Vol] 4.1 mmol/L 3.5-5.1 [facility] Serum or plasma sodium measu rement (moles/volume)Ordered By: [facility] on 12-28-2021 Sodium [Moles/Vol] 140 mmol/L 136-146 [facility] Serum or plasma total biliru bin measurement (mass/volume)Ordered By: [facility] on 12-28-2021 Bilirubin [Mass/Vol] 0.7 mg/dL 0.3-1.2 [facility] Serum or plasma total carbon dioxide measurement (moles/volume)Ordered By: [facility] on 12-28-2021 CO2 [Moles/Vol] 29.8 mmol/L 22.0-30.0 [facility] Serum or plasma total choles terol/high density lipoprotein (HDL) cholesterol mass ratOrdered By: [facility] on 12-28-2021 Cholesterol.total/Crystal sterol in HDL [Mass ratio] 3.8 {ratio} <5.0 [facility] Serum or plasma urea nitroge n measurement (mass/volume)Ordered By: [facility] on 12-28-2021 Urea nitrogen [Mass/Vol] 13 mg/dL 9-23 [facility] TSH DL <= 0.005 mIU/L QnOrde red By: [facility] on 12-28-2021 TSH Qn 2.13 m[IU]/L 0.45-5.33 [facility] WBC Auto (Bld) [#/Vol]Ordere d By: [facility] on 12-28-2021 WBC (Bld) [#/Vol] 4.3 10*3/uL 3.8-11.6 [facility] MG MAMM DX 3D RT CADon 12-11 MG MAMM DX 3D RT CAD Patient: TAMIKA FRAIRE Exam Date: 12/11/2021 : 1955 Gender:F Ordering : DR CAPO PALM D.O. Admission #: [id number] Family : Order #: [id number] CLICK HERE TO VIEW EXAM RADIOLOGY REPORT PROCEDURE: MAMMOGRAM DIAGNOSTIC 3D RIGHT CAD COMPARISON: MG MAMM RT DIAG FU, 06/06/2021. MG MAMM SCREEN 3D SURAJ CAD, 05/24/2021. MG MAMM SCREEN SURAJ W CAD, 04/24/2020. DIGITIZED_MAMMO, 03/20/2009. INDICATIONS: Abnormal findings on diagnostic imaging of breast Calculator Name NCI Breast Cancer Risk Assessment Tool 5 Year Breast Cancer Risk 2.60% Lifetime Breast Cancer Risk 8.30% Personal Breast Cancer No Personal Ovarian Cancer No Treatments None Family Cancers Aunt-paternal with breast cancer at age 60; Father with leukemia cancer at age 45. LOCATION: [facility] BREAST COMPOSITION: Heterogeneously dense,which may obscure [...] M.D. on 12/11/2021 at 08:34 Normal [facility] ASIYA - VITAMIN D LCon 022 Vitamin D, 25-Hydroxy 45.7 ng/mL Normal 30.0-100.0 [facility] Comment on above: Result Comment: Mahi min D deficiency has been defined by the [place] of [employer] and an Endocrine Society practice guideline as a level of serum 25-OH vitamin D less than 20 ng/mL (1,2). The Endocrine Society went on to further define vitamin D insufficiency as a level between 21 and 29 ng/mL (2). 1. IOM ([place] of [employer]). 2010. Dietary reference intakes for calcium and D. [place]: The National Academies Press. 2. Isela MF, Mathew NC, Max MCMAHON, et al. Evaluation, treatment, and prevention of vitamin D deficiency: an Endocrine Society clinical practice guideline. JCEM. 2010; 96(7):1911-30. Performed By: #### D ATVDLC #### [facility] [address] [place] [address] Dr. Oksana Shaw CBC AUTO DIFFon 11-21-2021 BASO # 0.1 103/ul Normal 0.0-0.1 [facility] Comment on above: Performed By: #### D ATCBC #### [facility] [address] [place] [address] Dr. Oksana Shaw Basophils/100 WBC (Bld) 1.4 % Normal 0.2-2.0 [facility] Comment on above: Performed By: #### D ATCBC #### [facility] [address] [place] [address] Dr. Oksana Shaw EO # 0.2 103/ul Normal 0.0-0.7 [facility] Comment on above: Performed By: #### D ATCBC #### [facility] [address] [place] [address] Dr. Oksana Shaw Eosinophils/100 WBC (Bld) 4.2 % Normal 0.9-7.0 [facility] Comment on above: Performed By: #### D ATCBC #### [facility] [address] [place] [address] Dr. Oksana Shaw Erythrocyte distribution width (RBC) [Ratio] 13.1 % Normal 11.0-15.0 [facility] Comment on above: Performed By: #### D ATCBC #### [facility] [address] [place] [address] Dr. Oksana Shaw Hematocrit (Bld) [Volume fraction] 41.2 % Normal 36.0-48.0 [facility] Comment on above: Performed By: #### D ATCBC #### [facility] [address] [place] [address] Dr. Oksana Shaw Hemoglobin (Bld) [Mass/Vol] 13.7 g/dL Normal 12.0-16.0 [facility] Comment on above: Performed By: #### D ATCBC #### [facility] [address] [place] [address] Dr. Oksana Shaw IG # 0.00 10e3/ul Normal 0.00-0.03 [facility] Comment on above: Performed By: #### D ATCBC #### [facility] [address] [place] [address] Dr. Oksana Shaw IG % 0.0 % Normal 0.0-0.5 [facility] Comment on above: Performed By: #### D ATCBC #### [facility] [address] [place] [address] Dr. Oksana Shaw LYMPH # 1.6 103/ul Normal 1.2-3.8 [facility] Comment on above: Performed By: #### D ATCBC #### [facility] [address] [place] [address] Dr. Oksana Shaw Lymphocytes/100 WBC (Bld) 31.5 % Normal 20.5-60.0 [facility] Comment on above: Performed By: #### D ATCBC #### [facility] [address] [place] [address] Dr. Oksana Shaw MCH (RBC) [Entitic mass] 32.0 pg Normal 26.7-34.0 [facility] Comment on above: Performed By: #### D ATCBC #### [facility] [address] [place], [place] [address] Dr. Oksana Shaw MCHC (RBC) [Mass/Vol] 33.3 g/dL Normal 29.9-35.2 [facility] Comment on above: Performed By: #### D ATCBC #### [facility] [address] [place] [address] Dr. Oksana Shaw MCV (RBC) [Entitic vol] 96.3 fL Normal 81.0-99.0 [facility] Comment on above: Performed By: #### D ATCBC #### [facility] [address] [place] [address] Dr. Oksana Shaw MONO # 0.5 103/ul Normal 0.3-0.8 [facility] Comment on above: Performed By: #### D ATCBC #### [facility] [address] [place] [address] Dr. Oksana Shaw Monocytes/100 WBC (Bld) 10.0 % Normal 1.7-12.0 [facility] Comment on above: Performed By: #### D ATCBC #### [facility] [address] [place] [address] Dr. Oksana Shaw NEUT # 2.7 103/ul Normal 1.4-6.5 [facility] Comment on above: Performed By: #### D ATCBC #### [facility] [address] [place] [address] Dr. Oksana Shaw Neutrophils/100 WBC (Bld) 52.9 % Normal 43.0-75.0 [facility] Comment on above: Performed By: #### D ATCBC #### [facility] [address] [place] [address] Dr. Oksana Shaw Platelet mean volume (Bld) [Entitic vol] 10.8 fL Normal 9.5-13.5 [facility] Comment on above: Performed By: #### D ATCBC #### [facility] [address] [place] [address] Dr. Oksana Shaw PLT 199 103/ul Normal 150-450 [facility] Comment on above: Performed By: #### D ATCBC #### [facility] [address] [place] [address] Dr. Oksana Shaw RBC 4.28 106/ul Normal 4.20-5.40 [facility] Comment on above: Performed By: #### D ATCBC #### [facility] [address] [place] [address] Dr. Oksana Shaw WBC 5.0 103/ul Normal 4.0-11.0 [facility] Comment on above: Performed By: #### D ATCBC #### [facility] [address] [address] [address] Oksana Shaw ASIYA - TSHon 11-21-2021 TSH 1.881 uIU/mL Normal 0.358-3.740 [facility] [place] Comment on above: Performed By: #### D ATBMP, DATTS ####[facility] [address] [place] [address]DrJose Shaw TSH RANGE SEE BELOW Normal [facility] Comment on above: Result Comment: <0.3 4 UIU/ml HYPERTHYROID 0.34-5.60 UIU/ml EUTHYROID >5.60 UIU/ml HYPOTHYROID Performed By: #### D ATBMP, DATTS ####[facility] [address] [address]DrJose Shaw ASIYA- BMP WITH LIPIDon 2021 Anion gap [Moles/Vol] 13.7 mmol/L Normal [facility] Comment on above: Performed By: #### D ATBMP, DATTS ####[facility] [address] [address]DrJose Shaw Calcium [Mass/Vol] 9.4 mg/dL Normal 8.5-10.1 [facility] Comment on above: Performed By: #### D ATBMP, DATTS ####[facility] [address] [address]DrJose Shaw Chloride [Moles/Vol] 104 mmol/L Normal 98-107 [facility] Comment on above: Performed By: #### D ATBMP, DATTS ####[facility] [address] [address]DrJose Shaw Cholesterol [Mass/Vol] 222 mg/dL Critically high <=200 [facility] Comment on above: Performed By: #### D ATBMP, DATTS ####[facility] [address] [id number]. Oksana Shaw Cholesterol in HDL [Mass/Vol] 54 mg/dL Normal 40-60 [facility] Comment on above: Performed By: #### D ATBMP, DATTSH ####[facility] [address] [place], [place] [id number]. Oksana Shaw Cholesterol in LDL [Mass/Vol] 144.4 mg/dL Normal [facility] Comment on above: Performed By: #### D ATBMP, DATTSH ####[facility] [address] [place], [place] [address]Dr. Oksana Shaw CO2 [Moles/Vol] 28.3 mmol/L Normal 21.0-32.0 [facility] Comment on above: Performed By: #### D ATBMP, DATTSH ####[facility] [address] [place], [place] [address]Dr. Oksana Shaw Creatinine [Mass/Vol] 0.91 mg/dL Normal 0.55-1.02 [facility] Comment on above: Performed By: #### D ATBMP, DATTSH ####[facility] [address] [place], [place] [address]Dr. Oksana Shaw EGFR-AF MONEGASQUE >60 Normal >=60 [facility] Comment on above: Performed By: #### D ATBMP, DATTSH ####[facility] [address] [place], [place] [address]Dr. Oksana Shaw EGFR-NON AF MONEGASQUE >60 Normal >=60 [facility] Comment on above: Performed By: #### D ATBMP, DATTSH ####[facility] [address] [id number]. Oksana Shaw Glucose [Mass/Vol] 110 mg/dL Critically high 74-106 [facility] Comment on above: Performed By: #### D ATBMP, DATTSH ####[facility] [address] [id number]. Oksana Shaw HDL NORMAL > or = 60 mg/dl - LO W CARDIOVASCULAR RISK <40 mg/dl - HIGH CARDIOVASCULAR RISK Normal [facility] Comment on above: Performed By: #### D ATP, DATTS ####[facility] [address] [address]Dr. Oksana Shaw LDL CALC NORMAL SEE BELOW Normal [facility] Comment on above: Result Comment: <100 mg/dl OPTIMAL 100 - 129 mg/dl NEAR OR ABOVE OPTIMAL 130 - 159 mg/dl BORDERLINE HIGH 160 - 189 mg/dl HIGH >190 mg/dl VERY HIGH Performed By: #### [facility] ####[facility] [address] [address]Dr. Natalyleta Shaw Potassium [Moles/Vol] 4.0 mmol/L Normal 3.5-5.1 [facility] Comment on above: Performed By: #### D ATP, DATTS ####[facility] [address] [place], [place] [address]Dr. Oksana Shaw Sodium [Moles/Vol] 142 mmol/L Normal 136-145 [facility] Comment on above: Performed By: #### D ATEver, DATTS ####[facility] [address] [address]Dr. Natalyleta Shaw Triglyceride [Mass/Vol] 118 mg/dL Normal <=150 [facility] Comment on above: Performed By: #### D ATP, DATTS ####[facility] [address] [address]Dr. Oksana Colin Urea nitrogen [Mass/Vol] 16.0 mg/dL Normal 7.0-18.0 [facility] Comment on above: Performed By: #### D ATP, DATTS ####[facility] [address] [address]Dr. Oksana Shaw Urea nitrogen/Creatinine [Mass ratio] 17.6 mg/mg Normal [facility] Comment on above: Performed By: #### D ATP, DATTS ####[facility] [address] [place], [place] [address]Dr. Oksana Shaw VLDL CALC 23.6 mg/dL Normal [facility] Comment on above: Performed By: #### D [facility], DATTS ####[facility] [address] [place], [place] [address]CeJose Shaw MRI BRAIN WO W CONon 022 [...] are favored No acute infarct Normal [facility] CREATININEon 11-01-2021 Creatinine [Mass/Vol] 0.81 mg/dL Normal 0.55-1.02 [facility] Comment on above: Performed By: #### C SILKE #### [facility] [address] [place], [place] [address] Dr. Oksana Shaw EGFR-AF MONEGASQUE >60 Normal >=60 [facility] Comment on above: Performed By: #### C SILKE #### [facility] [address] [address] [address] Oksana Shaw EGFR-NON AF MONEGASQUE >60 Normal >=60 [facility] Comment on above: Performed By: #### C SILKE #### [facility] [address] [address] [address] Oksana Shaw US PELVISon 09-03-2021 US [...] JOHN BRIDGES Date: 2021-09-03 13:45 Normal [facility] MG MAMM RT DIAG FUon 022 MG MAMM RT DIAG FU Patient: AVLIN FRAIRE MAT SameerJose Exam Date: 06/06/2021 : 1955 Gender:F Ordering : DR CAPO PALM D.O. Admission #: [id number] Family : Order #: [id number] CLICK HERE TO VIEW EXAM RADIOLOGY REPORT PROCEDURE: MAMMOGRAM RIGHT DIAGNOSTIC DIGITAL FOLLOW UP COMPARISON: MG MAMM SCREEN SURAJ W CAD, 04/24/2020. MG MAMM SCREEN 3D SURAJ CAD, 05/24/2021. INDICATIONS: Abnormal findings on diagnostic imaging of breast Calculator Name NCI Breast Cancer Risk Assessment Tool 5 Year Breast Cancer Risk 2.60% Lifetime Breast Cancer Risk 8.30% Personal Breast Cancer No Personal Ovarian Cancer No Treatments None Family Cancers Aunt-paternal with breast cancer at age 60; Father with leukemia cancer at age 45. LOCATION: [facility] BREAST COMPOSITION: Heterogeneously dense,which may obscure [...] MD on 06/06/2021 at 15:29 Normal [facility] MAMM SCREEN 3D SURAJ CADon 05-24-2021 MG MAMM SCREEN 3D SURAJ CAD Patient: SAYDA FRAIRE Exam Date: 05/24/2021 : 1955 Gender:F Ordering : DR CAPO PALM D.O. Admission #: [id number] Family : Order #: [id number] CLICK HERE TO VIEW EXAM RADIOLOGY REPORT PROCEDURE: MAMMOGRAM SCREENING 3D BILATERAL CAD COMPARISON: MG MAMM SCREEN SURAJ W CAD, 12/28/2018. MG MAMM SCREEN SURAJ W CAD, 04/24/2020. INDICATIONS: Screening mammography Calculator Name NCI Breast Cancer Risk Assessment Tool 5 Year Breast Cancer Risk 2.60% Lifetime Breast Cancer Risk 8.30% Personal Breast Cancer No Personal Ovarian Cancer No Treatments None Family Cancers Aunt-paternal with breast cancer at age 60; Father with leukemia cancer at age 45. LOCATION: [facility] BREAST COMPOSITION: Heterogeneously dense,which may obscure [...] Iraheta MD on 05/24/2021 at 14:26 Normal [facility] CLOSTRIDIUM DIFFICILE PCRon 03-08-2021 C difficile Toxin Gene DEMETRIUS Positive Abnormal Negative [facility] Comment on above: Result Comment: Dang stevens Requested Flag Toxigenic C difficile: Positive Epidemic Strain Bl/NAP1/027: Presumptive Negative Performed By: #### C DIFNAA #### [facility] [address] [place] [address] Dr. Oksana Shaw CULTURE STOOLon 03-06-2021 CULTURE STOOL Culture Observations : NO GROWTH SALMONELLA, SHIGELLA, YERSINIA, CAMPY, E.COLI 0157, OR STAPH AT 72 HRS Normal [facility] Comment on above: Performed By: #### S TOOLCX ####[facility] [address] [address]Dr. Oksana Shaw CBC AUTO DIFFon 03-05-2021 BASO # 0.0 103/ul Normal 0.0-0.1 [facility] Comment on above: Performed By: #### C BC #### [facility] [address] [place] [address] Dr. Oksana Shaw Basophils/100 WBC (Bld) 0.5 % Normal 0.2-2.0 [facility] Comment on above: Performed By: #### C BC #### [facility] [address] [place] [address] Dr. Oksana Shaw EO # 0.1 103/ul Normal 0.0-0.7 [facility] Comment on above: Performed By: #### C BC #### [facility] [address] [place] [address] Dr. Oksana Shaw Eosinophils/100 WBC (Bld) 1.8 % Normal 0.9-7.0 [facility] Comment on above: Performed By: #### C BC #### [facility] [address] [place] [address] Dr. Oksana Shaw Erythrocyte distribution width (RBC) [Ratio] 13.2 % Normal 11.0-15.0 [facility] Comment on above: Performed By: #### C BC #### [facility] [address] [place] [address] Dr. Oksana Shaw Hematocrit (Bld) [Volume fraction] 40.4 % Normal 36.0-48.0 [facility] Comment on above: Performed By: #### C BC #### [facility] [address] [place] [address] Dr. Oksana Shaw Hemoglobin (Bld) [Mass/Vol] 13.4 g/dL Normal 12.0-16.0 [facility] Comment on above: Performed By: #### C BC #### [facility] [address] [place] [address] Dr. Oksana Shaw IG # 0.01 10e3/ul Normal 0.00-0.03 [facility] Comment on above: Performed By: #### C BC #### [facility] [address] [place] [address] Dr. Oksana Shaw IG % 0.2 % Normal 0.0-0.5 [facility] Comment on above: Performed By: #### C BC #### [facility] [address] [place] [address] Dr. Oksana Shaw LYMPH # 2.0 103/ul Normal 1.2-3.8 [facility] Comment on above: Performed By: #### C BC #### [facility] [address] [place] [address] Dr. Oksana Shaw Lymphocytes/100 WBC (Bld) 31.6 % Normal 20.5-60.0 [facility] Comment on above: Performed By: #### C BC #### [facility] [address] [place] [address] Dr. Oksana Shaw MANUAL DIFF REQ NO Normal [facility] Comment on above: Performed By: #### C BC #### [facility] [address] [place] [address] Dr. Oksana Shaw MCH (RBC) [Entitic mass] 31.5 pg Normal 26.7-34.0 [facility] Comment on above: Performed By: #### C BC #### [facility] [address] [place] [address] Dr. Oksana Shaw MCHC (RBC) [Mass/Vol] 33.2 g/dL Normal 29.9-35.2 [facility] Comment on above: Performed By: #### C BC #### [facility] [address] [place] [address] Dr. Oksana Shaw MCV (RBC) [Entitic vol] 95.1 fL Normal 81.0-99.0 [facility] Comment on above: Performed By: #### C BC #### [facility] [address] [place] [address] Dr. Oksnaa Shaw MONO # 0.7 103/ul Normal 0.3-0.8 [facility] Comment on above: Performed By: #### C BC #### [facility] [address] [place] [address] Dr. Oksana Shaw Monocytes/100 WBC (Bld) 10.6 % Normal 1.7-12.0 [facility] Comment on above: Performed By: #### C BC #### [facility] [address] [place] [address] Dr. Oksana Shaw NEUT # 3.4 103/ul Normal 1.4-6.5 [facility] Comment on above: Performed By: #### C BC #### [facility] [address] [place] [address] Dr. Oksana Shaw Neutrophils/100 WBC (Bld) 55.3 % Normal 43.0-75.0 [facility] Comment on above: Performed By: #### C BC #### [facility] [address] [place] [address] Dr. Oksana Shaw Platelet mean volume (Bld) [Entitic vol] 10.4 fL Normal 9.5-13.5 [facility] Comment on above: Performed By: #### C BC #### [facility] [address] [place] [address] Dr. Oksana Shaw PLT 247 103/ul Normal 150-450 [facility] Comment on above: Performed By: #### C BC #### [facility] [address] [place] [address] Dr. Oksana Shaw RBC 4.25 106/ul Normal 4.20-5.40 [facility] Comment on above: Performed By: #### C BC #### [facility] [address] [place] [address] Dr. Oksana Shaw WBC 6.2 103/ul Normal 4.0-11.0 [facility] Comment on above: Performed By: #### C BC #### [facility] [address] [place] [address] Dr. Oksana Shaw PROF CHEM 8 (BAS METB)on Anion gap [Moles/Vol] 12.5 mmol/L Normal [facility] Comment on above: Performed By: #### B MP #### [facility] [address] [place] [address] Dr. Oksana Shaw Calcium [Mass/Vol] 9.6 mg/dL Normal 8.4-10.2 [facility] Comment on above: Performed By: #### B MP #### [facility] [address] [place] [address] Dr. Oksana Shaw Chloride [Moles/Vol] 105 mmol/L Normal 98-107 [facility] Comment on above: Performed By: #### B MP #### [facility] [address] [place] [address] Dr. Oksana Shaw CO2 [Moles/Vol] 28.8 mmol/L Normal 22.0-30.0 [facility] Comment on above: Performed By: #### B MP #### [facility] [address] [place] [address] Dr. Oksana Shaw Creatinine [Mass/Vol] 0.87 mg/dL Normal 0.52-1.04 [facility] Comment on above: Performed By: #### B MP #### [facility] [address] [place] [address] Dr. Oksana Shaw EGFR-AF MONEGASQUE >60 Normal >=60 [facility] Comment on above: Performed By: #### B MP #### [facility] [address] [place] [address] Dr. Oksana Shaw EGFR-NON AF MONEGASQUE >60 Normal >=60 [facility] Comment on above: Performed By: #### B MP #### [facility] [address] [address] [address] Oksana Shaw Glucose [Mass/Vol] 95 mg/dL Normal 74-106 [facility] Comment on above: Performed By: #### B MP #### [facility] [address] [address] [address] Oksana Shaw Potassium [Moles/Vol] 3.3 mmol/L Critically low 3.4-5.0 [facility] Comment on above: Performed By: #### B MP #### [facility] [address] [address] [address] Oksana Shaw Sodium [Moles/Vol] 143 mmol/L Normal 137-145 [facility] Comment on above: Performed By: #### B MP #### [facility] [address] [address] [address] Oksana Shaw Urea nitrogen [Mass/Vol] 15.0 mg/dL Normal 7.0-17.0 [facility] Comment on above: Performed By: #### B MP #### [facility] [address] [address] [address] Oksana Shaw Urea nitrogen/Creatinine [Mass ratio] 17.2 mg/mg Normal [facility] Comment on above: Performed By: #### B MP #### [facility] [address] [address] [address] Oksana Shaw Covid-19 PCR ([facility]on SARS-CoV-2 (COVID-19) RNA DEMETRIUS+probe Ql (Unsp spec) Not detected Normal NOT DETECTED [facility] Comment on above: Result Comment: This test is not yet approved or cleared by the [place] FDA. When there are no FDA-approved or cleared tests available, and other criteria are met, FDA can make tests available under an emergency access mechanism called an Emergency Use Authorization (EUA). The EUA for this test is supported by the Optical Laboratory Manager of Health and Human Service's (HHS's) declaration [...] consistent with SARS-CoV-2. Performed By: #### C [facility] ####[facility] [address] [address]Dr. Oksana Shaw GLYCOHEMOGLOBIN A1Con 2020 ADA RECOMMENDATION ADA THERAPEUTIC TARG ET 6.0 - 7.0 ACTION SUGGESTED > 7.0 Normal [facility] Comment on above: Performed By: #### A 1C ####[facility] [address] [place] [address]Dr. Natalyleta Shaw Glucose [Mass/Vol] 123 mg/dL Normal [facility] Comment on above: Performed By: #### A 1C ####[facility] [address] [address]Dr. Oksana Shaw HbA1c (Bld) [Mass fraction] 5.9 % Normal <=6.0 [facility] Comment on above: Performed By: #### A 1C ####[facility] [address] [address]Dr. Oksana Shaw NM BONE IMAGE 3 PHASEon [...] by: FANY ASCENCIO Date: 2021-01-11 17:22 Normal [facility] Vital Signs Date Time Vital Sign Value Performing Clinician Facility 08-01-2024 09:34-0400 Body height 160.02 cm Capo Ball DO Work Phone: [facility] 08-01-2024 09:34-0400 Body mass index (BMI) [Ratio] 32.1 kg/m2 Capo Ball DO Work Phone: [facility] 08-01-2024 09:34-0400 Body weight 82.1 kg Capo Ball DO Work Phone: [facility] 08-01-2024 09:34-0400 Diastolic blood pressure 83 mm[Hg] Capo Ball DO Work Phone: [facility] 08-01-2024 09:34-0400 Heart rate 58 /min Capo Ball DO Work Phone: [facility] 08-01-2024 09:34-0400 Respiratory rate 12 /min Capo Ball DO Work Phone: [facility] 08-01-2024 09:34-0400 SaO2% (BldA) [Mass fraction] 97 % Capo Ball DO Work Phone: [facility] 08-01-2024 09:34-0400 Systolic blood pressure 126 mm[Hg] Capo Ball DO Work Phone: [facility] 02-04-2024 10:03-0500 Body height 160.02 cm Capo Ball DO Work Phone: [facility] 02-04-2024 10:03-0500 Body mass index (BMI) [Ratio] 31 kg/m2 Capo Ball DO Work Phone: [facility] 02-04-2024 10:03-0500 Body weight 79.49 kg Capo Ball DO Work Phone: [facility] 02-04-2024 10:03-0500 Diastolic blood pressure 81 mm[Hg] Capo Ball DO Work Phone: [facility] 02-04-2024 10:03-0500 Heart rate 60 /min Capo Ball DO Work Phone: [facility] 02-04-2024 10:03-0500 Respiratory rate 12 /min Capo Ball DO Work Phone: [facility] 02-04-2024 10:03-0500 Systolic blood pressure 128 mm[Hg] Capo Ball DO Work Phone: [facility] 11-20-2023 15:24-0400 Body height 160.02 cm DO Capo Ball Work Phone: [facility] 11-20-2023 15:24-0400 Body mass index (BMI) [Ratio] 30.7 kg/m2 DO Capo Ball Work Phone: [facility] 11-20-2023 15:24-0400 Body weight 78.52 kg DO Capo Ball Work Phone: [facility] 11-20-2023 15:24-0400 Diastolic blood pressure 79 mm[Hg] DO Capo Ball Work Phone: [facility] 11-20-2023 15:24-0400 Respiratory rate 12 /min DO Capo Ball Work Phone: [facility] 11-20-2023 15:24-0400 SaO2% (BldA) [Mass fraction] 65 % DO Capo Ball Work Phone: [facility] 11-20-2023 15:24-0400 Systolic blood pressure 121 mm[Hg] DO Capo Ball Work Phone: [facility] 11-17-2023 12:33-0400 Blood Pressure Location JOSEFINA DOWNS [facility] 11-17-2023 12:33-0400 Body temperature 98.6 [degF] JOSEFINA HIMANSHU [facility] 11-17-2023 12:33-0400 Diastolic blood pressure 71 mm[Hg] JOSEFINA DOWNS [facility] 11-17-2023 12:33-0400 Heart rate 63 /min JOSEFINA HIMANSHU [facility] 11-17-2023 12:33-0400 Respiratory rate 16 /min JOSEFINA HIMANSHU [facility] 11-17-2023 12:33-0400 Systolic blood pressure 123 mm[Hg] JOSEFINA HIMANSHU [facility] 10-28-2023 12:14-0400 Body height 160.02 cm DO Acpo Ball Work Phone: [facility] 10-28-2023 12:14-0400 Body mass index (BMI) [Ratio] 31.4 kg/m2 DO Capo Ball Work Phone: [facility] 10-28-2023 12:14-0400 Body weight 80.34 kg DO Capo Ball Work Phone: [facility] 10-28-2023 12:14-0400 Diastolic blood pressure 76 mm[Hg] DO Capo Ball Work Phone: [facility] 10-28-2023 12:14-0400 Heart rate 60 /min DO Capo Ball Work Phone: [facility] 10-28-2023 12:14-0400 Respiratory rate 12 /min DO Capo Ball Work Phone: [facility] 10-28-2023 12:14-0400 Systolic blood pressure 120 mm[Hg] DO Capo Ball Work Phone: [facility] 09-09-2023 10:50-0400 Diastolic blood pressure 72 mm[Hg] DO Capo Ball Work Phone: [facility] 09-09-2023 10:50-0400 Heart rate 70 /min DO Capo Ball Work Phone: [facility] 09-09-2023 10:50-0400 Respiratory rate 20 /min DO Capo Ball Work Phone: [facility] 09-09-2023 10:50-0400 SaO2% (BldA) [Mass fraction] 96 % DO Capo Ball Work Phone: [facility] 09-09-2023 10:50-0400 Systolic blood pressure 116 mm[Hg] DO Capo Ball Work Phone: [facility] 09-09-2023 09:55-0400 Body temperature 98 [degF] DO Capo Ball Work Phone: [facility] 09-09-2023 09:30-0400 Inhaled oxygen flow rate 10 L/min DO Capo Ball Work Phone: [facility] 09-09-2023 07:28-0400 Body mass index (BMI) [Ratio] 33.5 kg/m2 DO Capo Ball Work Phone: [facility] 09-09-2023 06:59-0400 Body height 160.02 cm DO Capo Ball Work Phone: [facility] 09-09-2023 06:59-0400 Body weight 86 kg DO Capo Ball Work Phone: [facility] 08-27-2023 11:07-0400 Body height 157.48 cm DO Capo Ball Work Phone: [facility] 08-27-2023 11:07-0400 Body mass index (BMI) [Ratio] 34.2 kg/m2 DO Capo Ball Work Phone: [facility] 08-27-2023 11:07-0400 Body weight 85.04 kg DO Capo Ball Work Phone: [facility] 08-27-2023 11:07-0400 Diastolic blood pressure 82 mm[Hg] DO Capo Ball Work Phone: [facility] 08-27-2023 11:07-0400 Heart rate 60 /min DO Capo Ball Work Phone: [facility] 08-27-2023 11:07-0400 Respiratory rate 12 /min DO Capo Ball Work Phone: [facility] 08-27-2023 11:07-0400 Systolic blood pressure 127 mm[Hg] DO Capo Ball Work Phone: [facility] 08-13-2023 13:06-0400 Body height 157.48 cm DO Capo Ball Work Phone: [facility] 08-13-2023 13:06-0400 Body mass index (BMI) [Ratio] 34.4 kg/m2 DO Capo Ball Work Phone: [facility] 08-13-2023 13:06-0400 Body weight 85.27 kg DO Capo Ball Work Phone: [facility] 08-03-2023 10:48-0400 Body height 160.02 cm [facility] 08-03-2023 10:48-0400 Body mass index (BMI) [Ratio] 33.7 kg/m2 [facility] 08-03-2023 10:48-0400 Body weight 86.35 kg [facility] 08-03-2023 10:48-0400 Diastolic blood pressure 85 mm[Hg] [facility] 08-03-2023 10:48-0400 Heart rate 62 /min [facility] 08-03-2023 10:48-0400 Respiratory rate 12 /min [facility] 08-03-2023 10:48-0400 Systolic blood pressure 144 mm[Hg] [facility] 07-16-2023 10:32-0400 Body height 160.02 cm [facility] 07-16-2023 10:32-0400 Body mass index (BMI) [Ratio] 34.1 kg/m2 [facility] 07-16-2023 10:32-0400 Body weight 87.31 kg [facility] 07-16-2023 10:32-0400 Diastolic blood pressure 82 mm[Hg] [facility] 07-16-2023 10:32-0400 Heart rate 54 /min [facility] 07-16-2023 10:32-0400 Respiratory rate 12 /min [facility] 07-16-2023 10:32-0400 Systolic blood pressure 128 mm[Hg] [facility] 05-04-2023 14:30-0500 Body height 160.02 cm Capo Ball Other [facility] Other 05-04-2023 14:30-0500 Body mass index (BMI) [Ratio] 34.33 kg/m2 Capo Ball Other [employer] Other 05-04-2023 14:30-0500 Body weight 87.91 kg Capo Ball Other [employer] Other 05-04-2023 14:30-0500 Diastolic blood pressure 88 mm[Hg] Capo Ball Other [employer] Other 05-04-2023 14:30-0500 Respiratory rate 12 /min Capo Ball Other [employer] Other 05-04-2023 14:30-0500 Systolic blood pressure 139 mm[Hg] Capo Ball Other [employer] Other 02-26-2023 12:00-0500 Body height 160.02 cm Capo Ball Other [employer] Other 02-26-2023 12:00-0500 Body mass index (BMI) [Ratio] 32.77 kg/m2 Capo Ball Other [employer] Other 02-26-2023 12:00-0500 Body weight 83.92 kg Capo Ball Other [employer] Other 02-02-2023 10:30-0500 Body height 160.02 cm Capo Ball Other [employer] Other 02-02-2023 10:30-0500 Body mass index (BMI) [Ratio] 32.91 kg/m2 Capo Ball Other [employer] Other 02-02-2023 10:30-0500 Body weight 84.28 kg Capo Ball Other [employer] Other 02-02-2023 10:30-0500 Diastolic blood pressure 83 mm[Hg] Capo Ball Other [employer] Other 02-02-2023 10:30-0500 Respiratory rate 12 /min Capo Ball Other [employer] Other 02-02-2023 10:30-0500 Systolic blood pressure 132 mm[Hg] Capo Ball Other [facility] Other 10-21-2022 08:52-0400 Blood Pressure Location JOSEFINA HIMANSHU [facility] 10-21-2022 08:52-0400 Diastolic blood pressure 83 mm[Hg] JOSEFINA HIMANSHU [facility] 10-21-2022 08:52-0400 Heart rate 49 /min JOSEFINA HIMANSHU [facility] 10-21-2022 08:52-0400 Systolic blood pressure 145 mm[Hg] JOSEFINA HIMANSHU [facility] 09-16-2022 13:30-0400 Body height 160.02 cm Capo Ball Other [facility] Other 09-16-2022 13:30-0400 Body mass index (BMI) [Ratio] 32.2 kg/m2 Capo Ball Other [facility] [employer] Other 09-16-2022 13:30-0400 Body weight 82.46 kg Acpo Ball Other [facility] Other 09-16-2022 13:30-0400 Diastolic blood pressure 83 mm[Hg] Capo Ball Other [facility] [employer] Other 09-16-2022 13:30-0400 Respiratory rate 12 /min Capo Ball Other [facility] [employer] Other 09-16-2022 13:30-0400 Systolic blood pressure 125 mm[Hg] Capo Ball Other [facility] [employer] Other 04-15-2022 09:28-0500 Blood Pressure Location JOSEFINA HIMANSHU [facility] 04-15-2022 09:28-0500 Diastolic blood pressure 74 mm[Hg] JOSEFINA HIMANSHU [facility] 04-15-2022 09:28-0500 Heart rate 68 /min JOSEFINA HIMANSHU [facility] 04-15-2022 09:28-0500 Respiratory rate 16 /min JOSEFINA HIMANSHU [facility] 04-15-2022 09:28-0500 Systolic blood pressure 132 mm[Hg] JOSEFINA HIMANSHU [facility] 10-02-2021 13:15-0400 Blood Pressure Location JOSEFINA HIMANSHU [facility] 10-02-2021 13:15-0400 Diastolic blood pressure 77 mm[Hg] JOSEFINA HIMANSHU [facility] Renea 10-02-2021 13:15-0400 Heart rate 80 /min JOSEFINA HIMANSHU [facility] 10-02-2021 13:15-0400 Respiratory rate 16 /min JOSEFINA HIMANSHU [facility] 10-02-2021 13:15-0400 Systolic blood pressure 128 mm[Hg] JOSEFINA HIMANSHU [facility] 08-14-2021 14:13-0400 Blood Pressure Location JOSEFINAMOISES CHAUHANRY [facility] Renea [employer] 08-14-2021 14:13-0400 Diastolic blood pressure 79 mm[Hg] JOSEFINA HIMANSHU [facility] Rene[facility] 08-14-2021 14:13-0400 Heart rate 68 /min JOSEFINA HIMANSHU [facility] [employer] 08-14-2021 14:13-0400 Systolic blood pressure 132 mm[Hg] JOSEFINA HIMANSHU [facility] En[facility]ters Encounter Date Encounter Type Care Provider Facility Start: 08-01-2024 End: 08-01-2024 ambulatory Capo Ball DO Work Phone: [facility] Work Phone: Start: 08-01-2024 End: 08-01-2024 Patient encounter procedure Capo Ball DO Work Phone: [facility] Work Phone: Start: 07-12-2024 End: 07-12-2024 ambulatory Capo Ball DO Work Phone: [facility] Work Phone: Start: 07-12-2024 End: 07-12-2024 Patient encounter procedure Capo Ball DO Work Phone: [facility] Work Phone: Start: 06-13-2024 End: 06-13-2024 ambulatory Capo Ball DO Work Phone: [facility] Work Phone: Start: 06-13-2024 End: 06-13-2024 Patient encounter procedure Capo Ball DO Work Phone: [facility] Work Phone: Start: 06-03-2024 Non-patient / Non-visit Benjam in Ball DO Work Phone: [facility] Work Phone: Start: 05-19-2024 End: 05-19-2024 Patient encounter procedure Capo Ball DO Work Phone: [facility] Work Phone: Start: 05-19-2024 End: 05-19-2024 ambulatory Capo Ball DO Work Phone: [facility] Work Phone: Start: 05-19-2024 Encounter for other preprocedural examination Akil [facility] Start: 05-09-2024 End: 05-09-2024 ambulatory Capo Ball DO Work Phone: [facility] Work Phone: Start: 05-09-2024 End: 05-09-2024 Patient encounter procedure Capo Ball DO Work Phone: [facility] Work Phone: Start: 04-18-2024 End: 04-18-2024 Bamboo flowsheet Monica Harrison PA Work Phone: [facility] Start: 04-18-2024 End: 04-18-2024 Bamboo flowsheet Monica Harrison PA Work Phone: [facility] Start: 04-18-2024 End: 04-18-2024 Office outpatient visit 15 minutes Monica Harrison PA Work Phone: [facility] Comment on above: Seborrheic keratosis (Primary Dx); Melanocytic nevus of trunk; Mckeon angioma Start: 04-18-2024 End: 04-18-2024 ambulatory MONICA HARRISON Not Available Start: 04-13-2024 End: 04-13-2024 Patient encounter procedure Capo Ball DO Work Phone: [facility] Work Phone: Start: 04-13-2024 End: 04-13-2024 ambulatory Capo Ball DO Work Phone: [facility] Work Phone: Start: 04-13-2024 Non-patient / Non-visit Benjam in Ball DO Work Phone: [facility] Work Phone: Start: 03-21-2024 End: 03-21-2024 Patient encounter procedure Capo Ball DO Work Phone: [facility] Work Phone: Start: 03-21-2024 End: 03-21-2024 Patient encounter procedure Capo Ball DO Work Phone: [facility] [place] [facility] Start: 03-21-2024 End: 03-21-2024 ambulatory Capo Ball Facility:[facility] Start: 02-11-2024 End: 02-11-2024 Treatment Racquel Carbajal PT Work Phone: [facility] Comment on above: Cervicalgia (Primary Dx); Balance disorder; BPPV (benign paroxysmal positional vertigo), left; BPPV (benign paroxysmal positional vertigo), right; Unilateral vestibular weakness, right Start: 02-04-2024 End: 02-04-2024 ambulatory Capo Palm DO Work Phone: [facility] Work Phone: Start: 02-04-2024 End: 02-04-2024 Patient encounter procedure Capo Palm DO Work Phone: [facility] Work Phone: Start: 02-02-2024 Patient encounter procedure Capo Palm DO Work Phone: [facility] Start: 01-28-2024 Non-patient / Non-visit Dion Palm DO Work Phone: [facility] Work Phone: Start: 01-21-2024 End: 01-21-2024 Treatment Racquel Carbajal PT Work Phone: [facility] Comment on above: Cervicalgia (Primary Dx); Balance disorder Start: 01-07-2024 End: 01-07-2024 Treatment Racquel Carbajal PT Work Phone: [facility] Comment on above: Cervicalgia (Primary Dx); Balance disorder; BPPV (benign paroxysmal positional vertigo), left; BPPV (benign paroxysmal positional vertigo), right; Unilateral vestibular weakness, right Start: 12-31-2023 Non-patient / Non-visit DO Fletcher Palm Work Phone: [facility] Work Phone: Start: 12-30-2023 End: 12-30-2023 Treatment Racquel Carbajal PT Work Phone: [facility] Comment on above: BPPV (benign paroxys mal positional vertigo), right (Primary Dx); Cervicalgia; Balance disorder; Unilateral vestibular weakness, right; BPPV (benign paroxysmal positional vertigo), left Start: 12-24-2023 End: 12-24-2023 ambulatory DO Capo Ball Work Phone: [facility] Work Phone: Start: 12-24-2023 End: 12-24-2023 Discharged Recurring DO Capo Ball Work Phone: [facility] [place] Start: 12-17-2023 Registered Recurring DO Benjam in Ball Work Phone: [facility] [place] Start: 12-17-2023 End: 12-17-2023 ambulatory DO Capo Ball Work Phone: [facility] Work Phone: Start: 12-17-2023 End: 12-17-2023 Patient encounter procedure DO Capo Ball Work Phone: [facility] [place] [facility] Work Phone: Start: 12-17-2023 End: 12-17-2023 Patient encounter procedure DO Capo Ball Work Phone: [facility] [place] [facility] Start: 12-17-2023 End: 12-17-2023 ambulatory DO Capo Ball Work Phone: [facility] Work Phone: Start: 12-14-2023 Registered Recurring DO Benjam in Ball Work Phone: [facility] [place] Start: 12-09-2023 End: 12-09-2023 Bamboo flowsheet Racquel Carbajal PT Work Phone: [facility] Start: 12-09-2023 End: 12-09-2023 Bamboo flowsheet Racquel Carbajal PT Work Phone: [facility] Start: 12-09-2023 End: 12-09-2023 Treatment Racquel Carbajal PT Work Phone: [facility] Comment on above: Cervicalgia (Primary Dx); Balance disorder; BPPV (benign paroxysmal positional vertigo), left; Unilateral vestibular weakness, right Start: 12-02-2023 End: 12-02-2023 Treatment Racquel Carbajal PT Work Phone: [facility] Comment on above: BPPV (benign paroxys mal positional vertigo), right (Primary Dx); Cervicalgia; Balance disorder; BPPV (benign paroxysmal positional vertigo), left; Unilateral vestibular weakness, right Start: 11-20-2023 End: 11-20-2023 Patient encounter procedure DO [employer] [address] [employer] Work Phone: [facility] Work Phone: Start: 11-18-2023 End: 11-18-2023 Treatment Racquel Carbajal PT Work Phone: [facility] Comment on above: BPPV (benign paroxys mal positional vertigo), right (Primary Dx); Cervicalgia; Balance disorder; BPPV (benign paroxysmal positional vertigo), left Start: 11-17-2023 End: 11-17-2023 ambulatory JOSEFINA DOWNS Facility:[facility] Start: 11-17-2023 End: 11-17-2023 Patient encounter procedure JOSEFINA DOWNS [facility] Start: 11-04-2023 End: 11-04-2023 ambulatory RACQUEL CARBAJAL Not Available Start: 10-28-2023 End: 10-28-2023 ambulatory DO Capo [employer] Work Phone: [facility] Work Phone: Start: 10-28-2023 End: 10-28-2023 Patient encounter procedure DO Capo [employer] Work Phone: [facility] Work Phone: Start: 10-26-2023 Registered Recurring DO Dion in [employer] Work Phone: [facility] [place] Start: 10-22-2023 End: 10-22-2023 ambulatory DO Capo Ball Work Phone: [facility] Work Phone: Start: 10-22-2023 End: 10-22-2023 Patient encounter procedure DO Capo Ball Work Phone: [facility] [place] [facility] Work Phone: Start: 10-20-2023 Registered Recurring DO Benjam in Ball Work Phone: [facility] [place] Start: 09-30-2023 End: 09-30-2023 Patient encounter procedure DO Capo Ball Work Phone: [facility]-CT Scan [place] Work Phone: Start: 09-30-2023 End: 09-30-2023 ambulatory DO Capo Ball Work Phone: [facility] Work Phone: Start: 09-17-2023 End: 09-17-2023 ambulatory DO Capo Ball Work Phone: [facility] Work Phone: Start: 09-17-2023 End: 09-17-2023 Patient encounter procedure DO Capo Ball Work Phone: [facility] [place] [facility] Work Phone: Start: 09-09-2023 Non-patient / Non-visit DO Fletcher rené Ball Work Phone: [facility] [place] [facility] Work Phone: Start: 09-09-2023 End: 09-09-2023 Admission to same day surgery center DO Capo Ball Work Phone: [facility]-Surgery Center [place] Start: 09-09-2023 End: 09-09-2023 ambulatory DO Capo Ball Work Phone: [facility] Work Phone: Start: 09-07-2023 End: 09-07-2023 ambulatory RACQUEL CARBAJAL Not Available Start: 09-01-2023 Non-patient / Non-visit DO Fletcher Palm Work Phone: [facility] Work Phone: Start: 08-27-2023 End: 08-27-2023 ambulatory DO Capo Palm Work Phone: [facility] Work Phone: Start: 08-27-2023 End: 08-27-2023 Patient encounter procedure DO Capo Ball Work Phone: [facility] Work Phone: Start: 08-25-2023 End: 08-25-2023 Patient encounter procedure DO Capo Palm Work Phone: [facility] Work Phone: Start: 08-25-2023 End: 08-25-2023 ambulatory DO Capo Palm Work Phone: [facility] Work Phone: Start: 08-25-2023 Encounter for preprocedural laboratory examination Akil Martinez [facility] Start: 08-21-2023 End: 08-21-2023 ambulatory RACQUEL CARBAJAL Not Available Start: 08-14-2023 End: 08-14-2023 Patient encounter procedure DO Capo Palm Work Phone: [facility] [place] Work Phone: Start: 08-14-2023 End: 08-14-2023 ambulatory DO Capo Ball Work Phone: [facility] Work Phone: Start: 08-13-2023 End: 08-13-2023 ambulatory DO Capo Ball Work Phone: [facility] Work Phone: Start: 08-13-2023 End: 08-13-2023 Patient encounter procedure DO Capo Ball Work Phone: [facility] [place] [facility] Work Phone: Start: 08-03-2023 End: 08-03-2023 ambulatory [facility] Work Phone: Start: 08-03-2023 End: 08-03-2023 Patient encounter procedure [facility] Work Phone: Start: 07-16-2023 End: 07-16-2023 ambulatory [facility] Work Phone: Start: 07-16-2023 End: 07-16-2023 Patient encounter procedure [facility] Work Phone: Start: 07-14-2023 End: 07-14-2023 ambulatory [...] 05-04-2023 End: 05-04-2023 ambulatory Capo Palm Other [employer] Other Start: 05-04-2023 Office outpatient vi sit 15 minutes Capo Ball [facility] Start: 05-04-2023 Telephone encounter Capo Palm [facility] Start: 02-26-2023 End: 02-26-2023 ambulatory Capo Ball Other [employer] Other Start: 02-26-2023 Office outpatient vi sit 15 minutes Capo Ball [facility] Start: 02-02-2023 End: 02-02-2023 ambulatory Capo Palm Other [employer] Other Start: 02-02-2023 Patient encounter procedure Capo Palm [facility] Start: 12-23-2022 End: 12-23-2022 ambulatory Capo Palm Other [employer] Other Start: 12-23-2022 Telephone encounter Capo WELCH G [facility] Start: 12-15-2022 End: 12-15-2022 ambulatory Capo Palm Other [employer] Other Start: 12-15-2022 Telephone encounter Capo WELCH G [facility] Start: 10-21-2022 End: 10-21-2022 Patient encounter procedure JOSEFINA DOWNS [facility] Start: 09-16-2022 End: 09-16-2022 ambulatory Capo Palm Other [employer] Other Start: 09-16-2022 Office outpatient vi sit 15 minutes Capo Palm [facility] Start: 04-15-2022 End: 04-15-2022 Patient encounter procedure JOSEFINA DOWNS [facility] Start: 01-27-2022 Adult health examination Terrence Palm Other [employer] Other Start: 12-28-2021 End: 12-28-2021 ambulatory DO Capo Palm Work Phone: [facility] Work Phone: Start: 12-28-2021 End: 12-28-2021 Departed Referred DO Capo Palm Work Phone: [facility] Start: 12-11-2021 End: 12-12-[address] CAPO PALM Facility:[facility] Start: 11-21-2021 End: 11-22-[address] RICARDO LISTED REQUEST Facility:[facility] Start: 11-01-2021 End: 11-02-[address] CAPO PALM Facility:[facility] Start: 10-02-2021 End: 10-02-2021 Patient encounter procedure JOSEFINA DOWNS [facility] Start: 09-03-2021 End: 09-04-[address] CAPO PALM Facility:[facility] Start: 08-14-2021 End: 08-14-2021 Patient encounter procedure JOSEFINA DOWNS [facility] Start: 06-06-2021 End: 06-07-[address] CAPO [...] Facility:[facility] Start: 04-16-2020 Gynecological examination normal Capo Palm Other [facility] Other Procedures Date Procedure Procedure Detail Performing Clinician Start: 03-23-2024 History of decompres live of median nerve Status post carpal tunnel release Capo Ball DO Work Phone: Comment on above: left Start: 03-21-2024 Plain X-ray of left shoulder Capo Ball DO Work Phone: Start: 12-17-2023 Plain X-ray of left shoulder DO Capo Ball Work Phone: Start: 09-30-2023 CT of left shoulder DO Capo Ball Work Phone: Start: 09-17-2023 Plain X-ray of left shoulder DO [employer] Work Phone: Start: 09-09-2023 Plain X-ray of left shoulder DO [employer] [address] Work Phone: Start: 09-09-2023 OR Total Shoulder Re verse & Anatomic (Left) DO [facility] Phone: Start: 09-01-2023 E coli Shiga Toxin EIA DO [employer] [address] Work Phone: Start: 09-01-2023 Salmonella/Shigella Screen DO [facility] Phone: Start: 08-25-2023 Methicillin resistan t Staphylococcus aureus culture DO [facility] Phone: Start: 08-14-2023 CT of left shoulder DO [facility] Phone: Start: 08-13-2023 Plain X-ray of left shoulder DO [facility] Phone: Start: 03-23-2023 Arthroplasty of left shoulder JOSEFINA DOWNS Start: 01-21-2021 Cystourethroscopy wi th dilation of urethral stricture JOSEFINA DOWNS Start: 12-16-2018 Cystourethroscopy wi th dilation of urethral stricture JOSEFINA DOWNS Start: 06-21-2018 Total knee replacement JOSEFINA DOWNS Start: 06-01-2018 Pre-surgery evaluation Capo Palm Other Start: 11-04-2016 General examination of patient Capo Palm Other Start: 11-04-2016 Screening mammography B yun Palm Other Start: 03-23-2008 Total knee replacement JOSEFINA DOWNS Appendectomy JOSEFINA DOWNS Biopsy of breast JOSEFINA KNIGHT YOLANDAVladimir Colonoscopy JOSEFINA DOWNS End: 02-04-2022 Depression screening Capo Palm Other H/O: artificial joint Status pos t total shoulder arthroplasty DO Capo Palm Work Phone: History of decompres live of median nerve Status post carpal tunnel release Capo Palm DO Work Phone: Oophorectomy JOSEFINA DOWNS Screening for malign ant neoplasm of breast Capo Palm Other Plan of Treatment Date Care Activity Detail Author Start: 04-18-2025 End: 04-18-2025 Patient encounter procedure 04/18/2025 2:30 PM EST Office Visit [facility] [address] [place] [id number] Monica Harrison PA [address] [place] [address] [facility] Start: 04-18-2024 End: 04-18-2024 Patient encounter procedure [facility] Comment on above: Arrived Start: 02-11-2024 End: 02-11-2024 ambulatory 02/11/2024 8:30 AM EST Treatment [facility] [address] [place] [id number] Racquel Carbajal, PT [address] [place] [address] [facility] Start: 01-21-2024 End: 01-21-2024 ambulatory 01/21/2024 8:30 AM EDT Treatment [facility] [address] [place] [id number] Racquel Carbajal, PT [address] [place] [address] [facility] Start: 01-07-2024 End: 01-07-2024 ambulatory 01/07/2024 8:30 AM EDT Treatment [facility] [address] [place] [address] Racquel Carbajal, PT [address] [place] [address] [facility] Start: 12-17-2023 Plain X-ray of left shoulder XR shoulder LT min 2V* [facility] Start: 12-17-2023 XR Shoulder - left Views [facility] Start: 12-09-2023 End: 12-09-2023 Treatment [facility] Comment on above: Cervicalgia (Primary Dx); Balance disorder; BPPV (benign paroxysmal positional vertigo), left; Unilateral vestibular weakness, right Start: 12-02-2023 End: 12-02-2023 ambulatory 12/02/2023 8:30 AM EDT Treatment [facility] [address] [place] [address] Racquel Carbajal, PT [address] [place] [address] [facility] Start: 11-22-2023 Influenza vaccination Influenza Vacc ine (#1) [facility] Start: 09-17-2023 Plain X-ray of left shoulder XR shoulder LT min 2V* [facility] Start: 09-17-2023 XR Shoulder - left Views [facility] Start: 09-09-2023 [facility] Start: 09-09-2023 [facility] Start: 09-09-2023 Referral to occupati onal therapist [facility] Start: 08-25-2023 Methicillin resistan t Staphylococcus aureus culture MRSA Culture [facility] Start: 08-25-2023 MRSA Culture MRSA Culture [facility] Start: 08-13-2023 Plain X-ray of left shoulder XR shoulder LT min 2V* [facility] Start: 08-13-2023 XR Shoulder - left Views [facility] Start: 08-04-2023 Patient referral [facility] Work Phone: Start: 01-29-2021 Pneumococcal Vaccine : 65+ Years (2 of 2 - PCV) Pneumococcal Vaccine: 65+ Years (2 of 2 - PCV) [facility] Start: 1993 Screening for malign ant neoplasm of breast Mammogram [facility] Start: 1953 Screening for malign ant neoplasm of colon [facility] CT Abdomen and Pelvi s WO contrast [facility] CT Shoulder - left W O contrast [facility] CT Shoulder - left W O contrast [facility] Diagnostic radiograp hy of abdomen [facility] Electromyography [facility] Methicillin resistan t Staphylococcus aureus [Presence] in Unspecified specimen by Organism specific culture [facility] Patient Education Know your Meds [facility] Work Phone: Patient referral [facility] Work Phone: XR Shoulder - left Views [facility] Immunizations Immunization Date Immunization Notes Care Provider Elliot schaefer 02-04-2024 influenza, high dose seasonal, preservative-free Capo Palm DO Work Phone: [facility] 02-02-2023 influenza virus vaccine, unspecified formulation [facility] 02-02-2023 influenza, high dose seasonal, preservative-free Capo Palm Other [employer] [facility] [employer] Other 09-16-2022 COVID-19 Pfizer (bivalent) Capo Palm Other [facility] 01-27-2022 influenza virus vaccine, split virus (incl. purified surface antigen) Capo Palm Other [employer] [facility] [employer] Other 01-27-2022 influenza virus vaccine, unspecified formulation JOSEFINA DOWNS [facility] 01-27-2022 influenza, high dose seasonal, preservative-free Capo Palm Other [employer] Other 08-16-2021 SARS-CoV-2 (COVID-19 ) Ad26 vaccine, recombinant JOSEFINA DOWNS [facility] Comment on above: Result Comment: 2022: [id number] 01-30-2021 influenza virus vaccine, split virus (incl. purified surface antigen) Capo Palm Other [employer] Other 01-30-2021 influenza virus vaccine, unspecified formulation [facility] 01-21-2021 influenza virus vaccine, unspecified formulation JOSEFINA DOWNS [facility] 09-14-2020 tetanus and diphther ia toxoids, adsorbed, preservative free, for adult use (2 Lf of tetanus toxoid and 2 Lf of diphtheria toxoid) JOSEFINA DOWNS [facility] 09-14-2020 tetanus and diphther ia toxoids, adsorbed, preservative free, for adult use (5 Lf of tetanus toxoid and 2 Lf of diphtheria toxoid) Capo Palm Other [facility] 06-08-2020 COVID-19 Ad26.COV2.S (Kristie) DO Capo Palm Work Phone: [facility] Comment on above: Result Comment: 2022: [id number] 05-21-2020 SARS-CoV-2 (COVID-19 ) Ad26 vaccine, recombinant JOSEFINA DOWNS [facility] 01-30-2020 influenza virus vaccine, split virus (incl. purified surface antigen) Capo Palm Other [facility] [employer] Other 01-30-2020 influenza virus vaccine, unspecified formulation JOSEFINA DOWNS [facility] 01-30-2020 pneumococcal polysaccharide vaccine, 23 valent JOSEFINA HIMANSHU [facility] 02-08-2019 influenza virus vaccine, unspecified formulation JOSEFINA HIMANSHU [facility] 01-25-2019 influenza virus vaccine, split virus (incl. purified surface antigen) Capo Palm Other [employer] Other 01-25-2019 influenza virus vaccine, unspecified formulation [facility] 01-25-2019 pneumococcal conjuga te vaccine, 13 valent Capo Palm Other [facility] 01-06-2018 influenza virus vaccine, unspecified formulation JOSEFINA HIMANSHU [facility] 12-26-2017 influenza virus vaccine, unspecified formulation JOSEFINA HIMANSHU [facility] 01-01-2017 influenza virus vaccine, unspecified formulation JOSEFINA HIMANSHU [facility] 01-12-2015 influenza virus vaccine, unspecified formulation JOSEFINA HIMANSHU [facility] 12-21-2014 influenza virus vaccine, unspecified formulation JOSEFINA HIMANSHU [facility] 01-04-2013 tetanus and diphther ia toxoids, adsorbed, preservative free, for adult use (5 Lf of tetanus toxoid and 2 Lf of diphtheria toxoid) Capo Palm Other [facility] Payers Date Payer Category Payer Self-pay [id number] 2023 Medicaid AETNA MEDICARE A DVANTAGE [id number] 2023 Medicare AETNA MEDICARE A DVANTAGE AETNA MEDICARE REPLACEMENT [id number] 2023-Present [address] [place] [address] [id number] 1959 Medicare [id number] 1959 Medicare [id number] Self-pay [id number] 1953 Unknown [id number] 2.16.840.1.591557.3.579.2.593 1953 Unknown [id number] 2.16.840.1.656015.3.579.2.593 1953 Unknown [id number] 2.16.840.1.581493.3.579.2.593 1953 Unknown [id number] 2.16.840.1.612227.3.579.2.593 1953 Unknown [id number] 2.16.840.1.972263.3.579.2.593 1953 Unknown [id number] 2.16.840.1.348160.3.579.2.593 1953 Unknown [id number] 2.16.840.1.619359.3.579.2.593 1953 Unknown [id number] 2.16.840.1.333083.3.579.2.593 1953 Unknown [id number] 2.16.840.1.089714.3.579.2.593 1953 Unknown [id number] 2.16.840.1.653258.3.579.2.593 1953 Unknown [id number] 2.16.840.1.113270.3.579.2.727 1953 Unknown [id number] 2.16.840.1.761781.3.579.2.1259 1953 Unknown [id number] 2.16.840.1.439917.3.579.2.1259 1953 Unknown [id number] 2.16.840.1.604847.3.579.2.1259 1953 Unknown [id number] 2.16.840.1.655296.3.579.2.1259 1953 Unknown [id number] 2.16.840.1.892947.3.579.2.125 1953 Unknown [id number] 2.16.840.1.221612.3.579.2.1259 1953 Unknown [id number] 2.16.840.1.015680.3.579.2.1259 1953 Unknown [id number] 2.16.840.1.281069.3.579.2.1259 1953 Unknown [id number] 2.16.840.1.495633.3.579.2.1259 1953 Unknown [id number] 2.16.840.1.559127.3.579.2.1259 1953 Unknown [id number] 2.16.840.1.409382.3.579.2.1259 1953 Unknown [id number] 2.16.840.1.355704.3.579.2.1259 1953 Unknown [id number] 2.16.840.1.579205.3.579.2.1259 1953 Unknown [id number] 2.16.840.1.281977.3.579.2.1259 1953 Unknown [id number] 2.16.840.1.425302.3.579.2.1259 1953 Unknown [id number] 2.16.840.1.251072.3.579.2.1259 1953 Unknown [id number] 2.16.840.1.485415.3.579.2.1259 1953 Unknown [id number] 2.16.840.1.728036.3.579.2.1259 Unknown [id number] 2.16.840.1.510529.3.579.2.593 Unknown [id number] 2.16.840.1.063345.3.579.2.593 Unknown [facility] [id number] Unknown [id number] 2.16.840.1.493894.3.579.2.531 Unknown [id number] 2.16.840.1.049822.3.579.2.531 Unknown [id number] 2.16.840.1.886851.3.579.2.531 Unknown [id number] 2.16.840.1.911534.3.579.2.531 Unknown [id number] 2.16.840.1.516325.3.579.2.531 Unknown [id number] 2.16.840.1.109098.3.579.2.531 Unknown [id number] 2.16.840.1.469961.3.579.2.531 Unknown [id number] 2.16.840.1.501726.3.579.2.531 Unknown [id number] 2.16.840.1.786301.3.579.2.531 Unknown [id number] 2.16.840.1.685442.3.579.2.531 Unknown [id number] 2.16.840.1.717095.3.579.2.531 Social History Date Type Detail Facility Start: 04-02-2021 End: 08-01-2024 Tobacco smoking status Ex-smoker (finding) [facility] Tobacco smoking status Never [facility] Start: 04-14-2023 Sex Assigned At Female [facility] Start: 06-25-2021 End: 04-14-2023 Tobacco smoking status NHIS Never smoked tobacco (finding) [facility] Start: 1955 Sex Assigned At Female F [facility] Start: 04-14-2023 Tobacco use and exposure Smoke less tobacco non-user [facility] Start: 06-01-2023 End: 04-18-2024 Alcoholic beverage intake Current drinker of alcohol (finding) [facility] Start: 04-14-2023 History of Social function [facility] Start: 06-01-2023 Alcohol Comment 1-2 drinks, ev zoey 2-4 times a month. caffeine intake: 1-2 cups per day. [facility] Start: 04-07-2023 Gender identity Identifies as female gender (finding) [facility] Start: 04-07-2023 Sexual orientation Choose not to dis close [facility] Start: 02-04-2024 End: 08-01-2024 Sex Female (finding) [facility] Medical Equipment Procedure Code Equipment Code Equipment Origin al Text Equipment Identifier Dates Orthopaedic bone screw, non-bioabsorbable, non-sterile ()[id number] FDA Start: 09-09-2023 Orthopaedic bone screw, non-bioabsorbable, non-sterile ()[id number] FDA Start: 09-09-2023 Polyethylene rev erse shoulder prosthesis cup ()[id number] FDA Start: 09-09-2023 Coated shoulder humeral stem prosthesis ()[id number] FDA Start: 09-09-2023 Reverse shoulder prosthesis head [id number] FDA Start: 09-09-2023 Orthopaedic bone screw, non-bioabsorbable, non-sterile ()[id number] FDA Start: 09-09-2023 Reverse shoulder prosthesis base plate ()[id number] FDA Start: 09-09-2023 Goals Date Patient Goal Desired Activity /State Functional Status Date Assessment Result Facility 11-17-2023 Functional Status N/A [facility] 10-21-2022 Functional Status N/A [facility] 04-15-2022 Functional Status N/A [facility] 10-02-2021 Functional Status N/A [facility] Clinical Notes 08-14-2021 to 05-09-2024 Note Date & Type Note Facility 05-09-2024 Evaluation note Diagnosis Onset Date Resolution Left carpal tunnel syndrome acute May 09 3:15pm Status post reverse total arthroplasty of left shoulder acute May 09 3:15pm Left carpal tunnel syndrome acute June 13, 2024 10:11am Status post carpal tunnel release acute June 13, 2024 10:11am Encounter for removal of sutures noneactive June 13, 2024 10:11am Cubital tunnel syndrome on left acute July 12, 2024 10:46am Left carpal tunnel syndrome acute July 12, 2024 10:46am Status post carpal tunnel release acute July 12, 2024 10:46am [facility] Work Phone: 1(619) 132-476902-17-2025 Evaluation note* Diagnosis Onset Date Resolution Status Admit Date Left carpal tunnel syndrome acute May 09, 2024 3:15pm Status post reverse total arthroplasty of left shoulder acute May 09 3:15pm Left carpal tunnel syndrome acute June 13, 2024 10:11am Status post carpal tunnel release 2024 acute June 13, 2024 10:11am Encounter for removal of sutures noneactive June 13, 2024 10:11am Cubital tunnel syndrome on left acute July 12, 2024 10:46am Left carpal tunnel syndrome acute July 12, 2024 10:46am Status post carpal tunnel release 2024 acute July 12, 2024 10:46am BPPV (benign paroxysmal positional vertigo) acute August 01 9:34am SHERRILL (generalized anxiety disorder) acute August 01, 2024 9 :34am IFG (impaired fasting glucose) acute August 01, 2024 9 :34am Obesity acute August 01, 2024 9:34am [facility] Work Phone: 1(486) 973-837401-27-2025 History of Present illness Narrative* LILIANA Jewell - 04/18/2024 1:10 PM EST Skin Check Location: Patient requests a full body skin examination Dermatologic history: no history of skin cancer, no history of atypical moles Last visit: 1 year ago Established patient All pertinent medical history, medications, and allergies were reviewed. General Exam: alert, oriented to person, place, and time, normal affect, well appearing Unaccompanied Scalp, Examined Right leg Examined Head, Face Examined Left leg Examined Neck Examined Right foot Examined Chest Examined Left foot Examined Back Examined Buttocks Examined Abdomen Examined Digits,nails: Examined Right arm Examined Left arm Examined Lymphatics: Not examined Hands Examined 1. Seborrheic keratosis Stuck on verrucous, variably pigmented papules and plaques. Patient was counseled regarding these benign growths. Removal is normally not necessary, but they may be removed if they are symptomatic or for cosmetic reasons. 2. Melanocytic nevus of trunk Scattered benign appearing, regular brown to light brown melanocytic papules and macules with similar morphology Counseled regarding these benign growths. Rarely, a nevus can develop into malignant melanoma, so any changing nevi should be promptly re-evaluated. 3. Mckeon angioma Torso - Posterior (Back) Scattered mckeon-red papule(s). The patient was informed that angiomas are benign growths on the the skin. No treatment is necessary. Next Visit: 1 year documented in this encounterS[facility] [id number] Evaluation note* Diagnosis Onset Date Resolution Status Admit Date Left carpal tunnel syndrome acute March 21, 2024 9:50am Status post reverse total arthroplasty of left shoulder acute De cember 2023 9:50am Left carpal tunnel syndrome acute May 09, 2024 3:15pm Status post reverse total arthroplasty of left shoulder acute Fe bruary 2024 3:15pm [facility] Work Phone: 1(603) 101-354712-30-2024 Evaluation note* Diagnosis Onset Date Resolution Status Admit Date Left carpal tunnel syndrome acute March 21, 2024 9:50am Status post reverse total arthroplasty of left shoulder acute March 21, 2 024 9:50am Left carpal tunnel syndrome acute May 09, 2024 3:15pm Status post reverse total arthroplasty of left shoulder acute May 09, 2 025 3:15pm Left carpal tunnel syndrome acute June 13, 2024 10:11am Status post carpal tunnel release acute June 13, 2024 10:11am Encounter for removal of sutures noneactive June 13, 2024 10:11am [facility] Work Phone: 1(217) 434-444111-21-2024 History of Present illness Narrative* Racquel Carbajal, PT - 02/11/2024 8:30 AM EST Sayda Fraire [id number] 02/09/24 Subjective: Phone consult 10/28: 68 yof sent to PT by Dr Palm for dizziness Has been on hold since September 06 Had surgery, unable to perform exercises and dizziness came back some not as bad, worst sitting upnot as bad laying down Previosuly: Got up and getting dressed and room was spinning Nauseated Couldnt look down Laying on L side was worst Hearing ok has not noticed changes/tinnitus Vision has been blurry Neck very painful (Chiro Dr Brady) Denies paresthesia extrems Denies migraines Brain scan Internal auditory canal scan negative, reviewed with pt Objective/Examination: *Postional Testing: Positive *BPPV testing: Positive suraj L & R post canal Postural Hypotension head fixed lay down sit up testing: Negative Ocular: Negative Gaze Evoked Nystagmus, Smooth Pursuit, Saccades Strabismus observation: No obvious misalgnment noticed. No exo/eso/hyper/hypo tropia noticed. No phoria noticed. Head Impulse Test: Negative [employer] optodrum test: Negative Upper Motor Neuron: Negative finger to nose, hoffmans, hyperreflexia, rapid alt hand movt *Cervical Motion: Impaired motion Vertebral Artery Screening test (VAST): negative Cervical Torsion Test: negative *Sensory Organization Performance Test: Challenge test 4 and fail test 6 Ocular assessment with goggles: Negative spontaneous nystagmus, gaze evoked nystagmus *High Frequency Head shake (2 Hz) with video goggles: toward R ear suggesting weakness L ear Therapeutic Intervention: Bppv head shake maneuver Garret x 2 Aerobics heat Balance activity Hold 28 Assessment: Suspected Therapy Diagnosis: Suraj BPPV post canals Problems: BPPV R & L post canal, severe dizziness laying down/bending head/looking up, poor balance, failtest 6 sop, neck stiffness/discomfort, Impaired motion sensitivity Goals: Eliminate bppv, negative dizziness with positioning, restore balance, pass sop tests, pass johnson tests low fall risk, Optimize neck motion Plan: Bppv maneuvers, balance intervention, gentle rom neck, vestibular rehabilitation, vision therapy, aerobics/heat Frequency/Duration: Once every other week Potential: Good I hereby deem this POC medically necessary. Please sign below. Racquel Carbajal PT, Dsc, OCS, COMT, AIB-VAM Director Vestibular Rehabilitation documented in this encounterSainte Genev[facility] [id number] Evaluation note* Diagnosis Onset Date Resolution Status Admit Date BPPV (benign paroxysmal positional vertigo) acute January 9:57am SHERRILL (generalized anxiety disorder) acute February 03, 2 024 9:57am IFG (impaired fasting glucose) acute February 04, 2024 9:57am Medicare annual wellness visit, subsequent acute February 04, 2024 9:57am Obesity acute February 04, 2024 9:57am Left carpal tunnel syndrome acute March 21, 2024 9:50am Status post reverse total arthroplasty of left shoulder acute De cember 2023 9:50am [facility] Work Phone: 1(318) 588-897510-31-2024 History of Present illness Narrative* Racquel Carbajal, PT - 01/21/2024 8:30 AM EDT Sayda Fraire [id number] 01/20/24 Subjective: Phone consult 10/28: 68 yof sent to PT by Dr Palm for dizziness Has been on hold since September 06 Had surgery, unable to perform exercises and dizziness came back some not as bad, worst sitting upnot as bad laying down Previosuly: Got up and getting dressed and room was spinning Nauseated Couldnt look down Laying on L side was worst Hearing ok has not noticed changes/tinnitus Vision has been blurry Neck very painful (Chiro Dr Brady) Denies paresthesia extrems Denies migraines 7th Brain scan Internal auditory canal scan negative, reviewed with pt Objective/Examination: *Postional Testing: Positive *BPPV testing: Positive suraj L & R post canal Postural Hypotension head fixed lay down sit up testing: Negative Ocular: Negative Gaze Evoked Nystagmus, Smooth Pursuit, Saccades Strabismus observation: No obvious misalgnment noticed. No exo/eso/hyper/hypo tropia noticed. No phoria noticed. Head Impulse Test: Negative [employer] optodrum test: Negative Upper Motor Neuron: Negative finger to nose, hoffmans, hyperreflexia, rapid alt hand movt *Cervical Motion: Impaired motion Vertebral Artery Screening test (VAST): negative Cervical Torsion Test: negative *Sensory Organization Performance Test: Challenge test 4 and fail test 6 Ocular assessment with goggles: Negative spontaneous nystagmus, gaze evoked nystagmus *High Frequency Head shake (2 Hz) with video goggles: toward R ear suggesting weakness L ear Therapeutic Intervention: Review mri 5 Estim heat aerobics 15 Traction, manual rom over 15 Buck flow sheet Over 38 Assessment: Suspected Therapy Diagnosis: Suraj BPPV post canals Problems: BPPV R & L post canal, severe dizziness laying down/bending head/looking up, poor balance, failtest 6 sop, neck stiffness/discomfort, Impaired motion sensitivity Goals: Eliminate bppv, negative dizziness with positioning, restore balance, pass sop tests, pass johnson tests low fall risk, Optimize neck motion Plan: Bppv maneuvers, balance intervention, gentle rom neck, vestibular rehabilitation, vision therapy, aerobics/heat Frequency/Duration: Once every other week Potential: Good I hereby deem this POC medically necessary. Please sign below. Racquel Carbajal, PT, Dsc, OCS, COMT, AIB-VAM Director Vestibular Rehabilitation documented in this encounterSainte Genevieve [facility] [id number] History of Present illness Narrative* Racquel Carbajal, PT - 01/07/2024 8:30 AM EDT Sayda Fraire [id number] 01/07/24 Subjective: Phone consult 10/28: 68 yof sent to PT by Dr Palm for dizziness Has been on hold since September 06 Had surgery, unable to perform exercises and dizziness came back some not as bad, worst sitting upnot as bad laying down Previosuly: Got up and getting dressed and room was spinning Nauseated Couldnt look down Laying on L side was worst Hearing ok has not noticed changes/tinnitus Vision has been blurry Neck very painful (Chiro Dr Brady) Denies paresthesia extrems Denies migraines 5th Brain scan Internal auditory canal scan negative, reviewed with pt Objective/Examination: *Postional Testing: Positive *BPPV testing: Positive suraj L & R post canal Postural Hypotension head fixed lay down sit up testing: Negative Ocular: Negative Gaze Evoked Nystagmus, Smooth Pursuit, Saccades Strabismus observation: No obvious misalgnment noticed. No exo/eso/hyper/hypo tropia noticed. No phoria noticed. Head Impulse Test: Negative [employer] optodrum test: Negative Upper Motor Neuron: Negative finger to nose, hoffmans, hyperreflexia, rapid alt hand movt *Cervical Motion: Impaired motion Vertebral Artery Screening test (VAST): negative Cervical Torsion Test: negative *Sensory Organization Performance Test: Challenge test 4 and fail test 6 Ocular assessment with goggles: Negative spontaneous nystagmus, gaze evoked nystagmus *High Frequency Head shake (2 Hz) with video goggles: toward R ear suggesting weakness L ear Therapeutic Intervention: Review mri 5 Estim heat aerobics 15 Traction, manual rom over 15 Buck flow sheet Over 38 Assessment: Suspected Therapy Diagnosis: Suraj BPPV post canals Problems: BPPV R & L post canal, severe dizziness laying down/bending head/looking up, poor balance, failtest 6 sop, neck stiffness/discomfort, Impaired motion sensitivity Goals: Eliminate bppv, negative dizziness with positioning, restore balance, pass sop tests, pass johnson tests low fall risk, Optimize neck motion Plan: Bppv maneuvers, balance intervention, gentle rom neck, vestibular rehabilitation, vision therapy, aerobics/heat Frequency/Duration: Once every other week Potential: Good I hereby deem this POC medically necessary. Please sign below. Racquel Carbajal PT, Dsc, OCS, COMT, AIB-VAM Director Vestibular Rehabilitation documented in this encounterSainte Genevieve County Memorial [id number] History of Present illness Narrative* Racquel Carbajal PT - 12/30/2023 8:30 AM EDT Sayda Fraire [id number] 12/30/23 Subjective: Phone consult 10/28: 68 yof sent to PT by Dr Palm for dizziness Has been on hold since September 06 Had surgery, unable to perform exercises and dizziness came back some not as bad, worst sitting upnot as bad laying down Previosuly: Got up and getting dressed and room was spinning Nauseated Couldnt look down Laying on L side was worst Hearing ok has not noticed changes/tinnitus Vision has been blurry Neck very painful (Chiro Dr Brady) Denies paresthesia extrems Denies migraines 5th No change brain scan tomorrow Worse No recent loss of hearing/tinnitus nothing different Wedge used today Objective/Examination: *Postional Testing: Positive *BPPV testing: Positive suraj L & R post canal Postural Hypotension head fixed lay down sit up testing: Negative Ocular: Negative Gaze Evoked Nystagmus, Smooth Pursuit, Saccades Strabismus observation: No obvious misalgnment noticed. No exo/eso/hyper/hypo tropia noticed. No phoria noticed. Head Impulse Test: Negative [employer] optodrum test: Negative Upper Motor Neuron: Negative finger to nose, hoffmans, hyperreflexia, rapid alt hand movt *Cervical Motion: Impaired motion Vertebral Artery Screening test (VAST): negative Cervical Torsion Test: negative *Sensory Organization Performance Test: Challenge test 4 and fail test 6 Ocular assessment with goggles: Negative spontaneous nystagmus, gaze evoked nystagmus *High Frequency Head shake (2 Hz) with video goggles: toward R ear suggesting weakness L ear Therapeutic Intervention: ReEvaluation [place] positive R Wedge maneuver with tapping Foam activity Aerobics heat 39 See flow sheet Assessment: Suspected Therapy Diagnosis: Suraj BPPV post canals Problems: BPPV R & L post canal, severe dizziness laying down/bending head/looking up, poor balance, failtest 6 sop, neck stiffness/discomfort, Impaired motion sensitivity Goals: Eliminate bppv, negative dizziness with positioning, restore balance, pass sop tests, pass johnson tests low fall risk, Optimize neck motion Plan: Bppv maneuvers, balance intervention, gentle rom neck, vestibular rehabilitation, vision therapy, aerobics/heat Frequency/Duration: Once every other week Potential: Good I hereby deem this POC medically necessary. Please sign below. Racquel Carbajal PT, Dsc, OCS, COMT, AIB-VAM Director Vestibular Rehabilitation documented in this encounterSainte Genevieve County Memorial [id number] History of Present illness Narrative* Racquel Carbajal PT - 12/09/2023 8:30 AM EDT Sayda Fraire [id number] 12/09/23 Subjective: Phone consult 10/28: 68 yof sent to PT by Dr Palm for dizziness Has been on hold since September 06 Had surgery, unable to perform exercises and dizziness came back some not as bad, worst sitting upnot as bad laying down Previosuly: Got up and getting dressed and room was spinning Nauseated Couldnt look down Laying on L side was worst Hearing ok has not noticed changes/tinnitus Vision has been blurry Neck very painful (Chiro Dr Brady) Denies paresthesia extrems Denies migraines 4th Worse No recent loss of hearing/tinnitus nothing different , Denies recent virus, No brain scan Objective/Examination: *Postional Testing: Positive *BPPV testing: Positive suraj L & R post canal Postural Hypotension head fixed lay down sit up testing: Negative Ocular: Negative Gaze Evoked Nystagmus, Smooth Pursuit, Saccades Strabismus observation: No obvious misalgnment noticed. No exo/eso/hyper/hypo tropia noticed. No phoria noticed. Head Impulse Test: Negative [employer] optodrum test: Negative Upper Motor Neuron: Negative finger to nose, hoffmans, hyperreflexia, rapid alt hand movt *Cervical Motion: Impaired motion Vertebral Artery Screening test (VAST): negative Cervical Torsion Test: negative *Sensory Organization Performance Test: Challenge test 4 and fail test 6 Ocular assessment with goggles: Negative spontaneous nystagmus, gaze evoked nystagmus *High Frequency Head shake (2 Hz) with video goggles: toward R ear suggesting weakness L ear Therapeutic Intervention: ReEvaluation [facility] R [place] all maneuvers negative Massage vib neck positive Note to doc for mri to play it safe will cx if better Balance Aerobics heat Hep Manual therapy See flow sheet 38 Assessment: Suspected Therapy Diagnosis: Suraj BPPV post canals Problems: BPPV R & L post canal, severe dizziness laying down/bending head/looking up, poor balance, failtest 6 sop, neck stiffness/discomfort, Impaired motion sensitivity Goals: Eliminate bppv, negative dizziness with positioning, restore balance, pass sop tests, pass johnson tests low fall risk, Optimize neck motion Plan: Bppv maneuvers, balance intervention, gentle rom neck, vestibular rehabilitation, vision therapy, aerobics/heat Frequency/Duration: Once every other week Potential: Good I hereby deem this POC medically necessary. Please sign below. Racquel Carbajal, PT, Dsc, OCS, COMT, AIB-VAM Director Vestibular Rehabilitation documented in this encounterSainte Genevieve County Memorial [id number] History of Present illness Narrative* Racquel Carbajal, PT - 12/02/2023 8:30 AM EDT Sayda Fraire [id number] 12/02/23 Subjective: Phone consult 10/28: 68 yof sent to PT by Dr Palm for dizziness Has been on hold since September 06 Had surgery, unable to perform exercises and dizziness came back some not as bad, worst sitting upnot as bad laying down Previosuly: Got up and getting dressed and room was spinning Nauseated Couldnt look down Laying on L side was worst Hearing ok has not noticed changes/tinnitus Vision has been blurry Neck very painful (Chiro Dr Brady) Denies paresthesia extrems Denies migraines 2nd Worse No recent loss of hearing/tinnitus nothing different , Denies recent virus, No brain scan Objective/Examination: *Postional Testing: Positive *BPPV testing: Positive suraj L & R post canal Postural Hypotension head fixed lay down sit up testing: Negative Ocular: Negative Gaze Evoked Nystagmus, Smooth Pursuit, Saccades Strabismus observation: No obvious misalgnment noticed. No exo/eso/hyper/hypo tropia noticed. No phoria noticed. Head Impulse Test: Negative [employer] optodrum test: Negative Upper Motor Neuron: Negative finger to nose, hoffmans, hyperreflexia, rapid alt hand movt *Cervical Motion: Impaired motion Vertebral Artery Screening test (VAST): negative Cervical Torsion Test: negative *Sensory Organization Performance Test: Challenge test 4 and fail test 6 Ocular assessment with goggles: Negative spontaneous nystagmus, gaze evoked nystagmus *High Frequency Head shake (2 Hz) with video goggles: toward R ear suggesting weakness L ear Therapeutic Intervention: ReEvaluation [facility] [place] posiive R Wedge vibration garret Balance Aerobics heat Hep See flow sheet 38 Assessment: Suspected Therapy Diagnosis: Suraj BPPV post canals Problems: BPPV R & L post canal, severe dizziness laying down/bending head/looking up, poor balance, failtest 6 sop, neck stiffness/discomfort, Impaired motion sensitivity Goals: Eliminate bppv, negative dizziness with positioning, restore balance, pass sop tests, pass johnson tests low fall risk, Optimize neck motion Plan: Bppv maneuvers, balance intervention, gentle rom neck, vestibular rehabilitation, vision therapy, aerobics/heat Frequency/Duration: Once every other week Potential: Good I hereby deem this POC medically necessary. Please sign below. Racquel Carbajal, PT, Dsc, OCS, COMT, AIB-VAM Director Vestibular Rehabilitation documented in this encounterSainte Genevieve County Memorial [id number] Evaluation note* Diagnosis Onset Date Resolution Status Admit Date Abdominal pain acute October 2:40pm Diarrhea acute November 19, 2 024 2:40pm Right flank pain acute October 232023 2:40pm Status post reverse total arthroplasty of left shoulder acute Se ptember 2023 10:38am BPPV (benign paroxysmal positional vertigo) acute January 9:57am Diarrhea acute February 04, 2024 9:57am SHERRILL (generalized anxiety disorder) acute February 03, 024 9:57am IFG (impaired fasting glucose) acute February 04, 2024 9:57am Medicare annual wellness visit, subsequent acute February 04, 2024 9:57am Pruritus acute February 04, 2024 9:57am [facility] Work Phone: [phone] 670-909808-28-2024 History of Present illness Narrative* Racquel Carbajal, PT - 11/18/2023 8:30 AM EDT Sayda Fraire [id number] 11/18/23 Subjective: Phone consult 10/28: 68 yof sent to PT by Dr Palm for dizziness Has been on hold since September 06 Had surgery, unable to perform exercises and dizziness came back some not as bad, worst sitting upnot as bad laying down Previosuly: Got up and getting dressed and room was spinning Nauseated Couldnt look down Laying on L side was worst Hearing ok has not noticed changes/tinnitus Vision has been blurry Neck very painful (Chiro Dr Jose Antonio) Denies paresthesia extrems Denies migraines 2nd aero Objective/Examination: *Postional Testing: Positive *BPPV testing: Positive suraj L & R post canal Postural Hypotension head fixed lay down sit up testing: Negative Ocular: Negative Gaze Evoked Nystagmus, Smooth Pursuit, Saccades Strabismus observation: No obvious misalgnment noticed. No exo/eso/hyper/hypo tropia noticed. No phoria noticed. Head Impulse Test: Negative [employer] optodrum test: Negative Upper Motor Neuron: Negative finger to nose, hoffmans, hyperreflexia, rapid alt hand movt *Cervical Motion: Impaired motion Vertebral Artery Screening test (VAST): negative Cervical Torsion Test: negative *Sensory Organization Performance Test: Challenge test 4 and fail test 6 Ocular assessment with goggles: Negative spontaneous nystagmus, gaze evoked nystagmus *High Frequency Head shake (2 Hz) with video goggles: toward R ear suggesting weakness L ear Therapeutic Intervention: ReEvaluation Bppv r treated Mental task balance Neck arm motion Sop test Aerobics heat MS pass CDVAT pass Flow sheet 39 Assessment: Suspected Therapy Diagnosis: Suraj BPPV post canals Problems: BPPV R & L post canal, severe dizziness laying down/bending head/looking up, poor balance, failtest 6 sop, neck stiffness/discomfort, Impaired motion sensitivity Goals: Eliminate bppv, negative dizziness with positioning, restore balance, pass sop tests, pass johnson tests low fall risk, Optimize neck motion Plan: Bppv maneuvers, balance intervention, gentle rom neck, vestibular rehabilitation, vision therapy, aerobics/heat Frequency/Duration: Once every other week Potential: Good I hereby deem this POC medically necessary. Please sign below. Racquel Carbajal PT, Dsc, OCS, COMT, AIB-VAM Director Vestibular Rehabilitation documented in this encounterSainte Genevieve County Memorial [id number] Hospital Discharge instructions Patient Education 11/17/2023 13:02:40 Overactive Bladder, [...] muscles thatmake your bladder squeeze too soon. This condition [...] your health care provider. General instructions Take ekkw-wcf-acbjzfv and prescription medicines only as told by [...] provider. Document Revised: 11/26/2020 Document Reviewed: 11/26/2020 [employer] Patient Education 2022 [employer]. Follow Up Care 10/21/2022 09:32:15 With:HIMANSHU BENÍTEZ, JOSEFINA Hahn, URL Address: [address] [place] [address] When: Unknown Comments:BANDAR [facility] 08-27-2024 NotePatient Education Obstetrics and Gynecology Overactive Bladder, Adult [...] muscles thatmake your bladder squeeze too soon. This condition [...] as stroke, dementia, Parkinson's disease, or multiple sclerosis(MS). ? Eat or drink alcohol, spicy food, [...] health care provider. General instructions ? Take zbru-xnp-nxfdcfa and prescription medicines only as told by [...] help your health care (more content not included)...[facility]02-12-2024 Evaluation note* Encounter Date Diagnosis Assessment Notes Treatment Notes Treatment Clinical Notes Apr, Benign paroxysmal positional vertigo of [...] use, the patient reduces the risk for CT, CVA, HTN, cardiac dysrhythmias and sudden cardiac deaths.The patient is also aware of the association between VIV and morning headaches, daytime somnolence, fatigue and obesity, which also has been improved with continued use.The patient is compliant with treatment, wearing the equipment every night for greater than 4 hours.The patient is instructed to continue use of the CPAP for VIV treatment. [employer] Other 12-07-2023 Evaluation note* Encounter Date Diagnosis Assessment Notes Treatment Notes Treatment Clinical Notes Feb, Obstructive sleep apnea (ICD-10 - G47.33) This patient is aware of the benefits associated with VIV: With continued use, the patient reduces the risk for CT, CVA, HTN, cardiac dysrhythmias and sudden cardiac [...] index [BMI] 32.0-32.9, adult (ICD-10 - Z68.32) [employer] Other 11-13-2023 Evaluation note* Encounter Date Diagnosis [...] patient on monthly SBE and yearly mammograms. [employer] Other 09-25-2023 Evaluation note* Encounter Date Diagnosis Assessment Notes Treatment Notes Treatment Clinical Notes Nov, Menopause (ICD-10 - Z78.0) [employer] Other 08-01-2023 Hospital Discharge instructions Patient Education [...] (electrical nerve stimulation). ?For women, using a medical equipment repairer to prevent urine leaks. This is a [...] right after experiencing incontinence. General instructions Take gpgo-dzf-iyylbkg and prescription medicines only as told by [...] important. Where to find more information National [place] of Diabetes and Digestive and Kidney Diseases: www.niddk.nih.gov [employer] [employer]: www.urologyhealth.org Contact a health care [...] provider. Document Revised: 10/12/2020 Document Reviewed: 10/12/2020 [employer] Patient Education 2022 [employer]. Follow Up Care 04/15/2022 10:00:46 With:HIMANSHU BENÍTEZ, JOSEFINA Hahn, URL Address: [address] [place] [address] When: Unknown [facility] [employer] 06-27-2023 Evaluation note* Encounter Date Diagnosis Assessment [...] planus] (acquired), left foot (ICD-10 - M21.42) [employer] Other 01-24-2023 Hospital Discharge instructions Patient Education [...] fried and sweet foods. General instructions Take zjyt-wsk-znskihd and prescription medicines only as told by [...] 01/03/2010 Document Revised: 06/30/2019 Document Reviewed: 03/25/2018 [employer] Patient Education 2020 [employer]. Follow Up Care 04/02/2021 10:16:29 With:JOSEFINA DOWNS PA-C, URL Address: [address] [place], [place] [address] [address] When: Unknown [facility] 07-13-2022 Hospital Discharge instructions Patient Education 10/02/2021 [...] fried and sweet foods. General instructions Take dyct-lyn-quxscmh and prescription medicines only as told by [...] 01/03/2010 Document Revised: 06/30/2019 Document Reviewed: 03/25/2018 [employer] Patient Education 2020 [employer]. Follow Up Care 08/14/2021 14:49:03 With:JOSEFINA DOWNS PA-C, URL Address: [address] [place] [address] When: Unknown [facility] 05-25-2022 Hospital Discharge instructions Patient Education 08/14/2021 [...] (electrical nerve stimulation). For women, using a medical equipment repairer to prevent urine leaks. This is a [...] right after experiencing incontinence. General instructions Take qxgx-uug-ygjgfol and prescription medicines only as told by [...] 04/16/2005 Document Revised: 03/19/2018 Document Reviewed: 06/18/2017 [employer] Patient Education 2020 [employer]. Follow Up Care 08/09/2021 15:38:15 With:JOSEFINA DOWNS PA-C, URL Address: [place] [address] [phone] When: Unknown [facility] evaluation + Plan note Future Appointments Appointment Date:10/02/2021 01:00:00 PM Scheduled Provider:JOSEFINA DOWNS PA-C Location:[facility] Appointment Type:URO Office Visit Appointment Date:04/08/2022 10:45:00 AM Scheduled Provider:Charly Blanton Jr., MD Location:[facility] Appointment Type:URO Office Visit [facility] evaluation + Plan note Future Appointments Appointment Date:04/08/2022 10:45:00 AM Scheduled Provider:Charly Blanton Jr., MD Location:[facility] Appointment Type:URO Office Visit [facility] evaluation + Plan note Future Appointments Appointment Date:10/14/2022 10:00:00 AM Scheduled Provider:JOSEFINA DOWNS PA-C Location:[facility] Appointment Type:URO Office Visit [facility] evaluation + Plan note Future Appointments Appointment Date:10/27/2023 10:00:00 AM Scheduled Provider:JOSEFINA DOWNS PA-C Location:[facility] Appointment Type:URO Office Visit [facility] evaluation noteNo assessment information available [facility] Work Phone: Evaluation noteNo InformationNort [facility] Other evaluation note* Diagnosis Onset Date Resolution Status Left shoulder pain acute [facility] Work Phone: Evaluation note* Diagnosis Onset Date [...] acute Primary osteoarthritis of left shoulder acute [facility] Work Phone: Evaluation note* Diagnosis Onset Date [...] left shoulder acute Pre-op examination noneactiv e [facility] Work Phone: Evaluation note* Diagnosis Onset Date [...] acute Pre-op examination noneactiv e [facility] Work Phone: Evaluation note* Diagnosis Onset Date [...] acute Preop exam for internal medicine noneactive [facility] Work Phone: Evaluation note* Diagnosis Onset Date [...] exam for internal medicine noneactive [facility] Work Phone: Evaluation note* Diagnosis Onset Date [...] total ar throplasty of left shoulder acute [facility] Work Phone: Evaluation note* Diagnosis Onset Date [...] total ar throplasty of left shoulder acute [facility] Work Phone: Evaluation note* Diagnosis Onset Date [...] IFG (impaired fasting glucose) acute Pruritus acute [facility] Work Phone: Evaluation note* Diagnosis Onset Date Resolution Status 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 acute BPPV (benign paroxysmal positional vertigo) acute Diarrhea acute SHERRILL (generalized anxiety disorder) acute IFG (impaired fasting glucose) acute Pruritus acute Abdominal pain acute Diarrhea acute Right flank pain acute 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 [facility] Work Phone: Evaluation note* Diagnosis BPPV (benign paroxysmal positional vertigo), right- Primary Cervicalgia Balance disorder Unilateral vestibular weakness, right BPPV (benign paroxysmal positional vertigo), left [facility] Diagnosis Cervicalgia- Primary Balance disorder BPPV (benign paroxysmal positional vertigo), left BPPV (benign paroxysmal positional vertigo), right Unilateral vestibular weakness, right [facility]* Diagnosis Onset Date Resolution Status BPPV (benign paroxysmal positional vertigo) acute Diarrhea acute SHERRILL (generalized anxiety disorder) acute IFG (impaired fasting glucose) acute Pruritus acute Abdominal pain acute Diarrhea acute Right flank pain acute 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 [facility] Work Phone: Evaluation note* Diagnosis Cervicalgia- Primary Balance disorder [facility]* Diagnosis Cervicalgia- Primary Balance disorder BPPV (benign paroxysmal positional vertigo), left BPPV (benign paroxysmal positional vertigo), right Unilateral vestibular weakness, right [facility]* Diagnosis Cervicalgia- Primary Balance disorder BPPV (benign paroxysmal positional vertigo), left Unilateral vestibular weakness, right [facility]* Diagnosis BPPV (benign paroxysmal positional vertigo), right- Primary Cervicalgia Balance disorder BPPV (benign paroxysmal positional vertigo), left [facility]* Diagnosis BPPV (benign paroxysmal positional vertigo), right- Primary Cervicalgia Balance disorder BPPV (benign paroxysmal positional vertigo), left Unilateral vestibular weakness, right [facility]* Diagnosis Seborrheic keratosis- Primary Melanocytic nevus of trunk Benign neoplasm of skin of trunk, except scrotum 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 Akil Martinez DO Orthopedic Surgeon [facility] Office: [address] [place] [address] Office number: [phone] [facility] Work Phone: Progress note No data available for this section [facility] reason for visit Narrative* Rehabilitation - Outpatient (Routine) - Authorized Specialty Diagnoses / Procedures Referred By Contac t Referred To Contact Physical Therapy Diagnoses BPPV Procedures [place] PHYSICAL THERAPY EVALUATION LOW COMPLEX 20 MINS Capo Palm MD [address] [place] [address] Phone: tel: fax: Racquel Carbajal, PT [address] [facility] [address] [place] [address] Phone: tel: fax: Referral ID Status Reason Start Date Expiration Date V isits Requested Visits Authorized [id number] Authorized 11/04/2023 05/02/2024 99 99 [facility] Summary Purpose Family History Relationship Condition Age at Onset Recorded Date/T [...] Unknown father Blood disorder Unknown Advance Directives Advance Directive Response Recorded Date/ Time Advance Directives No April 14, 2023 3:03pm Advance Directive Response Recorded Date/ Time Advance Directives No April 14, 2023 2:03pm Chief Complaint and Reason for Visit Chief [...] Complaint 6 month follow up CONSULT DR SHAUN [...] total arthroplasty of left shoulder Chief Complaint all over itchiness Abdominal Pain Z96.612 - Presence of left artificial shoulder magaly 8 WEEKS L reverse shoulder arthroplasty Reason for Visit BPPV (benign paroxys mal positional vertigo) Diarrhea SHERRILL (generalized anxiety disorder) IFG (impaired fasting glucose) Pruritus Abdominal pain Diarrhea Right flank pain Status post reverse total arthroplasty of left shoulder Chief Complaint Admit Date Abdominal Pain November 20, 2023 2: 40pm Z96.612 - 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 December 17, 2023 8:20am 8 WEEKS December 17, 2023 10:38am L reverse shoulder arthroplasty December 24, 2023 11:30am CC Adult Risk Stratification January 10:34am wellness February 04, 2024 9:57am Reason for Visit Admit Date Abdominal pain November 20, 2023 2: 40pm Diarrhea November 20, 2023 2: 40pm Right flank pain November 20, 2023 2: 40pm 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 December 17, 2023 10:38am BPPV (benign paroxysmal positional verti go) February 04, 2024 9:57am Diarrhea February 04, 2024 9:57am SHERRILL (generalized anxiety disorder) Novem 2023 9:57am IFG (impaired fasting glucose) February 04, 2024 9:57am Medicare annual wellness visit, subseque nt February 04, 2024 9:57am Pruritus February 04, 2024 9:57am Chief Complaint Admit Date CC Adult Risk Stratification January 10:34am wellness February 04, 2024 9:57am Z96.612 - 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 March 21, 2024 7:36am 3 MONTHS March 21, 2024 9:50am G56.02 April 13, 2024 9 :18am Reason for Visit Admit Date BPPV (benign paroxysmal positional verti go) February 04, 2024 9:57am SHERRILL (generalized anxiety disorder) Novem 2023 9:57am IFG (impaired fasting glucose) February 04, 2024 9:57am Medicare annual wellness visit, subseque nt February 04, 2024 9:57am Obesity February 04, 2024 9:57am Left carpal tunnel syndrome February 9:50am 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 March 21, 2024 9:50am Chief Complaint Admit Date Z96.612 - 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 March 21, 2024 7:36am 3 MONTHS March 21, 2024 9:50am G56.02 April 13, 2024 9 :18am EMG RESULTS May 09, 2024 3:15pm Reason for Visit Admit Date Left carpal tunnel syndrome February 9:50am 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 March 21, 2024 9:50am Left carpal tunnel syndrome April 3:15pm 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 May 09, 2024 3:15pm Chief Complaint Admit Date Z96.612 - 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 March 21, 2024 7:36am 3 MONTHS March 21, 2024 9:50am G56.02 April 13, 2024 9 :18am EMG RESULTS May 09, 2024 3:15pm Z01.818 May 19, 2024 8:44am Chief Complaint Admit Date Z96.612 - 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 March 21, 2024 7:36am 3 MONTHS March 21, 2024 9:50am G56.02 April 13, 2024 9 :18am EMG RESULTS May 09, 2024 3:15pm Z01.818 May 19, 2024 8:44am 10-14 days post op June 13, 2024 10: 11am Reason for Visit Admit Date Left carpal tunnel syndrome February 9:50am 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 March 21, 2024 9:50am Left carpal tunnel syndrome April 3:15pm 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 May 09, 2024 3:15pm Left carpal tunnel syndrome June 13, 2024 10:11am Status post carpal tunnel release June 13, 2024 10:11am Encounter for removal of sutures May 222024 10:11am Chief Complaint Admit Date EMG RESULTS May 09, 2024 3:15pm Z01.818 May 19, 2024 8:44am 10-14 days post op June 13, 2024 10: 11am 4 WEEKS July 12, 2024 10: 46am Reason for Visit Admit Date Left carpal tunnel syndrome April 3:15pm 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 May 09, 2024 3:15pm Left carpal tunnel syndrome June 13, 2024 10:11am Status post carpal tunnel release June 13, 2024 10:11am Encounter for removal of sutures May 222024 10:11am Cubital tunnel syndrome on left July 122024 10:46am Left carpal tunnel syndrome July 12, 2024 10:46am Status post carpal tunnel release July 12, 2024 10:46am Chief Complaint Admit Date EMG RESULTS May 09, 2024 3:15pm Z01.818 May 19, 2024 8:44am 10-14 days post op June 13, 2024 10: 11am 4 WEEKS July 12, 2024 10: 46am 6 month f/u August 01, 2024 9:34a m Reason for Visit Admit Date Left carpal tunnel syndrome April 3:15pm 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 May 09, 2024 3:15pm Left carpal tunnel syndrome June 13, 2024 10:11am Status post carpal tunnel release June 13, 2024 10:11am Encounter for removal of sutures May 222024 10:11am Cubital tunnel syndrome on left July 122024 10:46am Left carpal tunnel syndrome July 12, 2024 10:46am Status post carpal tunnel release July 12, 2024 10:46am BPPV (benign paroxysmal positional verti go) August 01, 2024 9:34am SHERRILL (generalized anxiety disorder) July 212024 9:34am IFG (impaired fasting glucose) August 01, 2024 9:34am Obesity August 01, 2024 9:34a m Additional Source Comments Care Team (unrecognized sect ion and content) Team Status: Active Member Role Status Dates Capo Palm DO Primary Care Provider Active Team Status: Inactive Member Role Status Dates Capo Palm DO Primary Care Provider Active Start: March 21, 2024 End: March 21, 2024 Akil aMrtinez DO Attending Provider Active St art: March 21, 2024 End: March 21, 2024 Team Status: Active Member Role Status Brock Palm DO Primary Care Provider Active Start: April 13, 2024 Akil Martinez DO Other Provider Active Start: April 13, 2024 Hesham Bardales MD Attending Provider Active Start: April 13, 2024 Team Status: Inactive Member Role Status Brock Palm DO Primary Care Provider Active Start: May 09, 2024 End: May 09, 2024 Akil Martinez DO Attending Provider Active St art: May 09, 2024 End: May 09, 2024 Team Status: Active Member Role Status Brock Palm DO Primary Care Provide r, Attending Provider Active Start: January 28, 2024 Team Status: Inactive Member Role Status Brock Palm DO Primary Care Provide r, Attending Provider Active Start: February 04, 2024 End: February 04, 2024 Team Status: Inactive Member Role Status Brock Palm DO Primary Care Provider Active Start: April 13, 2024 End: April 13, 2024 Akil Martinez DO Attending Provider Active St art: April 13, 2024 End: April 13, 2024 Team Status: Inactive Member Role Status Brock Palm DO Primary Care Provider Active [facility] Attending Provider Active Team Status: Inactive Member Role Status Brock Palm DO Primary Care Provide r, Attending Provider Active Start: July 16, 2023 End: July 16, 2023 Team Status: Inactive Member Role Status Dates Capo Ball , DO Primary Care Provide r, Attending Provider [...] 2023 End: September 30, 2023 Akil Martinez , DO Attending Provider [...] Start: December 14, 2023 Akil Martinez , Attending Provider Active St art: December 14, 2023 Team Status: Active Member Role Status Dates Capo Palm DO Primary Care Provider Active Start: December 17, 2023 Akil Martinez , DO Attending Provider Active St art: December 17, 2023 Team Status: Inactive Member Role Status Dates Capo Palm DO Primary Care Provider Active Start: December 17, 2023 End: December 17, 2023 Akil Martinez , DO Attending Provider Active St art: December 17, 2023 End: December 17, 2023 Receptionist Scheduler Relationship Specialty Start Date End Date Capo Palm MD [address] [facility] [place] [address] PCP - General Internal Medicine 07/14/23 Team Status: Inactive Member Role Status Dates Capo Palm DO Primary Care Provider Active Start: December 24, 2023 End: December 24, 2023 Akil Martinez DO Attending Provider Active St art: December 24, 2023 End: December 24, 2023 Team Status: Active Member Role Status Dates Capo Palm DO Primary Care Provide r, Attending Provider Active Start: December 31, 2023 Receptionist Scheduler Relationship Specialty Start Date End Date Capo Palm MD [address] [place] [facility] [id number] PCP - General Internal Medicine 07/14/23 Receptionist Scheduler Relationship Specialty Start Date End Date Capo Palm MD [address] [place] [facility] [address] PCP - General Internal Medicine 07/14/23 Receptionist Scheduler Relationship Specialty Start Date End Date Capo Palm MD [address] [place] [facility] [address] PCP - General Internal Medicine 07/14/23 Receptionist Scheduler Relationship Specialty Start Date End Date Capo Palm MD [address] [place] [facility] [address] PCP - General Internal Medicine 07/14/23 Receptionist Scheduler Relationship Specialty Start Date End Date Capo Palm MD [address] [facility] [id number] PCP - General Internal Medicine 07/14/23 Receptionist Scheduler Relationship Specialty Start Date End Date Capo Palm MD [address] [place] [facility] [address] PCP - General Internal Medicine 07/14/23 Team Status: Inactive Member Role Status Dates Capo Palm DO Primary Care Provider Active Start: May 19, 2024 End: May 19, 2024 Akil Martinez DO Attending Provider Active St art: May 19, 2024 End: May 19, 2024 Team Status: Active Member Role Status Dates Capo Palm DO Primary Care Provider Active Start: June 03, 2024 Akil Martinez DO Attending Provider Active St art: June 03, 2024 Team Status: Inactive Member Role Status Dates Capo Palm DO Primary Care Provider Active Start: June 13, 2024 End: June 13, 2024 Akil Martinez DO Attending Provider Active St art: June 13, 2024 End: June 13, 2024 Team Status: Inactive Member Role Status Dates Capo Palm DO Primary Care Provider Active Start: July 12, 2024 End: July 12, 2024 Akil Martinez DO Attending Provider Active St art: July 12, 2024 End: July 12, 2024 Team Status: Inactive Member Role Status Dates Capo Palm DO Primary Care Provide r, Attending Provider Active Start: August 01, 2024 End: August 01, 2024 INFORMATION SOURCE (unrecogn ized section and content) DATE CREATED AUTHOR 12/18/2021 [facility] DATE CREATED AUTHOR AUTHOR'S ORGANIZ ATION 11/19/2023 [facility] [place] DATE CREATED AUTHOR AUTHOR'S ORGANIZ ATION 04/19/2024 [facility] DATE CREATED AUTHOR AUTHOR'S ORGANIZ ATION 05/21/2024 [facility] Goals (unrecognized section and content) Goals may be documented in a n alternate section REASON FOR VISIT (unrecogniz ed section and content) Specialty Diagnoses / Procedures Referred By Contac t Referred To Contact Physical Therapy Diagnoses BPPV Procedures [place] PHYSICAL THERAPY EVALUATION LOW COMPLEX 20 MINS Capo Palm MD [address] [facility] [place] [place] [address] Racquel Carbajal, PT [address] [facility] [address] [place] [address] Referral ID Status Reason Start Date Expiration Date V isits Requested Visits Authorized [id number] Authorized 11/04/2023 05/02/2024 99 99 Reason Comments Skin Check FOR RECORDS PERTAINING TO PATIENTS WHO ARE [...] BE BASED ON THE PRIMARY CLINICAL RECORDS. [facility], [facility]. provides no warranty or guarantee of the accuracy or completeness of information in this document.
--- NOTE | 2024-08-17 07:45 | NM_ITS ---
Patient Name: CY NGO MR#: [id number] : 1955 Exam Date: 08/17/2024 Ordering Doctor: DR REJI DUNN D.O. RADIOLOGY REPORT PROCEDURE: NM JAGDEEP PERF SPECT REST STR COMPARISON: None. INDICATIONS: CHEST PAIN, DYSPNEA TECHNIQUE: Exam Description: Stress/Rest one day protocol gated SPECT Rest Imagin.9 mCi Tc-99m Cardiolite IV on 08-17-2024 Stress Imaging 30.7 mCi Tc-99m Cardiolite IV on 08-17-2024 Exercise Protocol: Rashaun Heart Rate (bpm): Rest: 50 Max: 127 PMHR: 85 Blood Pressure: Rest: 130/82 Max: 148/88 Exercise Time: Minutes: 5 Seconds: 31 Stage Reached: Stage: 2 Mets 7.0 Symptoms: Rest and peak stress ECG findings were pending, and the exercise portion of the study was pending per attending physician [facility]. For more details, please see separate cardiac stress test report. FINDINGS: QUALITY OF STUDY: Good PERFUSION DEFECT: LOCATION: Basal anteroseptal SIZE: Moderate SEVERITY: Moderate TYPE: Partially reversible WALL MOTION: Normal wall motion LV SIZE: 63 mL TID / TCD: 0.9 LVEF: Calculated EF 79%. SUMMARY: Myocardial perfusion imaging study is abnormal CONCLUSION: 1. Myocardial perfusion is abnormal with significant breast attenuation 2. There is a basal, anteroseptal, reversible perfusion defect suggestive of ischemia although shifting breast attenuation is more likely 3. Global left ventricular systolic function is hyperdynamic; EF is 79% 4. No evidence of transient ischemic dilatation Dictated by: Ligia Clark M.D. on 08/17/2024 at 17:08 Approved by: Ligia Clark M.D. on 08/17/2024 at 17:11
--- NOTE | 2024-08-17 10:09 | PC.NURSE ---
Nursing Note Cardiac Stress Test Reviewed: Medication, allergies and patient history reviewed. Stress Test: [x ] Patient tolerated stress test well. [ ] Patient unable to tolerate walking on treadmill. Switched to Lexiscan stress test. [x ] No chest pain noted per patient [ ] Chest pain that resolved prior to leaving stress lab. [ ] No dyspnea noted. [ x] Dyspnea that resolved prior to leaving stress lab. [ x] Patient left stress lab asymptomatic and hemodynamically stable. [ ] Patient taken to the Emergency Room due to non-resolving symptoms following stress test. [ x] Patient achieved target heart rate. [ ] Patient unable to achieve target heart rate. [ ] Aminophylline administered as reversal agent to Lexiscan (Regadenoson). [ ] Nitro administered. Nursing Comments:Pt had Cardio Lite test done. NO CP noted but had SOB that she states is normal with activity for her. Pt states no new symptoms that she has not experienced before. Pt recovered quickly and no symptoms when pt left stress lab.
--- NOTE | 2024-08-18 10:43 | PM.STRESS ---
Stress Test Stress Test Requesting physician: Capo Palm Procedure: Treadmill nuclear stress test with Cardiolite injection General Information: Reason for Stress Test: [Chest pain, shortness of breath] Cardiac History and Risk Factors: [Age] Resting 10 - Lead Electrocardiogram: Sinus bradycardia Poor R wave progression, rule out anterior infarct age-indeterminate Abnormal resting EKG Stress Test: Protocol: [Rashaun protocol; the patient exercised for 5 minutes and 31 seconds. She reached stage II. Maximum METS 7.0] Exercise Capacity: [Good] Blood Pressure Response: [Resting blood pressure was 130/82, peak blood pressure was 148/88] Rhythm: [Sinus rhythm, frequent premature ventricular contractions, ventricular couplets] ST - Response: [No significant ST-T wave changes noted] Patient Response: [Shortness of breath, she had no chest pain] Resting heart rate was 50 bpm increasing to a maximum of 127 bpm. This represents 85% of maximal predicted heart rate. Reason for termination: Target heart rate achieved, fatigue and shortness of breath Interpretation: 1. No significant EKG changes noted on treadmill stress test 2. Appropriate heart rate and blood pressure response to exercise 3. Premature ventricular contractions and couplets noted 4. Davenport treadmill score is +5.3. Estimated 1 year mortality: 0.5 to 0.6%. Risk category: Low risk. Angiography: Usually not indicated 5. Nuclear images are to be read, interpreted, and reported separately
== END 2024-08-17 07:34 | disposition home or self-care (01) ==
LOC: NM 07:33
PROVIDERS: PCP Internal Medicine; Visit Provider Internal Medicine
DX: R07.9 Chest pain, unspecified (principal); R94.8 Abnormal results of function studies of other organs and systems
CPT/HCPCS: 78452; 93017

== ENCOUNTER 2024-08-24 13:21 | Outpatient (OUT) | payer MEDICARE, SELFPAY ==
--- OUTSIDE RECORDS SUMMARY | 2024-08-24 07:29 | XMS_ITS | Continuity of Care Document ---
Author Organization [facility] Address [address] [place] [address] Phone Support Name Relationship Address Phone Jim Fraire Emergency Contact Unknown Jim Fraire Caregiver Unknown [phone] Capo Palm DO Personal Relationship [address] [place] [address] Akil Martinez DO Personal Relationship [address] [place] [address] Care Teams Patient Care Team Team Status: Active Member Role Status Brock Palm DO Primary Care Provider Active Visit Care Team Team Status: Active Member Role Status Brock Palm DO Primary Care Provider Active Start: June 03, 2024 Akil Martinez DO Attending Provider Active St art: June 03, 2024 Visit Care Team Team Status: Inactive Member Role Status Brock Palm DO Primary Care Provider Active Start: June 13, 2024 End: June 13, 2024 Akil Martinez DO Attending Provider Active St art: June 13, 2024 End: June 13, 2024 Visit Care Team Team Status: Inactive Member Role Status Brock Palm DO Primary Care Provider Active Start: July 12, 2024 End: July 12, 2024 Akil Martinez DO Attending Provider Active St art: July 12, 2024 End: July 12, 2024 Visit Care Team Team Status: Inactive Member Role Status Brock Palm DO Primary Care Provide r, Attending Provider Active Start: August 01, 2024 End: August 01, 2024 Patient Care Team Team Status: Inactive Member Role Status Brock Palm DO Primary Care Provide r, Attending Provider Active Start: August 24, 2024 End: August 24, 2024 Chief Complaint and Reason for Visit Chief Complaint Admit Date 01-03 days post op June 13, 2024 10: 11am 4 WEEKS July 12, 2024 10: 46am 6 month f/u August 01, 2024 9:34a m Stress Test f/u August 24, 2024 10:58 am Reason for Visit Admit Date Left carpal tunnel syndrome June 13, 2024 10:11am Status post carpal tunnel release June 13, 2024 10:11am Encounter for removal of sutures May 222024 10:11am Cubital tunnel syndrome on left July 122024 10:46am Left carpal tunnel syndrome July 12, 2024 10:46am Status post carpal tunnel release July 12, 2024 10:46am BPPV (benign paroxysmal positional verti go) August 01, 2024 9:34am Chronic venous insufficiency August 01 9:34am SHERRILL (generalized anxiety disorder) July 212024 9:34am GERD (gastroesophageal reflux disease) M ay 2024 9:34am IFG (impaired fasting glucose) August 01, 2024 9:34am Obesity August 01, 2024 9:34a m Chest pain August 01, 2024 9:34a m FARIAS (dyspnea on exertion) August 24, 2024 10:58am GERD (gastroesophageal reflux disease) J 2024 10:58am IFG (impaired fasting glucose) August 24, 2024 10:58am Obesity August 24, 2024 10:58 am Allergies, Adverse Reactions, Alerts Allergen Type Severity Reaction Last Updated Verified Status Comments Sulfa (Sulfonamide Antibiotics) Allergy Unknown Hives August 24, 2024 11:00am Yes Active Onset Date: 12/14/2017 Social History Smoking Status Status Start Date End Date Date of Observa tion Ex-smoker (finding) July 9:37am Observation Status Observation Response Date of Response Patient Sex Female August 24, 2024 1 1:29am Assigned Sex Female 1955 Family History Relationship Condition Age at Onset Recorded Date/T shandra mother Dementia Unknown Unknown Hypertension Unknown father Blood disorder Unknown Unknown Problems Active Problems Medical Problem Onset Date Status Comments Medicare annual wellness vis it, subsequent Active SHERRILL (generalized anxiety disorder) Active Cubital tunnel syndrome on left Active Primary osteoarthritis of le ft shoulder Active Left carpal tunnel syndrome Active BPPV (benign paroxysmal posi tional vertigo) Active FARIAS (dyspnea on exertion) Active IFG (impaired fasting glucose) Active Stress test: basal, anteroseptal reversible defect suggestive of ischemia but more likely breast artifact - 07/2024 Status post carpal tunnel release 2024 Active left Chronic venous insufficiency Active GERD (gastroesophageal reflu x disease) Active Obesity Active Inactive/Resolved Problems Medical Problem Onset Date Status Comments Brain fog Resolved Status post total shoulder arthroplasty R esolved 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 Resolved Screening for colorectal cancer Resolved Medications Medication Status Dose Units Route Directions Qty Days St art Date Stop Date End Date Instructions Meloxicam 15 mg tablet Discont inued 15 MG PO Daily 30 2023 1:00am August 25, 2023 11:38 am Sertraline 100 mg tablet Discont inued 100 MG PO Daily 30 July 21, 2023 12:00a m July 22, 2023 9:27a m Sertraline 100 mg tablet Discont inued 100 MG PO Daily 90 July 22, 2023 9:26am October 20, 2023 6:15p m Oxycodone 5 mg tablet Discont inued 5 MG PO Q6H as needed for Pain 28 September 08, 2023 Augus t 2023 10:53 am DO NOT RECONCILE UNTIL DOS 09/09/23 TO BE USED POST OP Aspirin 81 mg tablet,chewa ble Discont inued 81 MG PO Twice daily 60 30 September 08, 2023 12:00a m Augus t 2023 10:53 am DO NOT RECONCILE UNTIL DOS 09/09/23 TO BE USED POST OP Docusate Sodium (Colace) 100 mg capsule Discont inued 100 MG PO Twice daily as needed for Constipatio n 20 10 September 08, 2023 12:00a m Augus t 2023 10:53 am DO NOT RECONCILE UNTIL DOS 09/09/23 TO BE USED POST OP Acetaminophe n 500 mg tablet Discont inued 500 MG PO Q6H as needed for Pain September 08, 2023 12:00a m Augus t 2023 10:58 am DO NOT RECONCILE UNTIL DOS 09/09/23 TO BE USED POST OP Polyethylene Glycol 3350 (Miralax) 17 gram powder in packet Discont inued 17 GM PO daily 14 September 08, 2023 12:00a m Augus t 2023 10:58 am 1 packet mixed with 8 ounces of fluid. DO NOT RECONCILE UNTIL DOS 09/09/23 TO BE USED POST OP Meloxicam 15 mg tablet Discont inued 15 MG PO daily September 08, 2023 12:00a m Augus t 2023 10:53 am DO NOT RECONCILE UNTIL DOS 09/09/23 TO BE USED POST OP Sertraline 100 mg tablet Discont inued 100 MG PO Daily October 20, 2023 6:14pm Febru 2024 1:53p m Omeprazole 40 mg capsule,mary yed release(DR/E C) Discont inued 40 MG PO Daily November 05, 2023 2:10pm Novem harmony 2023 11:05 am Take on an empty stomach, 30 minutes prior to bkfst Sertraline 100 mg tablet Discont inued 100 MG PO Daily 2024 1:53pm Febru 2024 11:59 am Sertraline 100 mg tablet Active 100 MG PO Daily ua ry 2024 11:59a m Multivitamin Tablet Discont inued 1 TAB PO Daily June 25, 2021 12:00a m August 01, 2024 9:43a m Citalopram 20 mg tablet Discont inued 20 MG PO Daily June 25, 2021 12:00a m July 16, 2023 9:47p m Omeprazole 20 mg Capsule,Mary yed Release(Dr/E c) Discont inued 20 MG PO Daily June 25, 2021 12:00a m July 10, 2023 10:00 am Lactobacillu s Acidophilus (Acidophilus ) Capsule Discont inued 1000 MMU CELLS PO Daily June 25, 2021 12:00a m July 10, 2023 9:59a m [facility] Discont inued 1 TAB PO Daily August 25, 2023 12:00a m August 01, 2024 9:43a m Tramadol 50 mg tablet Discont inued 50 MG PO Every 6 hours as needed for pain 12 25June 02, 2024 12:00a m August 01, 2024 9:43a m TO BE USED POST OP 06/03/24 Prednisone 5 mg tablet Discont inued 5 MG PO daily 19 7 July 12, 2024 12:00a m August 01, 2024 9:43a m Take 4 pills by mouth x2 days, take 3 pills by mouth x2 days, take 2 pills by mouth x2 days, take 1 pill by mouth x1 day. Omeprazole 40 mg capsule,mary yed release(DR/E C) Discont inued 40 MG PO Daily August 03, 2023 12:00a m Augus t 2023 2:10p m Take on an empty stomach, 30 minutes prior to bkfst Diclofenac Sodium 3 % gel Discont inued 1 APPLIC TOPICA L Twice daily July 10, 2023 12:00a m August 25, 2023 11:38 am Oxybutynin Chloride 5 mg tablet Discont inued 5 MG PO Daily July 10, 2023 12:00a m July 16, 2023 11:08 am Citalopram 40 mg tablet Discont inued 40 MG PO Daily July 16, 2023 12:00a m July 21, 2023 8:48a m Famotidine (Pepcid) 20 mg tablet Active 20 MG PO Daily Novemb er 2023 1:00am Hyoscyamine Sulfate 0.125 mg tablet,disin tegrating Discont inued 0.125 MG PO Four times daily as needed for diarrhea 20 August 27, 2023 12:00a m September 09, 2023 6:34a m Immunizations Immunization Event Date Not Given Reason Dose Number Log Sorting Supervisor Lot Number Vaccine Information Statement (VIS) Detail COVID-19 Ad26.COV2.S ([employer]igarette) June 08, 2020 COVID-19 Ad26.COV2.S ([employer] Cigarette) August 16, 2021 COVID-19 mRNA Bivalent Booster ([employer]) September 16, 2022 Fluzone TIV High-Dose 65YR+ February 04, 2024 [id number] influenza, unspecified formulation January 25, 2019 influenza, unspecified formulation January 30, 2020 influenza, unspecified formulation January 30, 2021 influenza, unspecified formulation January 27, 2022 influenza, unspecified formulation February 02, 2023 Pneumococcal Conjugate Vaccine, 13 valent January 25, 2019 Pneumococcal Polysacc. Vaccine, 23 valent January 30, 2020 Tetanus, Diphtheria adult, 5 Lf pres free abs January 04, 2013 Tetanus, Diphtheria adult, 5 Lf pres free abs September 14, 2020 Medical Equipment Device Date Implanted Device Details Orthopaedic bone screw, non-bioabsorbable, non-sterile September 09, 2023 YANELY: ()[id number] Issuing Agency: [facility] Device Id: [id number] Orthopaedic bone screw, non-bioabsorbable, non-sterile September 09, 2023 YANELY: ()[id number] Issuing Agency: [facility] Device Id: [id number] Orthopaedic bone screw, non-bioabsorbable, non-sterile September 09, 2023 YANELY: ()[id number] Issuing Agency: [facility] Device Id: [id number] Polyethylene reverse shoulde r prosthesis cup September 09, 2023 YANELY: [id number] Issuing Agency: [facility] Device Id: [id number] Expiration Date: 2027-08-07 Serial Number: [id number] Coated shoulder humeral stem prosthesis September 09, 2023 YANELY: ()[id number] Issuing Agency: [facility] Device Id: [id number] Expiration Date: 2027-07-03 Serial Number: [id number] Reverse shoulder prosthesis head September 09, 2023 YANELY: [id number] Issuing Agency: [facility] Device Id: [id number] Expiration Date: 2028-06-28 Serial Number: [id number] Orthopaedic bone screw, non-bioabsorbable, non-sterile September 09, 2023 YANELY: ()[id number] Issuing Agency: [facility] Device Id: [id number] Orthopaedic bone screw, non-bioabsorbable, non-sterile September 09, 2023 YANELY: ()[id number] Issuing Agency: [facility] Device Id: [id number] Reverse shoulder prosthesis base plate September 09, 2023 YANELY: ()[id number] Issuing Agency: [facility] Device Id: [id number] Expiration Date: 2028-03-09 Serial Number: [id number] Vital Signs Vital Reading Result Reference Range Collection Date/Time Height 63 [in_i] August 01, 2024 9:34am Weight 82.10 kg August 01, 2024 9:34am Heart Rate 58 /min 60-100 August 01, 2024 9:34am Respiratory rate 12 /min 12-24 August 01, 2 025 9:34am Oxygen saturation by Pulse oximetry 97 % 95-10 0 August 01, 2024 9:34am BP Systolic 126 mm[Hg] 100-140 August 01, 2024 9:34am BP Diastolic 83 mm[Hg] 60-100 August 01, 2024 9:34am BMI (Body Mass Index) 32.1 kg/m2 August 012024 9:34am Height 63 [in_i] August 24, 2024 11:06am Weight 81.87 kg August 24, 2024 11:06am Heart Rate 62 /min 60-100 August 24, 2024 11:06am Respiratory rate 12 /min 12-August 24, 2 025 11:06am BP Systolic 128 mm[Hg] 100-140 August 24, 2024 11:06am BP Diastolic 84 mm[Hg] 60-100 August 24, 2024 11:06am BMI (Body Mass Index) 31.9 kg/m2 August 242024 11:06am Advance Directives Advance Directive Response Recorded Date/ Time Advance Directives No April 14, 2023 3:03pm Insurance Providers Guarantor Sayda Fraire Address [address] [place] [id number] Contact Info. Home Phone: Payer Policy Id Coverage Id Subscriber's Name Subscriber Id Effective Date Expiration Date [facility] [id number] Sayda Fraire [id number] Encounters Encounter Location(s) Arrival/Admit Date Discharge/Depart Date Provider(s) Non-patient / Non-visit [facility] Physician [facility] June 03, 2024 10:00am Akil Martinez DO Departed Physician/Prov ider Office Visit [facility] June 13, 2024 10:11am June 13, 2024 10:47am Akil Martinez DO Departed Physician/Prov ider Office Visit [facility] July 12, 2024 10:46am July 12, 2024 11:19am Akil Martinez DO Departed Physician/Prov ider Office Visit [facility] August 01, 2024 9:34am August 01, 2024 10:39am Capo Palm DO Departed Physician/Prov ider Office Visit [facility] August 24, 2024 10:58am August 24, 2024 11:28am Capo Palm DO Recent Diagnosis Onset Date Admit Date Left carpal tunnel syndrome Jose G h 2024 10:11am Status post carpal tunnel release 2024June 13, 2024 10:11am Encounter for removal of sutures June 13, 2024 10:11am Cubital tunnel syndrome on left July 12, 2024 10:46am Left carpal tunnel syndrome Apri l 2024 10:46am Status post carpal tunnel release 2024July 12, 2024 10:46am BPPV (benign paroxysmal positional vertigo) August 01, 2024 9:34am Chronic venous insufficiency August 01, 2024 9:34am SHERRILL (generalized anxiety disorder) August 01, 2024 9:34am GERD (gastroesophageal reflux disease) August 01, 2024 9:34am IFG (impaired fasting glucose) M ay 2024 9:34am Obesity August 01, 2024 9 :34am Chest pain August 01, 2024 9 :34am FARIAS (dyspnea on exertion) August 242024 10:58am GERD (gastroesophageal reflux disease) August 24, 2024 10:58am IFG (impaired fasting glucose) J 2024 10:58am Obesity August 24, 2024 1 0:58am Assessments Diagnosis Onset Date Resolution Status Admit Date Left carpal tunnel syndrome acute June 13, [...] paroxysmal positional vertigo) acute August 01 9:34am Chronic venous insufficiency acute August 01, 2024 9:34am SHERRILL (generalized anxiety disorder) acute August 01, 2024 9 :34am GERD (gastroesophageal reflu x disease) acute August 01, 2024 9 :34am IFG (impaired fasting glucose) acute August 01, 2024 9:34am Obesity acute August 01, 2024 9:34am Chest pain deleted August 01, 2024 9:34am FARIAS (dyspnea on exertion) acute August 24, 2024 10:58am GERD (gastroesophageal reflu x disease) acute August 24, 2024 1 0:58am IFG (impaired fasting glucose) acute August 24, 2024 10:58am Obesity acute August 24, 2024 10:58am Plan of Treatment Author Capo [facility] Authored August 01, 2024 10:44 am His A1C is between 5.7-6.5%. Instructed on low carb, high fiber diet. Instructed on routine exercise program for 30-60min three times weekly. Instructed on correlation between obesity and insulin resistance and encouraged to lose weight. Monitor A1C every 6 months. Instructed on a healthy diet and exercise routine. Instructed to continue medical treatment w/o interruption. Instructed to avoid abrupt d/c of medication due to w/d symptoms. Continue Sertraline without interruption Recurrent episodes. Refer back to physical therapy as needed Continue w/ home exercises f/u w/ vestibular therapist as needed I have instructed this patient on a low-fat, high-fiber diet. I have also instructed them to reduce calories, portions sizes, sweet drinks and snacks. I have also recommended they exercise for 30 minutes, 3-5 times weekly. They are aware of the comorbid conditions associated with excessive weight: Diabetes, HTN, Hyperlipidemia, CAD and arthritis. Occurs routinely while walking. Has stopped her walking routine Instructed to go to ER for CP/dyspnea, which doesn't resolve w/ rest Scheduled TMET/Cardiolite I have instructed this patient to avoid salt and elevate their lower extremities. I have also recommended use of support stockings. I instructed them to inspect their legs and feet daily for blisters and ulcerations. This is an asymptomatic, low risk patient, who is due for a screening colonoscopy. There has been no change in appetite, weight or bowel habits. There is no history of abdominal pain, heartburn, dysphagia, melena or hematochezia. Continue Famotidine without interruption Author Rachel Ortiz [facility] Authored June 13, 2024 10: 49am Patient is doing well after surgery, although she appears to have some element of inflammation surrounding the nerve causing altered sensation at the fingers. This should continue to improve over time. Sutures were removed with no complications. No issues with the surgical incision(s). Discussed postoperative course with the patient in the rehabilitation process. Patient placed in cock up wrist splint to allow the area to rest. Patient will follow-up in 4 weeks for reevaluation. Author Akil Martinez [facility] Authored July 12, 2024 11: 42am Patient continues to progres s from carpal tunnel release, although appears to have some symptoms consistent with cubital tunnel on exam today which were not there previously. We discussed various treatment options. At this point we will pursue conservative management in the form of oral prednisone taper. Sent in prescription with instructions on use. If no improvement, may consider cubital tunnel surgical release. Patient will follow-up in 8 week for reevaluation. 7 day steroid Author Capo Palm [facility] Authored August 22, 2024 7:06a m His A1C is between 5.7-6.5%. Instructed on low carb, high fiber diet. Instructed on routine exercise program for 30-60min three times weekly. Instructed on correlation between obesity and insulin resistance and encouraged to lose weight. Monitor A1C every 6 months. This is an asymptomatic, low risk patient, who is due for a screening colonoscopy. There has been no change in appetite, weight or bowel habits. There is no history of abdominal pain, heartburn, dysphagia, melena or hematochezia. Continue Famotidine without interruption I have instructed this patient on a low-fat, high-fiber diet. I have also instructed them to reduce calories, portions sizes, sweet drinks and snacks. I have also recommended they exercise for 30 minutes, 3-5 times weekly. They are aware of the comorbid conditions associated with excessive weight: Diabetes, HTN, Hyperlipidemia, CAD and arthritis. No hx of tobacco use or asthma. Denies cough, wheezing or sputum production TMET: - completed to 85% MPHR - w/o acute ST/T wave changes - PVC and couplets present during exercise - results consistent w/ low risk Cardiolite images: - basal and anteroseptal reversible defect - normal LVEF and wall motion anaylsis with no TID present during exercise - suggestive of breast artifact Future Tests Future scheduled test information is unavailable Pending Tests Test Name Ordered Date Scheduled Date XR chest 2V* August 24, 2024 11:19am Future Visits Future appointment information is unavailable Referrals to Other Providers Referral information is unavailable Future Procedures Procedure Name Ordered Date Scheduled Date STR cardiac stress/cardiol August 01, 2024 10:39a m Future Medications Future medication information is unavailable Patient Instructions Patient instructions are unavailable
--- OUTSIDE RECORDS SUMMARY | 2024-08-24 13:26 | XMS_ITS | Clinical Summary ---
Author Organization [facility] Address [address] [place] [address] Care Team Providers Care Bmet Name Role Phone Capo Palm Primary Care Provider [phone] Allergies Active Allergy Reactions Criticality Noted Date [...] [facility] [address] [place] [address] Monica Goldman, [place] [address] [place] [address] Health Maintenance Due Date Last Done Comments CT Colonography 1955 Colonoscopy 1955 Colorectal Cancer Screening 1955 FIT-DNA 1955 FIT 1955 FOBT 1955 Sigmoidoscopy 1955 Mammogram 1993 Pneumococcal Vaccine: 65+ Ye ars (2 of 2 - PCV) 01/29/2021 01/30/2020, 01/21/2019 Influenza Vaccine Completed 02/04/2024, , 01/30/2020, Additional history exists Insurance [employer]ANT[employer] Care Teams Bmet Relationship Specialty Start Date End Date Capo Palm DO PCP - General Internal Medicine 07/14/23
--- NOTE | 2024-08-24 13:28 | XR_ITS ---
The [address] [address] Patient Name: YC NGO MRN: [id number] date: 1955 Sex: F Assigned Patient Location: [facility] Current Patient Location: [facility] Accession/Order Number: [id number] Exam Date: 08/24/2024 15:10 Report Date: 08/24/2024 15:20 At the request of: REJI DUNN DO Procedure: XR chest 2V Plain film chest 2 view HISTORY: Shortness of breath for one month COMPARISON: 06/23/2018 FINDINGS: SUPPORT DEVICES: None POSTSURGICAL CHANGES: Left shoulder arthroplasty HEART: Within normal limits PULMONARY NICKO: Within normal limits MEDIASTINUM: Unremarkable LUNGS AND PLEURA: No acute lung process, pleural effusion or pneumothorax identified. BONY STRUCTURES: Thoracic spondylosis ADDITIONAL FINDINGS None XR/XR chest 2V IMPRESSION: No acute process. Impression dictated by: Kehinde Erazo M.D. 08/24/2024 3:20 PM Dictation Location: [employer] Electronically authenticated by: [id number] Y Date: 08/24/2024 15:20
== END 2024-08-24 13:22 | disposition home or self-care (01) ==
LOC: RAD 13:24
PROVIDERS: PCP Internal Medicine; Visit Provider Internal Medicine
DX: R06.09 Other forms of dyspnea (principal)
CPT/HCPCS: 71046

== ENCOUNTER 2024-12-19 09:35 | Outpatient (OUT) | payer MEDICARE, SELFPAY ==
--- OUTSIDE RECORDS SUMMARY | 2024-05-19 09:44 | XMS_ITS ---
Author Name Auto Generated Organization [facility] Care Team Providers Care Banquet Stewardess Name Role Phone LIZZIE HARRISON Attending Unavailable RACQUEL CARBAJAL Attending Unavailable CAPO DUNN Referring Unavailable RACQUEL CARBAJAL Attending Unavailable CAPO DUNN Referring Unavailable RACQUEL CARBAJAL Attending Unavailable CAPO DUNN Referring Unavailable RACQUEL CARBAJAL Attending Unavailable CAPO DUNN Referring Unavailable Akil Martinez Attending Unavailable Capo Dunn Primary Care Unavailable Akil Martinez Admitting Unavailable Akil Martinez Attending Unavailable Capo Dunn Primary Care Unavailable Akil Martinez Admitting Unavailable Akil Martinez Attending Unavailable Capo Dunn Primary Care Unavailable Akil Martinez Admitting Unavailable Akil Martinez Admitting Unavailable Capo Dunn Primary Care Unavailable Akil Martinez Attending Unavailable PROBLEMS DATE TYPE CONDITION / CODE ATTENDING STATUS JANELLE E 05/19/2024 Unknown Encounter for ot her preprocedural examination / Z01.818(ICD-10) Akil Martinez [facility] 04/13/2024 Unknown Carpal tunnel sy ndrome, left upper limb / G56.02(ICD-10) Akil Martinez [facility] 03/21/2024 Unknown Presence of left artificial shoulder joint / Z96.612(ICD-10) Akil Martinez [facility] 12/24/2023 Unknown Pain in left akua ulder / M25.512(ICD-10) Akil Martinez [facility] PROCEDURES No Procedure Records Found RESULTS COMPLETE BLOOD COUNT AUTO DIFF Collected: 05/19/2024 9:11 AM Status: F Source: [facility] TYPE CODE TESTS RESULT OUT OF RANGE REFERENCE UNITS LAB WBC White Blood Count 5.9 Normal 3.8-11.6 10*3/uL LAB UNWBC Uncorrected WBC 5.9 Normal 3.8-11.6 10*3/uL LAB RBC Red Blood Count 3.95 Normal 3.60-5.00 10*6/u L LAB HGB Hemoglobin 12.7 Normal 11.8-15.4 g/dL LAB HCT Hematocrit 37.6 Normal 34.0-46.4 % LAB MCV Mean Corpuscular Volume 95.0 Normal 80-100 fL LAB MCH Mean Corpuscular Hemoglobin 32.1 Normal 24.7-34.3 pg LAB MCHC Mean Corpuscular HGB Conc 33.8 Normal 32.0-35.0 g/dL LAB RDW Red Cell Distribution Width 13.4 Normal 11.9-15.3 % LAB PLT Platelet Count 202 Normal 150-450 10*3/uL LAB MPV Mean Platelet Volume 9.1 Normal 6.3-10.7 fL LAB NE% Neutrophils % (Auto) 59.7 . % LAB LY% Lymphocytes % (Auto) 24.5 . % LAB MO% Monocytes % (Auto) 9.8 . % LAB EO% Eosinophils % (Auto) 4.9 . % LAB BA% Basophils % (Auto) 1.1 . % LAB NRBC% NRBC% 0.2 Normal 0-0.5 /100{WBC} LAB NE# Neutrophils # (Auto) 3.5 Normal 1.8-7.7 10*3/uL LAB LY# Lymphocytes # (Auto) 1.4 Normal 1.00-4.8 10*3/uL LAB MO# Monocytes # (Auto) 0.6 Normal 0.0-0.8 10*3/uL LAB EO# Eosinophils # (Auto) 0.3 Normal 0.0-0.45 10*3/uL LAB BA# Basophils # (Auto) 0.1 Normal 0.0-0.2 10*3/uL Result Comment: PERFORMED BY : [place] [address] PATHOLOGIST INCREMENT MANAGER GINNY JENSEN M.D. Performed By: #### CBC, CMP wRFX A1C #### [facility] [address] [place] [address] CMP WITH REFLEX TO A1C Collected: 05/19/2024 9:11 AM Status: F Source: [facility] TYPE CODE TESTS RESULT OUT OF RANGE REFERENCE UNITS LAB EBS GLUCOSE Glucose, Employe e SCR 85 Normal 70-100 mg/dL LAB BUN Blood Urea Nitrogen 14 Normal 7-25 mg/d L LAB CREATT Creatinine 0.73 Normal 0.60-1.20 mg/dL LAB GFReNR Estimated GFR >60.0 mL/Min LAB NA Sodium 142 Normal 136-145 mmol/L LAB K Potassium 4.2 Normal 3.5-5.1 mmol/L LAB CL Chloride 108 High 98-107 mmol/L LAB CO2 Carbon Dioxide 28.4 Normal 21.0-31.0 mmol/L LAB GAP Anion Gap 9.8 Normal 6.0-15.0 meq/L LAB CA Calcium 9.5 Normal 8.6-10.3 mg/dL LAB TP Total Protein 6.5 Normal 6.4-8.9 g/dL LAB ALB Albumin Level 4.2 Normal 3.5-5.7 g/dL LAB GLOB Globulin 2.3 g/dL LAB AGRATIO Albumin/Globulin Ratio 1.8 LAB BILIT Bilirubin,Total 0.5 Normal 0.3-1.0 mg/dL LAB AST Aspartate Amino Transferase 15 Normal 13-39 U/L LAB ALT Alanine Aminotransferase 10 Normal 7-52 U/L LAB ALP Alkaline Phosphatase 88 Normal 34-104 U/L Result Comment: PERFORMED BY : [place] [address] PATHOLOGIST INCREMENT MANAGER GINNY JENSEN M.D. Performed By: #### CBC, CMP wRFX A1C #### [place] [id number] [facility] ECG 12 LEAD ECG Observed: 05/19/2024 8:57 AM Status: COMPLETED Source: [facility] [place] [address] [place] [address] Electrocardiograph Report Signed Patient: Cy Fraire MR#: [id number] 19 : 1955 Acct:[id number] Age/Sex: 69 / F ADM Date: 05/19/24 Loc: Room: Type: [facility] CLI Attending Dr: Akil Martinez DO Ordering Provider: Akil Martinez DO Date of Service: 05/19/24 ECG/ECG 12 lead ECG: Z01.818 - Encounter for other preprocedural examination Copies to: Test Reason : Blood Pressure : */* mmHG Vent. Rate : 58 BPM Atrial Rate : 58 BPM P-R Int : 120 ms QRS Dur : 88 ms QT Int : 390 ms P-R-T Axes : 48 22 57 degrees QTcB Int : 382 ms Sinus bradycardia Otherwise normal ECG Confirmed by Nuha Buckner ([id number]) on 05/19/2024 10:06:22 AM Referred By: Electronically Signed By: Nuha Buckner Transcribed By: MUS Signed By Nuha Buckner MD 5 1006 XR SHOULDER LT MIN 2V* Observed: 024 4:07 PM Status: COMPLETED Source: [facility] [email or web address] [address] XRay Report Signed Patient: Cy Fraire MR#: [id number] [birth year] : 1955 Acct:[id number] Age/Sex: 69 / F ADM Date: 03/21/24 Loc: [facility] Room: Type: [facility] CLI Attending Dr: Akil Martinez DO Copies to: Akil Martinez DO Ordering Provider: Akil Martinez DO Date of Service: 03/21/24 XR/XR shoulder LT min 2V*: Z96.612 - Presence of left artificial shoulder joint 3 views left shoulder plain film HISTORY: Status post reverse left total shoulder arthroplasty COMPARISON: 12/17/2023 ACUTE FINDINGS: None DEGENERATIVE CHANGE: Unremarkable SOFT TISSUE FINDINGS: Unremarkable JOINT EFFUSION: None POSTOP CHANGES: Stable hardware without complication BONY MINERALIZATION: Adequate XR/XR shoulder LT min 2V* IMPRESSION: Stable uncomplicated left shoulder arthroplasty Impression dictated by: Kehinde Erazo M.D.03/21/2024 4:08 PM Dictation Location: [place] [address] Transcribed By: [facility] 03/21/24 1608 Dictated By: Kehinde Erazo DO 03/21/24 1607 Signed By: <Electronically signed by Kehinde Erazo DO in OV> 03/21/24 1608 ALLERGIES DATE TYPE / CODE NAME / CODE REACTION SEVERITY SOURCE 03/21/2024 Drug Allergy/979271118 (SNOMED CT) Sulfa (Sulfonamide Antibiotics)/N8840 43750(RXNORM) Hives Unknown [facility] ENCOUNTERS ADMIT/DISCHARGE ACCOUNT NUMBER ADMITTING ENCOUNTER CLASS LOCATION SOURCE 05/19/2024/05/19/19 [id number] [facility] 04/18/2024/04/18/19 [id number] Ambulatory Building:[facility] 04/13/2024/04/13/19 25 [id number] [facility] 03/21/2024/03/21/20 24 [id number] [facility] 02/11/2024/02/11/20 24 [id number] Ambulatory Building:[facility] 01/21/2024/01/21/20 24 [id number] Ambulatory Building:[facility] 01/07/2024/01/07/20 24 [id number] Ambulatory Building:[facility] EPIC 12/30/2023/12/30/19 24 [id number] Ambulatory Building:[facility] EPIC 12/24/2023/12/24/19 24 [id number] Akil Martinez [facility] PAYERS ENCOUNTER GUARANTOR PAYER SUBSCRIBER SOURCE 05/19/[address] [address]Jyy: (HP) Primary Insurance:[employer]na [facility] PFFSPolicy Number: [id number] Date:2814-54-99ID [id number] [place] [address]NV: Cy FraireDOB: [id number] [address] [address]Bpw: (HP) [facility] 05/19/2024 Secondary Insurance:Self PayPolicy Number: Effective Date:2024-05-19 [facility] 04/18/2024 CY PARRISHB: [id number] [address] [address]Jku: (HP) Primary Insurance:AETNA MEDICARE ADVANTAGEPolicy Number: [id number] Date:2023-03-23 CY Estrella GOODDOB: [id number] [address] [address] [facility] 04/13/2024 Cy [id number] [address]Tei: (HP) Primary Insurance:[employer]na MCR PFFSPolicy Number: [id number] Date:[id number] [id number] [place] [address]FR: Cy FraireDOB: [id number] [address] [place] [address]Zvy: (HP) [facility] 04/13/2024 Secondary Insurance:Self PayPolicy Number: Effective Date:2024-03-21 [facility] 03/21/2024 Cy Estrella [id number] [address] [place] [address]Mwi: (HP) Primary Insurance:Aetna MCR PFFSPolicy Number: [id number] Date:[id number] [id number] [place] [address]KK: Cy Estrella GoodDOB: [id number] [address] [place] [address]Aqn: (HP) [facility] 03/21/2024 Secondary Insurance:Self PayPolicy Number: Effective Date:2024-03-21 [facility] 02/11/2024 CY Estrella GOODDOB: [id number] [address] [address]Xaw: (HP) Primary Insurance:AETNA MEDICARE ADVANTAGEPolicy Number: [id number] Date:2023-03-23 CY Estrella GOODDOB: [id number] [address] [place] [address] [facility] EPIC 01/21/2024 CY Estrella GOODDOB: [id number] [address] [place] [address]Uxr: (HP) Primary Insurance:AETNA MEDICARE ADVANTAGEPolicy Number: [id number] Date:2023-03-23 CY Estrella GOODDOB: [id number] [address] [place] [address] [facility] EPIC 01/07/2024 CY PARRISHB: [id number] [address] [address]Oie: (HP) Primary Insurance:AETNA MEDICARE ADVANTAGEPolicy Number: [id number] Date:2023-03-23 CY Estrella GOODDOB: [id number] [address] [place] [address] [facility] 12/30/2023 CY Estrella GOODDOB: [address] [address]Rac: (HP) Primary Insurance:AETNA MEDICARE ADVANTAGEPolicy Number: [id number] Date:2023-03-23 CY Estrella GOODDOB: [id number] [address] [address] [facility] 12/24/2023 Cy [id number] [address]Gxh: (HP) Primary Insurance:Aetsebastián [facility] PFFSPolicy Number: [id number] Date:3203-00-27IG [id number] [place] [address]IV: Cy Estrella GoodDOB: [id number] [address] [address]Pkc: (HP) [facility] 12/24/2023 Secondary Insurance:Self PayPolicy Number: Effective Date:2023-09-17 [facility]
--- OUTSIDE RECORDS SUMMARY | 2024-12-19 09:38 | XMS_ITS | Clinical Summary ---
Author Organization [facility] Address [address] [place] [address] Care Team Providers Care Lead Nurse Name Role Phone Capo Palm Primary Care Provider [phone] Allergies Active Allergy Reactions Criticality Noted Date [...] 04/18/2025 2:30 PM EST Office Visit [facility] [address] [place] [address] Monica Goldman, PA [address] [place] [address] Health Maintenance Due Date Last Done Comments CT Colonography 1955 Colonoscopy 1955 Colorectal Cancer Screening 1955 FIT-DNA 1955 FIT 1955 FOBT 1955 Sigmoidoscopy 1955 Mammogram 1993 Pneumococcal Vaccine: 65+ Ye ars (2 of 2 - PCV) 01/29/2021 01/30/2020, 01/21/2019 Influenza Vaccine (#1) 2024 4, 01/27/2022, 01/30/2020, Additional history exists Insurance [employer] MED[employer] ADVANTAGE Care Teams Lead Nurse Relationship Specialty Start Date End Date Capo Palm DO PCP - General Internal Medicine 07/14/23
--- NOTE | 2024-12-19 09:40 | MM_ITS ---
Patient Name: CY NGO MR#: [id number] : 1955 Exam Date: 12/19/2024 Ordering Doctor: DR REJI DUNN D.O. RADIOLOGY REPORT PROCEDURE: MM TOMOSYNTHESIS SCREENING BI COMPARISON: MM TOMOSYNTHESIS SCREENING BI, 12/17/2023. MM TOMOSYNTHESIS SCREENING BI, 12/15/2022. MG MAMM DX 3D RT CAD, 12/11/2021. MG MAMM SCREEN ASHU W CAD, 12/18/2016. INDICATIONS: Screening Calculator Name NCI Breast Cancer Risk Assessment Tool 5 Year Breast Cancer Risk 2.60% Lifetime Breast Cancer Risk 7.30% Personal Breast Cancer No Personal Ovarian Cancer No Treatments None Family Cancers Aunt-paternal with breast cancer at age ~60; Father with leukemia cancer at age 45. LOCATION: [facility] BREAST COMPOSITION: The breasts are heterogeneously dense, which may obscure small masses. FINDINGS: DIAGNOSTIC CATEGORY 1--NEGATIVE. RIGHT BREAST: No significant suspicious finding. LEFT BREAST: No significant suspicious finding. RECOMMENDATIONS: ROUTINE MAMMOGRAM AND CLINICAL EVALUATION IN 12 MONTHS. Dictated by: Gonzalez Galo DO on 12/19/2024 at 15:26 Approved by: Gonzalez Galo DO on 12/19/2024 at 15:29
== END 2024-12-19 09:36 | disposition home or self-care (01) ==
LOC: MAMMO 09:37
PROVIDERS: PCP Internal Medicine; Visit Provider Internal Medicine
DX: Z12.31 Encounter for screening mammogram for malignant neoplasm of breast (principal); Z80.3 Family history of malignant neoplasm of breast; Z80.6 Family history of leukemia
CPT/HCPCS: 77063; 77067

== ENCOUNTER 2025-02-09 10:05 | Outpatient (OUT) | payer MEDICARE, SELFPAY ==
--- OUTSIDE RECORDS SUMMARY | 2025-02-07 04:40 | XMS_ITS | Continuity of Care Document ---
Author Organization [facility] Address [address] [place] [address] Phone Care Team Providers Care Straight Edger Name Role Phone Néstor Capo TOMLINSON Primary Care Provider Akil Martinez DO Attending Provider [phone] Tony Giles DO Attending Provider [phone] Merry Barksdale MD Attending Provider Capo Palm DO Attending Provider [phone] Care Teams Patient Care Team Team Status: Active Member Role/Relationship Status Dates Capo Palm DO Primary Care Provider Active Visit Care Team Team Status: Inactive Member Role/Relationship Status Dates Capo Palm DO Primary Care Provider Active Start: November 14, 2024 End: November 14, 2024Akil Martinez DOAttnico ProviderActiveStart: November 14, 2024 End: November 14, 2024 Visit Care Team Team Status: Inactive Member Role/Relationship Status Dates Capo Palm DO Primary Care Provider Active Start: December 01, 2024 End: December 01Fito Sebastian ProviderActive Start: December 01, 2024 End: December 01, 2024 Visit Care Team Team Status: Inactive Member Role/Relationship Status Dates Capo Palm DO Primary Care Provider Active Start: December 06, 2024 End: December 06, 2024Akil Martinez DOAttnico ProviderActiveStart: December 06, 2024 End: December 06, 2024 Visit Care Team Team Status: Inactive Member Role/Relationship Status Dates Capo Palm DO Primary Care Provider Active Start: January 06, 2025 End: January 06Megan Quarles ProviderActiveStart: January 06, 2025 End: January 06, 2025 Visit Care Team Team Status: Inactive Member Role/Relationship Status Brock Palm DO Primary Care Provider Active Start: February 06, 2025 End: February 06enirisrima DO NéstorAttnico ProviderActiveStart: February 06, 2025 End: February 06, 2025 Visit Care Team Team Status: Inactive Member Role/Relationship Status Brock Palm DO Primary Care Provider Active Start: February 07, 2025 End: February 07Megan Quarles ProviderActiveStart: February 07, 2025 End: February 07, 2025 Chief Complaint and Reason for Visit Chief Complaint Admit Date 2 MONTHS November 14, 2024 11 :03am EMG BUE per Dr. Akil Martinez November 212024 9:21am EMG [facility] December 06, 2024 12:56pm 4 WEEKS January 06, 2025 1 0:01am Wellness February 06, 2025 9:55am 4-5 WEEKS February 07, 2025 9:00am Reason for Visit Admit Date Cubital tunnel syndrome on left October 222024 11:03am Left carpal tunnel syndrome November 14, 2024 11:03am Status post carpal tunnel release November 14, 2024 11:03am Carpal tunnel syndrome, bilateral Septem 2024 9:21am Ulnar neuropathy of left upper extremity December 01, 2024 9:21am Cubital tunnel syndrome on left Septembe 2024 12:56pm Left carpal tunnel syndrome December 062024 12:56pm Status post carpal tunnel release Septem 2024 12:56pm Cubital tunnel syndrome on left January 06, 2025 10:01am Left carpal tunnel syndrome December 10:01am Status post carpal tunnel release Octobe 2024 10:01am BPPV (benign paroxysmal positional verti go) February 06, 2025 9:55am Chronic venous insufficiency February 062024 9:55am SHERRILL (generalized anxiety disorder) Novem 2024 9:55am GERD (gastroesophageal reflux disease) N ovember 2024 9:55am IFG (impaired fasting glucose) February 06, 2025 9:55am Low back pain radiating to left leg Nove mber 2024 9:55am Medicare annual wellness visit, subseque nt February 06, 2025 9:55am Obesity February 06, 2025 9:55am Cubital tunnel syndrome on left February 07, 2025 9:00am Dupuytren disease of palm of left hand N ovember 2024 9:00am Left carpal tunnel syndrome January 9:00am Status post carpal tunnel release Novemb er 2024 9:00am Allergies, Adverse Reactions, Alerts Allergen Type Severity Reaction Last Updated Verified Status Comments Sulfa (Sulfonamide Antibiotics) Allergy Unknown Hives February 06, 2025 10:00am Yes Active Onset Date: 12/14/2017 Social History Smoking Status Status Start Date End Date Date of Observa tion Ex-smoker (finding) August 01, 2024 9:37am Observation Status Observation Response Date of Response Legal Sex Female (finding) Sex Assigned At BirthFemaleDecember 1954 Family History Relationship Condition Age at Onset Recorded Date/T shandra mother Dementia Unknown DeceasedUnknownHypertensionUnknownfatherBlood disorderUnknownDeceasedUnknown Problems Active Problems Problem Diagnosis/Recorded Date Onset Date Status C omments Dupuytren disease of palm of left hand February 07, 2025 9:31am Unknown Active Medicare annual wellness visit, subsequentNovember 2023 7:30amUnknown ActiveGAD (generalized anxiety disorder)July 16, 2023 8:43pmUnknownActive Cubital tunnel syndrome on leftApril 2024 10:11amUnknownActivePrimary osteoarthritis of left shoulderApril 2023 8:58amUnknownActiveLeft carpal tunnel syndromeDecember 2023 10:08amUnknownActiveLow back painAugust 2024 1:17pmUnknownActiveBPPV (benign paroxysmal positional vertigo)July 16, 2023 8:44pmUnknownActiveDOE (dyspnea on exertion)August 22, 2024 6:05amUnknown ActiveUlnar neuropathy of left upper extremitySeptember 2024 9:17amUnknown ActiveUlnar neuropathySeptember 2024 12:16pmUnknownActiveIFG (impaired fasting glucose)July 10, 2023 8:58amUnknownActiveStress test: basal, anteroseptal reversible defect suggestive of ischemia but more likely breast art ifact - 07/2024Low back pain radiating to left legNovember 2024 10:43am UnknownActiveStatus post carpal tunnel releaseMarch 2024 5:69vx5396Ughshx leftChronic venous insufficiencyApril 2023 8:58amUnknownActiveGERD (gastroesophageal reflux disease)June 25, 2021 7:47amUnknownActiveCarpal tunnel syndrome, bilateralSeptember 2024 9:17amUnknownActiveLumbar spondylosisAugust 2024 1:18pmUnknownActiveObesityJune 2023 10:31am UnknownActiveInactive/Resolved Problems Problem Diagnosis/Recorded Date Onset Date Status C omments Brain fog July 16, 2023 8:44pm Unknown Resolved Status post total shoulder arthroplastyJune 2023 12:02pmUnknownResolved Status post reverse total arthroplasty of left shoulderJune 2023 10:25am UnknownResolvedScreening for colorectal cancerApril 2021 8:39amUnknown Resolved Medications Medication Status Dose Units Route Directions Qty Days Refills S tart Date Stop Date End Date Reason(s) Instructions Adherence Meloxicam 15 mg tablet Discontinued 15 MG PO Daily 30 30 5 May 11, 2023 12:00am August 25, 2023 10:38amSertraline 100 mg boxtulItsmmbkshbjk747NOCVPgikz38813Fkgjo 2023 11:00pmMay 2023 8:27amSertraline 100 mg mclawyXcidtornbhnw904BU NYAmbkz42973Tdf 2023 8:26amJuly 2023 5:15pmOxycodone 5 mg tablet Painaoijnbjp0QTMQH0E as needed for Xtok7424Pefo 2023 9:53amStatus post total shoulder replacement Presence of unspecified artificial shoulder jointDO NOT RECONCILE UNTIL DOS 09/09/23 TO BE USED POST OPAspirin 81 mg tablet,eelgbircHmzkrhkwraac28AXETMlcgs jbiuz0762 0June 2023 11:00pmAugust 2023 9:53amDO NOT RECONCILE UNTIL DOS 09/09/23 TO BE USED POST OPDocusate Sodium (Colace) 100 mg urfxasmQnqqzyeghjsd355UPEF Twice daily as needed for Zrnvvqlfkjmm06269Eyjp 17th, 2024 11:00pmAugust 2023 9:53amDO NOT RECONCILE UNTIL DOS 09/09/23 TO BE USED POST OPAcetaminophen 500 mg qyfymlTavgukphubza373ACIID9N as needed for Xsse973Kmmn 2023 11:00pmAugust 2023 9:58amDO NOT RECONCILE UNTIL DOS 09/09/23 TO BE USED POST OPPolyethylene Glycol 3350 (Miralax) 17 gram powder in packet Ubjtmidlxgav41JENSwrmsq84021Refh 17th, 2024 11:00pmAugust 2023 9:58am1 packet mixed with 8 ounces of fluid. DO NOT RECONCILE UNTIL DOS 09/09/23 TO BE USED POST OPMeloxicam 15 mg kqrgpjYyusqlivorlc15ZZCGiymur22269Qano 2023 11:00pmAugust 2023 9:53amDO NOT RECONCILE UNTIL DOS 09/09/23 TO BE USED POST OPSertraline 100 mg fvnneaVrqgigrphfyh699VOITHwdgj34704Jbky 2023 5:14pmFebruary 2024 12:53pmOmeprazole 40 mg capsule,delayed release(DR/EC)Ovwqfnsedltj96MFOXAgilg86625Wiccxi 2023 1:10pmNovember 2023 10:05amTake on an empty stomach, 30 minutes prior to bkfstSertraline 100 mg xrdnynOhjwbsvgehgc716NJTKShydi85934Vqlgvrcm 2024 12:53pmFebruary 2024 10:59amSertraline 100 mg dbnumwMdwovkftkmkm987HBPRLsddo28215Juxgkfdd 2024 10:59amAugust 2024 10:39amSertraline 100 mg utzgmeUdxpog229BLQJBjkzs 29969Apjwzr 2024 10:39amUnknownMultivitamin GmyzdaTuesbeevrtqt6NZHFWLwtpb June 24, 2021 11:00pmMay 2024 8:43amCitalopram 20 mg tabletDiscontinued 20MGPODailyApril 2021 11:00pmApril 2023 8:47pmOmeprazole 20 mg Capsule,Delayed Release(Dr/Ec)Kecluitnelru38CBDUNsqobEnjmd 2021 11:00pm July 10, 2023 9:00amLactobacillus Acidophilus (Acidophilus) Capsule Ferelvhldbpi8741AOL CELLSPODailyApril 2021 11:00pmApril 2023 8:59am Eye BbskumbXpmlqsxvfqnt3EYEHXDzsswGidm 2023 11:00pmMay 2024 8:43am Tramadol 50 mg zvxuwsIpnhkpzedlqp45UBGHIzpbf 6 hours as needed for dyos9997Gbqyz 2024 11:00pmMay 2024 8:43amStatus post carpal tunnel release Other specified postprocedural statesTO BE USED POST OP 06/03/24Prednisone 5 mg tkahitLslwccufgbzl1DVOZyuqah9740Kvjtw 2024 11:00pmMay 2024 8:43am Take 4 pills by mouth x2 days, take 3 pills by mouth x2 days, take 2 pills by mouth x2 days, take 1pill by mouth x1 day.Nabumetone 750 mg tabletDiscontinued 750MGPOTwice aqiie62656Bjxrwr 2024 11:00pmAugust 2024 10:11am Omeprazole 40 mg capsule,delayed release(DR/EC)Klacsvqrynyx26EOZVPxnkg623Kau 2023 11:00pmAugust 2023 1:10pmTake on an empty stomach, 30 minutes prior to bkfstDiclofenac Sodium 3 % mfiVsxbpogobujl6YAXMQJKXLAORGBcwrq daily July 09, 2023 11:00pmJune 2023 10:38amOxybutynin Chloride 5 mg tablet Ucbrxbgzdhmu0IJALKudhnNycei 2023 11:00pmApril 2023 10:08amCitalopram 40 mg dakzclGqulxpppggor11RAHLDlxnc77267Kesey 2023 11:00pmApril 2023 7:48amFamotidine (Pepcid) 20 mg qaaihrBbmjor33RDNMRazzaWrvgvatw 14th, 2024 12:00amUnknownHyoscyamine Sulfate 0.125 mg tablet,disintegratingDiscontinued 0.125MGPOFour times daily as needed for pkzcxtfd6449Btda2023 11:00pmJune 2023 5:34amMethylprednisolone (Medrol (Daniel)) 4 mg tablets,dose pack Yeqqfxjqwiia8DRLXew qudlnisb80Ctlihfnxl 15th, 2025 11:00pmNov2024 10:00am Immunizations Immunization Event Date Not Given Reason Dose Number [employer] Lot Number Reason(s) Given Vaccine Information Statement (VIS) Detail Administration Location COVID-19 Ad26.COV2.S ([employer]) June 08, 2020 COVID-19 Ad26.COV2.S ([employer])August 16OVID- mRNA Bivalent Booster (Purple Blue Bo)September 16, 2022Quadrivalent Influenza (mdv)February 08, 2019Fluzone TIV High-Dose 65YR+February 04, 2024U8499DAFPG [facility] CenterInfluenza, trivalentNovember [id number] vaccine, quadrivalent, adjuvanted January 279125210818Gyfswnrvu, seasonal, injectable, pfOctober 2014 U49661Ajnnhoysk Quadrivalent PF MDCKOctober [id number] Quadrivalent PF MDCKOctober [id number], unspecified formulation January 25, 2019influenza, unspecified formulationNovember 2019influenza, unspecified formulationNov2020influenza, unspecified formulation January 27, 2022influenza, unspecified formulationNovember 13th, 2023 Pneumococcal Conjugate Vaccine, 13 valentNovember 2018Pneumococcal Polysacc. Vaccine, 23 valentNovember 2019Quadrivalent InfluenzaOctober 2014Quadrivalent InfluenzaOctober 2017Tetanus, Diphtheria adult, 5 Lf pres free absOctober , 2012Tetanus, Diphtheria adult, 5 Lf pres free absJune 2020 Medical Equipment Device Date Implanted Device Details Orthopaedic bone screw, non- bioabsorbable, non-sterile September 09, 2023 YANELY: ()[id number] Issuing Agency: [facility] Device Id: [id number] bone screw, non-bioabsorbable, non-sterile September 09, 2023UDI: ()[id number] Issuing Agency: [facility] Device Id: [id number] bone screw, non-bioabsorbable, non-sterile September 09, 2023UDI: ()[id number] Issuing Agency: [facility] Device Id: [id number] reverse shoulder prosthesis cupJune 2023UDI: ()[id number] Issuing Agency: [facility] Device Id: [id number] Expiration Date: 2027-08-07 Serial Number: [id number] shoulder humeral stem prosthesisJune 2023 YANELY: ()[id number] Issuing Agency: [facility] Device Id: [id number] Expiration Date: 2027-07-03 Serial Number: [id number] shoulder prosthesis headJune 2023UDI: ()[id number] Issuing Agency: [facility] Device Id: [id number] Expiration Date: 2028-06-28 Serial Number: [id number] bone screw, non-bioabsorbable, non-sterileJune 2023UDI: ()[id number] Issuing Agency: [facility] Device Id: [id number] bone screw, non-bioabsorbable, non-sterile September 09, 2023UDI: [id number] Issuing Agency: [employer] Device Id: [id number] shoulder prosthesis base plateJune 2023 YANELY: [id number] Issuing Agency: [employer] Device Id: [id number] Expiration Date: 2028-03-09 Serial Number: [id number] Vital Signs Vital Reading Result Reference Range Collection Date/Time Height 62 [in_i] November 14, 2024 10:55prJdgjji31.46 kgAugust 2024 10:12amBMI (Body Mass Index)33.6 kg/g0Kdulrp 2024 10:55msVxqenf12 [in_i]January 06, 2025 9:28suHkugoo95.91 kgOctober 2024 9:02amBMI (Body Mass Index)33.8 kg/m2 January 06, 2025 9:79mhIwrkpv02 [in_i]February 06, 2025 10:32xmBnoevp81.50 kgNovember 2024 10:05amHeart Rate60 /azx89-026Cnplnjgo 17th, 2025 10:05am Respiratory rate12 /xzm66-55Frovospn 2024 10:05amBP Rkuyesan089 mm[Hg] 100-140Nov2024 10:05amBP Mmjnecwfi84 mm[Hg]60-100November 2024 10:05amBMI (Body Mass Index)34.4 kg/m2Ixtuwcvf 2024 10:05am Advance Directives Advance Directive Response Recorded Date/ Time Advance Directives No April 14, 2023 2:03pm Insurance Providers Guarantor Sayda Estrella Good Address [address] [place] [id number] Info.Home Phone: Payer Group Member ID Coverage Type Subscriber Relationship to Subscriber Effective Date Expiration Date [facility] Id: [id number] B Good Id: [id number] [address] Home Phone: Email: [email or web address] Encounters Encounter Location(s) Arrival/Admit Date Discharge/Departure Date Discharge/Departure Disposition Provider(s) Departed Physician/ Provider Office Visit -[facility] Orthopedics November 14, 2024 11:03am November 14, 2024 11:40am Discharged to home care or self care (routine discharge) Akil Martinez DO Departed Physician/ Provider Office Visit -[facility] [place] December 01, 2024 9:21am December 01, 2024 10:10am Discharged to home care or self care (routine discharge) Tana Durbin DO Departed Physician/ Provider Office Visit -[facility] December 06, 2024 12:56pm December 06, 2024 1:47pm Discharged to home care or self care (routine discharge) Akil Martinez DO Departed Physician/ Provider Office Visit -[facility] January 06, 2025 10:01am January 06, 2025 10:31am Discharged to home care or self care (routine discharge) Merry Barksdale MD Departed Physician/ Provider Office Visit -[facility] February 06, 2025 9:55am February 06, 2025 11:01am Discharged to home care or self care (routine discharge) Capo Palm DO Departed Physician/ Provider Office Visit -[facility] February 07, 2025 9:00am February 07, 2025 9:38am Discharged to home care or self care (routine discharge) Merry Barksdale MD Recent Diagnosis Onset Date Admit Date Cubital tunnel syndrome on left Unknown November 14, 2024 11:03am Left carpal tunnel syndrome Unknown Octu 2024 11:03am Status post carpal tunnel release 2024November 14, 2024 11:03am Carpal tunnel syndrome, bilateral Unknown December 01, 2024 9:21am Ulnar neuropathy of left upper extremity Unknown December 01, 2024 9:21am Cubital tunnel syndrome on left Unknown December 06, 2024 12:56pm Left carpal tunnel syndrome Unknown Nov 12:56pm Status post carpal tunnel release 2024December 06, 2024 12:56pm Cubital tunnel syndrome on left Unknown January 06, 2025 10:01am Left carpal tunnel syndrome Unknown Octo 2024 10:01am Status post carpal tunnel release 2024January 06, 2025 10:01am BPPV (benign paroxysmal positional vertigo) Unkn own February 06, 2025 9:55am Chronic venous insufficiency Unknown Jan 9:55am SHERRILL (generalized anxiety disorder) Unknown February 06, 2025 9:55am GERD (gastroesophageal reflux disease) Unknown February 06, 2025 9:55am IFG (impaired fasting glucose) Unknown N ov2024 9:55am Low back pain radiating to left leg Unknown February 06, 2025 9:55am Medicare annual wellness visit, subsequent Unkno wn February 06, 2025 9:55am Obesity Unknown February 06, 025 9:55am Cubital tunnel syndrome on left Unknown February 07, 2025 9:00am Dupuytren disease of palm of left hand Unknown February 07, 2025 9:00am Left carpal tunnel syndrome Unknown 2024 9:00am Status post carpal tunnel release 2024February 07, 2025 9:00am Assessments Diagnosis Onset Date Resolution Status Admit Date Cubital tunnel syndrome on left acuteAugust 2024 11:03amLeft carpal tunnel syndromeacuteAugust 2024 11:03amStatus post carpal tunnel axzqfsa8892jbqhzOjrnii 2024 11:03amCarpal tunnel syndrome, bilateralacuteSept2024 9:21amUlnar neuropathy of left upper extremityacuteSeptember 2024 9:21amCubital tunnel syndrome on leftacuteSeptember 2024 12:56pmLeft carpal tunnel syndromeacuteSeptember 2024 12:56pmStatus post carpal tunnel unugbsn8553qoxrsSfydqpklc 2024 12:56pmCubital tunnel syndrome on leftacuteOctober 2024 10:01amLeft carpal tunnel syndromeacuteOctober 2024 10:01amStatus post carpal tunnel ptkegbs1393lpvsdKcfesqd 2024 10:01amBPPV (benign paroxysmal positional vertigo)acuteFebruary 06, 2025 9:55amChronic venous insufficiencyacuteFebruary 06, 2025 9:55amGAD (generalized anxiety disorder)acuteFebruary 06, 2025 9:55amGERD (gastroesophageal reflux disease)acuteFebruary 06, 2025 9:55amIFG (impaired fasting glucose)acuteFebruary 06, 2025 9:55amLow back pain radiating to left legacuteFebruary 06, 2025 9:55amMedicare annual wellness visit, subsequentacuteFebruary 06, 2025 9:55amObesityacuteFebruary 06, 2025 9:55am [facility], 2025 9:00amDupuytren disease of palm of left handacuteFebruary 07, 2025 9:00amLeft carpal tunnel syndrome acuteFebruary 07, 2025 9:00amStatus post carpal tunnel jipbxab4869tvzzg February 07, 2025 9:00am Plan of Treatment Author Rachel Ortiz [facility] 2024 10:40amDiscussed with patient on the patient's symptoms, exam, and imaging. Likely etiologies of the patient's symptoms were discussed. Patient has symptoms consistent with cubital tunnel syndrome. We will order an new EMG to further assess for cubital tunnel syndrome. Patient will follow-up after for reevaluation. Author Capo Palm [facility] 2024 10:50amHis A1C is between 5.7-6.5%. Instructed on low carb, high fiber diet. Instructed on routine exercise program for 30-60min three times weekly. Instructed on correlation between obesity and insulin resistance and encouraged to lose weight. Monitor A1C every 6 months. A1C 5.6% - Jan 2025 Instructed on a healthy diet and exercise routine. Instructed to continue medical treatment w/o interruption. Instructed to avoid abrupt d/c of medication due to w/d symptoms. Continue Sertraline without interruption I have instructed this patient to avoid [...] melena or hematochezia. Continue Famotidine without interruption Recurrent episodes. Refer back to physical therapy as needed Recommended to restart home exercises Planning to visit her Chiropractor, cautioned against high velocity manipulation f/u w/ vestibular therapist as needed I have instructed this patient on a low-fat, high-fiber diet.?? I have also instructed them to reduce calories, portions sizes, sweet drinks and snacks.?? I have also recommended they exercise for 30 minutes, 3-5 times weekly. They are aware of the comorbid conditions associated with excessive weight: Diabetes, HTN, Hyperlipidemia, CAD and arthritis. I have instructed this patient on the recommended lifestyle changes, which includes a low fat, high fiber diet along with a regular exercise routine. I have also reviewed the recommended age-appropriate preventive testing for this patient. I have also reviewed the recommended vaccines for their age and risk factors. I have instructed this patient to avoid bending, twisting or lifting. I have also instructed on use of intermittent heat and ice as needed. They may schedule a massage or gentle manipulation. I instructed them on the safe use of Tylenol, Lidocaine and stretching exercises. I informed them of alternative modes of treatment for severe pain, which may include referral to physical therapy or pain management. XR lumbar spine ordered. Author Merry Barksdale [facility]ored[facility] 20[facility] 11:53amPatient was instructed on towel splints which will block bending the elbow at night. We could also get a brace to block wrist flexion at night. Additionally we will prescribe a Medrol Dose pack. Patient is in need of a cock up wrist brace due to their diagnosis of left carpal tunnel syndrome. This is needed for aid in activities of daily living by increasing safety and stability. This will be needed for approximately a life time Note scribed by Francesca Keith CMA, reviewed and amended by Merry Barksdale M.D.. 69-year-old woman 6 months status post right carpal tunnel syndrome with continued symptoms - Discussion held with patient regarding diagnosis and treatment options. At this time, we've discussed nonoperative versus operative treatment options. - Regarding nonoperative treatment options, this would include an initial trial of cortisone injection, as well as night splinting. In general, cortisone injections are considered diagnostic, therapeutic, and prognostic. A positive response with reduction in symptoms following a cortisone injection, confirms the diagnosis, as well as provides therapeutic treatment with lessening of painful symptoms and temporary decreased compression across the median nerve. However, these results may be temporary, and further treatments either with repeat cortisone injection or surgical treatment may become necessary. In addition, a cortisone injection as prognostic in that if there is a positive response with reduction of symptoms following a cortisone injection, there will likely be improvement following surgical treatment. - Operative treatment would consist of carpal tunnel release - Patient was counseled that the nerve may recover regenerate 1 mm per day or 1 inch per month along the sensory fibers. Regarding motor fibers, we do not know at what point we are intervening in the release of the nerve compression. If there has been permanent injury to the nerve, the motor nerve may not be capable of full recovery, though at least nerve decompression would prevent progression or worsening with further loss of motor fibers. In the recovery of motor strength or function is seen as a bonus not as a guarantee - Trial Medrol dose pack for reduction of inflammation - Night splinting to the right carpal and cubital tunnel in the interim - Follow-up 4 weeks for reevaluation Author Merry Barksdale [facility] CenterAuthoredOctober 2024 10:07pmExtensive discussion about current condition and treatment options available. Patient is doing well. Instructed patient to continue with night splinting and monitor her symptoms. Activity as tolerated. Call with questions/concerns. Follow up in 4 weeks. 69-year-old woman 7 months status post right carpal tunnel syndrome with continued symptoms - Patient making improvement with nonoperative treatment - Discussion held with patient regarding diagnosis and treatment options. At this time, we've discussed nonoperative versus operative treatment options. - Regarding nonoperative treatment options, this would include an initial trial of cortisone injection, as well as night splinting. In general, cortisone injections are considered diagnostic, therapeutic, and prognostic. A positive response with reduction in symptoms following a cortisone injection, confirms the diagnosis, as well as provides therapeutic treatment with lessening of painful symptoms and temporary decreased compression across the median nerve. However, these results may be temporary, and further treatments either with repeat cortisone injection or surgical treatment may become necessary. In addition, a cortisone injection as prognostic in that if there is a positive response with reduction of symptoms following a cortisone injection, there will likely be improvement following surgical treatment. - Operative treatment would consist of cubital tunnel release - Patient was counseled that the nerve may recover regenerate 1 mm per day or 1 inch per month along the sensory fibers. Regarding motor fibers, we do not know at what point we are intervening in the release of the nerve compression. If there has been permanent injury to the nerve, the motor nerve may not be capable of full recovery, though at least nerve decompression would prevent progression or worsening with further loss of motor fibers. In the recovery of motor strength or function is seen as a bonus not as a guarantee - Trial Medrol dose pack for reduction of inflammation has perhaps been helpful in improving symptoms - Continue night splinting to the right carpal and cubital tunnel in the interim - Follow-up 4 weeks for reevaluation Author Francesca Keith [facility] CenterAuthoredNovsierra [place] 2024 9:32amShe has noted improvement since the last visit. She has noted improvement since the last visit. Patient was given information on Dupuytren. 69-year-old woman 7 months status post right carpal tunnel syndrome with continued symptoms - Patient making improvement with nonoperative treatment - Discussion held with patient regarding diagnosis and treatment options. At this time, we've discussed nonoperative versus operative treatment options. - Regarding nonoperative treatment options, this would include an initial trial of cortisone injection, as well as night splinting. In general, cortisone injections are considered diagnostic, therapeutic, and prognostic. A positive response with reduction in symptoms following a cortisone injection, confirms the diagnosis, as well as provides therapeutic treatment with lessening of painful symptoms and temporary decreased compression across the median nerve. However, these results may be temporary, and further treatments either with repeat cortisone injection or surgical treatment may become necessary. In addition, a cortisone injection as prognostic in that if there is a positive response with reduction of symptoms following a cortisone injection, there will likely be improvement following surgical treatment. - Operative treatment would consist of cubital tunnel release - Patient was counseled that the nerve may recover regenerate 1 mm per day or 1 inch per month along the sensory fibers. Regarding motor fibers, we do not know at what point we are intervening in the release of the nerve compression. If there has been permanent injury to the nerve, the motor nerve may not be capable of full recovery, though at least nerve decompression would prevent progression or worsening with further loss of motor fibers. In the recovery of motor strength or function is seen as a bonus not as a guarantee - Trial Medrol dose pack for reduction of inflammation has perhaps been helpful in improving symptoms - Continue night splinting to the right carpal and cubital tunnel in the interim - Follow-up 4 weeks for reevaluation Future Tests Future scheduled test information is unavailable Pending Tests Test Name Ordered Date Scheduled Date XR lumbar spine 6V w bending February 06, 2025 10:42am Future Visits Future appointment information is unavailable Future Procedures Procedure Name Ordered Date Scheduled Date Disability Placard February 06, 2025 10:56am Future Medications Future medication information is unavailable Patient Instructions Instruction Admit Date Low back pain in adults February 06, 2 025 9:55am
--- NOTE | 2025-02-09 10:13 | XR_ITS ---
[facility] [place] [id number] Patient Name: CY NGO MRN: [id number] date: 1955 Sex: F Assigned Patient Location: [facility] Current Patient Location: [facility] Accession/Order Number: [id number] Exam Date: 02/09/2025 10:29 Report Date: 02/09/2025 10:56 At the request of: REJI DUNN DO Procedure: XR lumbar spine 6V w bending LUMBAR SPINE WITH FLEXION AND EXTENSION VIEWS -7 views: CLINICAL HISTORY: Low Back Pain Radiating To Left Lower Extremity. No injury. COMPARISON: CT 12/08/2023 AP, lateral (neutral, flexion and extension), both oblique and lateral coned-down views of the lumbosacral junction were obtained. There is mild thoracolumbar levoscoliotic curvature. There is no acute compression fracture. There is slight anterolisthesis of L4 with respect to the adjacent vertebra. Minor retrolisthesis of L1 on L2 and L2 on L3 is also noted . Alignment does not change significantly with flexion or extension. There is multilevel disc space narrowing. Endplate spurring and facet hypertrophy are also present, greater distally. No pars defect is identified. The sacroiliac joints are maintained. There are no paraspinal soft tissue abnormalities. XR/XR lumbar spine 6V w bending IMPRESSION: OSTEOPENIA, SCOLIOSIS AND DEGENERATIVE CHANGES. Impression dictated by: Wendy Olson M.D. 02/09/2025 10:56 AM Dictation Location: [place] [address] Electronically authenticated by: [id number] Y Date: 02/09/2025 10:56
--- OUTSIDE RECORDS SUMMARY | 2025-02-09 10:14 | XMS_ITS | Clinical Summary ---
Author Organization [facility] Address [address] [place] [address] Care Team Providers Care Drug Department Worker Name Role Phone [facility] [place] Primary Care Provider [phone] Allergies Active AllergyReactionsCriticalityNoted DateCommentsSulfa AntibioticsItching, XwssSwh2507/10/20236795HjiqumbgfuqseZmhdw25/23/2024 Medications MedicationSigDispense QuantityRefillsLast FilledStart DateEnd DateStatus CeleXA 20 MG tablet take 1 tablet (10MG) by oral route every day OralActive meloxicam (Mobic) 15 MG tablet Take 15 mg by mouth in the morning.03/12/2023ctive oxybutynin XL (Ditropan-XL) 5 MG 24 hr tablet Take 5 mg by mouth10/21/2022ctive Multiple Vitamin (multivitamin) capsule Take 1 capsule by mouth in the morning.Active Active Problems ProblemNoted DateDiagnosed DateUnilateral vestibular weakness, right11/04/2023 BPPV (benign paroxysmal positional vertigo), right05/12/2023alance disorder 05/12/2023PPV (benign paroxysmal positional vertigo), left05/08/2023ervicalgia 05/08/2023 Family History Medical HistoryRelationNameCommentsCancerFatherDiabetesMotherHypertensionMother MelanomaNeg HxRelationNameStatusCommentsFatherDeceasedMotherDeceased Social History Tobacco UseTypesPacks/DayYears UsedDateSmoking Tobacco: NeverSmokeless Tobacco: Never Tobacco Cessation:Counseling Given: Not Answered Alcohol UseStandard Drinks/WeekCommentsYes0 (1 standard drink = 0.6 oz pure alcohol)1-2 drinks, every 2-4 times a month. caffeine intake: 1-2 cups per day. CommentsUnknownSex and Gender InformationValueDate RecordedSex Assigned at NhgbnIhtzoc49/16/2024 10:33 AM ESTLegal NopDjvqaf82/15/2023 7:01 PM EDTGender JbonscdjPmboma65/16/2024 10:33 AM ESTSexual OrientationChoose not to disclose 04/07/2023 10:33 AM EST Last Filed Vital Signs Vital SignReadingTime TakenCommentsBlood Didacfai383/8107/10/2019 12:00 PM EDT Pulse--Temperature--Respiratory Rate--Oxygen Saturation--Inhaled Oxygen Concentration--Zehiwc06.6 kg (180 lb)07/08/2022 12:00 PM EWSRlbmgo885.5 cm (5' 2 )07/08/2022 12:00 PM EDTBody Mass Index32.9207/08/2022 12:00 PM EDT Plan of Treatment DateTypeDepartmentCare Team (Latest Contact Info)Cmhmbeuuxch20/27/2026 2:30 PM ESTOffice Visit [facility] [address] [place] [address] Monica Goldman, LILIANA [address] [place] [address] Insurance Care Teams Team MemberRelationshipSpecialtyStart DateEnd Date Ball, Capo E, DO PCP - GeneralInternal Medicine07/14/23
--- OUTSIDE RECORDS SUMMARY | 2025-02-09 10:21 | XMS_ITS | CCD ---
Author Organization [facility] CliniSyde Care Team Providers Care Box Stamper Name Role Phone CAPO DUNN Primary Care Physician SHAUN, DR SCANLON Attending [...] BALL, DR SCANLON Attending Unavailable BALL, DR SCALNON Admitting Unavailable BALL, DR SCANLON Primary Care Unavailable BALL, DR SCANLON Consulting Unavailable WEST, DR GINGER Monge Consulting Unavailable BALL, DR SCANLON Attending Unavailable BALL, DR SCANLON Admitting Unavailable BALL, DR SCANLON Primary Care Unavailable BALL, DR SCANLON Consulting Unavailable Shaun, DO Scanlon Primary Care Provider [facility] Attending Provider [phone] Capo Dunn Unavailable Shaun, DO Scanlon Primary Care Provider DO Akil Martinez Attending Provider JOSEFINA ROMAN Attending Unavailable Ball, DO Capo Primary Care Provider DO Akil Martinez Attending Provider Capo Dunn MD Primary Care Provider Shaun, DO Scanlon Primary Care Provider DO Akil Martinez Attending Provider Capo Dunn DO Primary Care Provider Akil Martinez DO Attending Provider Shaun TOMLINSON, Capo Primary Care Provider Akil Martinez DO Attending Provider LIZZIE HARRISON Attending Unavailable RAVNE, RACQUEL Hunter Attending Unavailable BALL, CAPO E [...] Unavailable Jeanmarie, Akil Sweet Admitting Unavailable Ball, [facility] Care Unavailable Jeanmarie, Akil A Attending Unavailable [...] Care Unavailable Jeanmarie, Akil A Attending Unavailable Jeanmarei, Akil A Admitting Unavailable Ball, Capo Primary Care Unavailable Jeanmarie, Akil A Attending Unavailable Jeanmarie, Akil A Admitting Unavailable Ball, Capo Primary Care Unavailable Jeanmarie, Akil A Attending Unavailable Jeanmarie, Akil A Admitting Unavailable Ball, Capo Primary Care Unavailable Jeanmarie, Akil A Attending Unavailable Jeanmarie, Akil A Admitting Unavailable Ball DO, Capo Primary Care Provider Jeanmarie DO, Akil Sweet Attending Provider Ball DO, Capo Primary Care Provider Jeanmarie DO, Akil A Attending Provider Ball DO, Robert Lee Primary Care Provider Ball DO, Capo Attending Provider Jeanmarie DO, Akil A Attending Provider Ball DO, Capo Primary Care Provider Ball DO, Capo Attending Provider Ball DO, Robert Lee Primary Care Provider Ball DO, Capo Attending Provider Chan DOTony Attending Provider Ball DO, Robert Lee Primary Care Provider Jeanmarie DO, Akil A Attending Provider [phone] Merry Barksdale MD Attending Provider Allergies Allergy ClassificationReported Allergen(s)Allergy TypeDate of OnsetReaction(s) Facility (6 sources)Sulfonamides (Antibiotic); Translations: [sulfa drugs]Drug allergy Eruption of skin (disorder)[facility] (1 source)Sulfonamides (Antibiotic)Drug allergy (disorder)74-16-8711[facility] (2 sources)Sulfonamides (Antibiotic); Translations: [Sulfa (Sulfonamide Antibiotics)]Allergy to btmodrlcr93-63-5768QczqqCjvilxobzUniversity [facility] (7 sources)Sulf-10Drug allergyH[facility] [employer] Other (2 sources)patient allergy list reviewed by nurse or physiciaPropensity to adverse -[phone]:DoneNonortheast missouri [facility] [employer] Other (2 sources)Allergies ReconciledPropensity to adverse reactionsKindred Hospital [employer] Other (17 sources)Substance with sulfonamide structure and antibacterial mechanism of action (substance)Drug djetdqu88-26-5385[facility] (11 sources)SulfanilamideAllergy to ouubztmtf33-29-1375NvapjGSAH Healthcare Medications Current Medications MedicationDrug Class(es)DatesSig (Normalized)Sig (Original)Daily Vitamins for Women (4 sources)Daily Vitamins for Women Activefamotidine 20 mg oral tablet (13 sources)Histamine-2 Receptor AntagonistStart: 82-35-6898gdam 1 tablet by mouth once dailyFamotidine (Pepcid) 20 mg tablet Active 20 MG PO Daily February 04, 2024 1:00am Complies with drug therapymeclizine hydrochloride 25 mg chewable tablet (2 sources)AntiemeticStart: 12-78-6000kodk 1 tablet by mouth every eight hours as neededMeclizine HCl 25 MG 1 tablet as needed Orally every 8 hours as needed for vertigo, may cause sedation for 5 days Apr, ActivemethylPREDNISolone 4 mg oral tablet (2 sources)CorticosteroidStart: 27-14-0761Hmgnzryijjnnbjucwg (Medrol (Daniel)) 4 mg tablets,dose pack Active 4 MG PO as directed December 06, 2024 12:00am Complies with drug therapyMultiple Vitamin (multivitamin) capsule (11 sources)take 1 capsule by mouth in the morningMultiple Vitamin (multivitamin) capsule Take 1 capsule by mouth in the morning. Active Multivitamin preparation (17 sources)Start: 34-64-8310rzbp 1 tablet by mouth once dailyMultivitamin Active 1 TAB PO Daily June 25, 2021 12:00amOne A Day Women 50 Plus (5 sources)Start: 93-24-7136Iut A Day Women 50 Plus Refill(s) 0 Start Date: 12/07/18 Status: Ordered Completed/Discontinued Medications MedicationDrug Class(es)DatesSig (Normalized)Sig (Original)acetaminophen 500 mg oral tablet (20 sources)Start: 09-08-2023 End: 16-56-5532mksh 1 tablet by mouth every six hours as needed for pain Acetaminophen 500 mg tablet Discontinued 500 MG PO Q6H as needed for Pain 30 0 September 08, 2023 12:00am October 22, 2023 10:58am DO NOT RECONCILE UNTIL DOS 09/09/23 TO BE USED POST OPaspirin 81 mg chewable tablet (20 sources)Platelet Aggregation Inhibitor, Nonsteroidal Anti-inflammatory Drug Start: 09-08-2023 End: 50-29-8372xjob 1 tablet by mouth twice dailyAspirin 81 mg tablet,chewable Discontinued 81 MG PO Twice daily 60 30 0 September 08, 2023 12:00am October 22, 2023 10:53am DO NOT RECONCILE UNTIL DOS 09/09/23 TO BE USED POST OPcitalopram 40 mg oral tablet (20 sources)Serotonin Reuptake InhibitorStart: 07-16-2023 End: 03-55-0866ckbd 1 tablet by mouth once dailyCitalopram 40 mg tablet Discontinued 40 MG PO Daily 90 90 1 July 16, 2023 12:00am July 21, 2023 8:48amStart: 06-25-2021 End: 69-81-6651pypm 1 tablet by mouth once dailyCitalopram 20 mg tablet Discontinued 20 MG PO Daily June 25, 2021 12:00am July 16, 2023 9:47pm Start: 70-62-1843zjxdwrfxnt Oral, Daily, Refills(s) 0 Start Date: 12/07/18 Status: Ordereddiclofenac sodium 0.03 mg/mg topical gel (20 sources)Nonsteroidal Anti-inflammatory DrugStart: 07-10-2023 End: 84-87-6028Fwerxzhtkd Sodium 3 % gel Discontinued 1 APPLIC TOPICAL Twice daily July 10, 2023 12:00am August 25, 2023 11:38amDiclofenac Sodium 3 % 1 application Externally Twice a day Activedocusate sodium 100 mg oral capsule (20 sources)Start: 09-08-2023 End: 01-32-6779fmzb 1 capsule by mouth twice daily as needed for constipation Docusate Sodium (Colace) 100 mg capsule Discontinued 100 MG PO Twice daily as needed for Constipation 20 10 0 September 08, 2023 12:00am October 22, 2023 10:53am DO NOT RECONCILE UNTIL DOS 09/09/23 TO BEUSED POST OPEye Promise (20 sources)Start: 08-25-2023 End: 67-20-4166itiu 1 tablet by mouth once dailyEye Promise Discontinued 1 TAB PO Daily August 25, 2023 12:00am August 01, 2024 9:43amStart: 75-00-3669qmvo 1 tablet by mouth once dailyEye Promise Active 1 TAB PO Daily August 24, 2023 11:00pmStart: 44-34-4825ofoo 1 tablet by mouth once dailyEye Promise Active 1 TAB PO Daily August 25, 2023 12:00amhyoscyamine sulfate 0.125 mg disintegrating oral tablet (20 sources)Start: 08-27-2023 End: 21-31-7951lsav 1 tablet by mouth four times daily as needed for diarrhea Hyoscyamine Sulfate 0.125 mg tablet,disintegrating Discontinued 0.125 MG PO Four times daily as needed for diarrhea 20 5 2 August 27, 2023 12:00am September 09, 2023 6:34amlactobacillus acidophilus [id number] unt oral capsule (20 sources)Start: 06-25-2021 End: 28-47-2590Qtfrifvhkfsoh Acidophilus (Acidophilus) Capsule Discontinued 1000 MMU CELLS PO Daily June 25, 2021 12:00am July 10, 2023 9:59amStart: 06-25-2021 End: 73-47-5011Rcxudbshnwlok Acidophilus (Acidophilus) Capsule Discontinued 1000 MMU CELLS PO Daily June 25, 2021 12:00am July 10, 2023 9:59amStart: 36-82-0293Rfjitrsknabcj Acidophilus (Acidophilus) Capsule Active 1000 MMU CELLS PO Daily June 25, 2021 12:00ammeloxicam 15 mg oral tablet (20 sources)Nonsteroidal Anti-inflammatory DrugStart: 09-16-2022 End: 30-95-2464vrdh 1 tablet by mouth once dailyMeloxicam 15 mg tablet Discontinued 15 MG PO daily 14 14 0 September 08, 2023 12:00am October 22, 2023 10:53am DO NOT RECONCILE UNTIL DOS 09/09/23 TO BE USED POST OPMultivitamin Tablet (13 sources)Start: 06-25-2021 End: 42-99-6306jmgq 1 tablet by mouth once dailyMultivitamin Tablet Discontinued 1 TAB PO Daily June 25, 2021 12:00am August 01, 2024 9:43amStart: 06-25-2021 take 1 tablet by mouth once dailyMultivitamin Tablet Active 1 TAB PO Daily June 25, 2021 12:00amStart: 25-97-1182zosl 1 tablet by mouth once dailyMultivitamin Tablet Active 1 TAB PO Daily June 24, 2021 11:00pmnabumetone 750 mg oral tablet (5 sources)Nonsteroidal Anti-inflammatory DrugStart: 10-25-2024 End: 35-52-8090akrr 1 tablet by mouth twice dailyNabumetone 750 mg tablet Discontinued 750 MG PO Twice daily 30 15 0 October 25, 2024 12:00am 2024 11:11amomeprazole 40 mg delayed release oral capsule (20 sources)Proton Pump InhibitorStart: 08-03-2023 End: 85-26-0861Pdjssvexhn 40 mg capsule,delayed release(DR/EC) Discontinued 40 MG PO Daily 90 90 3 November 05, 2023 2:10pm February 04, 2024 11:05am Take on an empty stomach, 30 minutes prior to bkfstStart: 06-25-2021 End: 51-07-1807yflh 1 capsule by mouth once dailyOmeprazole 20 mg Capsule,Delayed Release(Dr/Ec) Discontinued 20 MG PO Daily June 25, 2021 12:00amApril 2023 10:00amStart: 73-34-6104Dgbxcqbx Oral, Daily, Refills(s) 0 Start Date: 01/07/21 Status: Orderedoxybutynin chloride 5 mg oral tablet (20 sources)Cholinergic Muscarinic AntagonistStart: 07-10-2023 End: 62-81-7353fxne 1 tablet by mouth once dailyOxybutynin Chloride 5 mg tablet Discontinued 5 MG PO Daily July 10, 2023 12:00am July 16, 2023 11:08am Start: 26-68-6774vgaw 1 tablet by mouth every twenty-four hoursoxybutynin XL (Ditropan-XL) 5 MG 24 hr tablet Take 5 mg by mouth 10/21/2022 ActiveStart: 04-15-2022 End: 68-63-4905vgwc 1 tablet by mouth once dailyoxybutynin 5 mg ER Tab 5 mg = 1 tab(s), Oral, Daily, # 90 tab(s), Refills(s) 3, Pharmacy: [facility], 157, cm, 10/21/22 9:06:00 EDT, Height/Length Dosing, 90, kg, 10/21/22 9:06:00 EDT, Weight Dosing Start Date: 10/21/22 Status: OrderedStart: 08-14-2021 take 1 tablet by mouth once dailyDitropan XL 5 mg Tab-ER 5 mg = 1 tab(s), Oral, Daily, # 30 tab(s), Refills(s) 6, Pharmacy: [facility]/pharmacy #[id number], 157, cm, 08/14/21 14:15:00 EDT, Height/Length Dosing, 90, kg, 08/14/21 14:15:00 EDT, Weig ht Dosing Start Date: 08/14/21 Status: Orderedtake 1 tablet by mouth every twenty-four hoursoxyBUTYnin Chloride 5 MG 1 tablet Orally Once a day Active oxyCODONE hydrochloride 5 mg oral tablet (20 sources)Opioid AgonistStart: 09-08-2023 End: 45-12-7903pesd 1 tablet by mouth every six hours as needed for pain Oxycodone 5 mg tablet Discontinued 5 MG PO Q6H as needed for Pain 28 7 0 September 08, 2023 October 22, 2023 10:53am Status post total shoulder replacement Presence of unspecified artificial shoulder joint DO NOT RECONCILE UNTIL DOS 09/09/23 TO BE USED POST OPpolyethylene glycol 3350 51101 mg powder for oral solution (20 sources)Osmotic LaxativeStart: 09-08-2023 End: 95-44-0405Asjxuaszwakq Glycol 3350 (Miralax) 17 gram powder in packet Discontinued 17 GM PO daily 14 14 0 September 08, 2023 12:00am October 22, 2023 10:58am 1 packet mixed with 8 ounces of fluid. DO NOT RECONCILE UNTIL DOS 09/09/23 TO BE USED POST OPpredniSONE 5 mg oral tablet (8 sources)Start: 07-12-2024 End: 74-93-4584Pkawfdhtmo 5 mg tablet Discontinued 5 MG PO daily 19 7 0 July 12, 2024 12:00am August 01, 2024 9:43am Take 4 pills by mouth x2 days, take 3 pills by mouth x2 days, take 2 pills by mouth x2 days, take 1 pill by mouth x1 day.sertraline 100 mg oral tablet (20 sources)Serotonin Reuptake InhibitorStart: 07-21-2023 End: 11-65-0992vnwh 1 tablet by mouth once dailySertraline 100 mg tablet Discontinued 100 MG PO Daily 90 90 1 May 05, 2024 11:59am November 04, 2024 11:39amtraMADol hydrochloride 50 mg oral tablet (9 sources)Opioid AgonistStart: 06-02-2024 End: 51-39-8208yhzp 1 tablet by mouth every six hours as needed for painTramadol 50 mg tablet Discontinued 50 MG PO Every 6 hours as needed for pain 10 5 0 June 02, 2024 12:00am August 01, 2024 9:43am Status post carpal tunnel release Other specified postprocedural states TO BE USED POST OP 06/03/24 Problems Active Problems Problem ClassificationProblemDateDocumented DateEpisodic/ChronicAbdominal pain (20 sources)Abdominal pain; Translations: [Flank pain]Onset: 09-03-2021 Resolved: 663783-35-5352QptccownHxhppwnu foot deformities (8 sources)Talipes planus; Translations: [Flat foot [pes planus] (acquired), right foot]EpisodicAcquired foot deformities (8 sources)Talipes planus; Translations: [Flat foot [pes planus] (acquired), left foot]EpisodicAnxiety disorders (20 sources)Generalized anxiety disorder; Translations: [Generalized anxiety disorder]Onset: 558119-69-5060RrvqlhuSwpkni of breast (1 source)Personal history of malignant neoplasm of breast; Translations: [PERS HX MALIGNANT NEOPLASM BREAST]Onset: 64-28-8574MzbckcvzFumvvtihsnuag of surgical procedures or medical care (3 sources)Postprocedural asymptomatic ovarian failure; Translations: [Asymptomatic postprocedural ovarian failure]ChronicConditions associated with dizziness or vertigo (20 sources)Benign paroxysmal positional vertigo; Translations: [Benign paroxysmal positional vertigo]Onset: 11-15-5873MllygvwlPrbywwof mellitus without complication (3 sources)Type 2 diabetes mellitus without complication; Translations: [Diabetes mellitus without mention of complication, type II or unspecified type, not stated as uncontrolled]Onset: 46-59-9784OeatahiCpttpwmq mellitus without complication (20 sources)Impaired fasting glycemia; Translations: [Impaired fasting glucose] 96-59-4816JdkzegvaIouilxb on above:Stress test: basal, anteroseptal reversible defect suggestive of ischemia but more likely breast artifact - 07/2024Esophageal disorders (20 sources)Gastroesophageal reflux disease; Translations: [Gastroesophageal reflux disease with hiatal hernia]30-91-2077WiuikhbGwgndpyeealny symptoms and ill-defined conditions (18 sources)Urge incontinence; Translations: [Post-micturition incontinence ] Onset: 19-23-6552PamchdsNipwuarcgjvwc symptoms and ill-defined conditions (20 sources)Increased frequency of urination; Translations: [Frequency of micturition]Onset: 42-55-1359CzehtetrKytftael; including migraine (3 sources)Headache; Translations: [Headache, unspecified]EpisodicImmunizations and screening for infectious disease (6 sources)Vaccination given; Translations: [Encounter for immunization] Resolved: 74-00-0300EirlnczoJfoyyigck (1 source)Personal history of leukemia; Translations: [PERSONAL HISTORY OF LEUKEMIA]Onset: 29-43-8361IluyzawdRvrqtefmsy disorders (10 sources)Decreased estrogen level; Translations: [Other primary ovarian failure]ChronicMiscellaneous mental health disorders (7 sources)Occipital headache; Translations: [Occipital headache]ChronicMood disorders (16 sources)Depressive disorder; Translations: [Single episode of major depression in full remission]64-28-2418HegyzjgMghyhygjwso chest pain (11 sources)Chest wall pain; Translations: [Other chest pain]Episodic Osteoarthritis (20 sources)Osteoarthritis; Translations: [Osteoarthritis of joint of left shoulder region]Onset: 499762-60-4694LuzlvwsFmuly aftercare (4 sources)Encounter for removal of sutures; Translations: [Encounter for removal of sutures]75-10-0526IjgkxhtoCxwyy and unspecified benign neoplasm (7 sources)History of polyp of colon; Translations: [Personal history of colonic polyps]EpisodicOther and unspecified benign neoplasm (2 sources)Melanocytic nevus of trunk; Translations: [Melanocytic nevi of trunk] 66-40-3718FchiqcegKaupf and unspecified benign neoplasm (2 sources)Senile angioma; Translations: [Hemangioma of skin and subcutaneous tissue]96-17-1702KgqkngcvNjxuj connective tissue disease (4 sources)Presence of left artificial knee joint; Translations: [PRESENCE LEFT ARTIFICIAL KNEE JOINT]Onset: 43-44-2523JeuoytjErvwz connective tissue disease (20 sources)History of reverse prosthetic total arthroplasty of left shoulder; Translations: [Presence of left artificial shoulder joint]91-16-3646SmtssauOpfzs connective tissue disease (20 sources)Presence of left artificial shoulder joint; Translations: [Shoulder joint replacement]Onset: 168085-34-1425KmnrwdoOjyto connective tissue disease (7 sources)Tendinitis of left rotator cuff; Translations: [Other shoulder lesions, left shoulder]EpisodicOther connective tissue disease (2 sources)Other shoulder lesions, left shoulderEpisodicOther connective tissue disease (3 sources)Nontraumatic rupture of rotator cuff of left shoulder; Translations: [Unspecified rotator cuff tearor rupture of left shoulder, not specified as traumatic]EpisodicOther diseases of bladder and urethra (3 sources)Overactive bladder; Translations: [Overactive bladder]Onset: 26-76-4276AdwubdeZfpgw diseases of bladder and urethra (10 sources)Traumatic urethral stricture; 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, female]Onset: 60-91-3366TxcoltzjHezoz diseases of kidney and ureters (5 sources)Cyst of xnfrza85-49-9574FpxdwjidJxnbn diseases of veins and lymphatics (20 sources)Peripheral venous insufficiency; Translations: [Venous insufficiency (chronic) (peripheral)]03-31-8313FboocuylTegmh diseases of veins and lymphatics (8 sources)Venous insufficiency (chronic) (peripheral); Translations: [Venous (peripheral) insufficiency, unspecified]58-42-3362XjhsdneiLxnnf ear and sense organ disorders (3 sources)Infective otitis externa; Translations: [Unspecified infective otitis externa]Onset: 81-55-5708BckfhaqDupex ear and sense organ disorders (3 sources)Malignant otitis externa; Translations: [Malignant otitis externa, unspecified ear]Onset: 31-35-0482RafvlerWarom ear and sense organ disorders (9 sources)Impacted cerumen; Translations: [Impacted cerumen, bilateral]Onset: 07-18-2013 Resolved: 75-35-0317GnynchhbFswmu eye disorders (11 sources)Other forms of nystagmus; Translations: [OTHER FORMS OF NYSTAGMUS] Onset: 45-07-5006IwhmogrYlasg eye disorders (3 sources)Nystagmus; Translations: [Other forms of nystagmus]ChronicOther gastrointestinal disorders (13 sources)Diarrhea, unspecified; Translations: [Diarrhea]Onset: 03-06-2021 EpisodicOther gastrointestinal disorders (14 sources)Diarrhea; Translations: [Diarrhea, unspecified] Resolved: 333472-86-8255VlcaeysgWgume inflammatory condition of skin (16 sources)Pruritus, unspecified; Translations: [Pruritus]65-90-7114Mryxkrud Other injuries and conditions due to external causes (3 sources)History of fall; Translations: [History of falling]EpisodicOther injuries and conditions due to external causes (3 sources)Sprains and strains of joints and adjacent muscles; Translations: [Other specified sites of sprainsand strains]EpisodicOther lower respiratory disease (8 sources)Dyspnea on exertion; Translations: [Other forms of dyspnea]08-22-2024 EpisodicOther lower respiratory disease (1 source)Other forms of dyspnea; Translations: [Other respiratory abnormalities]35-29-5103UqbkpdhsDghzf nervous system disorders (20 sources)Carpal tunnel syndrome of left wrist; Translations: [Carpal tunnel syndrome, left upper limb]27-42-6150TahkcruIxcpi nervous system disorders (17 sources)Carpal tunnel syndrome, left upper limb; Translations: [Carpal tunnel syndrome]Onset: 193870-42-0352OzohoatBnfga nervous system disorders (20 sources)Lesion of ulnar nerve, left upper limb; Translations: [Cubital tunnel syndrome on left]46-65-4143VcravzoVguzv nervous system disorders (4 sources)Ulnar neuropathy of left arm; Translations: [Lesion of ulnar nerve, left upper limb]17-55-5688KagdkmvOsdaz nervous system disorders (2 sources)Ulnar neuropathy; Translations: [Lesion of ulnar nerve, unspecified upper limb]63-73-7203UmbzeulJywzd nervous system disorders (4 sources)Bilateral carpal tunnel syndrome; Translations: [Carpal tunnel syndrome, bilateral upper limbs]20-83-7852FjouakcPenaz nervous system disorders (10 sources)Abnormal gait; Translations: [Unsteadiness on feet]EpisodicOther nervous system disorders (20 sources)Impaired cognition; Translations: [Other symptoms and signs involving cognitive functions and awareness]61-51-9423LoxobrhgJluyy nervous system disorders (10 sources)Other symptoms and signs involving cognitive functions and awareness; Translations: [Other signs and symptoms involving cognition] 84-20-0330RmskedggUxhzk non-traumatic joint disorders (20 sources)Pain in left shoulder; Translations: [Left shoulder pain]Onset: 030281-93-1733RooaulhdHgrin nutritional; endocrine; and metabolic disorders (20 sources)Obesity; Translations: [Obesity, unspecified]97-93-1874NkcslrwWekcw nutritional; endocrine; and metabolic disorders (9 sources)Body mass index 30+ - obesity; Translations: [Body mass index 36.0- 36.9, adult]Onset: 951725-25-4946WalkdvpPeues nutritional; endocrine; and metabolic disorders (6 sources)Obese class II; Translations: [Body mass index (BMI) 35.0-35.9, adult]Onset: 51-03-8570WwoyvvoXzscx nutritional; endocrine; and metabolic disorders (4 sources)Obesity caused by energy imbalance; Translations: [Other obesity due to excess calories]ChronicOther nutritional; endocrine; and metabolic disorders (2 sources)Other obesity due to excess caloriesChronicOther nutritional; endocrine; and metabolic disorders (2 sources)Body mass index (BMI) 32.0-32.9, adultChronicOther nutritional; endocrine; and metabolic disorders (5 sources)Obesity, unspecified; Translations: [Obesity, unspecified]06-06-2024 ChronicOther screening for suspected conditions (not mental disorders or infectious disease) (20 sources)Other abnormal and inconclusive findings on diagnostic imaging of breast; Translations: [Encounter for screening mammogram for malignant neoplasm of breast]Onset: 72-26-8919UntmfiubHlbgo skin disorders (2 sources)Seborrheic keratosis; Translations: [Other seborrheic keratosis] 48-13-5209JpjqtpvhRwcru upper respiratory infections (15 sources)Acute pharyngitis; Translations: [Acute pharyngitis, unspecified] Onset: 94-59-7530PoomeyxgYwgwpmfn codes; unclassified (10 sources)Obstructive sleep apnea syndrome; Translations: [Obstructive sleep apnea (adult) (pediatric)]ChronicResidual codes; unclassified (2 sources)Obstructive sleep apnea (adult) (pediatric)ChronicResidual codes; unclassified (3 sources)Family history of diabetes mellitus; Translations: [Family history of diabetes mellitus]EpisodicResidual codes; unclassified (1 source)Asymptomatic menopausal stateEpisodicScreening and history of mental health and substance abuse codes (5 sources)Bz-hjibil16-45cnwamr95-74-6900PvslscknHykguqhuueu; intervertebral disc disorders; other back problems (10 sources)Lumbar spondylosis; Translations: [Spondylosis without myelopathy or radiculopathy, lumbar region]53-95-7949SzgvofsGnxmkaoqrjj; intervertebral disc disorders; other back problems (20 sources)Neck pain; Translations: [Cervicalgia]Onset: 997796-72-0590 EpisodicSprains and strains (3 sources)Sprain of knee and leg; Translations: [Sprain and strain of other specified sites of knee and leg]EpisodicUnclassified (3 sources)CONTACT W/AND (SUSP) EXPOS COVID-19; Translations: [CONTACT W/AND (SUSP) EXPOS COVID-19]Onset: 00-23-9485Yeeqzexzrqot (4 sources)Cubital tunnel syndrome on left; Translations: [G56.22 - Lesion of ulnar nerve, left upper limb] Past or Other Problems Problem ClassificationProblemDateDocumented DateEpisodic/ChronicAcute bronchitis (3 sources)Acute bronchitis; Translations: [Acute bronchitis, unspecified]Onset: 03-02-0624ClfppksxDticmlsqg infection; unspecified site (3 sources)Bacterial infectious disease; Translations: [Bacterial infection, unspecified, in conditions classified elsewhere and of unspecified site]Onset: 54-96-9284YvqgcirnKlbgooxeue infection (3 sources)Clostridial gastroenteritis; Translations: [Enterocolitis due to Clostridium difficile, not specified as recurrent] Resolved: 61-75-2374FvrlwsxpLcwdnxv and fatigue (3 sources)Malaise and fatigue; Translations: [Other malaise and fatigue]Onset: 74-99-7975DgjambmtYugjmcgbmoqg breast conditions (1 source)Mammographic calcification found on diagnostic imaging of breast; Translations: [MAMMO CALCIF FOUNDDX IMAG BRST]Onset: 76-73-5058BpjazipoKmxvt ear and sense organ disorders (3 sources)Acute contact otitis externa; Translations: [Acute contact otitis externa, right ear] Resolved: 46-10-2536EtbkeyhsSlark nervous system disorders (18 sources)Impairment of balance; Translations: [Other abnormalities of gait and mobility]Onset: 854934-73-1764RxfdzmlpCcmtu nutritional; endocrine; and metabolic disorders (3 sources)Morbid obesity; Translations: [Morbid (severe) obesity due to excess calories] Resolved: 26-76-4352RahpxtsJlaeuc media and related conditions (6 sources)Otitis media; Translations: [Otitis media, unspecified, right ear] Resolved: 35-89-3505VzsdxbafNbraqwfa codes; unclassified (1 source)Acquired absence of both cervix and uterus; Translations: [ACQUIRED ABSENCE BOTH CERVIX AND UTERUS]Onset: 51-15-5331UbvgjlbuTzjuydud codes; unclassified (1 source)Acquired absence of ovaries, unilateral; Translations: [ACQUIRED ABSENCE OVARIES UNILATERAL]Onset: 42-68-0852EoopexvtDecgtzdf codes; unclassified (1 source)Family history of malignant neoplasm of breast; Translations: [FAMILY HX MALIG NEOPLASM OF BREAST]Onset: 08-53-2119WofvugfiNgjfdcsn codes; unclassified (1 source)Family history of leukemia; Translations: [FAMILY HISTORY OF LEUKEMIA] Onset: 18-91-8987EhbmcpgoAgofzxrx codes; unclassified (7 sources)Other specified postprocedural states; Translations: [Other postprocedural status]Onset: 148800-24-3840IlzttsvqKgslmdwoocou (1 source)CONTACT W/AND (SUSP) EXPOS COVID-19; Translations: [CONTACT W/AND (SUSP) EXPOS COVID-19]Onset: 60-93-2628Fsrvu infection (6 sources)Herpes zoster without complication; Translations: [Herpes zoster without mention of complication]Onset: 81-21-4973Amdhfodt Results Test NameValueInterpretationReference RangeFacilityAlanine aminotransferase [Enzymatic activity/volume] in Serum or PlasmaOrdered By: Akil Martinez on 72-13-8351IVA [Catalytic activity/Vol]Alanine aminotransferase [Enzymatic activity/volume] in Serum or Plasma7[facility] Health CenterAlbumin [Mass/volume] in Serum or Plasma by Bromocresol green (BCG) dye binding metho Ordered By: Akil Martinez on 04-86-3765Tbahhru BCG dye [Mass/Vol]Albumin [Mass/volume] in Serum or Plasma by Bromocresol green (BCG) dye binding metho 3.5-5.7FAdena Health SystemAlkaline phosphatase [Enzymatic activity/volume] in Serum or PlasmaOrdered By: Akil Martinez on 93-95-5793PHV [Catalytic activity/Vol]Alkaline phosphatase [Enzymatic activity/volume] in Serum or Dikcpt35-851PtwjmajmdSamaritan North Health CenterAspartate aminotransferase [Enzymatic activity/volume] in Serum or PlasmaOrdered By: Akil Martinez on 01-10-0738RLD [Catalytic activity/Vol]Aspartate aminotransferase [Enzymatic activity/volume] in Serum or Xjukzt72-42EjelchoqfSamaritan North Health Center Basophils Auto (Bld) [#/Vol]Ordered By: Akil Martinez on 14-96-2276Cbpklhcrq (Bld) [#/Vol]Automated basophil count0.0-0.2FAdena Health System Basophils/100 WBC Auto (Bld)Ordered By: Akil Martinez on 41-48-2595Enuasagnk/100 WBC (Bld)Automated basophil %.[facility] Health CenterBilirubin.total [Mass/volume] in Serum or PlasmaOrdered By: Akil Martinez on 46-00-0051Jhyinzcnp [Mass/Vol]Bilirubin.total [Mass/volume] in Serum or Plasma0.3-1.0[facility] Health CenterCMP with reflex to A1Con 22-41-9611Szafkmt [Mass/Vol]4.2 g/dLNormal3.5-5.7The [facility] Physician GroupComment on above:Performed By: #### CBC, CMP wRFX A1C #### [facility] [address] [place] [address] USAAlbumin/Globulin [Mass ratio]1.8 {ratio}NormalThe [facility]son Physician GroupComment on above:Performed By: #### CBC, CMP wRFX A1C #### [place] [address] USAALP [Catalytic activity/Vol]88 U/NVzrgtb79-490Blt [facility] Physician GroupComment on above:Result Comment: PERFORMED BY: [place] [address] PATHOLOGIST PLANNING FEEDER CHIDI NG M.D.Performed By: #### CBC, CMP wRFX A1C #### [place] [address] USAALT [Catalytic activity/Vol]10 U/LNormal7-52The [facility] Physician GroupComment on above:Performed By: #### CBC, CMP wRFX A1C #### [place] [address] USAAnion gap [Moles/Vol]9.8 mmol/LNormal6.0-15.0The [facility] Physician GroupComment on above:Performed By: #### CBC, CMP wRFX A1C #### [place] [address] USAAST [Catalytic activity/Vol]15 U/XBbruci20-86Mvp [facility] Physician GroupComment on above:Performed By: #### CBC, CMP wRFX A1C #### [place] [address] USABilirubin [Mass/Vol]0.5 mg/dLNormal0.3-1.0The [facility] Physician GroupComment on above:Performed By: #### CBC, CMP wRFX A1C #### [facility] [address] [place] [address] USACalcium [Mass/Vol]9.5 mg/dLNormal8.6-10.3The [facility] Physician GroupComment on above:Performed By: #### CBC, CMP wRFX A1C #### [facility] [address] [place] [address] USAChloride [Moles/Vol]108 mmol/PVzhx79-285Amh [facility] Physician GroupComment on above:Performed By: #### CBC, CMP wRFX A1C #### [facility] [address] [place] [address] USACO2 [Moles/Vol]28.4 mmol/ZNgddor86.0-31.0The [facility] Physician GroupComment on above:Performed By: #### CBC, CMP wRFX A1C #### [place] [address] USACreatinine [Mass/Vol]0.73 mg/dLNormal0.60-1.20The [facility] Physician GroupComment on above:Performed By: #### CBC, CMP wRFX A1C #### [place] [address] USAGFR/1.73 sq M.predicted MDRD (S/P/Bld) [Vol rate/Area] mL/min/{1.73_m2}NormalThe [facility] Physician GroupComment on above:Performed By: #### CBC, CMP wRFX A1C #### [place] [address] USAGlobulin (S) [Mass/Vol]2.3 g/dLNormalThe [facility] Physician GroupComment on above:Performed By: #### CBC, CMP wRFX A1C #### [place] [address] USAGlucose [Mass/Vol]85 mg/sSNwrrun20-265Uxj [facility] Physician GroupComment on above:Performed By: #### CBC, CMP wRFX A1C #### [place] [address] USAPotassium [Moles/Vol]4.2 mmol/LNormal3.5-5.1The [facility] Physician GroupComment on above:Performed By: #### CBC, CMP wRFX A1C #### [facility] [address] [place] [id number] USAProtein [Mass/Vol]6.5 g/dLNormal6.4-8.9The [facility] Physician GroupComment on above:Performed By: #### CBC, CMP wRFX A1C #### [facility] [address] [place] [address] USASodium [Moles/Vol]142 mmol/DNwcsts038-039Gbt [facility] Physician GroupComment on above:Performed By: #### CBC, CMP wRFX A1C #### [facility] [address] [place] [address] USAUrea nitrogen [Mass/Vol]14 mg/dLNormal7-25The [facility] Physician GroupComment on above:Performed By: #### CBC, CMP wRFX A1C #### [facility] [address] [place] [address] USACalcium [Mass/volume] in Serum or PlasmaOrdered By: Akil Martinez on 98-25-4207Mkjxcdg [Mass/Vol]Calcium [Mass/volume] in Serum or Plasma 8.6-10.3FAdena Health SystemCarbon dioxide, total [Moles/volume] in Serum or PlasmaOrdered By: Akil Martinez on 48-25-6959GC2 [Moles/Vol]Carbon dioxide, total [Moles/volume] in Serum or Bgmhyb39.0-31.0[facility] CenterChloride [Moles/volume] in Serum or PlasmaOrdered By: Akil Martinez on 06-32-5897Gpyfmkhw [Moles/Vol]Chloride [Moles/volume] in Serum or PlasmaHigh 98-107[facility] CenterComplete Blood Count Auto Diffon 68-63-1942Cscxhafng (Bld) [#/Vol]0.1 10*3/uLNormal0.0-0.2The [facility] Physician GroupComment on above:Result Comment: PERFORMED BY: [place] [address] PATHOLOGIST PLANNING FEEDER CHIDI NG M.D.Performed By: #### CBC, CMP wRFX A1C #### [place] [address] USABasophils/100 WBC (Bld)1.1 %Normal.The [facility] Physician GroupComment on above:Performed By: #### CBC, CMP wRFX A1C #### [place] [address] USAEosinophils (Bld) [#/Vol]0.3 10*3/uLNormal0.0-0.45The [facility] Physician GroupComment on above:Performed By: #### CBC, CMP wRFX A1C #### [place] [address] USAEosinophils/100 WBC (Bld)4.9 %Normal.The [facility] Physician GroupComment on above:Performed By: #### CBC, CMP wRFX A1C #### [place] [address] USAErythrocyte distribution width (RBC) [Ratio]13.4 %Normal 11.9-15.3The [facility] Physician GroupComment on above:Performed By: #### CBC, CMP wRFX A1C #### [place] [address] USAHematocrit (Bld) [Volume fraction]37.6 %Bpdvji39.0-46.4The [facility] Physician GroupComment on above:Performed By: #### CBC, CMP wRFX A1C #### [place] [address] USAHemoglobin (Bld) [Mass/Vol]12.7 g/dKIqfwpa62.8-15.4The [facility] Physician GroupComment on above:Performed By: #### CBC, CMP wRFX A1C #### [place] [address] USALymphocytes (Bld) [#/Vol]1.4 10*3/uLNormal1.00-4.8The [facility] Physician GroupComment on above:Performed By: #### CBC, CMP wRFX A1C #### [place] [address] USALymphocytes/100 WBC (Bld)24.5 %Normal.The [facility] Physician GroupComment on above:Performed By: #### CBC, CMP wRFX A1C #### [address] (RBC) [Entitic mass]32.1 hqRyecca91.7-34.3The [facility] Physician GroupComment on above:Performed By: #### CBC, CMP wRFX A1C #### [address] (RBC) [Entitic vol]95.0 oVLenzux22-620Car [facility] Physician GroupComment on above:Performed By: #### CBC, CMP wRFX A1C #### [place] [address] USAMean Corpuscular HGB Conc33.8 g/yHBmoqbj46.0-35.0The [facility] Physician GroupComment on above:Performed By: #### CBC, CMP wRFX A1C #### [place] [address] USAMonocytes (Bld) [#/Vol]0.6 10*3/uLNormal0.0-0.8The [facility] Physician GroupComment on above:Performed By: #### CBC, CMP wRFX A1C #### [place] [address] USAMonocytes/100 WBC (Bld)9.8 %Normal.The [facility] Physician GroupComment on above:Performed By: #### CBC, CMP wRFX A1C #### [place] [address] USANeutrophils (Bld) [#/Vol]3.5 10*3/uLNormal1.8-7.7The [facility] Physician GroupComment on above:Performed By: #### CBC, CMP wRFX A1C #### [facility] [address] [place] [address] USANeutrophils/100 WBC (Bld)59.7 %Normal.The [facility] Physician GroupComment on above:Performed By: #### CBC, CMP wRFX A1C #### [facility] [address] [place] [address] USANRBC%0.2 /100{WBC}Normal0-0.5The [facility] Comment on above:Performed By: #### CBC, CMP wRFX A1C #### [facility] [address] [place] [address] USAPlatelet mean volume (Bld) [Entitic vol]9.1 fLNormal 6.3-10.7The [facility] Physician GroupComment on above:Performed By: #### CBC, CMP wRFX A1C #### [facility] [address] [place] [address] USAPlatelets (Bld) [#/Vol]202 10*3/mLZwbyfv982-267Fpr [facility] Physician GroupComment on above:Performed By: #### CBC, CMP wRFX A1C #### [facility] [address] [place] [address] USARBC (Bld) [#/Vol]3.95 10*6/uLNormal3.60-5.00The [facility] Physician GroupComment on above:Performed By: #### CBC, CMP wRFX A1C #### [facility] [address] [place] [address] USAWBC (Bld) [#/Vol]5.9 10*3/uLNormal3.8-11.6The [facility] Physician GroupComment on above:Performed By: #### CBC, CMP wRFX A1C #### [facility] [address] [place] [address] USACreatinine [Mass/volume] in Serum or PlasmaOrdered By: Akil Martinez on 52-83-3734Njlrsgonrp [Mass/Vol]Creatinine [Mass/volume] in Serum or Plasma0.60-1.20[facility] Health CenterECG 12 lead ECGon 05-19-2024 ECG 12 lead [facility]PROM[facility] [address] Electrocardiograph Report Signed Patient: Sayda Fraire MR#: [id number] [birth year] : 1955 Acct:[id number] Age/Sex: 69 / F ADM Date: 05/19/24 Loc: Room: Type: [facility] Attending Dr: Akil Martinez DO Ordering [...] Otherwise normal ECG Confirmed by Nuha Buckner ([id number]) on 05/19/2024 10:06:22 AM Referred By: Electronically Signed By: Nuha Buckner Transcribed By: MUS Signed By uNha Buckner MD [address] [place] [address] Physician GroupEosinophils Auto (Bld) [#/Vol]Ordered By: Akil Martinez on 74-51-4798Mzivqrbyvog (Bld) [#/Vol]Automated eosinophil count0.0-0.45[facility] CenterEosinophils/100 WBC Auto (Bld) Ordered By: Akil Martinez on 63-63-9319Xflwfizigvk/100 WBC (Bld)Automated eosinophil %.[facility] CenterErythrocyte distribution width Auto (RBC) [Ratio]Ordered By: Akil Martinez on 25-09-0247Ldmdxqflcil distribution width (RBC) [Ratio]Erythrocyte distribution width [Ratio] by Automated count 11.9-15.3FAdena Health SystemGlobulin Calc (S) [Mass/Vol]Ordered By: Akil Martinez on 95-01-7271Ywycxixv (S) [Mass/Vol]Serum globulin measurement by calculation (mass/volume)[facility] CenterGlucose [Mass/volume] in Serum or PlasmaOrdered By: Akil Martinez on 73-99-1228Wjhqfsm [Mass/Vol]Glucose [Mass/volume] in Serum or Fjhmij14-797UgxmtdnktSamaritan North Health CenterHematocrit Auto (Bld) [Volume fraction]Ordered By: Akil Martinez on 91-55-5598Praazyixel (Bld) [Volume fraction]Hematocrit [Volume Fraction] of Blood by Automated count34.0-46.4FAdena Health SystemHemoglobin [Mass/volume] in BloodOrdered By: Akil Martinez on 13-01-0278Qiaqgiwuwh (Bld) [Mass/Vol]Hemoglobin [Mass/volume] in Blood11.8-15.4FAdena Health SystemLeukocytes [#/volume] corrected for nucleated erythrocytes in Blood by Automated counOrdered By: Akil Martinez on 26-02-0788LCA corrected for nucl RBC Auto (Bld) [#/Vol]Leukocytes [#/volume] corrected for nucleated erythrocytes in Blood by Automated coun3.8-11.6FAdena Health SystemLymphocytes Auto (Bld) [#/Vol]Ordered By: Akil Martinez on 20-62-0123Brrblolcfhd (Bld) [#/Vol] Lymphocytes [#/volume] in Blood by Automated count1.00-4.8[facility] CenterLymphocytes/100 WBC Auto (Bld)Ordered By: Akil Martinez on 95-65-1968Bwycixeldqz/100 WBC (Bld)Lymphocytes/100 leukocytes in Blood by Automated count.[facility] Health CenterMCH Auto (RBC) [Entitic mass] Ordered By: Akil Martinez on 63-98-9449EMV (RBC) [Entitic mass]MCH [Entitic mass] by Automated count24.7-34.3FAdena Health SystemMCHC Auto (RBC) [Mass/Vol]Ordered By: Akil Martinez on 11-04-3036BHGL (RBC) [Mass/Vol]MCHC [Mass/volume] by Automated count32.0-35.0[facility] CenterMCV Auto (RBC) [Entitic vol]Ordered By: Akil Martinez on 38-48-1148LXP (RBC) [Entitic vol]MCV [Entitic volume] by Automated -518GzntsxnjbSamaritan North Health CenterMonocytes Auto (Bld) [#/Vol]Ordered By: Akil Martinez on 05-19-2024 Monocytes (Bld) [#/Vol]Automated blood monocyte count0.0-0.8[facility] CenterMonocytes/100 WBC Auto (Bld)Ordered By: Akil Martinez on 05-19-2024 Monocytes/100 WBC (Bld)Automated monocyte %.[facility] Neutrophils Auto (Bld) [#/Vol]Ordered By: Akil Martinez on 84-76-7423Umpflvozlxx (Bld) [#/Vol]Neutrophils [#/volume] in Blood by Automated count1.8-7.7FAdena Health SystemNeutrophils/100 WBC Auto (Bld)Ordered By: Akil Martinez on 48-32-4215Yrpqjnqnqzi/100 WBC (Bld)Automated neutrophil %.[facility] CenterNo Panel InformationOrdered By: Akil Martinez on 05-19-2024 Estimated GFR (CKD-EPI)> 60.0 mL/MinSamaritan North Health CenterPharmacy Creatinine Clearance (ChemN/AFAdena Health SystemNucleated erythrocytes [Presence] in Blood by Automated countOrdered By: Akil Martinez on 66-02-5601Oaxetbszs RBC Auto Ql (Bld)Nucleated erythrocytes [Presence] in Blood by Automated count0-0.5FAdena Health SystemPlatelet mean volume Auto (Bld) [Entitic vol]Ordered By: Akil Martinez on 81-06-9153Jmbersjv mean volume (Bld) [Entitic vol]Platelet mean volume [Entitic volume] in Blood by Automated count6.3-10.7FAdena Health SystemPlatelets Auto (Bld) [#/Vol]Ordered By: Akil Martinez on 13-88-3733Leabborby (Bld) [#/Vol]Platelets [#/volume] in Blood by Automated ybvhj145-891YvrheusgpSamaritan North Health Center Potassium [Moles/volume] in Serum or PlasmaOrdered By: Akil Martinez on 72-23-3051Qddfvcnge [Moles/Vol]Potassium [Moles/volume] in Serum or Plasma 3.5-5.1FAdena Health SystemProtein [Mass/volume] in Serum or Plasma Ordered By: Akil Martinez on 59-63-5662Aqxqbbe [Mass/Vol]Protein [Mass/volume] in Serum or Plasma6.4-8.9[facility] Health CenterRBC Auto (Bld) [#/Vol] Ordered By: Akil Martinez on 20-81-5516MYJ (Bld) [#/Vol]Erythrocytes [#/volume] in Blood by Automated count3.60-5.00Centervilleerum or plasma albumin/globulin mass ratioOrdered By: Akil Martinez on 05-19-2024 Albumin/Globulin [Mass ratio]Serum or plasma albumin/globulin mass ratio Centervilleerum or plasma anion gap determinationOrdered By: Akil Martinez on 86-64-4326Syzwu gap [Moles/Vol]Serum or plasma anion gap determination6.0-15.0Centervilleodium [Moles/volume] in Serum or PlasmaOrdered By: Akil Martinez on 88-60-4413Pwujnh [Moles/Vol]Sodium [Moles/volume] in Serum or Vxlroe556-181MhxvedfxlSamaritan North Health CenterUrea nitrogen [Mass/volume] in Serum or PlasmaOrdered By: Akil Martinez on 05-19-2024 Urea nitrogen [Mass/Vol]Urea nitrogen [Mass/volume] in Serum or Plasma7-25 [facility] CenterWBC Auto (Bld) [#/Vol]Ordered By: Akil Martinez on 43-23-0505ACT (Bld) [#/Vol]Leukocytes [#/volume] in Blood by Automated count 3.8-11.6FAdena Health SystemXR shoulder LT min 2V*on 75-13-6203QG shoulder LT min 2V*[facility] [address] [place] [address] XRay Report Signed Patient: Sayda Fraire MR#: [id number] [birth year] : 1955 Acct:[id number] Age/Sex: 69 / F ADM Date: 03/21/24 Loc: SOXD Room: Type: REG CLI Attending Dr: Akil [...] Kehinde Erazo M.D.03/21/2024 4:08 PM Dictation Location: [place] [address] Transcribed By: OTTO 03/21/24 1608 Dictated By: Kehinde Erazo DO 03/21/24 1607 Signed By: 03/21/24 1608[facility] Physician GroupEstimated glomerular filtration rate (GFR) non- Americanon 38-63-9365JWI/1.73 sq M.predicted among non- blacks MDRD (S/P/Bld) [Vol rate/Area]60 mL/min/{1.73_m2}>=60 mL/min/1.73m 2 [facility] Health CenterGFR/1.73 sq M.predicted among non-blacks MDRD (S/P/Bld) [Vol rate/Area]Estimated glomerular filtration rate (GFR) non->=60 mL/min/1.73m [address] [place], [place] [address]Laboratory - Chemistry and Chemistry - challengeon 88-10-6174Mpfvcjwauq [Mass/Vol]0.93 mg/dL 0.55-1.02[facility] Health CenterGFR/1.73 sq M.predicted MDRD (S/P/Bld) [Vol rate/Area]mL/min/{1.73_m2}>=60 mL/min/1.[address]m [address] [place], [place] [address]XR shoulder LT min 2V*on 00-85-9368EL shoulder LT min 2V*[facility] [address] [place] [address] XRay Report Signed Patient: Sayda Fraire MR#: [id number] [birth year] : 1955 Acct:[id number] Age/Sex: 68 / F ADM Date: 12/17/23 Loc: [facility] Room: Type: [facility] Attending Dr: Akil Martinez DO Copies to: Akil Martinez DO Ordering Provider: Akil aMrtinez DO Date of Service: 12/17/23 XR/XR shoulder LT min 2V*: Z96.612 - 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 XR/XR shoulder LT min 2V* IMPRESSION: NO HARDWARE COMPLICATION. Impression dictated by: Gonzalez Galo Jr., D.O.12/17/2023 3:44 PM Dictation Location: [facility]-14 Transcribed By: [facility] 12/17/23 1544 Dictated By: Gonzalez Galo Jr, DO 12/17/23 1544 Signed By: 12/17/23 1544[facility] Physician GroupUrology Office/Clinic Noteon 02-86-2474Qlzrfzr Office/Clinic NoteUrology Office/Clinic Note Chief Complaint urethral strictura and [...] states her PCP had her d/c med. [place] like it was causing some GI issues. 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 Continues to have good strong/steady stream. No straining/hesitancy. No UTIsin the past year. No complaints. -See #1. Offered continued scheduled follow up with our clinic vs following up PRN. Pt prefers the latter Follow-up With When Contact Information HIMANSHU BENÍTEZ, JOSEFINA Hahn, URL [address] [place] [address] Additional Instructions: PRN Patient Education Overactive Bladder, Adult Documentation recorded by the scrjesus Jack accurately reflects the services(s) I performed and decisions made by me. Authenticated by Josefina Roman PA-C on 11/17/2023 13:08:08. I, Clement Jack, personally scribed for Josefina Roman PA-C on 11/17/2023 13:04:44. . Problem List/Past [...] Immunizations Vaccine Date Status Comments SARS-CoV-2 (COVID-19) mRNAMUL.ORD![id number] 09/16/2022 Recorded influenza virus vaccine, inactivated 01/27/2022 Recorded SARS-CoV-2 (COVID-19) (more content not included)...[facility] CenterComment on above:Result Comment: Electronically Signed By: JOSEFINA ROMAN PA-C\.br\Date and Time Signed: 11/16/2412:08 EDT\.br\Electronically Co- Signed By: Clement Jack\.br\Date and Time Co-Signed: 11/17/23 13:04 EDTCT shoulder LT wo conon 24-78-2066PO shoulder LT wo [facility] [place] [address] [place] [address] CT Scan Report Signed Patient: Sayda Fraire MR#: [id number] [birth year] : 1955 Acct:[id number] Age/Sex: 68 / F ADM Date: 09/30/23 Loc: CT Room: Type: [facility] Attending Dr: Akil Martinez DO Copies [...] 4:19 PM Dictation Location: [facility]-02 Transcribed By: [facility] 09/30/23 1619 Dictated By: Wendy Olson MD 09/30/23 161 Signed By: 09/30/23 1619[facility] Physician GroupXR shoulder LT min 2V*on 22-32-5840BU shoulder LT min 2V*[facility] [address] [place] [address] XRay Report Signed Patient: Sayda Fraire MR#: [id number] [birth year] : 1955 Acct:[id number] Age/Sex: 68 / F ADM Date: 09/17/23 Loc: [facility] Room: Type: [facility] Attending Dr: Akil Martinez DO Copies [...] Galo Jr., D.OJose09/17/2023 3:43 PM Dictation Location: [facility]--14 Transcribed By: OTTO 09/17/23 154 Dictated By: Gonzalez Galo Jr, DO 09/17/23 154 Signed By: 09/17/23 1543[facility] Physician GroupLon 57-35-4005GExegybrb: [id number] Received: 09/09/2353 Status: GUY Peng Num: [id number] Spec Type: Surgical Subm Dr: Akil Martinez DO Tissues: A Joint/Knee (LT SHOULDER) Procedures: HE/2, Gross/Micro L4, Decalcification Age/ Patient Sex Location Account Attending Physician Sayda Fraire 68/F [place] [id number] Akil Martinez DO SPEC NUM: [id number] RECD: 09/09/23 STATUS: GUY GEOREG NUM: [id number] BROCK: 09/09/23- DR: Akil Martinez DO ENTERED: 09/09/23 [facility] DR: SPEC TYPE: Surgical DEPT: S ORDERED: [...] necrosis present. A gross photo is included. Licensing Specialist sections are submitted in A1 (bone following decalcification) and A2 (soft tissue). CPT Codes 90081 BONE AND TISSUE Specimen: [id number] Received: 09/09/23 Status: GUY Lópezgrace Num: [id number] Spec Type: Surgical Subm Dr: Akil Martinez DO Tissues: A Joint/Knee (LT SHOULDER) Procedures: HE/2, Gross/Micro L4, Decalcification Patient: Sayda Fraire [id number] (Continued) Signed (signature on file) Chidi Ng MD 09/10/[address] [place] [address] Physician GroupXR shoulder LT 1Von 15-18-3315MH shoulder [place] [address] XRay Report Signed Patient: Sayda Fraire MR#: [id number] [birth year] : 1955 Acct:[id number] Age/Sex: 68 / F ADM Date: 09/09/23 Loc: [place] Room: Type: [facility] Attending Dr: Akil Martinez DO Copies to: [...] Wendy Olson M.D.09/09/2023 11:07 AM Dictation Location: [place] [address] Transcribed By: [facility] 09/09/23 1107 Dictated By: Wendy Olson MD 09/09/23 1106 Signed By: 09/09/23 1107[facility] Physician GroupBasophils Auto (Bld) [#/Vol]on 53-71-4514Byctsthod (Bld) [#/Vol]0.0 10 3/uL0.0-0.1FAdena Health SystemBasophils/100 WBC Auto (Bld)on 47-67-0299Xbldcacqw/100 WBC (Bld)0.8 % 0.2-2.0[facility] CenterEosinophils/100 WBC Auto (Bld)on 23-41-8556Ybqmaiepznw/100 WBC (Bld)2.5 %0.9-7.0[facility] Erythrocyte distribution width Auto (RBC) [Ratio]on 34-67-8179Lkabvzjyqcz distribution width (RBC) [Ratio]13.2 %11.0-15.0[facility] Estimated glomerular filtration rate (GFR) non- Americanon 09-01-2023 GFR/1.73 sq M.predicted among non-blacks MDRD (S/P/Bld) [Vol rate/Area] mL/min/{1.73_m2}>=60[facility] CenterGlobulin Calc (S) [Mass/Vol]on 95-94-3058Vzlturww (S) [Mass/Vol]3.5 g/dLSamaritan North Health CenterHematocrit Auto (Bld) [Volume fraction]on 08-20-7976Ewxatgqbwi (Bld) [Volume fraction]39.8 %36.0-48.0[facility] CenterHemoglobin [Mass/volume] in Bloodon 49-97-5243Lslzwflyvn (Bld) [Mass/Vol]13.2 g/dL12.0-16.0 [facility] CenterLaboratory - Chemistry and Chemistry - challengeon 79-48-4771Fqimcbl [Mass/Vol]3.6 g/dL3.4-5.0[facility] CenterALP [Catalytic activity/Vol]114 U/M12-859DnmbwgaoaSamaritan North Health CenterALT [Catalytic activity/Vol]34 U/U50-74HhrnoxzmcSamaritan North Health CenterAST [Catalytic activity/Vol]23 U/G77-95VxzgzklilSamaritan North Health Center Bilirubin [Mass/Vol]0.6 mg/dL0.2-1.0[facility] CenterCalcium [Mass/Vol]9.4 mg/dL8.5-10.1FAdena Health SystemChloride [Moles/Vol] 106 mmol/U23-934CpurhtjmfSamaritan North Health CenterCO2 [Moles/Vol]27.3 mmol/L 21.0-32.0[facility] CenterCreatinine [Mass/Vol]0.77 mg/dL 0.55-1.02[facility] CenterGFR/1.73 sq M.predicted MDRD (S/P/Bld) [Vol rate/Area]mL/min/{1.73_m2}>=60[facility] CenterGlucose [Mass/Vol]93 mg/kQ07-056FoxhvfarlSamaritan North Health CenterPotassium [Moles/Vol] 3.7 mmol/L3.5-5.1FAdena Health SystemProtein [Mass/Vol]7.1 g/dL 6.4-8.2FUniversity Hospitals Conneaut Medical Centerodium [Moles/Vol]144 mmol/V179-045 [facility] CenterUrea nitrogen [Mass/Vol]13.0 mg/dL7.0-18.0 [facility] CenterUrea nitrogen/Creatinine [Mass ratio]16.9 mg/mg [facility] CenterLaboratory - Hematology and Cell countson 70-73-9920Xaubiuxw granulocytes/100 WBC (Bld)0.2 %0.0-0.5FAdena Health SystemLeukocytes [#/volume] corrected for nucleated erythrocytes in Blood by Automated counon 19-01-5651CHN corrected for nucl RBC Auto (Bld) [#/Vol]5.3 10 3/uL4.0-11.0[facility] CenterLymphocytes Auto (Bld) [#/Vol]on 40-20-3210Tjostedezop (Bld) [#/Vol]1.4 10 3/uL1.2-3.8[facility] CenterLymphocytes/100 WBC Auto (Bld)on 09-01-2023 Lymphocytes/100 WBC (Bld)26.2 %20.5-60.0[facility] CenterH Auto (RBC) [Entitic mass]on 43-61-9317ZLU (RBC) [Entitic mass]31.9 pg26.7-34.0 [facility] CenterMCHC Auto (RBC) [Mass/Vol]on 58-84-2529OSPI (RBC) [Mass/Vol]33.2 g/dL29.9-35.2FAdena Health SystemMCV Auto (RBC) [Entitic vol]on 56-23-2381RWS (RBC) [Entitic vol]96.1 fL81.0-99.0[facility] CenterMonocytes Auto (Bld) [#/Vol]on 84-98-8850Utmxrzcph (Bld) [#/Vol]0.5 10 3/uL0.3-0.8[facility] CenterMonocytes/100 WBC Auto (Bld)on 57-33-2845Bhcdkzsaz/100 WBC (Bld)9.5 %1.7-12.0[facility] CenterNeutrophils Auto (Bld) [#/Vol]on 45-94-8719Cyizarwalrz (Bld) [#/Vol]3.2 10 3/uL1.4-6.5FAdena Health SystemNeutrophils/100 WBC Auto (Bld)on 46-86-9508Rdxkmohqkjv/100 WBC (Bld)60.8 %43.0-75.0[facility] CenterNo Panel Informationon 36-82-1194Ceyjrrwxkja difficile (PCR)(LAB)NegativeNEGATIVESamaritan North Health CenterMiscellaneous Test CommentSee commentSamaritan North Health CenterComment on above:Specimen Source: ST - Stool - Stool - 700.100Stool Campylobacter Culture Res 1\R\ Campylobacter Culture\R\ No Campylobacter species isolated.[facility] CenterComment on above:[facility],Eosinophils # (Auto)0.1 10 3/uL0.0-0.7 [facility] CenterImmature Granulocyte # (Auto)0.01 10 3/uL 0.00-0.03[facility] CenterNo Panel InformationOrdered By: Capo Dnun on 09-01-2023E coli Shiga Toxin EIACentervillealmonella/Shigella ScreenSamaritan North Health CenterPlatelet mean volume Auto (Bld) [Entitic vol]on 28-73-7618Qrocnjvm mean volume (Bld) [Entitic vol]11.2 fL9.5-13.5FAdena Health SystemPlatelets Auto (Bld) [#/Vol] on 93-73-2515Oytzewoyb (Bld) [#/Vol]222 10 3/cI839-008JntfpuslrSamaritan North Health CenterRBC Auto (Bld) [#/Vol]on 51-85-4676EPI (Bld) [#/Vol]4.14 10 6/uLLow 4.20-5.40Centervilleerum or plasma albumin/globulin mass ratioon 30-27-4795Miouynf/Globulin [Mass ratio]1.0 {ratio}Centervilleerum or plasma anion gap determinationon 42-99-5562Qxcrl gap [Moles/Vol]14.4 mmol/LFAdena Health SystemAlanine aminotransferase [Enzymatic activity/volume] in Serum or PlasmaOrdered By: Akil Martinez on 75-21-5882QEK [Catalytic activity/Vol]18 U/LNormal7-52[facility] CenterComment on above:Performed By: #### CBC, CMP wRFX A1C #### [facility] [address] [place] [address] USAAlbumin [Mass/volume] in Serum or Plasma by Bromocresol green (BCG) dye binding methoOrdered By: Akil Martinez on 48-70-6539Tfchnms BCG dye [Mass/Vol]4.2 g/dL3.5-5.7FAdena Health SystemAlkaline phosphatase [Enzymatic activity/volume] in Serum or PlasmaOrdered By: Akil Martinez on 45-03-3501MDI [Catalytic activity/Vol]88 U/IQmbckl57-583QhzjcsgwbSamaritan North Health CenterComment on above:Result Comment: PERFORMED BY: [place] [address] PATHOLOGIST PLANNING FEEDER KANDI ECHEVARRIA M.D.Performed By: #### CBC, CMP wRFX A1C #### [facility] [address] [place] [address] USAAspartate aminotransferase [Enzymatic activity/volume] in Serum or PlasmaOrdered By: Akil Martinez on 96-77-6381GUI [Catalytic activity/Vol]18 U/MBprlsw47-05EtnsrhgilSamaritan North Health CenterComment on above: Performed By: #### CBC, CMP wRFX A1C #### [place] [address] USAAutomated basophil %Ordered By: Akil Martinez on 08-25-2023 Basophils/100 WBC (Bld)0.9 %Normal.[facility] CenterComment on above:Performed By: #### CBC, CMP wRFX A1C #### [place] [address] USAAutomated basophil countOrdered By: Akil Martinez on 61-04-1438Hwxgvfnqf (Bld) [#/Vol]0.0 10*3/uLNormal0.0-0.2FAdena Health SystemComment on above:Result Comment: PERFORMED BY: [place] [address] PATHOLOGIST PL[employer]ING FEEDER KANDI ECHEVARRIA M.D.Performed By: #### CBC, CMP wRFX A1C #### [place] [address] USAAutomated blood monocyte countOrdered By: Akil Martinez on 85-14-5740Zisnwvfji (Bld) [#/Vol]0.5 10*3/uLNormal0.0-0.8[facility] CenterComment on above:Performed By: #### CBC, CMP wRFX A1C #### [address] [place] [address] USAAutomated eosinophil %Ordered By: Akil Martinez on 48-23-5434Soyxyaazknh/100 WBC (Bld)2.2 %Normal.[facility] Comment on above:Performed By: #### CBC, CMP wRFX A1C #### [facility] [address] [place] [address] USAAutomated eosinophil countOrdered By: Akil Martinez on 83-13-6959Nylavzxpprc (Bld) [#/Vol]0.1 10*3/uLNormal0.0-0.45[facility] CenterComment on above:Performed By: #### CBC, CMP wRFX A1C #### [place] [address] USAAutomated monocyte %Ordered By: Akil Martinez on 08-25-2023 Monocytes/100 WBC (Bld)8.9 %Normal.[facility] CenterComment on above:Performed By: #### CBC, CMP wRFX A1C #### [place] [address] USAAutomated neutrophil %Ordered By: Akil Martinez on 12-87-5900Bpuzpejzcfj/100 WBC (Bld)65.3 %Normal.[facility] CenterComment on above:Performed By: #### CBC, CMP wRFX A1C #### [facility] [address] [place] [address] USABilirubin Test strip Ql (U)Ordered By: Akil Martinez on 64-14-6027Ndqygwrxv Ql (U)NegativeNegativeSamaritan North Health Center Bilirubin.total [Mass/volume] in Serum or PlasmaOrdered By: Akil Martinez on 29-44-1354Jdyzfuush [Mass/Vol]0.5 mg/dLNormal0.3-1.0[facility] CenterComment on above:Performed By: #### CBC, CMP wRFX A1C #### [facility] [address] [place] [address] USACMP with reflex to A1Con 27-56-5509Floousw [Mass/Vol]4.2 g/dLNormal3.5-5.7The [facility] Physician GroupComment on above:Performed By: #### CBC, CMP wRFX A1C #### [place] [id number] USAGFR/1.73 sq M.predicted MDRD (S/P/Bld) [Vol rate/Area] mL/min/{1.73_m2}NormalThe [facility]rium Health [facility]son Physician GroupComment on above:Performed By: #### CBC, CMP wRFX A1C #### [place] [address] USACalcium [Mass/volume] in Serum or PlasmaOrdered By: Akil Martinez on 44-54-2808Evqlfii [Mass/Vol]9.6 mg/dLNormal8.6-10.3FAdena Health SystemComment on above:Performed By: #### CBC, CMP wRFX A1C #### [place] [address] USACarbon dioxide, total [Moles/volume] in Serum or Plasma Ordered By: Akil Martinez on 85-47-0920TK2 [Moles/Vol]27.5 mmol/BJvjsjs48.0-31.0 [facility] CenterComment on above:Performed By: #### CBC, CMP wRFX A1C #### [place] [id number] USAChloride [Moles/volume] in Serum or PlasmaOrdered By: Akil Martinez on 40-55-8035Fdoisrsf [Moles/Vol]107 mmol/CMaxcae76-161ZtwbeoimySamaritan North Health CenterComment on above:Performed By: #### CBC, CMP wRFX A1C #### [place] [id number] USAColor of Urine by AutoOrdered By: Akil Martinez on 59-12-2417Kklxl (U)Light-yellowNormalYellowSamaritan North Health Center Comment on above:Order Comment: Name Collection Type:: Clean-Voided Midstream Performed By: #### UA #### [address] [place] [address] USAComplete Blood Count Auto Diffon 58-86-5013Kpiy Corpuscular HGB Conc33.6 g/nLRxveit71.0-35.0The [facility] Physician GroupComment on above:Performed By: #### CBC, CMP wRFX A1C #### [facility] [address] [place], [place] [id number] USANRBC%0.1 /100{WBC}Normal0-0.5[facility] Comment on above:Performed By: #### CBC, CMP wRFX A1C #### [place] [address] USACreatinine [Mass/volume] in Serum or PlasmaOrdered By: Akil Martinez on 15-71-3681Ydobfpvagw [Mass/Vol]0.73 mg/dLNormal0.60-1.20 [facility] CenterComment on above:Performed By: #### CBC, CMP wRFX A1C #### [place] [phone] USAECG 12 lead ECGon 09-01-3293PHO 12 lead ECGPROM[facility] [place] [address] [place] [address] Electrocardiograph Report Signed Patient: Sayda Fraire MR#: [id number] [birth year] : 1955 Acct:[id number] Age/Sex: 68 / F ADM Date: 08/25/23 Loc: Room: Type: [facility] Attending Dr: Akil Martinez DO Ordering [...] No previous ECGs available Confirmed by SANTANA JORDAN MD ([id number]) on 08/25/2023 5:46:17 PM Referred By: JEANMARIE Electronically Signed By:SANTANA JORDAN MD Transcribed By: MUS Signed By Santana Jordan MD 0 08/25/[address] [place] [address] Physician GroupErythrocyte distribution width [Ratio] by Automated countOrdered By: Akil Martinez on 81-78-0003Tgmfjfbctcm distribution width (RBC) [Ratio]13.8 %Exemjc60.9-15.3FAdena Health SystemComment on above:Performed By: #### CBC, CMP wRFX A1C #### [facility] [address] [place] [id number] USAErythrocytes [#/volume] in Blood by Automated countOrdered By: Akil Martinez on 99-67-2052HYV (Bld) [#/Vol]3.95 10*6/uLNormal3.60-5.00 [facility] CenterComment on above:Performed By: #### CBC, CMP wRFX A1C #### [facility] [address] [place] [phone] USAGlucose [Mass/volume] in Serum or PlasmaOrdered By: Aikl Martinez on 56-62-4077Efapwhz [Mass/Vol]97 mg/eTVptrrd28-390BwrrcsendSamaritan North Health CenterComment on above:Performed By: #### CBC, CMP wRFX A1C #### [facility] [address] [place] [phone] USAGlucose [Mass/volume] in Urine by Test stripOrdered By: Akil Martinez on 37-20-5988Hwbvbpc Test strip (U) [Mass/Vol]Normal mg/dLNormal [facility] CenterHematocrit [Volume Fraction] of Blood by Automated countOrdered By: Akil Martinez on 97-51-8222Ofhluxnnyw (Bld) [Volume fraction]37.7 %Adtjgm42.0-46.4FAdena Health SystemComment on above: Performed By: #### CBC, CMP wRFX A1C #### [facility] [address] [place], [place] [phone] USAHemoglobin Test strip Ql (U)Ordered By: Akil Martinez on 07-45-8341Wvitmktqju Ql (U)TraceHighNegMercy Health Tiffin Hospital Hemoglobin [Mass/volume] in BloodOrdered By: Akil Martinez on 08-25-2023 Hemoglobin (Bld) [Mass/Vol]12.7 g/rYSldxqo65.8-15.4FAdena Health SystemComment on above:Performed By: #### CBC, CMP wRFX A1C #### [facility] [address] [place] [address] USAKetones [Presence] in Urine by Test stripOrdered By: Akil Martinez on 93-31-7343Qinsmfn Ql (U)NegativeNormalWayne HospitalComment on above:Order Comment: Name Collection Type:: Clean- Voided MidstreamPerformed By: #### UA #### [place] [address] USALeukocyte esterase [Presence] in Urine by Test strip Ordered By: Akil Martinez on 17-84-6209Uwsqnoxpr esterase Test strip Ql (U) NegativeMetroHealth Parma Medical CenterComment on above:Order Comment: Name Collection Type:: Clean-Voided MidstreamPerformed By: #### UA #### [place] [address] USALeukocytes [#/volume] corrected for nucleated erythrocytes in Blood by Automated counOrdered By: Akil Martinez on 99-64-3649WAS corrected for nucl RBC Auto (Bld) [#/Vol]5.6 10*3/uL3.8-11.6FAdena Health SystemLeukocytes [#/volume] in Blood by Automated countOrdered By: Akil Martinez on 05-36-0601DKE (Bld) [#/Vol]5.6 10*3/uLNormal3.8-11.6FAdena Health SystemComment on above:Performed By: #### CBC, CMP wRFX A1C #### [place] [phone] USALymphocytes [#/volume] in Blood by Automated countOrdered By: Akil Martinez on 27-31-6699Nwzgvqrortw (Bld) [#/Vol]1.3 10*3/uLNormal1.00-4.8 [facility] CenterComment on above:Performed By: #### CBC, CMP wRFX A1C #### [facility] [address] [place] [address] USALymphocytes/100 leukocytes in Blood by Automated count Ordered By: Akil Martinez on 50-33-0030Tmuraqhnmts/100 WBC (Bld)22.7 %Normal. [facility] CenterComment on above:Performed By: #### CBC, CMP wRFX A1C #### [facility] [address] [place] [address] [Entitic mass] by Automated countOrdered By: Akil Martinez on 98-55-9527MKJ (RBC) [Entitic mass]32.1 ryUrsnhi62.7-34.3FAdena Health SystemComment on above:Performed By: #### CBC, CMP wRFX A1C #### [address] Auto (RBC) [Mass/Vol]Ordered By: Akil Martinez on 86-34-5265SOGF (RBC) [Mass/Vol]33.6 g/dL32.0-35.0[facility] CenterMCV [Entitic volume] by Automated countOrdered By: Akil Martinez on 71-80-0775RQL (RBC) [Entitic vol]95.4 vTWttxiv96-661QbesodhofSamaritan North Health CenterComment on above:Performed By: #### CBC, CMP wRFX A1C #### [facility] [address] [place] [address] USAMRSA Cultureon 37-42-4713YNUG CultureNo MRSA Isolated 2 Days PERFORMED BY: [place] [address] PATHOLOGIST PLANNING FEEDER KANDI ECHEVARRIA M.D.NormalNch Healthcare System - Downtown Naples Physician GroupComment on above:Performed By: #### CUMRSA #### [address] [place] [address] USANeutrophils [#/volume] in Blood by Automated countOrdered By: Akil Martinez on 56-77-6178Ggwtchaxjju (Bld) [#/Vol]3.7 10*3/uLNormal1.8-7.7 [facility] CenterComment on above:Performed By: #### CBC, CMP wRFX A1C #### [facility] [address] [place] [address] USANitrite Test strip Ql (U)Ordered By: Akil Martinez on 72-96-5502Uzmbmwo Ql (U)NegativeNegativeSamaritan North Health CenterNo Panel InformationOrdered By: Akil Martinez on 48-98-2979Pbodospvd GFR (CKD-EPI)> 60.0 mL/MinSamaritan North Health CenterPharmacy Creatinine Clearance (Chem N/AFAdena Health SystemNucleated erythrocytes [Presence] in Blood by Automated countOrdered By: Akil Martinez on 59-86-2171Eqieveglc RBC Auto Ql (Bld)0.1 /100{WBC}0-0.5FAdena Health SystemPlatelet mean volume [Entitic volume] in Blood by Automated countOrdered By: Akil Martinez on 71-61-6382Uhhaopzc mean volume (Bld) [Entitic vol]9.5 fLNormal6.3-10.7FAdena Health SystemComment on above:Performed By: #### CBC, CMP wRFX A1C #### [facility] [address] [place] [address] USAPlatelets [#/volume] in Blood by Automated countOrdered By: Akil Martinez on 32-97-6085Uqizxvcej (Bld) [#/Vol]192 10*3/vFLafkow797-559 [facility] CenterComment on above:Performed By: #### CBC, CMP wRFX A1C #### [facility] [address] [place] [address] USAPotassium [Moles/volume] in Serum or PlasmaOrdered By: Akil Martinez on 19-33-2289Ejpckifmh [Moles/Vol]3.8 mmol/LNormal3.5-5.1FAdena Health SystemComment on above:Performed By: #### CBC, CMP wRFX A1C #### [facility] [address] [place] [address] USAProtein Test strip (U) [Mass/Vol]Ordered By: Akil Martinez on 95-91-7189Hrnscij (U) [Mass/Vol]NegativeNegativeSamaritan North Health CenterProtein [Mass/volume] in Serum or PlasmaOrdered By: Akil Martinez on 88-57-4136Cvzhjhf [Mass/Vol]6.4 g/dLNormal6.4-8.9[facility] CenterComment on above:Performed By: #### CBC, CMP wRFX A1C #### [place] [address] USASerum globulin measurement by calculation (mass/volume) Ordered By: Akil Martinez on 73-16-9899Kdszdmnf (S) [Mass/Vol]2.2 g/dLNormal [facility] CenterComment on above:Performed By: #### CBC, CMP wRFX A1C #### [facility] [address] [place] [address] USASerum or plasma albumin/globulin mass ratioOrdered By: Akil Martinez on 06-72-6294Gjpdtwp/Globulin [Mass ratio]1.9 {ratio}Normal [facility] CenterComment on above:Performed By: #### CBC, CMP wRFX A1C #### [facility] [address] [place] [address] USASerum or plasma anion gap determinationOrdered By: Akil Martinez on 25-66-0161Habgu gap [Moles/Vol]11.3 mmol/LNormal6.0-15.0[facility] CenterComment on above:Performed By: #### CBC, CMP wRFX A1C #### [facility] [address] [place], [place] [address] USASodium [Moles/volume] in Serum or PlasmaOrdered By: Akil Martinez on 99-75-0731Rcyljo [Moles/Vol]142 mmol/YWbvpxe329-444RcvoxoemnSamaritan North Health CenterComment on above:Performed By: #### CBC, CMP wRFX A1C #### [facility] [address] [place] [address] USASpecific gravity Test strip (U) [Rel density]Ordered By: Akil Martinez on 38-36-3509Nodmewwv gravity (U) [Rel density]1.0151.001-1.030 [facility] CenterUrea nitrogen [Mass/volume] in Serum or Plasma Ordered By: Akil Martinez on 32-36-1184Sfqi nitrogen [Mass/Vol]15 mg/dLNormal- [facility] CenterComment on above:Performed By: #### CBC, CMP wRFX A1C #### [place] [address] USAUrinalysison 24-03-0076Qknyfcngi,UrineNegativeNormal NegativeThe At[facility]son Physician GroupComment on above:Order Comment: Name Collection Type:: Clean-Voided MidstreamPerformed By: #### UA #### [place] [address] USAGlucose Ql (U)NormalNormalNormalThe [facility] Physician GroupComment on above:Order Comment: Name Collection Type:: Clean-Voided MidstreamPerformed By: #### UA #### [place] [address] USANitrite,UrineNegativeNormalNegativeThe [facility] Physician GroupComment on above:Order Comment: Name Collection Type:: Clean-Voided MidstreamPerformed By: #### UA #### [place] [address] USAOccult Blood,UrineTraceHighNegativeThe [facility]son Physician GroupComment on above:Order Comment: Name Collection Type:: Clean-Voided MidstreamResult Comment: PERFORMED BY: [place] [address] PATHOLOGIST PLANNING FEEDER KANDI ECHEVARRIA M.D.Performed By: #### UA #### [place] [address] USAProtein,UrineNegativeNormalNegativeThe [facility] Physician GroupComment on above:Order Comment: Name Collection Type:: Clean-Voided MidstreamPerformed By: #### UA #### [facility] [address] [place] [address] USASpecificy [place],Urine1.742Gqzefi3.001-1.030The [facility] Physician GroupComment on above:Order Comment: Name Collection Type:: Clean- Voided MidstreamPerformed By: #### UA #### [facility] [address] [place] [address] USAUrobilinogen,UrineNormalNormalNormalThe [facility] Physician GroupComment on above:Order Comment: Name Collection Type:: Clean- Voided MidstreamPerformed By: #### UA #### [place] [address] USAUrine appearanceOrdered By: Akil Martinez on 08-25-2023 Appearance (U)ClearNormalClearSamaritan North Health CenterComment on above: Order Comment: Name Collection Type:: Clean-Voided MidstreamPerformed By: #### UA #### [place] [address] USAUrobilinogen Test strip (U) [Mass/Vol]Ordered By: Akil Martinez on 69-36-8078Ubcrhbzqfmhp (U) [Mass/Vol]Normal mg/dLNormCleveland Clinic FoundationWound methicillin resistant Staphylococcus aureus (MRSA) cultureOrdered By: Akil Martinez on 61-16-2815QIFB isol Org specific cx Ql (Unsp spec)No MRSA Isolated 2 DaysSamaritan North Health CenterpH of Urine by Test stripOrdered By: Akil Martinez on 22-16-3363jO (U)5.5 [pH]Normal5.0-9.0[facility] CenterComment on above:Order Comment: Name Collection Type:: Clean-Voided MidstreamPerformed By: #### UA #### [facility] [address] [place] [address] USACT shoulder LT wo conon 43-05-7558YI shoulder LT wo con [facility] [place] [address] CT Scan Report Signed Patient: Sayda Fraire MR#: [id number] [birth year] : 1955 Acct:[id number] Age/Sex: 68 / F ADM Date: 08/14/23 Loc: CT Room: Type: [facility] Attending Dr: Akil Martinez DO Copies [...] Forrest Johnston M.D.08/14/2023 4:02 PM Dictation Location: [place] [address] Transcribed By: [facility] 08/14/23 1602 Dictated By: Forrest Johnston II, MD 08/14/23 1556 Signed By: 08/14/23 1602[facility] Physician GroupXR shoulder LT min 2V*on 82-20-0736NB shoulder LT min 2V*[facility] [address] [place] [address] XRay Report Signed Patient: Sayda Fraire MR#: [id number] [birth year] : 1955 Acct:[id number] Age/Sex: 68 / F ADM Date: 08/13/23 Loc: [facility] Room: Type: [facility] Attending Dr: Akil Martinez DO Copies [...] PROCESS. Impression dictated by: Gonzalez Galo Jr., DJoseOJose08/13/2023 3:51 PM Dictation Location: [place] [address] Transcribed By: [facility] 08/13/23 1551 Dictated By: Gonzalez Galo Jr, DO 08/13/23 1549 Signed By: 08/13/23 1551[facility] Physician GroupAlbumin [Mass/volume] in Serum or PlasmaOrdered By: [facility] on 74-00-6804Yvxuohl [Mass/Vol]3.7 g/dL 3.2-5.5FAdena Health SystemBlood hemoglobin measurement (mass/volume)Ordered By: [facility] on 88-00-7003Fngydjakfl (Bld) [Mass/Vol]13.7 g/dL11.8-15.4FAdena Health SystemCholesterol [Mass/volume] in Serum or PlasmaOrdered By: [facility] on 12-28-2021 Cholesterol [Mass/Vol]215 mg/tU496-806MpmhgebrcSamaritan North Health CenterComment on above:Chol less than 200 mg/dl low riskChol 201-239 mg/dl borderline riskChol 240 mg/dl and greater high riskCholesterol in LDL Calc [Mass/Vol]Ordered By: [facility] on [id number] in LDL [Mass/Vol]142 mg/dL0-100 [facility] CenterComment on above:LDL ATP III CLASSIFICATIONLDL less than 100 mg/dL OptimalLDL 100-129 mg/dL Near or above [id number] mg/dL Borderline highLDL 160-189 mg/dL HighLDL greater than 189 mg/dL Very high Cholesterol in VLDL Calc [Mass/Vol]Ordered By: [facility] on 12-28-2021 Cholesterol in VLDL [Mass/Vol]16 mg/dLSamaritan North Health Center Creatinine and Glomerular filtration rate.predicted panel (S/P/Bld)Ordered By: [facility] on 31-09-6316Mqgwmbsdqa [Mass/Vol]0.81 mg/dL0.44-1.03 [facility] CenterErythrocyte distribution width Auto (RBC) [Ratio]Ordered By: [facility] on 24-66-3121Darkmymfdcn distribution width (RBC) [Ratio]13.6 %11.9-15.3FAdena Health SystemEstimated glomerular filtration rate (GFR) non- AmericanOrdered By: [facility] on 68-78-0230VIG/1.73 sq M.predicted among non-blacks MDRD (S/P/Bld) [Vol rate/Area]> 60 mL/MinSamaritan North Health CenterGlucose mean value [Mass/volume] in Blood Estimated from glycated hemoglobinOrdered By: [facility] on 62-74-5092Pvudjum glucose Estimated from glycated hemoglobin (Bld) [Mass/Vol]123 mg/dLSamaritan North Health CenterHematocrit Auto (Bld) [Volume fraction]Ordered By: [facility] on 05-70-1595Rmkbzfrnyd (Bld) [Volume fraction]41.0 %34.0-46.4FAdena Health SystemLaboratory - Hematology and Cell countsOrdered By: [facility] on 39-79-7055JoA6j (Bld) [Mass fraction]5.9 %4.3-5.6FAdena Health SystemComment on above:Increased risk for diabetes: 5.7 - 6.4diabetes: >6.4glycemic control for adults with diabetes: <7.0MCH Auto (RBC) [Entitic mass]Ordered By: [facility] on 86-75-2105GQP (RBC) [Entitic mass]32.0 pg24.7-34.3FAdena Health SystemMCHC Auto (RBC) [Mass/Vol]Ordered By: [facility] on 65-51-1988MUSO (RBC) [Mass/Vol]33.5 g/dL32.0-35.0[facility] CenterMCV Auto (RBC) [Entitic vol]Ordered By: [facility] on 12-28-2021 MCV (RBC) [Entitic vol]95.7 cC72-329BxqgfkdwaSamaritan North Health CenterNo Panel InformationOrdered By: [facility] on 55-62-8663Swwzdgbiu GFR ()> 60 mL/MinSamaritan North Health CenterComment on above:GFR estimated reference range: According to KDOQI guidelines, <60 ml/min/1.73m2 is sufficient todiagnose a patient with chronic kidney disease.Pharmacy Creatinine Clearance (ChemN/[facility] CenterTriglycerides Qqslbt68 mg/dL 35-149[facility] Health CenterComment on above:TRIG ATP III CLASSIFICATIONTRIG less than 150 mg/dL NormalTRIG 150-199 mg/dL Borderline highTRIG 200-500 mg/dL High TRIG greater than 500 mg/dL Very highStandard traceable to the Center for Disease Conrtrol and Prevention (CDC) test method. Platelet mean volume Auto (Bld) [Entitic vol]Ordered By: [facility] on 33-54-1846Vofbmhzv mean volume (Bld) [Entitic vol]10.2 fL6.3-10.7FAdena Health SystemPlatelets Auto (Bld) [#/Vol]Ordered By: [facility] on 13-31-1954Udctckuhz (Bld) [#/Vol]190 10*3/rT512-227KeoyuiqciSamaritan North Health CenterProtein [Mass/volume] in Serum or PlasmaOrdered By: [facility] on 94-58-1176Lwiykum [Mass/Vol]6.2 g/dL6.1-7.9[facility] Health CenterRBC Auto (Bld) [#/Vol]Ordered By: [facility] on 77-30-5875LMM (Bld) [#/Vol]4.29 10*6/uL3.60-5.00Centervilleerum or plasma alanine aminotransferase measurement without P-5'-P (enzymatic activiOrdered By: [facility] on 03-96-2940KZO No additional P-5'-P [Catalytic activity/Vol]16 U/N44-24PuzppcpbrCentervilleerum or plasma alkaline phosphatase measurement (enzymatic activity/volume)Ordered By: [facility] on 51-16-3022VJL [Catalytic activity/Vol]91 U/L32-92 Centervilleerum or plasma anion gap determinationOrdered By: [facility] on 48-75-9182Tsngn gap [Moles/Vol]9.3 mmol/L6.0-15.0 Centervilleerum or plasma aspartate aminotransferase measurement (enzymatic activity/volume)Ordered By: [facility] on 24-94-9751EGH [Catalytic activity/Vol]19 U/S55-34GrfdszwlkCentervilleerum or plasma calcium measurement (mass/volume)Ordered By: [facility] on 27-86-0170Nhhhyci [Mass/Vol]9.7 mg/dL8.2-10.2FUniversity Hospitals Conneaut Medical Centererum or plasma chloride measurement (moles/volume)Ordered By: [facility] on 59-10-1474Mndalksb [Moles/Vol]105 mmol/W05-232JxccudhyaCentervilleerum or plasma glucose measurement (mass/volume)Ordered By: [facility] on 57-13-2837Fuexqta [Mass/Vol]111 mg/aX41-404WtarrytzmSamaritan North Health CenterComment on above:ADA recommended reference rangeRandom Glucose Reference Range is dependent on time and content of last meal. Glucose of more than 200 mg/dL in a nonstressed, ambulatory subject supports the diagnosisof Diabetes Mellitus.Serum or plasma high density lipoprotein (HDL) cholesterol measurementOrdered By: [facility] on 67-61-2183Dhcktsctjgv in HDL [Mass/Vol]56 mg/fL12-22KuwkaqsdtSamaritan North Health CenterComment on above: HDL CHOL ATP-III CLASSIFICATION Cardiovascular RiskHDL > or equal to 60 mg/dL LOWHDL < 40 mg/dL HIGHSerum or plasma potassium measurement (moles/volume) Ordered By: [facility] on 89-73-2845Hnjflyuaf [Moles/Vol]4.1 mmol/L 3.5-5.1FUniversity Hospitals Conneaut Medical Centererum or plasma sodium measurement (moles/volume)Ordered By: [facility] on 97-63-4801Eieune [Moles/Vol]140 mmol/I721-538BgboaqqsfCentervilleerum or plasma total bilirubin measurement (mass/volume)Ordered By: [facility] on 57-30-5069Wqhpfhyij [Mass/Vol]0.7 mg/dL0.3-1.2FUniversity Hospitals Conneaut Medical Centererum or plasma total carbon dioxide measurement (moles/volume)Ordered By: [facility] on 77-33-0578PT6 [Moles/Vol]29.8 mmol/L22.0-30.0[facility] Serum or plasma total cholesterol/high density lipoprotein (HDL) cholesterol mass ratOrdered By: [facility] on 12-28-2021 Cholesterol.total/Cholesterol in HDL [Mass ratio]3.8 {ratio}<5.0Centervilleerum or plasma urea nitrogen measurement (mass/volume) Ordered By: [facility] on 94-56-7641Irot nitrogen [Mass/Vol]13 mg/dL9-23 [facility] CenterTS DL <= 0.005 mIU/L QnOrdered By: [facility] on 31-99-3388PBH Qn2.13 m[IU]/L0.45-5.33[facility] CenterWBC Auto (Bld) [#/Vol]Ordered By: [facility] on 62-50-5567IBA (Bld) [#/Vol]4.3 10*3/uL3.8-11.6FAdena Health SystemMG MAMM DX 3D RT CADon [id number] MAMM DX 3D RT CADPatient: SAYDA FRAIRE Exam Date: 12/11/2021 : 1955 Gender:F Ordering : DR CAPO DUNN D.O. Admission #: [id number] Family : Order #: [id number] CLICK HERE TO VIEW EXAM RADIOLOGY REPORT [...] leukemia cancer at age 43. LOCATION: [facility] BREAST COMPOSITION: Heterogeneously dense,which may obscure [...] LUMP SHOULD BE BIOPSIED. Dictated by: Fany Medrano M.D. on 12/11/2021 at 08:30 Approved by: Fany Medrano M.D. on 12/11/2021 at 08:34NoPremier Health Atrium Medical CenterDAT - VITAMIN D LCon 90-47-2224Lcdfzvm D, 25-Ebimmtg06.7 ng/mLNormal 30.0-100.0[facility] HospitalComment on above:Result Comment: Vitamin D deficiency has been defined by the [place] of [employer] and an Endocrine Society practice guideline as a level of serum 25-OH vitamin D less than 20 ng/mL (1,2). The Endocrine Society went on to further define vitamin D insufficiency as a level between 21 and 29 ng/mL (2). 1. IOM ([place] of [employer]). 2010. Dietary reference intakes for calcium and D. [place]: The National Academies Press. 2. Isela NGUYEN, Mathew GERBER, Max MCMAHON, et al. Evaluation, treatment, and prevention of vitamin D deficiency: an Endocrine Society clinical practice guideline. JCEM. 2010; 96(7):1911-30.Performed By: #### DATVDLC #### [facility] [address] [place] [address] Dr. Oksana Engle AUTO DIFFon 04-31-3519ECFF #0.1 103/ulNormal0.0-0.1The [facility] HospitalComment on above:Performed By: #### DATCBC #### [facility] [address] [place] [address] Dr. Oksana ShawBasophils/100 WBC (Bld)1.4 %Normal0.2-2.0[facility] Comment on above:Performed By: #### DATCBC #### [facility] [address] [place] [address] Dr. Oksana Marie #0.2 103/ulNormal0.0-0.7The [facility] HospitalComment on above: Performed By: #### DATCBC #### [facility] [address] [place] [address] Dr. Oksana Montanezosinophils/100 WBC (Bld)4.2 %Normal0.9-7.0[facility] Comment on above:Performed By: #### DATCBC #### [facility] [address] [place] [address] Dr. Oksana Montanezrythrocyte distribution width (RBC) [Ratio]13.1 %Zilqda74.0-15.0 [facility] HospitalComment on above:Performed By: #### DATCBC #### [facility] [address] [place] [address] Dr. Oksana ShawHematocrit (Bld) [Volume fraction]41.2 %Wcfobj93.0-48.0The [facility] HospitalComment on above:Performed By: #### DATCBC #### [facility] [address] [place] [address] Dr. Oksana ShawHemoglobin (Bld) [Mass/Vol]13.7 g/tPMyxyty03.0-16.0The [facility] HospitalComment on above:Performed By: #### DATCBC #### [facility] [address] [place] [address] Dr. Oksana Santana #0.00 10e3/ulNormal0.00-0.03The [facility] HospitalComment on above:Performed By: #### DATCBC #### [facility] [address] [place] [address] Dr. Oksana Santana %0.0 %Normal0.0-0.5The [facility] HospitalComment on above: Performed By: #### DATCBC #### [facility] [address] [place] [address] Dr. Oksana Harris #1.6 103/ulNormal1.2-3.8The [facility] HospitalComment on above:Performed By: #### DATCBC #### [facility] [address] [place] [address] Dr. Oksana Moorehocytes/100 WBC (Bld)31.5 %Rirnbw14.5-60.0The [facility] HospitalComment on above:Performed By: #### DATCBC #### [facility] [address] [place] [address] Dr. Oksana Curtis (RBC) [Entitic mass]32.0 ygYmmbsc09.7-34.0The [facility] HospitalComment on above:Performed By: #### DATCBC #### [facility] [address] [place] [address] Dr. Oksana Curtis (RBC) [Mass/Vol]33.3 g/wBVglocz88.9-35.2The [facility] HospitalComment on above:Performed By: #### DATCBC #### [facility] [address] [place] [address] Dr. Oksana Curtis (RBC) [Entitic vol]96.3 vVUxwrhf53.0-99.0The [facility] HospitalComment on above:Performed By: #### DATCBC #### [facility] [address] [place] [address] Dr. Oksana Owen #0.5 103/ulNormal0.3-0.8The [facility]atsville HospitalComment on above:Performed By: #### DATCBC #### [facility] [address] [place] [address] Dr. Oksana Quispeocytes/100 WBC (Bld)10.0 %Normal1.7-12.0[facility] Comment on above:Performed By: #### DATCBC #### [facility] [address] [place] [address] Dr. Oksana DaleUT #2.7 103/ulNormal1.4-6.5The [facility] HospitalComment on above:Performed By: #### DATCBC #### [facility] [address] [place] [address] Dr. Oksana Daleutrophils/100 WBC (Bld)52.9 %Nftyjz99.0-75.0The [facility] HospitalComment on above:Performed By: #### DATCBC #### [facility] [address] [place] [address] Dr. Oksana ShawPlatelet mean volume (Bld) [Entitic vol]10.8 fLNormal9.5-13.5The [facility] HospitalComment on above:Performed By: #### DATCBC #### [facility] [address] [place] [address] Dr. Oksana ShawPLT199 103/nrXuuiut684-112Ugm [facility] HospitalComment on above: Performed By: #### DATCBC #### [facility] [address] [place] [address] Dr. Oksana ShawRBC4.28 106/ulNormal4.20-5.40The [facility] HospitalComment on above:Performed By: #### DATCBC #### [facility] [address] [place] [address] Dr. Oksana ShawWBC5.0 103/ulNormal4.0-11.0The [facility] HospitalComment on above: Performed By: #### DATCBC #### [facility] [address] [place] [address] Dr. Oksana Schulz - [facility] HOSPITALglory 36-15-0268KFY4.881 uIU/mLNormal0.358-3.740The [facility] HospitalComment on above:Performed By: #### DATBMEver DATTSH ####[facility] Imcxeyw[address] [place], [place] [address]Dr. Oksana ShawTSH RANGESEE BELOWNoPremier Health Atrium Medical CenterComment on above:Result Comment: <0.34 UIU/ml HYPERTHYROID 0.34-5.60 UIU/ml EUTHYROID >5.60 UIU/ml HYPOTHYROIDPerformed By: #### DATBMP, DATTSH ####[facility] Oxhrwpafr[address] [place], [place] [address]Dr. Oksana ChangDAT- BMP WITH LIPIDon 80-90-8180Lswvd gap [Moles/Vol]13.7 mmol/LNormalThe [facility] HospitalComment on above:Performed By: #### DATBMP DATTSH ####[facility] Yhwhubjn[address] [place], [place] [address]Dr. Yileta ChangCalcium [Mass/Vol]9.4 mg/dLNormal 8.5-10.1[facility] Medical CenterComment on above:Performed By: #### DATBMEver DATTSH ####[facility] Trbybmrewc[address] [place], [place] [address]Dr. Yileta ChangChloride [Moles/Vol]104 mmol/WUljmsu71-596Ufm [facility] Comment on above:Performed By: #### DATBMP DATTSH ####[facility] [address] [place], [place] [address]Dr. Oksana ChangCholesterol [Mass/Vol]222 mg/dLCritically high<=200The [facility] HospitalComment on above: Performed By: #### DATBMP, DATTSH ####[facility] M[address]gu[address] [place], [place] [address]Dr. Yilan ChangCholesterol in HDL [Mass/Vol]54 mg/dL Rpscmq56-08Qne [facility] HospitalComment on above:Performed By: #### DATBMP, DATTSH ####[facility] [address]okhickutn[address] [place], [place] [address]Dr. Oksana ShawCholesterol in LDL [Mass/Vol]144.4 mg/dLProMedica Bay Park HospitalComhavenwyck hospital on above:Performed By: #### DATBMP, DATTSH ####[facility] [address] [address]Dr. Oksana ShawCO2 [Moles/Vol]28.3 mmol/IDkdocp28.0-32.0The [facility] HospitalComhavenwyck hospital on above: Performed By: #### DATBMP, DATTSH ####[facility] Mjcdnwjp[address] [place], [place] [address]Dr. Oksana ShawCreatinine [Mass/Vol]0.91 mg/dLNormal 0.55-1.02[facility] on above:Performed By: #### DATBMP, DATTSH ####[facility] Fnopdlrmxt[address] [place], [place] [address]Dr. Yilan ChangEGFR-AF ARMENIAN>60Normal>=60The [facility] on above: Performed By: #### DATBMP, DATTSH ####[facility] Kmrnkbesav[address] [place], [place] [address]Dr. Yilan ChangEGFR-NON AF ARMENIAN>60Normal>=60The [facility] on above:Performed By: #### DATBMP, DATTSH ####[facility] Omvjgxsoki[address] [place], [place] [address]Dr. Oksana Shaw Glucose [Mass/Vol]110 mg/dLCritically icgi44-762Erz [facility] HospitalComhavenwyck hospital on above:Performed By: #### DATBMP, DATTSH ####[facility] Ugcvblhdwt[address] [place], [place] [address]Dr. Yilan ChangHDL NORMAL> or = 60 mg/dl - LOW CARDIOVASCULAR RISK <40 mg/dl - HIGH CARDIOVASCULAR RISKProMedica Bay Park HospitalComhavenwyck hospital on above:Performed By: #### DATBMP, DATTSH ####[facility] Ddalysxjsc[address] [place], [place] [address]Dr. Natalylan ChangLDL CALC NORMALSEE BELOWNormalThe Coatsville HospitalComment on above:Result Comment: <100 mg/dl OPTIMAL 100 - 129 mg/dl NEAR OR ABOVE OPTIMAL 130 - 159 mg/dl BORDERLINE HIGH 160 - 189 mg/dl HIGH >190 mg/dl VERY HIGHPerformed By: #### DATBMP, DATTSH ####[facility] [address] [address]Dr. Yilan ChangPotassium [Moles/Vol]4.0 mmol/LNormal3.5-5.1The [facility] Comment on above:Performed By: #### DATBMP, DATTSH ####[facility] Gi[address]knawxg[address] [place], [place] [address]Dr. Yilan ChangSodium [Moles/Vol]142 mmol/BNlekjc339-441Wwb [facility] HospitalComment on above: Performed By: #### DATBMP, DATTSH ####[facility] Footlxntug[address] [place], [place] [address]Dr. Yilan ChangTriglyceride [Mass/Vol]118 mg/dLNormal <=150The [facility] HospitalComment on above:Performed By: #### DATBMP, DATTSH ####[facility] Qdousookmt[address] [place], [place] [address]Dr. Yilan ChangUrea nitrogen [Mass/Vol]16.0 mg/dLNormal7.0-18.0[facility] Comment on above:Performed By: #### DATBMP, DATTSH ####[facility] Xpicvxhnxz[address] [place], [place] [address]Dr. Yilan ChangUrea nitrogen/Creatinine [Mass ratio]17.6 mg/mgNoPremier Health Atrium Medical CenterComment on above:Performed By: #### DATBMP, DATTSH ####[facility] R[address]wgnfx[address] [place], [place] [address]Dr. Yilan ChangVLDL CALC23.6 mg/dLNoPremier Health Atrium Medical CenterComment on above:Performed By: #### DATBMP, DATTSH ####[facility] [address]plbuipww[address] [place], [place] [address]Dr. Yilan ChangMRI BRAIN WO W MINGon 40-23-0149TWZ BRAIN WO W CON Begin Addendum #1 Additional thin sections pre and postcontrast performed [...] vessel ischemic changes are favored No acute infarctNormalThe [facility] HospitalCREATININEon 27-88-1320Fbcpxkyrxu [Mass/Vol]0.81 mg/dLNormal0.55-1.02[facility] Medical CenterComment on above: Performed By: #### CREA #### [facility] [address] [address] [address] Oksana MontanezGFR-AF ARMENIAN>60Normal>=60The [facility] HospitalComment on above:Performed By: #### CREA #### [facility] [address] [address] [address] Oksana MontanezGFR-NON AF ARMENIAN>60Normal>=60The [facility] Berger Hospitalment on above:Performed By: #### CREA #### [facility] [address] [address] [address] Oksana Vitale PELVISon 23-62-9473BF PELVISUltrasound pelvis, non-obstetric CLINICAL: Lower abdominal pain difficulty [...] Electronically authenticated by: JOHN BRIDGES Date: 2021-09-03 13:[address] [place], [place] [address]MG MAMM RT DIAG FUon 66-38-5115NM MAMM RT DIAG FUPatient: SAYDA FRAIRE Exam Date: 06/06/2021 : 1955 Gender:F Ordering : DR CAPO DUNN D.O. Admission #: [id number] Family : Order #: [id number] CLICK HERE TO VIEW EXAM RADIOLOGY REPORT [...] leukemia cancer at age 43. LOCATION: [facility] BREAST COMPOSITION: Heterogeneously dense,which may obscure [...] by: Ginger Iraheta MD on 06/06/2021 at 15:29[facility] HospitalMG MAMM SCREEN 3D SURAJ CADon 94-92-8719ND MAMM SCREEN 3D SURAJ CADPatient: SAYDA FRAIRE Exam Date: 05/24/2021 : 1955 Gender:F Ordering : DR CAPO DUNN D.O. Admission #: [id number] Family : Order #: [id number] CLICK HERE TO VIEW EXAM RADIOLOGY REPORT [...] leukemia cancer at age 43. LOCATION: [facility] BREAST COMPOSITION: Heterogeneously dense,which may obscure [...] by: Ginger Iraheta MD on 05/24/2021 at 14:26[facility] CLOSTRIDIUM DIFFICILE PCRon 1C difficile Toxin Gene NAAPositiveAbnormal NegativeThe [facility] HospitalComment on above:Result Comment: Client Requested Flag Toxigenic C difficile: Positive Epidemic Strain Bl/NAP1/027: Presumptive NegativePerformed By: #### CDIFNAA #### [facility] [address] [address] [address] Oksana Padilla STOOLon 77-33-1892BEEQLPB STOOLCulture Observations: NO GROWTH SALMONELLA, SHIGELLA, YERSINIA, CAMPY, E.COLI 0157, OR STAPH AT 72 HRS NormalThe [facility] HospitalComment on above:Performed By: #### STOOLCX ####[facility] [address] [address]Dr. Oksana McmullenC AUTO DIFFon 31-08-8461GTIP #0.0 103/ulNormal0.0-0.1The [facility] HospitalComment on above:Performed By: #### CBC #### [facility] [address] [place] [address] Dr. Oksana ShawBasophils/100 WBC (Bld)0.5 %Normal0.2-2.0The [facility] Comment on above:Performed By: #### CBC #### [facility] [address] [place] [address] Dr. Oksana Marie #0.1 103/ulNormal0.0-0.7The [facility] HospitalComment on above: Performed By: #### CBC #### [facility] [address] [place] [address] Dr. Oksana Montanezosinophils/100 WBC (Bld)1.8 %Normal0.9-7.0The [facility] Comment on above:Performed By: #### CBC #### [facility] [address] [address] [address] Oksana Montanezrythrocyte distribution width (RBC) [Ratio]13.2 %Vhufyu31.0-15.0 The [facility] HospitalComment on above:Performed By: #### CBC #### [facility] [address] [place] [address] Dr. Oksana ShawHematocrit (Bld) [Volume fraction]40.4 %Fyseja22.0-48.0The [facility] HospitalComment on above:Performed By: #### CBC #### [facility] [address] [place] [address] Dr. Oksana ShawHemoglobin (Bld) [Mass/Vol]13.4 g/fUWzribf17.0-16.0The [facility] HospitalComment on above:Performed By: #### CBC #### [facility] [address] [place] [address] Dr. Oksana Santana #0.01 10e3/ulNormal0.00-0.03The [facility] HospitalComment on above:Performed By: #### CBC #### [facility] [address] [place] [address] Dr. Oksana Santana %0.2 %Normal0.0-0.5The [facility] HospitalComment on above: Performed By: #### CBC #### [facility] [address] [place] [address] Dr. Oksana Moore #2.0 103/ulNormal1.2-3.8The [facility] HospitalComment on above:Performed By: #### CBC #### [facility] [address] [place] [address] Dr. Oksana Moorehocytes/100 WBC (Bld)31.6 %Qsipcg49.5-60.0The [facility] HospitalComhavenwyck hospital on above:Performed By: #### CBC #### [facility] [address] [place] [address] Dr. Oksana LópezUAL DIFF REQNONormalThe [facility] HospitalComment on above: Performed By: #### CBC #### [facility] [address] [place] [address] Dr. Oksana Curtis (RBC) [Entitic mass]31.5 nbXyapsy47.7-34.0The [facility] HospitalComment on above:Performed By: #### CBC #### [facility] [address] [place] [address] Dr. Oksana Curtis (RBC) [Mass/Vol]33.2 g/fQZvwfep39.9-35.2The [facility] HospitalComment on above:Performed By: #### CBC #### [facility] [address] [place] [address] Dr. Oksana CurtisV (RBC) [Entitic vol]95.1 wNOjbdyl11.0-99.0The [facility] HospitalComment on above:Performed By: #### CBC #### [facility] [address] [place] [address] Dr. Oksana Owen #0.7 103/ulNormal0.3-0.8The [facility] HospitalComment on above:Performed By: #### CBC #### [facility] [address] [place] [address] Dr. Oksana Quispeocytes/100 WBC (Bld)10.6 %Normal1.7-12.0The [facility] Comment on above:Performed By: #### CBC #### [facility] [address] [place] [address] Dr. Oksana Perea #3.4 103/ulNormal1.4-6.5The [facility] HospitalComment on above:Performed By: #### CBC #### [facility] [address] [place] [address] Dr. Oksana Daleutrophils/100 WBC (Bld)55.3 %Rlosil18.0-75.0The [facility] Hospitalment on above:Performed By: #### CBC #### [facility] [address] [place] [address] Dr. Oksana Chaveslet mean volume (Bld) [Entitic vol]10.4 fLNormal9.5-13.5The [facility] HospitalComment on above:Performed By: #### CBC #### [facility] [address] [place] [address] Dr. Oksana ShawPLT247 103/sfRsdsff778-563Utc [facility] HospitalComment on above: Performed By: #### CBC #### [facility] [address] [place] [address] Dr. Oksana ShawRBC4.25 106/ulNormal4.20-5.40The [facility] HospitalComment on above:Performed By: #### CBC #### [facility] [address] [address] [address] Oksana ShawWBC6.2 103/ulNormal4.0-11.0The [facility] HospitalComment on above: Performed By: #### CBC #### [facility] [address] [address] [address] Oksana ShawPROF CHEM 8 (BAS METB)on 67-47-9298Tfrjq gap [Moles/Vol]12.5 mmol/LNormalThe [facility] HospitalComment on above:Performed By: #### BMP #### [facility] [address] [address] [address] Oksana ShawCalcium [Mass/Vol]9.6 mg/dLNormal8.4-10.2[facility] Comment on above:Performed By: #### BMP #### [facility] [address] [place] [address] Dr. Oksana ShawChloride [Moles/Vol]105 mmol/IDagyal99-056Vir [facility] Comment on above:Performed By: #### BMP #### [facility] [address] [address] [address] Oksana ShawCO2 [Moles/Vol]28.8 mmol/SNuunnc00.0-30.0[facility] Comment on above:Performed By: #### BMP #### [facility] [address] [place] [address] Dr. Oksana ShawCreatinine [Mass/Vol]0.87 mg/dLNormal0.52-1.04The [facility] HospitalComment on above:Performed By: #### BMP #### [facility] [address] [address] [address] Oksana MontanezGFR-AF ARMENIAN>60Normal>=60The [facility] HospitalComment on above:Performed By: #### BMP #### [facility] [address] [address] [address] Oksana MontanezGFR-NON AF ARMENIAN>60Normal>=60The [facility] HospitalComment on above:Performed By: #### BMP #### [facility] [address] [address] [address] Oksana ShawGlucose [Mass/Vol]95 mg/iEPbzobk53-797Zbh [facility] Comment on above:Performed By: #### BMP #### [facility] [address] [address] [address] Oksana ShawPotassium [Moles/Vol]3.3 mmol/LCritically low3.4-5.0The [facility] HospitalComment on above:Performed By: #### BMP #### [facility] [address] [address] [address] Oksana ShawSodium [Moles/Vol]143 mmol/PWxxjxn419-088ZvwUniversity Hospitals Portage Medical Center Comment on above:Performed By: #### BMP #### [facility] [address] [place] [address] Dr. Oksana ShawUrea nitrogen [Mass/Vol]15.0 mg/dLNormal7.0-17.0[facility] Medical CenterComment on above:Performed By: #### BMP #### [facility] [address] [address] [address] Oksana Camarena nitrogen/Creatinine [Mass ratio]17.2 mg/mgNormalThe [facility] HospitalComment on above:Performed By: #### BMP #### [facility] [address] [place] [address] Dr. Oksana ShawCovid-19 PCR ([facility])on 61-86-6092RIYW-CoV-2 (COVID-19) RNA DEMETRIUS+probe Ql (Unsp spec)Not detectedNormalNOT DETECTEDThe [facility] Comment on above:Result Comment: This test is not yet approved or cleared by the [place] FDA. When there are no FDA-approved or cleared tests available, and other criteria are met, FDA can make tests available under an emergency access mechanism called an Emergency Use Authorization (EUA). The EUA for this test is supported by the Male Infertility Specialist of Health and Human Service's (HHS's) declaration that circumstances exist to justify the emergency use of in vitro diagnostics for the detection and/or diagnosis of the virus that causes COVID- 19. This EUA will remain in effect (meaning [...] of clinical signs and symptoms consistent with SARS-CoV-2.Performed By: #### CVDTBH ####[facility] [address] [id number]. Oksana Shaw GLYCOHEMOGLOBIN A1Con 74-17-9351RGW RECOMMENDATIONADA THERAPEUTIC TARGET 6.0 - 7.0 ACTION SUGGESTED > 7.0NoPremier Health Atrium Medical CenterComment on above:Performed By: #### A1C ####[facility] [address] [id number].Oksana ShawGlucose [Mass/Vol]123 mg/dLNoPremier Health Atrium Medical CenterComment on above:Performed By: #### A1C ####[facility] [address] [address]Dr.Oksana ShawHbA1c (Bld) [Mass fraction]5.9 %Normal <=6.0[facility] Portage Medical CenterComment on above:Performed By: #### A1C ####[facility] [address] [id number].Oksana ShawNM BONE IMAGE 3 PHASEon 20-45-0349HS BONE IMAGE 3 PHASEEXAMINATION: NM BONE IMAGE 3 PHASE HISTORY: Artificial knee joint [...] ongoing bone remodeling. Electronically authenticated by: FANY MEDRANO Date: 2021-01-11 17:[address] [place] [address] Vital Signs Date TimeVital SignValuePerforming JbwhvluimBezvpgrj64-28-4980 10:02-0400Body .48 cmBenjamin Ball DO Work Phone: [phone] [place], [place] 9776010-17-2025 10:02-0400 Body mass index (BMI) [Ratio]33.8 kg/a5Kikyczjw Ball DO Work Phone: [phone])[address] [place], [place] 9776010-17-2025 10:02-0400 Body qvccza50.91 kgBenjamin Ball DO Work Phone: [phone])[address] [place], [place] 9776008-25-2025 11:12-0400 Body .48 cmBenjamin Ball DO Work Phone: [phone])[address] [place], [place] 9776008-25-2025 11:12-0400 Body mass index (BMI) [Ratio]33.6 kg/j1Egdofikk Ball DO Work Phone: [phone])[address] [place], [place] 9776008-25-2025 11:12-0400 Body wdieov20.46 kgBenjamin Ball DO Work Phone: [address] [place], [place] 9776008-05-2025 13:47-0400 Body eesbgb308.48 cmBenjamin Ball DO Work Phone: 1(731)[address] [place], [place] 9776008-05-2025 13:47-0400 Body mass index (BMI) [Ratio]33.6 kg/c0Jtwmyjqm Ball DO Work Phone: [phone])[address] [place], [place] 9776008-05-2025 13:47-0400 Body xpbyti43.51 kgBenjamin Ball DO Work Phone: [phone])[address] [place], [place] 9776008-05-2025 13:47-0400 Diastolic blood krocgwtz21 mm[Hg]Capo Ball DO Work Phone: [phone])[address] [place], [place] 9776008-05-2025 13:47-0400 Heart rate66 /minBenjamin Ball DO Work Phone: [phone])[address] [place], [place] 9776008-05-2025 13:47-0400 Respiratory rate16 /minBenjamin Ball DO Work Phone: [facility]08-05-2025 13:47-0400 SaO2% (BldA) [Mass fraction]96 %Capo Ball DO Work Phone: [facility]08-05-2025 13:47-0400 Systolic blood mm[Hg]Capo Ball DO Work Phone: [phone]06-04-2025 11:06-0400 Body yldhis520.02 cmSamaritan North Health Center06-04-2025 11:06-0400Body mass index (BMI) [Ratio]31.9 kg/l7MnddxggdrSamaritan North Health Center06-04-2025 11:06-0400Body .87 kgSamaritan North Health Center06-04-2025 11:06-0400Diastolic blood puqsokhu25 mm[Hg][facility] 08-24-2024 11:06-0400Heart rate62 /[facility] 08-24-2024 11:06-0400Respiratory rate12 /[facility] 08-24-2024 11:06-0400Systolic blood mybpcgbh080 mm[Hg][facility]05-12-2025 09:34-0400Body nozswd179.02 cmBenjamin Ball DO Work Phone: [facility]05-12-2025 09:34-0400 Body mass index (BMI) [Ratio]32.1 kg/u4Ptimzacf Ball DO Work Phone: [facility]05-12-2025 09:34-0400 Body vysxbr24.1 kgBenjamin Ball DO Work Phone: [phone]05-12-2025 09:34-0400 Diastolic blood bhdlijbr81 mm[Hg]Capo Ball DO Work Phone: [facility]05-12-2025 09:34-0400 Heart rate58 /minBenjamin Ball DO Work Phone: [phone] [place], [place] 1912405-12-2025 09:34-0400 Respiratory rate12 /minBenjamin Ball DO Work Phone: [phone])[address] [place], [place] 9776005-12-2025 09:34-0400 SaO2% (BldA) [Mass fraction]97 %Capo Ball DO Work Phone: [phone]05-12-2025 09:34-0400 Systolic blood oczaopgj631 mm[Hg]Capo Ball DO Work Phone: [phone])[address]11-14-2024 10:03-0500 Body nghnil641.02 cmBenjamin Ball DO Work Phone: [phone])[address] [place], [place] 9776011-14-2024 10:03-0500 Body mass index (BMI) [Ratio]31 kg/y6Kzkxszmt Ball DO Work Phone: [phone])[address] [place], [place] 9776011-14-2024 10:03-0500 Body jwigum91.49 kgBenjamin Ball DO Work Phone: [phone])[address] [place], [place] 9776011-14-2024 10:03-0500 Diastolic blood zzwolezb82 mm[Hg]Capo Ball DO Work Phone: [phone])[address] [place], [place] 9776011-14-2024 10:03-0500 Heart rate60 /minBenjamin Ball DO Work Phone: 1(705)[facility] [place], [place] 1912411-14-2024 10:03-0500 Respiratory rate12 /minBenjamin Ball DO Work Phone: 1419)[facility] [place], [place] 1912411-14-2024 10:03-0500 Systolic blood bhgdahny143 mm[Hg]Capo Ball DO Work Phone: 1(768)[address] [place], [place] 9776008-30-2024 15:24-0400 Body payejk822.02 cmDO Capo Ball Work Phone: [address] [place], [place] 9776008-30-2024 15:24-0400 Body mass index (BMI) [Ratio]30.7 kg/m2DO Capo Ball Work Phone: [facility]08-30-2024 15:24-0400 Body rdykrt14.52 kgDO Capo Ball Work Phone: [facility]08-30-2024 15:24-0400 Diastolic blood irymqggx64 mm[Hg]DO Capo Ball Work Phone: [facility]08-30-2024 15:24-0400 Respiratory rate12 /minDO Capo Ball Work Phone: [facility]08-30-2024 15:24-0400 SaO2% (BldA) [Mass fraction]65 %DO Capo Ball Work Phone: [facility]08-30-2024 15:24-0400 Systolic blood cdlxcgyh744 mm[Hg]DO Capo Ball Work Phone: [facility]08-27-2024 12:33-0400 Blood Pressure LocationJENNIFER HIMANSHU [facility]08-27-2024 12:33-0400Body tnilpbssdhv52.6 [degF]JOSEFINA HIMANSHU [facility]08-27-2024 12:33-0400Diastolic blood waierqix93 mm[Hg]JOSEFINA HIMANSHU [facility]08-27-2024 12:33-0400Heart rate63 /minJENNIFER HIMANSHU [facility]08-27-2024 12:33-0400Respiratory rate16 /minJENNIFER HIMANSHU [facility]08-27-2024 12:33-0400Systolic blood qoucqxrd893 mm[Hg]JOSEFINA HIMANSHU [facility]08-07-2024 12:14-0400Body mojvus022.02 cmDO Capo Ball Work Phone: [phone]08-07-2024 12:14-0400 Body mass index (BMI) [Ratio]31.4 kg/m2DO Capo Ball Work Phone: [phone])[address] [place], [place] 9776008-07-2024 12:14-0400 Body .34 kgDO Capo Ball Work Phone: 1(814)[address] [place], [place] 9776008-07-2024 12:14-0400 Diastolic blood ifqymhei57 mm[Hg]DO Capo Ball Work Phone: 1(237)[address] [place], [place] 9776008-07-2024 12:14-0400 Heart rate60 /minDO Capo Ball Work Phone: 1(186)[address] [place], [place] 9776008-07-2024 12:14-0400 Respiratory rate12 /minDO Capo Ball Work Phone: 1(266)[address] [place], [place] 9776008-07-2024 12:14-0400 Systolic blood hjgdggef695 mm[Hg]DO Capo Ball Work Phone: 1(005)[address] [place], [place] 9776006-19-2024 10:50-0400 Diastolic blood gwagecww87 mm[Hg]DO Capo Ball Work Phone: 1(862)[address] [place], [place] 9776006-19-2024 10:50-0400 Heart rate70 /minDO Capo Ball Work Phone: 1(262)[address] [place], [place] 9776006-19-2024 10:50-0400 Respiratory rate20 /minDO Capo Ball Work Phone: 1(402)[address] [place], [place] 9776006-19-2024 10:50-0400 SaO2% (BldA) [Mass fraction]96 %DO Capo Ball Work Phone: 1(393)[address] [place], [place] 9776006-19-2024 10:50-0400 Systolic blood ymcjyngy215 mm[Hg]DO Capo Ball Work Phone: 1(872)[address] [place], [place] 9776006-19-2024 09:55-0400 Body [degF]DO Capo Ball Work Phone: 1(722)[address] [place], [place] 9776006-19-2024 09:30-0400 Inhaled oxygen flow rate10 L/minDO Capo Ball Work Phone: 1(224)[address] [place], [place] 9776006-19-2024 07:28-0400 Body mass index (BMI) [Ratio]33.5 kg/m2DO Capo Ball Work Phone: [phone])[address]06-19-2024 06:59-0400 Body orgafx653.02 cmDO Capo Ball Work Phone: 1(753)[address] [place], [place] 9776006-19-2024 06:59-0400 Body ippezc31 kgDO Capo Ball Work Phone: 1(998)[address] [place], [place] 9776006-06-2024 11:07-0400 Body .48 cmDO Capo Ball Work Phone: 1(200)[address] [place], [place] 9776006-06-2024 11:07-0400 Body mass index (BMI) [Ratio]34.2 kg/m2DO Capo Ball Work Phone: 1(452)[address] [place], [place] 9776006-06-2024 11:07-0400 Body .04 kgDO Capo Ball Work Phone: 1(574)[address] [place], [place] 9776006-06-2024 11:07-0400 Diastolic blood yiokcdnk61 mm[Hg]DO Capo Ball Work Phone: 1(617)[address] [place], [place] 9776006-06-2024 11:07-0400 Heart rate60 /minDO Capo Ball Work Phone: 1(851)066-[address] [place], [place] 1912406-06-2024 11:07-0400 Respiratory rate12 /minDO Capo Ball Work Phone: 1(375)[address] [place], [place] 9776006-06-2024 11:07-0400 Systolic blood mm[Hg]DO Capo Ball Work Phone: 1(413)[address] [place], [place] 9776005-23-2024 13:06-0400 Body tatvys467.48 cmDO Capo Ball Work Phone: 1(535)[address] [place], [place] 9776005-23-2024 13:06-0400 Body mass index (BMI) [Ratio]34.4 kg/m2DO Capo Dunn Work Phone: [facility]05-23-2024 13:06-0400 Body oxaasc79.27 kgDO Capo Dunn Work Phone: [facility]05-13-2024 10:48-0400 Body .02 cmSam[facility]itan [facility] Center05-13-2024 10:48-0400Body mass index (BMI) [Ratio]33.7 kg/b5OlybajorfSamaritan North Health Center05-13-2024 10:48-0400Body foxnxy18.35 kgSamaritan North Health Center05-13-2024 10:48-0400Diastolic blood pxotrzrv47 mm[Hg][facility] 08-03-2023 10:48-0400Heart rate62 /[facility] 08-03-2023 10:48-0400Respiratory rate12 /[facility] 08-03-2023 10:48-0400Systolic blood ukwawhsw020 mm[Hg][facility]04-25-2024 10:32-0400Body .02 cmSam[facility]itan [facility] Health Center04-25-2024 10:32-0400Body mass index (BMI) [Ratio]34.1 kg/l8EseeimpwzSamaritan North Health Center04-25-2024 10:32-0400Body .31 kgSamaritan North Health Center04-25-2024 10:32-0400Diastolic blood odjzuadx67 mm[Hg] [facility]04-25-2024 10:32-0400Heart rate54 /[facility]04-25-2024 10:32-0400Respiratory rate12 /[facility]04-25-2024 10:32-0400Systolic blood bshjcasm016 mm[Hg] [facility]02-12-2024 14:30-0500Body ymvfwv268.02 cm Capo [employer] Other [facility] [employer] Other 02-12-2024 14:30-0500Body mass index (BMI) [Ratio] 34.33 kg/a1Dmwccbqx Ball Other [employer] Other 02-12-2024 14:30-0500Body acwhdr20.91 kgBenjamin Ball Other [employer] Other 02-12-2024 14:30-0500Diastolic blood heukphtm70 mm[Hg] Capo Ball Other [employer] Other 02-12-2024 14:30-0500Respiratory rate12 /minBenjamin Ball Other [employer] Other 02-12-2024 14:30-0500Systolic blood poqocteu309 mm[Hg] Capo Ball Other [employer] Other 12-07-2023 12:00-0500Body qjhojm743.02 cmBenjamin Ball Other [employer] Other 12-07-2023 12:00-0500Body mass index (BMI) [Ratio] 32.77 kg/y8Rwpmzfwx Ball Other [employer] Other 12-07-2023 12:00-0500Body .92 kgBenjamin Ball Other [employer] Other 11-13-2023 10:30-0500Body kgyuos734.02 cmBenjamin Ball Other [employer] Other 11-13-2023 10:30-0500Body mass index (BMI) [Ratio] 32.91 kg/a2Ohnhfosc Ball Other [employer] Other 11-13-2023 10:30-0500Body .28 kgBenjamin Ball Other [facility] [employer] Other 11-13-2023 10:30-0500Diastolic blood esqpqpwo50 mm[Hg] Capo Ball Other [facility] [employer] Other 11-13-2023 10:30-0500Respiratory rate12 /minBenjamin Ball Other [employer] Other 11-13-2023 10:30-0500Systolic blood dmvsqkyc756 mm[Hg] Capo Ball Other [facility] [employer] Other 08-01-2023 08:52-0400Blood Pressure LocationJENNIFER HIMANSHU [facility]08-01-2023 08:52-0400Diastolic blood bdwcelbn85 mm[Hg]JOSEFINA HIMANSHU [facility]08-01-2023 08:52-0400Heart rate49 /minJENNIFER HIMANSHU [facility]08-01-2023 08:52-0400Systolic blood hfcjfxoy053 mm[Hg]JOSEFINA HIMANSHU [facility]06-27-2023 13:30-0400Body cpjmma273.02 cmBenjamin Ball Other [employer] Other 06-27-2023 13:30-0400Body mass index (BMI) [Ratio]32.2 kg/i9Zolzizia Ball Other [employer] Other 06-27-2023 13:30-0400Body nmqopr60.46 kgBenjamin Ball Other [employer] Other 06-27-2023 13:30-0400Diastolic blood ydraoaqz20 mm[Hg] Capo Ball Other [facility] [employer] Other 06-27-2023 13:30-0400Respiratory rate12 /minBenjamin Ball Other [facility] [employer] Other 06-27-2023 13:30-0400Systolic blood jvgkdayn014 mm[Hg] Capo Ball Other [facility] [employer] Other 01-24-2023 09:28-0500Blood Pressure LocationJENNIFER HIMANSHU [facility]01-24-2023 09:28-0500Diastolic blood vlwuifuv90 mm[Hg]JOSEFINA HIMANSHU [facility]01-24-2023 09:28-0500Heart rate68 /minJENNIFER HIMANSHU [facility]01-24-2023 09:28-0500Respiratory rate16 /minJENNIFER HIMANSHU [facility]01-24-2023 09:28-0500Systolic blood yurmcjuq353 mm[Hg]JOSEFINA HIMANSHU [facility]07-13-2022 13:15-0400Blood Pressure LocationJENNIFER HIMANSHU [facility] 07-13-2022 13:15-0400Diastolic blood fuuwxjeg75 mm[Hg] JOSEFINA HIMANSHU [facility] [employer] 07-13-2022 13:15-0400Heart rate80 /minJENNIFER HIMANSHU [facility] 07-13-2022 13:15-0400Respiratory rate16 /minJENNIFER HIMANSHU [facility] [employer] 07-13-2022 13:15-0400Systolic blood mm[Hg] JOSEFINA HIMANSHU [facility] [employer] 05-25-2022 14:13-0400Blood Pressure LocationJENNIFER HIMANSHU [facility] 05-25-2022 14:13-0400Diastolic blood aiauwvqu49 mm[Hg] JOSEFINA HIMANSHU [facility] 05-25-2022 14:13-0400Heart rate68 /minJENNIFER HIMANSHU [facility] 05-25-2022 14:13-0400Systolic blood gpaghcjw517 mm[Hg] JOSEFINA HIMANSHU [facility] Encounters Encounter DateEncounter TypeCare ProviderFacilityStart: 01-06-2025 End: 81-52-8460yhmvqxrroaBplxmmhx Ball DO Work Phone: [phone]-Btvvdchsi Health OrthopedicsStart: 01-06-2025 End: 72-37-6995Ceetqav encounter procedureColuis a Barksdale MD-[facility] Work Phone: Start: 12-06-2024 End: 39-19-8854kkoqbuawfiGiuutqtg Ball DO Work Phone: [facility] Work Phone: Start: 12-06-2024 End: 65-07-2558Cqwyemy encounter procedureAkil Martinez [facility] Work Phone: Start: 12-01-2024 End: 26-88-0723vqhvcrjkasNivdubrm Ball DO Work Phone: [facility] Work Phone: Start: 12-01-2024 End: 28-63-0898Hgkhvch encounter procedureChbrayan Fajardo DO-[facility] [place] Work Phone: Start: 11-14-2024 End: 40-36-8014xrzsdulncdJdbpvymd Ball DO Work Phone: [facility] Work Phone: Start: 11-14-2024 End: 91-81-8425Xhskunx encounter procedureAkil Martinez [facility] Work Phone: Start: 10-25-2024 End: 52-44-0236ravjczqhmsYmomywfp Ball DO Work Phone: [facility] Work Phone: Start: 10-25-2024 End: 36-54-2414Cuekrfb encounter procedureBenjamin Ball DO-[facility] Work Phone: Start: 09-12-2024 End: 08-45-5740Cdvqlut encounter procedureAkil Martinez [facility] Work Phone: Start: 08-24-2024 End: 49-67-7949mecsuzuykbJygijknal [facility] Work Phone: Start: 08-24-2024 End: 15-83-2275Ujdmtef [facility]At[facility] Work Phone: Start: 08-01-2024 End: 72-47-7230kfhwtfkjjxPkkiucxn Ball DO Work Phone: [facility] Work Phone: Start: 08-01-2024 End: 55-67-6324Sjomnzt encounter procedureBenjamin Ball DO Work Phone: [facility] Work Phone: Start: 07-12-2024 End: 02-45-2769mmxaeejqyuDkkemdii Ball DO Work Phone: [facility] Work Phone: Start: 07-12-2024 End: 13-71-9086Tepobdx encounter procedureBenjamin Ball DO Work Phone: [facility] Work Phone: Start: 06-13-2024 End: 33-68-5653cdntatoblpTivuqcst Ball DO Work Phone: [facility] Work Phone: Start: 06-13-2024 End: 21-63-0563Rksokzp encounter procedureBenjamin Ball DO Work Phone: [facility] Work Phone: Start: 98-81-1879Dun-patient / Non-visitBenjamin Ball DO Work Phone: [facility] Work Phone: Start: 05-19-2024 End: 99-10-0886Hjbczaa encounter procedureBenjamin Ball DO Work Phone: [facility] Work Phone: Start: 05-19-2024 End: 80-48-5566blocvhhvwwTqoqogwn Ball DO Work Phone: [facility] Work Phone: Start: 73-22-5000Ioyegzwhp for other preprocedural examinationAkil MartinezNch Healthcare System [facility] Physician GroupStart: 05-09-2024 End: 66-03-8595xontjbumjqGgwvmhgu Ball DO Work Phone: [facility] Work Phone: Start: 05-09-2024 End: 38-62-3838Hrciksa encounter procedureBenjamin Ball DO Work Phone: [facility] Work Phone: Start: 04-18-2024 End: 83-32-7634Lujaje flowsheetAlison L Susi PA Work Phone: [facility] DERMStart: 04-18-2024 End: 91-70-4749Nbtssq flowsheetAlison L Susi PA Work Phone: [facility] DERMStart: 04-18-2024 End: 20-59-1967Gsdjhs outpatient visit 15 minutesAlison L Susi PA Work Phone: [facility] DERMComment on above:Seborrheic keratosis (Primary Dx); Melanocytic nevus of trunk; Garibay angiomaStart: 04-18-2024 End: 25-87-3738fqicvpnuzvYZJXRV L WINANSNot AvailableStart: 04-13-2024 End: 65-04-3732Tfsicsu encounter procedureBenjamin Ball DO Work Phone: [facility] Work Phone: Start: 04-13-2024 End: 31-36-7938hpvblccalyWnapjflm Ball DO Work Phone: [facility] Work Phone: Start: 12-96-8817Lrt-patient / Non-visitBenjamin Ball DO Work Phone: [facility] Work Phone: Start: 03-21-2024 End: 73-69-6450Ovredbs encounter procedureBenjamin Ball DO Work Phone: [facility] Group[facility] Work Phone: Start: 03-21-2024 End: 56-55-5197Mwgxonk encounter procedureBenjamin Ball DO Work Phone: [facility] Start: 03-21-2024 End: 95-96-3196xftclcjploAhdaqwpt BallFacility:[facility] Start: 02-11-2024 End: 04-39-5086VqzgpwslfMpvsovv J Martinez PT Work Phone: [facility] PTComment on above:Cervicalgia (Primary Dx); Balance disorder; BPPV (benign paroxysmal positional vertigo), left; BPPV (benign paroxysmal positional vertigo), right; Unilateral vestibular weakness, rightStart: 02-04-2024 End: 82-15-4580aspiqlsyjhQztexamt Ball DO Work Phone: [facility] Work Phone: Start: 02-04-2024 End: 37-13-2927Oqmotpo encounter procedureBenjamin Ball DO Work Phone: [facility] Work Phone: Start: 97-68-1332Kqzuvzu encounter procedureBenjamin Ball DO Work Phone: Centervilletart: 67-06-2281Vkj- patient / Non-visitBenjamin Ball DO Work Phone: [facility] Work Phone: Start: 01-21-2024 End: 32-26-5951AguvjidmeXvokraj J Martinez PT Work Phone: noms SWS PTComment on above:Cervicalgia (Primary Dx); Balance disorderStart: 01-07-2024 End: 48-21-5577EmnmsoempUrkwjtw J Martinez PT Work Phone: NOIM SWS PTComment on above:Cervicalgia (Primary Dx); Balance disorder; BPPV (benign paroxysmal positional vertigo), left; BPPV (benign paroxysmal positional vertigo), right; Unilateral vestibular weakness, rightStart: 74-92-6597Tvi-patient / Non-visitDO Capo Shaun Work Phone: [facility] Work Phone: Start: 12-30-2023 End: 63-20-7657NjwbazykaNmezguo J Martinez PT Work Phone: noms SWS PTComment on above:BPPV (benign paroxysmal positional vertigo), right (Primary Dx); Cervicalgia; Balance disorder; Unilateral vestibular weakness, right; BPPV (benign paroxysmal positional vertigo), leftStart: 12-24-2023 End: 37-76-2244lqjluijsznAC Benjamin Make YES! Happen Work Phone: [facility] Work Phone: Start: 12-24-2023 End: 67-41-6970Ewnebuhagb Recurring Capo Make YES! Happen Work Phone: [facility]-Physical Therapy [place]: 59-81-3555Sdkmgfspdq Recurring Capo Make YES! Happen Work Phone: [facility]-Physical Therapy [place]Start: 12-17-2023 End: 34-32-8469pmcgaddztrHD Capo Make YES! Happen Work Phone: [facility] Work Phone: Start: 12-17-2023 End: 70-93-3795Lmspfdb encounter procedureDO Capo Dunn Work Phone: [facility] [place] [facility] Work Phone: Start: 12-17-2023 End: 66-49-4877Mczmsvf encounter procedureDO Capo Dunn Work Phone: [facility] [place] [facility] Start: 12-17-2023 End: 78-80-6225uihuoetvzsLD Capo Dunn Work Phone: [facility] Work Phone: Start: 00-38-2569Gxnatrhakv RecurringDO Capo Dunn Work Phone: [facility]-Physical Therapy [place]: 12-09-2023 End: 84-24-6935Qyllhd Sal Carbajal PT Work Phone: noms SWS PTStart: 12-09-2023 End: 47-69-7843Mznegi Sal Carbajal PT Work Phone: noms SWS PTStart: 12-09-2023 End: 14-19-2059OvvzhpkgaOhvdlig J Martinez PT Work Phone: noms SWS PTComment on above:Cervicalgia (Primary Dx); Balance disorder; BPPV (benign paroxysmal positional vertigo), left; Unilateral vestibular weakness, rightStart: 12-02-2023 End: 25-06-2367KginqqlacUuguwqw J Martinez PT Work Phone: [facility] PTComment on above:BPPV (benign paroxysmal positional vertigo), right (Primary Dx); Cervicalgia; Balance disorder; BPPV (benign paroxysmal positional vertigo), left; Unilateral vestibular weakness, rightStart: 11-20-2023 End: 81-26-9810Nhvfwho encounter procedureDO Capo Dunn Work Phone: [facility] Work Phone: Start: 11-18-2023 End: 83-99-1312QcdgnodeoLsdsize J Martinez PT Work Phone: [facility] SWS PTComment on above:BPPV (benign paroxysmal positional vertigo), right (Primary Dx); Cervicalgia; Balance disorder; BPPV (benign paroxysmal positional vertigo), leftStart: 11-17-2023 End: 42-94-5053uplacdtdkyALNARVAC E PERRYFacility:EU BellevueStart: 11-17-2023 End: 15-67-1487Jixegax encounter procedureJENNIFER E HIMANSHU [facility] Renea start: 11-04-2023 End: 83-57-9265myznsxkydbVWCQPWU J MARTINEZNot AvailableStart: 10-28-2023 End: 06-05-9139oghkhfrobmOB Capo Dunn Work Phone: [facility] Work Phone: Start: 10-28-2023 End: 30-51-2341Ezeqwxe encounter procedureDO Capo Dunn Work Phone: [facility] Work Phone: Start: 32-80-8036Gvidmrqhgi RecurringDO Capo Dunn Work Phone: [facility]-Physical Therapy [place]Start: 10-22-2023 End: 49-29-4947fmndpbipysAM Capo Dunn Work Phone: [facility] Work Phone: Start: 10-22-2023 End: 90-08-9520Fbknmjc encounter procedureDO Capo Dunn Work Phone: [facility] [place] [facility] Work Phone: Start: 42-42-4533Invufxzasg RecurringDO Capo Dunn Work Phone: [facility] Therapy [place]Start: 09-30-2023 End: 08-97-7236Ymepffx encounter procedureDO Capo Dunn Work Phone: [facility] [place] Work Phone: Start: 09-30-2023 End: 49-65-9057uttyhmazvvQV Capo Dunn Work Phone: [facility] Work Phone: Start: 09-17-2023 End: 30-98-3422iqecozszxjSR Capo Dunn Work Phone: [facility] Work Phone: Start: 09-17-2023 End: 12-61-1205Diaijua encounter procedureDO Capo Dunn Work Phone: [facility] [place] [facility] Work Phone: Start: 14-93-3992Kos-patient / Non-visitDO Capo Dunn Work Phone: [facility] [place] [facility] Work Phone: Start: 09-09-2023 End: 33-39-4792Zczxtiojy to same day surgery centerDO Capo Dunn Work Phone: [facility] CampusStart: 09-09-2023 End: 73-28-2385wgljkjzhksLJ Capo Dunn Work Phone: [facility] Work Phone: Start: 09-07-2023 End: 52-36-1149ghulecicpiYEBIDCO Elsa Ortiz AvailableStart: 40-63-1916Vjj- patient / Non-visitDO Capo Dunn Work Phone: [facility] Work Phone: Start: 08-27-2023 End: 34-27-0405szknpkatmpHD Capo Dunn Work Phone: [facility] Work Phone: Start: 08-27-2023 End: 92-06-4069Ernkadb encounter procedureDO Capo Dunn Work Phone: [facility] Work Phone: Start: 08-25-2023 End: 37-95-7646Vwqogup encounter procedureDO Capo Dunn Work Phone: [facility] L[facility]-Opi-Hokrbffj Testing Work Phone: Start: 08-25-2023 End: 72-75-1234mfxndqzdqsAU Capo Dunn Work Phone: [facility] Work Phone: Start: 56-33-3927Bhgzmbtsg for preprocedural laboratory examinationAkil Carlos [facility] GroupStart: 08-21-2023 End: 03-98-0540jixocckrcwUTDMJDE J MARTINEZNot AvailableStart: 08-14-2023 End: 30-18-6592Fzietua encounter procedureDO Capo Dunn Work Phone: [facility] [place] Work Phone: Start: 08-14-2023 End: 21-72-2361cgtanbosxrTA Capo Dunn Work Phone: [facility] Work Phone: Start: 08-13-2023 End: 20-27-0800nqinqxtkvaLQ Capo Dunn Work Phone: [facility] Work Phone: Start: 08-13-2023 End: 82-44-3293Hlqvnis encounter procedureDO Capo Dunn Work Phone: [facility] Work Phone: Start: 08-03-2023 End: 04-09-5316lmahxwxpydMvijmdhkzPremier Health [facility] Work Phone: Start: 08-03-2023 End: 81-68-4444Sunjipa encounter procedureAt[facility] Work Phone: Start: 07-16-2023 End: 27-86-9486fltsobwoiuHcelendoxPremier Health [facility] Work Phone: Start: 07-16-2023 End: 37-73-4592Llupheb encounter procedureAt[facility] Work Phone: Start: 07-14-2023 End: 76-93-5212ilaicsiwtiBQWFQ A Abdirahman AvailableStart: 07-01-2023 End: 76-88-9307toajpxbtzaNLTYGPZ J Diana AvailableStart: 06-22-2023 End: 46-55-4651aayrvbwteoKYKQHTY J RAVENNot AvailableStart: 06-01-2023 End: 34-15-2269yyfikjzykzASXVUUG J RAVENNot AvailableStart: 05-20-2023 End: 79-01-4241deqqyrgehlNMKOMYB J MARTINEZNot AvailableStart: 05-12-2023 End: 76-56-1814qjnlegqwldLKERQOQ J MARTINEZNot AvailableStart: 05-04-2023 End: 42-97-1253aynoabudeoTzgnsbcb Ball Other [employer] Other Start: 15-53-3113Mlvypd outpatient visit 15 minutes [facility]o AdrienneG [facility] ClinicStart: 30-66-0683Uudgjdszj encounterBenjamin BallFPG [facility] ClinicStart: 02-26-2023 End: 51-11-6380mdsodtncoyAslshgpl Ball Other noBangcle Other Start: 10-70-9354Xswlle outpatient visit 15 minutes [facility]o AdrienneG [facility] ClinicStart: 02-02-2023 End: 51-44-6602tmrfcvprriRdchapgu Ball Other [employer] Other Start: 37-99-8181Otkxdqx encounter procedureBenjamin BallFPG [facility] ClinicStart: 12-23-2022 End: 56-71-1883zzjdcdunpuQwxixofq Ball Other [employer] Other Start: 92-16-8083Msxmhwkti encounterBestef Dunn Medical ClinicStart: 12-15-2022 End: 19-09-6725taxazfegdePnbzfdzt Ball Other [facility] [employer] Other Start: 24-60-6099Gzfmhtwcb encounterBestef Dunn Medical ClinicStart: 10-21-2022 End: 35-21-2300Zrudztd encounter procedureJENNIFER E HIMANSHU [facility] start: 09-16-2022 End: 10-31-8820pitkmlhyilDxatebny Ball Other [facility] [employer] Other Start: 31-16-0632Xlhkag outpatient visit 15 minutes [facility]o [facility] ClinicStart: 04-15-2022 End: 41-94-5364Jvgbeep encounter procedureJENNIFER E HIMANSHU [facility] start: 13-24-2587Ygcol health examinationCapo Dunn Other [facility] [employer] Other Start: 12-28-2021 End: 65-84-4591dwvruoahwmSL Capo Dunn Work Phone: [facility] Work Phone: Start: 12-28-2021 End: 13-00-6285Aprlogxn ReferredDO Capo Dunn Work Phone: [facility]-Community Outreach Start: 12-11-2021 End: 84-52-9046capngrajsgCR CAPO SHAUNFacility:S8Qugan: 11-21-2021 End: 00-54-8909unamnzjkivYB NONE LISTED REQUESTFacility:O8Cswxn: 11-01-2021 End: 07-95-4836lfzbgpqxkkWV CAPO BALLFacility:F2Ypwgu: 10-02-2021 End: 38-41-0229Dznhzwh encounter procedureJENNIFER Jovani HIMANSHU [facility] start: 09-03-2021 End: 93-12-7800yuwkiebmqgZM CAPO BALLFacility:X8Ybxuh: 08-14-2021 End: 07-04-8167Dqyrezc encounter procedureJENNIFER Jovani ROMAN [facility] start: 06-06-2021 End: 03-57-4972cgvzkufygpIX CAPO BALLFacility:E8Bbnca: 05-24-2021 End: 16-01-6452acqaphlfsoVY CAPO BALLFacility:K6Oiyym: 03-06-2021 End: 12-53-6469bubhfbzdlgWJ CAPO BALLFacility:S4Lhlpu: 03-05-2021 End: 65-31-8655bpbgumvbssKL CAPO BALLFacility:L0Nmqjl: 02-28-2021 End: 14-08-5946qfbsqcmrloWV CAPO BALLFacility:S6Fbnoq: 01-25-2021 End: 42-88-0126ubpnmfgszmDYTKR B APLINGFacility:R4Njnlb: 01-21-2021 End: 77-43-2739zzbcxpzakwXS DOCTOR MISCFacility:B7Amjmc: 01-11-2021 End: 62-26-2443ncjttzthkeBR FANY Brock ZIEBERFacility:Z1Bpgqe: 04-16-2020 Gynecological examination normalBenjairma Ball Other [employer] Other Procedures DateProcedureProcedure DetailPerforming ClinicianStart: 06-04-4726Ablglxd of decompression of median nerveStatus post carpal tunnel releaseAkil Martinez DO Comment on above:leftStart: 33-65-0410Hetwx X-ray of left shoulderBenjamin Ball DO Work Phone: Start: 68-06-4338Duuip X-ray of left shoulderDO Capo Dunn Work Phone: Start: 97-55-8649DK of left shoulderDO Capo Ball Work Phone: Start: 57-77-4377Ueofr X-ray of left shoulderDO Capo Dunn Work Phone: Start: 08-66-2931Urkbs X-ray of left shoulderDO Capo Dunn Work Phone: Start: 56-66-0147HN Total Shoulder Reverse & Anatomic (Left)DO Capo Dunn Work Phone: Start: 09-01-2023E coli Shiga Toxin EIADO Capo Dunn Work Phone: Start: 62-90-0382Ywjasukqza/Shigella ScreenDO Capo Dunn Work Phone: Start: 41-27-7320Uzkeclkcjlk resistant Staphylococcus aureus cultureDO Capo Dunn Work Phone: Start: 74-64-0153UR of left shoulderDO Capo Dunn Work Phone: start: 48-29-9954Atlyf X-ray of left shoulderDO Capo Dunn Work Phone: Start: 61-23-6821Egmmkfoyiarp of left shoulderJEDANKIFER HIMANSHU Start: 26-89-4802Oksggygzjnllbpqdg with dilation of urethral strictureJENNIFER HIMANSHU Start: 65-71-3096Hwgvvsspkqygafttv with dilation of urethral strictureJENNIFER HIMANSHU Start: 43-17-5186Iicin knee replacementJENNIFER HIMANSHU Start: 09-54-8541Uwi-surgery evaluationBestef Dunn Other Start: 28-90-6539Arjsmzn examination of patient Capo Dunn Other Start: 14-14-0910Xejkyhbvq mammographyBestef Dunn Other Start: 69-35-8687Wlity knee replacementJENNIFER HIMANSHU AppendectomyJENNIFER HIMANSHU Biopsy of breastJENNIFER HIMANSHU ColonoscopyJENNIFER HIMANSHU End: 05-78-5096Peyupdmrhq screeningBestef Dunn Other H/O: artificial jointStatus post total shoulder arthroplastyDO Capo Dunn Work Phone: History of decompression of median nerveStatus post carpal tunnel releaseBestef Dunn DO Work Phone: OophorectomyJENNIFER HIMANSHU Screening for malignant neoplasm of breastCapo Dunn Other Plan of Treatment DateCare ActivityDetailAuthorStart: 04-18-2025 End: 69-25-5730Xvnuevc encounter vuckuwybx48/27/2026 2:30 PM EST Office Visit [facility] [address] [place] [address] Lizzie Harrison, PA [address] [place], [place] [id number] [facility] TSR DERMStart: 55-19-8176Rtlylqa [facility]Av[facility] Work Phone: Start: 04-18-2024 End: 06-31-4434Lfrufln encounter procedureNOMS TSR DERMComment on above:Arrived Start: 02-11-2024 End: 22-07-5461nxhzvizkef42/21/2024 8:30 AM EST Treatment [facility] [address] [place] [address] Racquel Carbajal, PT [address] [place] [address] [facility] SWS PTStart: 01-21-2024 End: 96-03-1803ajphuynfkj56/31/2024 8:30 AM EDT Treatment [facility] PT [address] [place] [address] Racquel Carbajal, PT [address] [place] [address] [facility] PTStart: 01-07-2024 End: 63-58-9441yxyymckyge15/17/2024 8:30 AM EDT Treatment [facility] PT [address] [place] [address] Racquel Carbajal, PT [address] [place] [address] [facility] PTStart: 38-25-6756Qyetq X-ray of left shoulderXR shoulder LT min 2V*Centervilletart: 03-26-9597PM Shoulder - left Views Centervilletart: 12-09-2023 End: 88-48-5274TainzcmeaVMGS [facility] PTComment on above:Cervicalgia (Primary Dx); Balance disorder; BPPV (benign paroxysmal positional vertigo), left; Unilateral vestibular weakness, rightStart: 12-02-2023 End: 76-29-3942urzekdotor81/11/2024 8:30 AM EDT Treatment [facility] PT [address] [place] [address] Racquel Carbajal, PT [address] [place] [address] [facility] PTStart: 88-60-0376Sldacenxx vaccinationInfluenza Vaccine (#1)[facility] HealthcareStart: 04-25-3379Xfctd X-ray of left shoulderXR shoulder LT min 2V* Centervilletart: 34-86-9285QG Shoulder - left Views Centervilletart: 54-48-4018AbzzvkppiCentervilletart: 71-68-4823PiagyumvvCentervilletart: 09-09-2023 Referral to occupational therapistCentervilletart: 29-77-0552Qgrgctrzgbk resistant Staphylococcus aureus cultureMRSA Culture Centervilletart: 33-11-9064CLVH CultureMRSA Culture Centervilletart: 83-04-3421Scxop X-ray of left shoulderXR shoulder LT min 2V*Centervilletart: 41-28-6865HX Shoulder - left ViewsCentervilletart: 11-27-4237Eumruhk referralAv[facility] Work Phone: Start: 58-57-5835Kvsmfsajssrw Vaccine: 65+ Years (2 of 2 - PCV)Pneumococcal Vaccine: 65+ Years (2 of 2 - PCV)[facility] HealthcareStart: 32-66-1543Tcxkfuanz for malignant neoplasm of breastMammogramNOMS Healthcare Start: 52-28-2541Fvyugkrrg for malignant neoplasm of colonNOMS HealthcareCT Abdomen and Pelvis WO contrastSamaritan North Health CenterCT Shoulder - left WO contrastSamaritan North Health CenterCT Shoulder - left WO contrast [facility] CenterDiagnostic radiography of abdomenSamaritan North Health CenterElectromyographySamaritan North Health Center Methicillin resistant Staphylococcus aureus [Presence] in Unspecified specimen by Organism specificcultureSamaritan North Health CenterPatient Education [facility] Work Phone: [facility] referralAv[facility] Work Phone: XR Chest 2 ViewsSamaritan North Health CenterXR Lumbar spine 2 or 3 [facility]XR Should[facility] - left [facility] Immunizations Immunization DateImmunizationNotesCare BkdhxdllAurhzcgx88-68-6713upvtkhgvn, high dose seasonal, preservative-freeBenjamin Ball DO Work Phone: [facility]11-13-2023influenza virus vaccine, unspecified formulationSamaritan North Health Center 06-63-3644ppmktgxku, high dose seasonal, preservative-freeBenjamin Shaun Other [employer] Other 06-27-742428-49-2275DNFJF-88 Pfizer (bivalent)Capo Dunn Other [facility]11-07-2022influenza virus vaccine, split virus (incl. purified surface antigen)Capo Dunn Other [employer] Other [id number] virus vaccine, unspecified formulationJENNIFER HIMANSHU [facility]11-07-2022influenza, high dose seasonal, preservative-freeBenjamin Shaun Other [employer] Other 05-27-346719-11-4139NHUA-XaH-1 (COVID-19) Ad26 vaccine, recombinantJENNIFER HIMANSHU [facility] AndersonComment on above:Result Comment: 2022-04-10: ESI7907-13-1369aejukebjc virus vaccine, split virus (incl. purified surface antigen)Capo Dunn Other [employer] Other [id number] virus vaccine, unspecified formulationSamaritan North Health Center11-01-2021influenza virus vaccine, unspecified formulationJENNIFER HIMANSHU [facility] 06-422728-08-6307mfmnyta and diphtheria toxoids, adsorbed, preservative free, for adult use (2 Lf of tetanus toxoid and 2 Lf of diphtheria toxoid)JOSEFINA HIMANSHU [facility]06-25-2021tetanus and diphtheria toxoids, adsorbed, preservative free, for adult use (5 Lf of tetanus toxoid and 2 Lf of diphtheria toxoid)Capo hSaun Other [facility]03-19-2021COVID-19 Ad26.COV2.S (Kristie)DO Capo Dunn Work Phone: [facility] Health CenterComment on above: Result Comment: 2022-04-10: FIP0432-26-3865VWJK-TcJ-7 (COVID-19) Ad26 vaccine, recombinantJENNIFER HIMANSHU [facility] [id number] virus vaccine, split virus (incl. purified surface antigen)Capo Shaun Other [employer] Other [id number] virus vaccine, unspecified formulationJENNIFER HIMANSHU [facility]11-09-2020pneumococcal polysaccharide vaccine, 23 valentJENNIFER HIMANSHU [facility]11-19-2019influenza virus vaccine, unspecified formulationJENNIFER HIMANSHU [facility]11-05-2019influenza virus vaccine, split virus (incl. purified surface antigen)Capo Dunn Other [employer] Other [id number] virus vaccine, unspecified formulationSamaritan North Health Center11-05-2019pneumococcal conjugate vaccine, 13 valentBenrené Dunn Other [facility]10-17-2018influenza virus vaccine, unspecified formulationJENNIFER HIMANSHU [facility]10-06-2018influenza virus vaccine, unspecified formulationJENNIFER HIMANSHU [facility]10-12-2017influenza virus vaccine, unspecified formulationJENNIFER HIMANSHU [facility]10-23-2015influenza virus vaccine, unspecified formulationJENNIFER HIMANSHU [facility]10-01-2015influenza virus vaccine, unspecified formulationJENNIFER HIMANSHU [facility]10-15-2013tetanus and diphtheria toxoids, adsorbed, preservative free, for adult use (5 Lf of tetanus toxoid and 2 Lf of diphtheria toxoid)Acpo Ball Other [facility] Payers DatePayer CategoryPayerPolicy [id number] [id number] 2024MedicaidAETNA MEDICARE ADVANTAGE [id number] 2024MedicareAETNA MEDICARE ADVANTAGE AETNA MEDICARE REPLACEMENT [id number] 2023-Present [address] [place] [id number] [id number] [id number]-[id number] [id number] 2.16.840.1.331837.3.57[id number] 2.16.840.1.132091.3.57[id number] 2.16.840.1.410976.3.579.[id number] 2.16.840.1.373077.3.579.2.98308-51-7197Blvihhq6983319 2.16.840.1.274689.3.579.2.50898-31-2394Kxnmnzs0367424 2.16.840.1.173025.3.57[id number] 2.16.840.1.156552.3.57[id number] 2.16.840.1.265936.3.57[id number] 2.16.840.1.884273.3.579.2.01441-24-7092Boevshk9863818 2.16.840.1.332252.3.57[id number] 2.16.840.1.805699.3.579.2.94352-17-3360Ltrrwsq0112977 2.16.840.1.986965.3.579.2.834121-47-7197Rbfpavs6984949 2.16.840.1.568565.3.579.2.533843-46-4547Smptefg6665140 2.16.840.1.286357.3.579.2.341510-78-5686Qgwjslv8524398 2.16840.1.864819.3.57[id number] 2.16.840.1.267344.3.579.2.827509-39-2578Urukdrz9683015 2.16840.1.940785.3.579.2.523978-28-4992Tqjqzxw9945555 2.16840.1.485754.3.579.2.233986-40-0284Ekbxwzk6611976 2.0.1.008165.3.579.2.454517-91-7604Rdkoabu8851062 2.0.1.756653.3.579.2.843962-11-7473Nrstvhz6076580 2.840.1.806988.3.579.2.316505-08-1637Jrzeyix3046825 2.0.1.710151.3.579.2.931905-85-7276Mekiwpg6713291 2.0.1.400517.3.579.2.457471-09-1703Fywpygs7426489 2.0.1.668371.3.579.2.104107-61-4100Okcovwg0643670 2.840.1.904479.3.579.2.096507-61-6617Psdppbb0402571 2.16840.1.895534.3.579.2.429289-14-7598Ppojwza6101708 2.16840.1.851469.3.579.2.619042-53-2583Wxiiafr0650512 2.16.840.1.026661.3.579.2.374631-98-5144Zyxjkwi9460191 2.16.840.1.749433.3.579.2.1373Hfxcpub8885301 2.16.840.1.616274.3.579.2.593 Tedzwwp1936474 2.840.1.317[id number] 86g2t6n8-725q-9859-08y1-a6l26876shevVxkmgsb71358110 2..840.1.457021.3.579.2.753Odtexlg11772093 2.840.1.522059.3.579.2.531 Ikymyoc08011922 2.840.1.397139.3.579.2.670Krjpwaw30360753 2.840.1.345652.3.579.2.435Daiepjf52821455 2..840.1.133527.3.579.2.531 [id number] 2.16840.1.767743.3.579.2.553Zrntyuc30433214 2.16.840.1.202537.3.579.2.014Uqoimfs57872093 2.840.1.426264.3.579.2.531 Znjotev30184159 2.840.1.0[id number] 2.840.1.3[id number] 2.840.1.917742.3.579.2.531 Social History DateTypeDetailFacilityStart: 04-02-2021 End: 94-29-3884Pjcsppz smoking statusEx-smoker (finding)[facility] Tobacco smoking statusNeverExecutive [facility] start: 14-00-8492Zws [facility] start: 06-25-2021 End: 77-11-6868Nzwanpp smoking status NHISNever smoked tobacco (finding) Centervilletart: 04-96-1077Dkt [facility]art: 01-61-2395Wfyigvj use and exposure Smokeless tobacco non-userNOMS HealthcareStart: 06-01-2023 End: 29-89-4380Pntdwlevf beverage intakeCurrent drinker of alcohol (finding)[facility] HealthcareStart: 34-20-8807Puhkphm of Social functionNOMS HealthcareStart: 30-64-9924Tzkhipx Comment1-2 drinks, every 2-4 times a month. caffeine intake: 1-2 cups per day.[facility] HealthcareStart: 95-03-1585Iiwtks identityIdentifies as female gender (finding)[facility] HealthcareStart: 54-47-2427Ikddui orientationChoose not to discloseNOMS HealthcareStart: 02-04-2024 End: [id number] (finding)[facility] Medical Equipment Procedure CodeEquipment CodeEquipment Original TextEquipment IdentifierDates Orthopaedic bone screw, non-bioabsorbable, non-sterile()[id number] FDA Start: 77-07-6077Epucczroaet bone screw, non-bioabsorbable, non-sterile ()[id number] FDAStart: 37-81-8381Ocwlnnmmeaga reverse shoulder prosthesis cup()[id number] FDAStart: 25-65-3511Xhzvjp shoulder humeral stem prosthesis()[id number] FDAStart: 45-16-7906Pipgpht shoulder prosthesis head ()[id number] FDAStart: 47-65-6394Fjlkntbyick bone screw, non-bioabsorbable, non-sterile()[id number] FDAStart: 92-58-8553Hdhfypk shoulder prosthesis base plate ()[id number])[id number] FDAStart: 09-09-2023 Goals DatePatient GoalDesired Activity/State Functional Status HolqLwgmdepgjgXsippvMwelczxc61-60-5789Kenzkihvov StatusN/A[facility]2023Functional StatusN/A[facility]01-24-2023Functional StatusN/A [facility]07-13-2022Functional StatusN/A[facility] Clinical Notes 08-14-2021 to 10-25-2024 Note Date & IxthByijBtmwjqcg83-40-5275 Evaluation note* Diagnosis Onset Date Resolution Status Admit Date Low back pain acuteAugust 2024 1:45pmLumbar spondylosisacuteAugust 2024 1:45pm Cubital tunnel syndrome on leftacuteAugust 2024 11:03amLeft carpal tunnel syndromeacuteAugust 2024 11:03amStatus post carpal tunnel qrrbpti1924ssyvv November 14, 2024 11:03amCarpal tunnel syndrome, bilateralacuteSeptember 2024 9:21amUlnar neuropathy of left upper extremityacuteSeptember 2024 9:21amCubital tunnel syndrome on leftacuteSeptember 2024 12:56pmLeft carpal tunnel syndromeacuteSeptember 2024 12:56pmStatus post carpal tunnel mdrjhch2548srndqHamwseogb 2024 12:56pmCubital tunnel syndrome on left acuteOctober 2024 10:01amLeft carpal tunnel syndromeacuteOctober 2024 10:01amStatus post carpal tunnel vvdhrqv8598omcjePpxqogq 2024 10:01am [facility] Work Phone: 1(874) 260-951706-23-2025 Evaluation note* Diagnosis Onset Date Resolution Status Admit Date Cubital tunnel syndrome on left acuteJune 2024 11:05amLeft carpal tunnel syndromeacuteJune 2024 11:05amStatus post carpal tunnel anakpui0679hpyvkNycw 2024 11:05amLow back painacuteAugust 2024 1:45pmLumbar spondylosisacuteAugust 2024 1:45pm Cubital tunnel syndrome on leftacuteAugust 2024 11:03amLeft carpal tunnel syndromeacuteAugust 2024 11:03amStatus post carpal tunnel vtktnyo7512kaiid November 14, 2024 11:03am [facility] Work Phone: 1(359) 503-744306-23-2025 Evaluation note* Diagnosis Onset Date Resolution Status Admit Date Cubital tunnel syndrome on left acuteJune 2024 11:05amLeft carpal tunnel syndromeacuteJune 2024 11:05amStatus post carpal tunnel cvjqjcg9577nldflUngk 2024 11:05amLow back painacuteAugust 2024 1:45pmLumbar spondylosisacuteAugust 2024 1:45pm Cubital tunnel syndrome on leftacuteAugust 2024 11:03amLeft carpal tunnel syndromeacuteAugust 2024 11:03amStatus post carpal tunnel oicstuw4359ltmvw November 14, 2024 11:03amCarpal tunnel syndrome, bilateralacuteSeptember 2024 9:21amUlnar neuropathy of left upper extremityacuteSeptember 2024 9:21amCubital tunnel syndrome on leftacuteSeptember 2024 12:56pmLeft carpal tunnel syndromeacuteSeptember 2024 12:56pmStatus post carpal tunnel bwpujzz5234lxkbtLyzaiilrp 16th, 2025 12:56pm [facility] Work Phone: 1(184) 303-911006-04-2025 Evaluation note* Diagnosis Onset Date Resolution Status Admit Date FARIAS (dyspnea on exertion) acuteJun2024 10:58amIFG (impaired fasting glucose)acuteJun2024 10:58amObesityacuteJune 2024 10:58amCubital tunnel syndrome on leftacute September 12, 2024 11:05amLeft carpal tunnel syndromeacuteJune 2024 11:05am Status post carpal tunnel merehpb1061xqfzeSbob 2024 11:05amLow back pain acuteAugust 2024 1:45pmLumbar spondylosisacuteAugust 2024 1:45pm Cubital tunnel syndrome on leftacuteAu2024 11:03amLeft carpal tunnel syndromeacuteAugust 2024 11:03amStatus post carpal tunnel eelvsja2241yommb November 14, 2024 11:03am [facility] Work Phone: 1(632) 240-394605-12-2025 Evaluation note* Diagnosis Onset Date Resolution Status Admit Date BPPV (benign paroxysmal positional verti go) acuteMay 2024 9:34amChronic venous insufficiencyacuteMay 2024 9:34am SHERRILL (generalized anxiety disorder)acuteMay 2024 9:34amGERD (gastroesophageal reflux disease)acuteMay 2024 9:34amIFG (impaired fasting glucose)acuteMay 2024 9:34amObesityacuteMay 2024 9:34amChest pain deletedMa2024 9:34amDOE (dyspnea on exertion)acuteJun2024 10:58am IFG (impaired fasting glucose)acuteJune 2024 10:58amObesityacuteJune 2024 10:58amCubital tunnel syndrome on leftacuteJun2024 11:05amLeft carpal tunnel syndromeacuteJune 2024 11:05amStatus post carpal tunnel owmqewv0894lespqHekc 2024 11:05amLow back painacuteAugust 2024 1:45pm Lumbar spondylosisacuteAugust 2024 1:45pm [facility] Work Phone: 1(848) 534-826003-24-2025 Evaluation note* Diagnosis Onset Date Resolution Status Admit Date Left carpal tunnel syndrome acuteMarch 2024 10:11amStatus post carpal tunnel oliugyy0676dswazVphdi 2024 10:11amEncounter for removal of suturesnoneactiveMarch 2024 10:11amCubital tunnel syndrome on leftacuteApril 2024 10:46amLeft carpal tunnel syndromeacuteApril 2024 10:46amStatus post carpal tunnel release 2025acuteApril 2024 10:46amBPPV (benign paroxysmal positional vertigo) acuteMay 2024 9:34amChronic venous insufficiencyacuteMay 2024 9:34am SHERRILL (generalized anxiety disorder)acuteMay 2024 9:34amGERD (gastroesophageal reflux disease)acuteMay 2024 9:34amIFG (impaired fasting glucose)acuteMay 2024 9:34amObesityacuteMay 2024 9:34amChest pain deletedMay 2024 9:34amDOE (dyspnea on exertion)acuteJune 2024 10:58am GERD (gastroesophageal reflux disease)acuteJune 2024 10:58amIFG (impaired fasting glucose)acuteJune 2024 10:58amObesityacuteJune 2024 10:58am [facility] Work Phone: 1(911) 546-276502-17-2025 Evaluation note* Diagnosis Onset Date Resolution Status Admit Date Left carpal tunnel syndrome acuteFebruary 2024 3:15pmStatus post reverse total arthroplasty of left shoulderacuteFebruary 2024 3:15pmLeft carpal tunnel syndromeacuteMarch 2024 10:11amStatus post carpal tunnel releaseacuteMarch 2024 10:11am Encounter for removal of suturesnoneactiveMarch 2024 10:11amCubital tunnel syndrome on leftacuteApril 2024 10:46amLeft carpal tunnel syndromeacute Petra 2024 10:46amStatus post carpal tunnel releaseacuteApril 2024 10:46am [facility] Work Phone: 1(653) 152-992002-17-2025 Evaluation note* Diagnosis Onset Date Resolution Status Admit Date Left carpal tunnel syndrome acuteFebruary 2024 3:15pmStatus post reverse total arthroplasty of left shoulderacuteFebruary 2024 3:15pmLeft carpal tunnel syndromeacuteMarch 2024 10:11amStatus post carpal tunnel hfnwwik7739xhtkdHsvmz 2024 10:11amEncounter for removal of suturesnoneactiveMarch 2024 10:11amCubital tunnel syndrome on leftacuteApril 2024 10:46amLeft carpal tunnel syndrome acuteApril 2024 10:46amStatus post carpal tunnel cgvctep1596hibpbZjvri 2024 10:46amBPPV (benign paroxysmal positional vertigo)acuteMay 2024 9:34amGAD (generalized anxiety disorder)acuteMay 2024 9:34amIFG (impaired fasting glucose)acuteMay 2024 9:34amObesityacuteMay 2024 9:34am [facility] Work Phone: 1(275) 309-152501-27-2025 History of Present illness Narrative* LILIANA Jewell [...] changing nevi should be promptly re-evaluated. 3. Garibay angioma Torso - Posterior (Back) Scattered garibay-red papule(s). The patient was informed that angiomas are benign growths on the the skin. No treatment is necessary. Next Visit: 1 year documented in this encounterSaint [facility] [id number] Evaluation note* Diagnosis Onset Date Resolution Status Admit Date Left carpal tunnel syndrome acuteDecember 2023 9:50amStatus post reverse total arthroplasty of left shoulderacuteDeceer 2023 9:50amLeft carpal tunnel syndromeacuteFebruary 2024 3:15pmStatus post reverse total arthroplasty of left shoulderacute May 09, 2024 3:15pm [facility] Work Phone: 1(886) 470-608512-30-2024 Evaluation note* Diagnosis Onset Date Resolution Status Admit Date Left carpal tunnel syndrome acuteDecember 2023 9:50amStatus post reverse total arthroplasty of left shoulderacuteDecember 2023 9:50amLeft carpal tunnel syndromeacuteFebruary 2024 3:15pmStatus post reverse total arthroplasty of left shoulderacute May 09, 2024 3:15pmLeft carpal tunnel syndromeacuteMarch 2024 10:11amStatus post carpal tunnel releaseacuteMarch 2024 10:11amEncounter for removal of suturesnoneactiveMarch 2024 10:11am [facility] Work Phone: 1(959) 501-532311-21-2024 History of Present illness Narrative* Racquel Carbajal, PT - 02/11/2024 8:30 AM EST Sayda Fraire [id number] 02/09/24 Subjective: Phone consult 10/28: 68 yof sent to PT by Dr Dunn for dizziness Has been on hold since [...] AIB-VAM Director Vestibular Rehabilitation documented in this encounterSaint John's [facility] CenterOwsmjbjhor18-35-8326 Evaluation note* Diagnosis Onset Date Resolution Status Admit Date BPPV (benign paroxysmal positional verti go) acuteFebruary 04, 2024 9:57amGAD (generalized anxiety disorder)acuteFebruary 04, 2024 9:57amIFG (impaired fasting glucose)acuteFebruary 04, 2024 9:57am Medicare annual wellness visit, subsequentacuteFebruary 04, 2024 9:57amObesity acuteFebruary 04, 2024 9:57amLeft carpal tunnel syndromeacuteDeceer 2023 9:50amStatus post reverse total arthroplasty of left shoulderacuteDeceer 2023 9:50am [facility] Work Phone: 1(570) 652-325810-31-2024 History of Present illness Narrative* Racquel Carbajal, PT - 01/21/2024 8:30 AM EDT Sayda Fraire [id number] 01/20/24 Subjective: Phone consult 10/28: 68 yof sent to PT by Dr Dunn for dizziness Has been on hold since [...] AIB-VAM Director Vestibular Rehabilitation documented in this encounterSaint John's [facility] CenterExkvzugxqu06-70-7915 History of Present illness Narrative* Racquel Carbajal PT - 01/07/2024 8:30 AM EDT Sayda Fraire [id number] 01/07/24 Subjective: Phone consult 8: 68 yof sent to PT by Dr Dunn for dizziness Has been on hold since [...] AIB-VAM Director Vestibular Rehabilitation documented in this encounterSaint John's [facility] [id number] History of Present illness Narrative* Racquel Carbajal PT - 12/30/2023 8:30 AM EDT Sayda Fraire [id number] 12/30/23 Subjective: Phone consult 10/28: 68 yof sent to PT by Dr Dunn for dizziness Has been on hold since [...] suggesting weakness L ear Therapeutic Intervention: ReEvaluation [place] positive R Wedge maneuver with tapping Foam [...] AIB-VAM Director Vestibular Rehabilitation documented in this encounterSaint John's [facility] [id number] History of Present illness Narrative* Racquel Carbajal, PT - 12/09/2023 8:30 AM EDT Sayda B Juno [id number] 12/09/23 Subjective: Phone consult 10/28: 68 yof sent to PT by Dr Dunn for dizziness Has been on hold since [...] L ear Therapeutic Intervention: ReEvaluation HFHS R [place] all maneuvers negative Massage vib neck positive [...] AIB-VAM Director Vestibular Rehabilitation documented in this encounterSaint John's [facility] CenterUbduhejmwu04-39-7867 History of Present illness Narrative* Racquel Carbajal PT - 12/02/2023 8:30 AM EDT Sayda Fraire [id number] 12/02/23 Subjective: Phone consult 10/28: 68 yof sent to PT by Dr Dunn for dizziness Has been on hold since [...] AIB-VAM Director Vestibular Rehabilitation documented in this encounterSaint John's [facility] [id number] Evaluation note* Diagnosis Onset Date Resolution Status Admit Date Abdominal pain acuteAugust 2023 2:40pmDiarrheaacuteAugust 2023 2:40pmRight flank painacuteAugust 2023 2:40pmStatus post reverse total arthroplasty of left shoulderacuteSeptember 2023 10:38amBPPV (benign paroxysmal positional vertigo)acuteNov2023 9:57amDiarrheaacuteNovember 2023 9:57am SHERRILL (generalized anxiety disorder)acuteNov2023 9:57amIFG (impaired fasting glucose)acuteFebruary 04, 2024 9:57amMedicare annual wellness visit, subsequentacuteFebruary 04, 2024 9:57amPruritusacuteNlake norman regional medical centerer 2023 9:57am [facility] Work Phone: 1(945) 450-179608-28-2024 History of Present illness Narrative* Racquel Carbajal, PT - 11/18/2023 8:30 AM EDT Sayda B Juno [id number] 11/18/23 Subjective: Phone consult 10/28: 68 yof sent to PT by Dr Dunn for dizziness Has been on hold since [...] Brady) Denies paresthesia extrems Denies migraines 2nd aero [...] AIB-VAM Director Vestibular Rehabilitation documented in this encounterSaint John's B[facility] Medical CenterEgotndfeux91-85-0605 Hospital Discharge instructions Patient Education 11/17/2023 13:02:40 [...] your health care provider. General instructions Take bbaz-cpn-fcifkdy and prescription medicines only as told by [...] provider. Document Revised: 11/26/2020 Document Reviewed: 11/26/2020 [employer] Patient Education 2022 [employer]. Follow Up Care 10/21/2022 09:32:15 With:HIMANSHU BENÍTEZ, JOSEFINA Hahn, URL Address: [address] [place], [place] [address] [address] When: Unknown Comments:BANDAR [facility] 08-27-2024 NotePatient Education Obstetrics and Gynecology Overactive [...] health care provider. General instructions ? Take tnyj-bur-wutqynw and prescription medicines only as told by [...] help your health care (more content not included)...[facility]02-12-2024 Evaluation note* Encounter Date Diagnosis Assessment Notes Treatment Notes Treatment Clinical Notes Apr, Benign paroxysmal po sitional vertigo of right ear (ICD-10 - H81.11) Hallpike's maneuver positive for right sided BPPV. Instructed on Garret maneuvers. Initiate Meclizine but understands may cause sedation and isn't a cure. Continue home exercises Refer to PT 12 Apr, 2023Obstructive sleep apnea (ICD-10 - G47.33)This patient is aware of the benefits associated with VIV: With continued use, the patient reduces the risk for SC, CVA, HTN, cardiac dysrhythmias and sudden cardiac deaths.The patient is also aware of the association between VIV and morning headaches, daytime somnolence, fatigue and obesity, whichalso has been improved with continued use.The patient is compliant with treatment, wearing the equipment every night for greater than 4 hours.The patient is instructed to continue use of the CPAP forOSA treatment. [employer] Other 12-07-2023 Evaluation note* Encounter Date Diagnosis Assessment Notes Treatment Notes Treatment Clinical Notes Feb, Obstructive sleep apnea (ICD-10 - G47.33) This patient is aware of the benefits associated with VIV: With continued use, the patient reduces the risk for SC, CVA, HTN, cardiac dysrhythmias and sudden cardiac deaths.The patient is also aware of the association between VIV and morning headaches, daytime somnolence, fatigue and obesity, whichalso has been improved with continued use.The patient is compliant with treatment, wearing the equipment every night for greater than 4 hours.The patient is instructed to continue use of the CPAP forOSA treatment. Feb,Other obesity due to excess calories (ICD-10 - E66.09)This patient has been instructed on a low-fat, high-fiber diet. They are instructed to reduce calories, portion sizes and snacks. It is recommended that they exercise for 30 minutes, 3-5 times weekly. Feb,ody mass index [BMI] 32.0-32.9, adult (ICD-10 - Z68.32) [employer] Other 11-13-2023 Evaluation note* Encounter Date Diagnosis [...] reviewed and amended by provider signed below. Jan,Tendinitis of left rotator cuff (ICD-10 - M75.82)ROM exercises, ice/heat and Mobic. Tylenol and Voltaren Gel. Completed PT and instructed to continue ROM exercises. 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 Tylenol and Voltaren Gel. Completed PT and instructed to continue ROM exercises. Discussed subacromial injection and referral to orthopedics Jan,Other obesity due to excess calories (ICD-10 - E66.09)This patient has been instructed on a low-fat, high-fiber diet. They are instructed to reduce calories, portion sizes and snacks. It is recommended that they exercise for 30 minutes, 3-5 times weekly. Jan,ody mass index [BMI] 32.0-32.9, adult (ICD-10 - Z68.32) Jan,Recurrent major depressive disorder, in full remission (ICD-10 - F33.42)Healthy diet and exercise. Keep active No change in medical therapy Jan,Screening mammogram for breast cancer (ICD-10 - Z12.31)Instructed patient on monthly SBE and yearly mammograms. [employer] Other 09-25-2023 Evaluation note* Encounter Date Diagnosis Assessment Notes Treatment Notes Treatment Clinical Notes Nov, Menopause (ICD-10 - Z78.0) [employer] Other 08-01-2023 Hospital Discharge instructions Patient Education [...] nerve stimulation). ?For women, using a medical physics researcher to prevent urine leaks. This is a [...] right after experiencing incontinence. General instructions Take fsre-mtg-bmevtwj and prescription medicines only as told by [...] important. Where to find more information National [place] of Diabetes and Digestive and Kidney Diseases: www.niddk.nih.gov [place] [employer]: www.urologyhealth.org Contact a health care [...] provider. Document Revised: 10/12/2020 Document Reviewed: 10/12/2020 [employer] Patient Education 2022 [employer]. Follow Up Care 04/15/2022 10:00:46 With:JOSEFINA ROMAN PA-C, URL [facility] [facility] [address] [facility] [place] [address] When: Unknown [facility] 06-27-2023 Evaluation note* Encounter Date Diagnosis Assessment Notes Treatment Notes Treatment Clinical Notes Aug, Primary osteoarthritis of left s houlder (ICD-10 - M19.012) ROM exercises, heat/ice and Mobic. Tylenol as needed. Refer to PT Subacromial injection? MRI if no improvement Aug,Tendinitis of left rotator cuff (ICD-10 - M75.82) Aug,Right-sided chest wall pain (ICD-10 - R07.89)Reassure, Tylenol as needed. Notify office w/ SOB, cough, N/V or abdominal pain Aug,Flat foot [pes planus] (acquired), right foot (ICD-10 - M21.41) Continue to wear custom orthotics have helped. Ice, heat and elevate. Weight reduction would be helpful Aug,Flat foot [pes planus] (acquired), left foot (ICD-10 - M21.42) [employer] Other 01-24-2023 Hospital Discharge instructions Patient Education [...] fried and sweet foods. General instructions Take rckk-kny-wtbkxdw and prescription medicines only as told by [...] 01/03/2010 Document Revised: 06/30/2019 Document Reviewed: 03/25/2018 Elsevier Patient Education 2020 [employer]. Follow Up Care 04/02/2021 10:16:29 With:JOSEFINA ROMAN PA-C, URL Address: [address] [place] [place] [address] When: Unknown [facility] 07-13-2022 Hospital Discharge instructions Patient Education 10/02/2021 [...] fried and sweet foods. General instructions Take eodh-qca-bitanpv and prescription medicines only as told by [...] 01/03/2010 Document Revised: 06/30/2019 Document Reviewed: 03/25/2018 [employer] Patient Education 2020 [employer]. Follow Up Care 08/14/2021 14:49:03 With:JOSEFINA ROMAN PA-C, URL Address: [address] [place] [address] When: Unknown [facility] 05-25-2022 Hospital Discharge instructions Patient Education 08/14/2021 [...] nerve stimulation). For women, using a medical physics researcher to prevent urine leaks. This is a [...] right after experiencing incontinence. General instructions Take axhh-naw-vnpivto and prescription medicines only as told by [...] 04/16/2005 Document Revised: 03/19/2018 Document Reviewed: 06/18/2017 [employer] Patient Education [employer] Matter. Follow Up Care 08/09/2021 15:38:15 With:JOSEFINA ROMAN PA-C, URL Address: [address] [place] [address] [phone] When: Unknown [facility] evaluation + Plan note Future Appointments Appointment Date:10/02/2021 01:00:00 PM Scheduled Provider:JOSEFINA ROMAN PA-C Location:[facility] Appointment Type:URO Office Visit Appointment Date:04/08/2022 10:45:00 AM Scheduled Provider:Charly Blanton Jr., MD Location:[facility] Appointment Type:URO Office Visit [facility] evaluation + Plan note Future Appointments Appointment Date:04/08/2022 10:45:00 AM Scheduled Provider:Charly Blanton Jr., MD Location:[facility] Appointment Type:URO Office Visit [facility] evaluation + Plan note Future Appointments Appointment Date:10/14/2022 10:00:00 AM Scheduled Provider:JOSEFINA ROMAN PA-C Location:[facility] Appointment Type:URO Office Visit [facility] evaljnfkne + Plan note Future Appointments Appointment Date:10/27/2023 10:00:00 AM Scheduled Provider:JOSEFINA ROMAN PA-C Location:[facility] Appointment Type:URO Office Visit [facility] evalbkbyfa noteNo assessment information available [facility] Work Phone: evaluation noteNo InformationNort [employer] Other evaluation note* Diagnosis Onset Date Resolution Status Left shoulder pain acute [facility] Work Phone: evaluation note* Diagnosis Onset Date Resolution Status BPPV (benign paroxysmal positional verti go) acuteBrain fogacuteGAD (generalized anxiety disorder)acuteLeft shoulder pain acutePrimary osteoarthritis of left shoulderacuteAbdominal pain, RLQ (right lower quadrant)acuteBPPV (benign paroxysmal positional vertigo)acuteGAD (generalized anxiety disorder)acuteIFG (impaired fasting glucose)acuteLeft shoulder painacutePrimary osteoarthritis of left shoulderacute [facility] Work Phone: evaluation note* Diagnosis Onset Date Resolution Status BPPV (benign paroxysmal positional verti go) acuteBrain fogacuteGAD (generalized anxiety disorder)acuteLeft shoulder pain acutePrimary osteoarthritis of left shoulderacuteAbdominal pain, RLQ (right lower quadrant)acuteBPPV (benign paroxysmal positional vertigo)acuteGAD (generalized anxiety disorder)acuteIFG (impaired fasting glucose)acuteLeft shoulder painacutePrimary osteoarthritis of left shoulderacutePrimary osteoarthritis of left shoulderacutePre-op examinationnoneactive [facility] Work Phone: evaluation note* Diagnosis Onset Date Resolution Status BPPV (benign paroxysmal positional verti go) acuteGAD (generalized anxiety disorder)acuteLeft shoulder painacutePrimary osteoarthritis of left shoulderacuteBrain fogresolvedBPPV (benign paroxysmal positional vertigo)acuteGAD (generalized anxiety disorder)acuteIFG (impaired fasting glucose)acuteLeft shoulder painacutePrimary osteoarthritis of left shoulderacutePrimary osteoarthritis of left shoulderacutePre-op examination noneactive [facility] Work Phone: Evaluation note* Diagnosis Onset Date Resolution Status BPPV (benign paroxysmal positional verti go) acuteGAD (generalized anxiety disorder)acuteLeft shoulder painacutePrimary osteoarthritis of left shoulderacuteBrain fogresolvedBPPV (benign paroxysmal positional vertigo)acuteGAD (generalized anxiety disorder)acuteIFG (impaired fasting glucose)acuteLeft shoulder painacutePrimary osteoarthritis of left shoulderacutePrimary osteoarthritis of left shoulderacutePre-op examination noneactiveChronic venous insufficiencyacuteGAD (generalized anxiety disorder) acuteIFG (impaired fasting glucose)acuteObesityacutePrimary osteoarthritis of left shoulderacutePreop exam for internal medicineProMedica [facility]lower [facility] Work Phone: Evaluation note* Diagnosis Onset Date Resolution Status BPPV (benign paroxysmal positional verti go) acuteGAD (generalized anxiety disorder)acuteLeft shoulder painacutePrimary osteoarthritis of left shoulderacuteBrain fogresolvedBPPV (benign paroxysmal positional vertigo)acuteGAD (generalized anxiety disorder)acuteIFG (impaired fasting glucose)acuteLeft shoulder painacutePrimary osteoarthritis of left shoulderacutePrimary osteoarthritis of left shoulderacutePre-op examination noneactiveChronic venous insufficiencyacuteGAD (generalized anxiety disorder) acuteIFG (impaired fasting glucose)acutePrimary osteoarthritis of left shoulder acutePreop exam for internal medicineMartin [facility] Hospital Work Phone: Evaluation note* Diagnosis Onset Date Resolution Status BPPV (benign paroxysmal positional verti go) acuteGAD (generalized anxiety disorder)acuteLeft shoulder painacutePrimary osteoarthritis of left shoulderacuteBrain fogresolvedBPPV (benign paroxysmal positional vertigo)acuteGAD (generalized anxiety disorder)acuteIFG (impaired fasting glucose)acuteLeft shoulder painacutePrimary osteoarthritis of left shoulderacutePrimary osteoarthritis of left shoulderacutePre-op examination noneactiveChronic venous insufficiencyacuteGAD (generalized anxiety disorder) acuteIFG (impaired fasting glucose)acutePrimary osteoarthritis of left shoulder acutePreop exam for internal medicinenoneactiveStatus post reverse total arthroplasty of left shoulderacute [facility] Work Phone: Evaluation note* Diagnosis Onset Date Resolution Status BPPV (benign paroxysmal positional verti go) acuteGAD (generalized anxiety disorder)acuteIFG (impaired fasting glucose)acute Left shoulder painacutePrimary osteoarthritis of left shoulderacutePrimary osteoarthritis of left shoulderacutePre-op examinationnoneactiveChronic venous insufficiencyacuteGAD (generalized anxiety disorder)acuteIFG (impaired fasting glucose)acutePrimary osteoarthritis of left shoulderacutePreop exam for internal medicinenoneactiveStatus post reverse total arthroplasty of left shoulderacute Status post reverse total arthroplasty of left shoulderacute [facility] Work Phone: Evaluation note* Diagnosis Onset Date Resolution Status BPPV (benign paroxysmal positional verti go) acuteGAD (generalized anxiety disorder)acuteIFG (impaired fasting glucose)acute Left shoulder painacutePrimary osteoarthritis of left shoulderacutePrimary osteoarthritis of left shoulderacutePre-op examinationnoneactiveChronic venous insufficiencyacuteGAD (generalized anxiety disorder)acuteIFG (impaired fasting glucose)acutePrimary osteoarthritis of left shoulderacutePreop exam for internal medicinenoneactiveStatus post reverse total arthroplasty of left shoulderacute Status post reverse total arthroplasty of left shoulderacuteBPPV (benign paroxysmal positional vertigo)acuteDiarrheaacuteGAD (generalized anxiety disorder)acuteIFG (impaired fasting glucose)acutePruritusacute [facility] Work Phone: Evaluation note* Diagnosis Onset Date Resolution Status 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 acuteBPPV (benign paroxysmal positional vertigo)acuteDiarrheaacuteGAD (generalized anxiety disorder)acuteIFG (impaired fasting glucose)acutePruritus acuteAbdominal painacuteDiarrheaacuteRight flank painacuteStatus post reverse total arthroplasty of left shoulderacute [facility] Work Phone: Evaluation note* Diagnosis BPPV (benign [...] Date Resolution Status BPPV (benign paroxysmal positional verti go) acuteDiarrheaacuteGAD (generalized anxiety disorder)acuteIFG (impaired fasting glucose)acutePruritusacuteAbdominal painacuteDiarrheaacuteRight flank painacute Status post reverse total arthroplasty of left shoulderacute [facility] Work Phone: Evaluation note* Diagnosis Cervicalgia- Primary Balance disorder documented in this encounter [facility] HealthcareEvaluation note* Diagnosis Cervicalgia- Primary Balance disorder BPPV (benign paroxysmal positional vertigo), left BPPV (benign paroxysmal positional vertigo), right Unilateral vestibular weakness, right documented in this encounter [facility] HealthcareEvaluation note* Diagnosis Cervicalgia- Primary Balance disorder BPPV (benign paroxysmal positional vertigo), left Unilateral vestibular weakness, right documented in this encounter [facility] HealthcareEvaluation note* Diagnosis BPPV (benign paroxysmal positional vertigo), right- Primary Cervicalgia Balance disorder BPPV (benign paroxysmal positional vertigo), left documented in this encounter [facility] HealthcareEvaluation note* Diagnosis BPPV (benign paroxysmal positional vertigo), right- Primary Cervicalgia Balance disorder BPPV (benign paroxysmal positional vertigo), left Unilateral vestibular weakness, right documented in this encounter [facility] HealthcareEvaluation note* Diagnosis Seborrheic keratosis- Primary Melanocytic nevus of trunk Benign neoplasm of skin of trunk, except scrotum Garibay angioma documented in this encounter [facility] HealthcareHistory general Narrative - Reported* Type Description Date Medical History Depression, unspecified depressi on type Medical HistoryIFG (impaired fasting glucose)Medical HistoryUnsteadinessMedical HistoryOccipital headacheMedical HistoryNystagmus, end-positionMedical History Estrogen deficiencyMedical HistoryChronic venous insufficiencyMedical History Obstructive sleep apneaSurgical HistorycolonoscopySurgical HistoryEGDSurgical HistoryhysterectomySurgical Historyknee replacementSurgical Historyappendectomy Surgical HistoryCTSSurgical HistorybiopsyHospitalization Historysee above [employer] Other Hospital course Narrative No data available for this section [facility] Discharge instructions Additional Instructions POSTOPERATIVE INSTRUCTIONS FOR SHOULDER ARTHROPLASTY Akil Martinez DO Orthopedic Surgeon [facility] INSTRUCTIONS: Use Cryocuff/ice packs to the shoulder [...] office immediately. Akil Martinez DO Orthopedic Surgeon [facility] Office: [address] [place] [address] Office number: [phone] [facility] Work Phone: Hospital Discharge instructionsAmbulatory Orders* Referral to Neurology Time Frame: 11/14/24, Location: None Selected [facility] Work Phone: Progress note No data available for this section [facility] reason for referral (narrative)No reason for referral information availableAv[facility] Work Phone: Reason for visit Narrative* Rehabilitation - Outpatient (Routine) - AuthorizedSpecialtyDiagnoses / ProceduresReferred By ContactReferred To ContactPhysical Therapy Diagnoses BPPV Procedures [place] PHYSICAL THERAPY EVALUATION LOW COMPLEX 20 MINS Capo Dunn MD [address] [place] [address] Phone: tel: fax: Racquel Carbajal, PT [address] [facility] [address] [place] [address] Phone: tel: fax: Referral IDStatusReasonStart DateExpiration DateVisits RequestedVisits [id number] [facility] Summary Purpose Family History Relationship Condition Age at Onset Recorded Date/T shandra Not Specified Dementia Unknown fatherMalignant neoplasmUnknown Relationship Condition Age at Onset Recorded Date/T shandra Not Specified Dementia Unknown fatherMalignant neoplasmUnknownfatherDeceasedUnknownMalignant neoplasmUnknown Relationship Condition Age at Onset Recorded Date/T shandra Not Specified Dementia Unknown DeceasedUnknownHypertensionUnknownfatherBlood disorderUnknown Relationship Condition Age at Onset Recorded Date/T shandra mother Dementia Unknown DeceasedUnknownHypertensionUnknownfatherBlood disorderUnknown Advance Directives Advance Directive Response Recorded Date/ Time Advance Directives No April 14, 2023 3:03pm Advance Directive Response Recorded Date/ Time Advance Directives No April 14, 2023 2:03pm Chief Complaint and Reason for Visit Chief Complaint CBC, A1C, TSH Chief Complaint shoulder pain worsen ing Reason for Visit Left shoulder pain Chief Complaint shoulder pain worsen ing 6 month follow upReason for VisitBPPV (benign paroxysmal positional vertigo) Brain fog SHERRILL (generalized anxiety disorder) Left shoulder pain Primary osteoarthritis of left shoulder Abdominal pain, RLQ (right lower quadrant) BPPV (benign paroxysmal positional vertigo) SHERRILL (generalized anxiety disorder) IFG (impaired fasting glucose) Left shoulder pain Primary osteoarthritis of left shoulder Chief Complaint shoulder pain worsen ing 6 month follow up CONSULT DR DUNN LT SHOULDER PAIN, WX M19.012 - Primary osteoarthritis, left shoulderReason for VisitBPPV (benign paroxysmal positional vertigo) Brain fog SHERRILL (generalized anxiety [...] WX M19.012 - Primary osteoarthritis, left shoulder M19.012Reason for VisitBPPV (benign paroxysmal positional vertigo) Brain fog SHERRILL (generalized anxiety disorder) Left shoulder pain Primary osteoarthritis of left shoulder Abdominal pain, RLQ (right lower quadrant) BPPV (benign paroxysmal positional vertigo) SHERRILL (generalized anxiety disorder) IFG (impaired fasting glucose) Left shoulder pain Primary osteoarthritis of left shoulder Primary osteoarthritis of left shoulder Pre-op examination Chief Complaint shoulder pain worsen ing 6 month follow up CONSULT DR DUNN LT SHOULDER PAIN, WX M19.012 - Primary osteoarthritis, left shoulder M19.012 Shoulder painReason for VisitBPPV (benign paroxysmal positional vertigo) SHERRILL (generalized anxiety disorder) Left shoulder pain Primary osteoarthritis of left shoulder Brain fog BPPV (benign paroxysmal positional vertigo) SHERRILL (generalized anxiety disorder) IFG (impaired fasting glucose) Left shoulder pain Primary osteoarthritis of left shoulder Primary osteoarthritis of left shoulder Pre-op examination Chief Complaint shoulder pain worsen ing 6 month follow up CONSULT DR DUNN LT SHOULDER PAIN, WX M19.012 - Primary osteoarthritis, left shoulder M19.012 Shoulder pain Surgery ClearanceReason for VisitBPPV (benign paroxysmal positional vertigo) SHERRILL (generalized anxiety disorder) Left [...] Shoulder pain Surgery Clearance Shoulder pain Shoulder painReason for VisitBPPV (benign paroxysmal positional vertigo) SHERRILL (generalized anxiety disorder) Left [...] Z96.612 - Presence of left artificial shoulder joiReason for VisitBPPV (benign paroxysmal positional vertigo) SHERRILL (generalized anxiety disorder) Left [...] ing 6 month follow up CONSULT DR DUNN LT SHOULDER PAIN, WX M19.012 - Primary osteoarthritis, left shoulder M19.012 Shoulder pain Surgery Clearance Shoulder pain Shoulder pain 1 WEEK POST OP Z96.612 - Presence of left artificial shoulder magaly Z96.612Reason for VisitBPPV (benign paroxysmal positional vertigo) SHERRILL (generalized anxiety disorder) Left [...] Complaint 6 month follow up CONSULT DR DUNN LT SHOULDER PAIN, WX M19.012 - Primary osteoarthritis, left shoulder M19.012 Shoulder pain Surgery Clearance Shoulder pain Shoulder pain 1 WEEK POST OP Z96.612 - Presence of left artificial shoulder magaly Z96.612 L reverse shoulder arthroplastyReason for VisitBPPV (benign paroxysmal positional vertigo) SHERRILL (generalized anxiety [...] Complaint 6 month follow up CONSULT DR DUNN LT SHOULDER PAIN, WX M19.012 - Primary osteoarthritis, left shoulder M19.012 Shoulder pain Surgery Clearance Shoulder pain Shoulder pain 1 WEEK POST OP Z96.612 - Presence of left artificial shoulder magaly Z96.612 L reverse shoulder arthroplasty all over itchinessReason for VisitBPPV (benign paroxysmal positional vertigo) SHERRILL (generalized anxiety [...] Presence of left artificial shoulder magaly 8 WEEKSReason for VisitStatus post reverse total arthroplasty of left shoulder BPPV (benign paroxysmal positional vertigo) Diarrhea SHERRILL (generalized anxiety disorder) IFG (impaired fasting glucose) Pruritus Abdominal pain Diarrhea Right flank pain Status post reverse total arthroplasty of left shoulder Chief Complaint Z96.612 all over itchiness Abdominal Pain Z96.612 - Presence of left artificial shoulder magaly 8 WEEKS L reverse shoulder arthroplastyReason for VisitStatus post reverse total arthroplasty of left shoulder BPPV (benign paroxysmal positional vertigo) Diarrhea SHERRILL (generalized anxiety disorder) IFG (impaired fasting glucose) Pruritus Abdominal pain Diarrhea Right flank pain Status post reverse total arthroplasty of left shoulder Chief Complaint all over itchiness Abdominal Pain Z96.612 - Presence of left artificial shoulder magaly 8 WEEKS L reverse shoulder arthroplastyReason for VisitBPPV (benign paroxysmal positional vertigo) Diarrhea SHERRILL (generalized [...] oulder magaly March 21, 2024 7:36am 3 March 21, 2024 9:50am G56.02 April 13, [...] 9:34am Obesity August 01, 2024 9:34a m Chief Complaint Admit Date 10-14 days post op June 13, 2024 [...] 212024 9:34am GERD (gastroesophageal reflux disease) M 2024 9:34am IFG (impaired fasting glucose) August 01, 2024 9:34am Obesity August 01, 2024 9:34a m Chest pain August 01, 2024 9:34a m FARIAS (dyspnea on exertion) August 24, 2024 10:58am GERD (gastroesophageal reflux disease) J 2024 10:58am IFG (impaired fasting glucose) August 24, 2024 10:58am Obesity August 24, 2024 10:58 am Chief Complaint Admit Date 6 month f/u August 01, 2024 9:34a m Stress Test f/u August 24, 2024 10:58 am 2 MONTHS September 12, 2024 11:0 5am Left lower back, leg pain, disrupts slee p October 25, 2024 1:45pm Reason for Visit Admit Date BPPV (benign paroxysmal positional verti go) August 01, 2024 9:34am Chronic venous insufficiency August 01 9:34am SHERRILL (generalized anxiety disorder) July 212024 9:34am GERD (gastroesophageal reflux disease) M ay 2024 9:34am IFG (impaired fasting glucose) August 01, 2024 9:34am Obesity August 01, 2024 9:34a m Chest pain August 01, 2024 9:34a m FARIAS (dyspnea on exertion) August 24, 2024 10:58am IFG (impaired fasting glucose) August 24, 2024 10:58am Obesity August 24, 2024 10:58 am Cubital tunnel syndrome on left August 11:05am Left carpal tunnel syndrome September 12 11:05am Status post carpal tunnel release August 222024 11:05am Low back pain October 25, 2024 1:4 5pm Lumbar spondylosis October 25, 2024 1:4 5pm Chief Complaint Admit Date Stress Test f/u August 24, 2024 10:58 am 2 MONTHS September 12, 2024 11:0 5am Left lower back, leg pain, disrupts slee p October 25, 2024 1:45pm 2 MONTHS November 14, 2024 11 :03am Reason for Visit Admit Date FARIAS (dyspnea on exertion) August 24, 2024 10:58am IFG (impaired fasting glucose) August 24, 2024 10:58am Obesity August 24, 2024 10:58 am Cubital tunnel syndrome on left August 11:05am Left carpal tunnel syndrome September 12 11:05am Status post carpal tunnel release August 222024 11:05am Low back pain October 25, 2024 1:4 5pm Lumbar spondylosis October 25, 2024 1:4 5pm Cubital tunnel syndrome on left October 222024 11:03am Left carpal tunnel syndrome November 14, 2024 11:03am Status post carpal tunnel release November 14, 2024 11:03am Chief Complaint Admit Date 2 September 12, 2024 11:0 5am Left lower back, leg pain, disrupts slee p October 25, 2024 1:45pm 2 MONTHS November 14, 2024 11 :03am EMG BUE per Dr. Akil Martinez November 212024 9:21am Reason for Visit Admit Date Cubital tunnel syndrome on left August 11:05am Left carpal tunnel syndrome September 12 11:05am Status post carpal tunnel release August 222024 11:05am Low back pain October 25, 2024 1:4 5pm Lumbar spondylosis October 25, 2024 1:4 5pm Cubital tunnel syndrome on left October 222024 11:03am Left carpal tunnel syndrome November 14, 2024 11:03am Status post carpal tunnel release November 14, 2024 11:03am Chief Complaint Admit Date 2 MONTHS September 12, 2024 11:0 5am Left lower back, leg pain, disrupts slee p October 25, 2024 1:45pm 2 MONTHS November 14, 2024 11 :03am EMG BUE per Dr. Akil Martinez November 212024 9:21am EMG RESULTS [facility] December 06, 2024 12:56pm Reason for Visit Admit Date Cubital tunnel syndrome on left August 11:05am Left carpal tunnel syndrome September 12 11:05am Status post carpal tunnel release August 222024 11:05am Low back pain October 25, 2024 1:4 5pm Lumbar spondylosis October 25, 2024 1:4 5pm Cubital tunnel syndrome on left October 222024 11:03am Left carpal tunnel syndrome November 14, 2024 11:03am Status post carpal tunnel release November 14, 2024 11:03am Carpal tunnel syndrome, bilateral Septem 2024 9:21am Ulnar neuropathy of left upper extremity December 01, 2024 9:21am [facility] 12[facility]56[facility] Left carpal tunnel syndrome December 062024 12:56pm Status post carpal tunnel release Septem 2024 12:56pm Chief Complaint Admit Date Left lower back, leg pain, disrupts slee p October 25, 2024 1:45pm 2 MONTHS November 14, 2024 11 :03am EMG BUE per Dr. Akil Martinez November 212024 9:21am EMG RESULTS [facility] December 06, 2024 12:56pm 4 WEEKS January 06, 2025 1 0:01am Reason for Visit Admit Date Low back pain October 25, 2024 1:4 5pm Lumbar spondylosis October 25, 2024 1:4 5pm Cubital tunnel syndrome on left October 222024 11:03am Left carpal tunnel syndrome November 14, 2024 11:03am Status post carpal tunnel release November 14, 2024 11:03am Carpal tunnel syndrome, bilateral Septem 2024 9:21am Ulnar neuropathy of left upper extremity December 01, 2024 9:21am Cubital tunnel syndrome on left [facility] r 2024 12:56pm Left carpal tunnel syndrome December 062024 12:56pm Status post carpal tunnel release [facility] 20[facility] 12:56pm Cubital tunnel syndrome on left January 06, 2025 10:01am Left carpal tunnel syndrome December 10:01am Status post carpal tunnel release Octobe r 2024 10:01am Additional Source Comments Care Team (unrecognized sect ion and content) Team Status: Active Member Role Status Dates Capo Dunn DO Primary Care Provider Active Team Status: Inactive Member Role Status Dates Capo Dunn DO Primary Care Provider Active Start: August 01, 2024 End: August 01yun Dunn DOAttending ProviderActiveStart: August 01, 2024 End: August 01, 2024 Team Status: Inactive Member Role Status Brock Dunn DO Primary Care Provider Active Start: August 24, 2024 End: August 24Queenie Cravenending ProviderActiveStart: August 24, 2024 End: August 24, 2024 Team Status: Inactive Member Role Status Dates Capo Dunn DO Primary Care Provider Active Start: September 12, 2024 End: September 12, 2024Fito Soto ProviderActiveStart: September 12, 2024 End: September 12, 2024 Team Status: Inactive Member Role Status Dates Capo Dunn DO Primary Care Provider Active Start: October 25, 2024 End: October 25yun Dunn DOAttending ProviderActiveStart: October 25, 2024 End: October 25, 2024 Team Status: Active Member Role Status Dates Capo Dunn DO Primary Care Provider Active Start: June 03, 2024 Akil Martinez , DOAttending ProviderActiveStart: June 03, 2024 Team Status: Inactive Member Role Status Dates Capo Dunn DO Primary Care Provider Active Start: June 13, 2024 End: June 13, 2024Akil Martinez , DOAttending ProviderActiveStart: June 13, 2024 End: June 13, 2024 Team Status: Inactive Member Role Status Dates Capo Dunn DO Primary Care Provider Active Start: July 12, 2024 End: July 12, 2024Akil Martinez , DOAttending ProviderActiveStart: July 12, 2024 End: July 12, 2024 Team Status: Inactive Member Role Status Dates Capo Dunn DO Primary Care Provide r, Attending Provider Active Start: August 01, 2024 End: August 01, 2024 Team Status: Inactive Member Role Status Dates Capo Dunn DO Primary Care Provide r, Attending Provider Active Start: August 24, 2024 End: August 24, 2024 Team Status: Inactive Member Role Status Dates Capo Dunn DO Primary Care Provider Active Start: March 21, 2024 End: March 21, 2024Akil Martinez DOAttending ProviderActiveStart: March 21, 2024 End: March 21, 2024 Team Status: Active Member Role Status Dates Capo Dunn DO Primary Care Provider Active Start: April 13, 2024 Akil Martinez DOOther ProviderActiveStart: April 13, 2024 Hesham Bardales , MDAttending ProviderActiveStart: April 13, 2024 Team Status: Inactive Member Role Status Dates Capo Dunn DO Primary Care Provider Active Start: May 09, 2024 End: May 09, 2024Akil Martinez DOAttending ProviderActiveStart: May 09, 2024 End: May 09, 2024 Team Status: Active Member Role Status Dates Capo Dunn DO Primary Care Provide r, Attending Provider Active Start: January 28, 2024 Team Status: Inactive Member Role Status Dates Capo Dunn DO Primary Care Provide r, Attending Provider Active Start: February 04, 2024 End: February 04, 2024 Team Status: Inactive Member Role Status Dates Capo Dunn DO Primary Care Provider Active Start: April 13, 2024 End: April 13, 2024Kevin A Jeanmarie , DOAttending ProviderActiveStart: April 13, 2024 End: April 13, 2024 Team Status: Inactive Member Role Status Dates Capo Dunn DO Primary Care Provider Active Outreach CommunityAttending ProviderActive Team Status: Inactive Member Role Status Dates Capo Dunn DO Primary Care Provide r, Attending Provider Active Start: July 16, 2023 End: July 16, 2023 Team Status: Inactive Member Role Status Dates Capo Dunn DO Primary Care Provide r, Attending Provider Active Start: August 03, 2023 End: August 03, 2023 Team Status: Inactive Member Role Status Dates Capo Dunn DO Primary Care Provider Active Start: August 13, 2023 End: August 13, 2023Akil Martinez , DOAttending ProviderActiveStart: August 13, 2023 End: August 13, 2023 Team Status: Active Member Role Status Dates Capo Dunn DO Primary Care Provider Active Start: August 13, 2023 Akil Martinez , DOAttending ProviderActiveStart: August 13, 2023 Team Status: Inactive Member Role Status Dates Capo Dunn DO Primary Care Provider Active Start: August 14, 2023 End: August 14, 2023Akil Martinez DOAttending ProviderActiveStart: August 14, 2023 End: August 14, 2023 Team Status: Inactive Member Role Status Dates Capo Dunn DO Primary Care Provider Active Start: August 25, 2023 End: August 25, 2023Akil Martinez DOAttending ProviderActiveStart: August 25, 2023 End: August 25, 2023 Team Status: Inactive Member Role Status Dates Capo Dunn DO Primary Care Provide r, Attending Provider Active Start: August 27, 2023 End: August 27, 2023 Team Status: Active Member Role Status Dates Capo Dunn DO Primary Care Provide r, Attending Provider Active Start: September 01, 2023 Team Status: Inactive Member Role Status Dates Capo Dunn DO Primary Care Provider Active Start: September 09, 2023 End: September 09, 2023Akil Martinez DOAttending ProviderActiveStart: September 09, 2023 End: September 09, 2023 Team Status: Active Member Role Status Dates Capo Dunn DO Primary Care Provider Active Start: September 09, 2023 kAil Martinez DOAttending Provider, Other ProviderActiveStart: September 09, 2023 Team Status: Inactive Member Role Status Dates Capo Dunn DO Primary Care Provider Active Start: September 17, 2023 End: September 17, 2023Akli Martinez , DOAttending ProviderActiveStart: September 17, 2023 End: September 17, 2023 Team Status: Active Member Role Status Dates Capo Dunn DO Primary Care Provider Active Start: September 17, 2023 Akil Martinez , DOAttending ProviderActiveStart: September 17, 2023 Team Status: Inactive Member Role Status Dates Capo Dunn DO Primary Care Provider Active Start: September 30, 2023 End: September 30, 2023Akil Martinez , DOAttending ProviderActiveStart: September 30, 2023 End: September 30, 2023 Team Status: Active Member Role Status Dates Capo Dunn DO Primary Care Provider Active Start: October 20, 2023 Akil Martinez DOAttending ProviderActiveStart: October 20, 2023 Team Status: Inactive Member Role Status Dates Capo Dunn DO Primary Care Provider Active Start: October 22, 2023 End: October 22, 2023Akil Martinez , DOAttending ProviderActiveStart: October 22, 2023 End: October 22, 2023 Team Status: Active Member Role Status Dates Capo Dunn DO Primary Care Provider Active Start: October 26, 2023 Akil Martinez DOAttending ProviderActiveStart: October 26, 2023 Team Status: Inactive Member Role Status Dates Capo Dunn DO Primary Care Provide r, Attending Provider Active Start: October 28, 2023 End: October 28, 2023 Team Status: Inactive Member Role Status Dates Capo Dunn DO Primary Care Provide r, Attending Provider Active Start: November 20, 2023 End: November 20, 2023 Team Status: Active Member Role Status Dates Capo Dunn DO Primary Care Provider Active Start: December 14, 2023 Akil Martinez DOAttending ProviderActiveStart: December 14, 2023 Team Status: Active Member Role Status Dates Capo Dunn DO Primary Care Provider Active Start: December 17, 2023 Akil Martinez DOAttending ProviderActiveStart: December 17, 2023 Team Status: Inactive Member Role Status Dates Capo Dunn DO Primary Care Provider Active Start: December 17, 2023 End: December 17, 2023Kevin A Jeanmarie , DOAttending ProviderActiveStart: December 17, 2023 End: December 17, 2023Team MemberRelationshipSpecialtyStart DateEnd Date Capo Dunn MD [address] [place] [phone] PCP - GeneralInternal Medicine07/14/23 Team Status: Inactive Member Role Status Dates Capo Dunn DO Primary Care Provider Active Start: December 24, 2023 End: December 24, 2023Fito Soto ProviderActiveStart: December 24, 2023 End: December 24, 2023 Team Status: Active Member Role Status Dates Capo Dunn DO Primary Care Provide r, Attending Provider Active Start: December 31, 2023 Team MemberRelationshipSpecialtyStart DateEnd Date Capo Dunn MD [address] [place] [phone] PCP - GeneralInternal Medicine07/14/23Team MemberRelationshipSpecialtyStart Date End Date Capo Dunn MD [address] [place] [phone] PCP - GeneralInternal Medicine07/14/23Team MemberRelationshipSpecialtyStart Date End Date Capo Dunn MD [address] [place] [phone] PCP - GeneralInternal Medicine07/14/23Team MemberRelationshipSpecialtyStart Date End Date Capo Dunn MD [address] [place] [phone] PCP - GeneralInternal Medicine07/14/23Team MemberRelationshipSpecialtyStart Date End Date Capo Dunn MD [address] [facility] [place] [phone] [facility] - [facility]07/14/23Team MemberRelationshipSpecialtyStart Date End Date Capo Dunn MD [address] [place] [phone] PCP - [facility]King[facility]07/14/23 Team Status: Inactive Member Role Status Dates Capo Dunn DO Primary Care Provider Active Start: May 19, 2024 End: May 19, 2024Akil Martinez DOAttending ProviderActiveStart: May 19, 2024 End: May 19, 2024 Team Status: Inactive Member Role Status Dates Capo Dunn DO Primary Care Provider Active Start: November 14, 2024 End: November 14, 2024Akil Martinez DOAttending ProviderActiveStart: November 14, 2024 End: November 14, 2024 Team Status: Inactive Member Role Status Dates Capo Dunn DO Primary Care Provider Active Start: December 01, 2024 End: December 01ramona Giles DOAttending ProviderActive Start: December 01, 2024 End: December 01, 2024 Team Status: Inactive Member Role Status Dates Capo Dunn DO Primary Care Provider Active Start: December 06, 2024 End: December 06, 2024Akil Martinez DOAttending ProviderActiveStart: December 06, 2024 End: December 06, 2024 Team Status: Active Member Role/Relationship Status Dates Capo Dunn DO Primary Care Provider Active Team Status: Inactive Member Role/Relationship Status Dates Capo Dunn DO Primary Care Provider Active Start: October 25, 2024 End: October 25yun Dunn DOAttnico ProviderActiveStart: October 25, 2024 End: October 25, 2024 Team Status: Inactive Member Role/Relationship Status Dates Capo Dunn DO Primary Care Provider Active Start: November 14, 2024 End: November 14, 2024Akil Martinez DOAttending ProviderActiveStart: November 14, 2024 End: November 14, 2024 Team Status: Inactive Member Role/Relationship Status Dates Capo Dunn DO Primary Care Provider Active Start: December 01, 2024 End: December 01ramona Giles DOAttending ProviderActive Start: December 01, 2024 End: December 01, 2024 Team Status: Inactive Member Role/Relationship Status Dates Capo Dunn DO Primary Care Provider Active Start: December 06, 2024 End: December 06, 2024Akil Martinez DOAttnico ProviderActiveStart: December 06, 2024 End: December 06, 2024 Team Status: Inactive Member Role/Relationship Status Dates Capo Dunn DO Primary Care Provider Active Start: January 06, 2025 End: January 06taryn Barksdale MDAttnico ProviderActiveStart: January 06, 2025 End: January 06, 2025 INFORMATION SOURCE (unrecogn ized section and content) DATE CREATED AUTHOR 12/18/2021 [facility] DATE CREATED AUTHOR AUTHOR'S ORGANIZ ATION 11/19/2023 [facility] DATE CREATED AUTHOR AUTHOR'S ORGANIZ ATION 04/19/2024 [facility] DATE CREATED AUTHOR AUTHOR'S ORGANIZ ATION 05/21/2024 [facility] Goals (unrecognized section and content) Goals may be documented in a n alternate section REASON FOR VISIT (unrecogniz ed section and content) SpecialtyDiagnoses / ProceduresReferred By ContactReferred To ContactPhysical Therapy Diagnoses BPP[facility] Procedures [place] PHYSICAL THERAPY EVALUATION LOW COMPLEX 20 MINS Capo Dunn MD [address] [facility] [place] [address] Racquel Carbajal, PT [address] [facility] [address] [place] [address] Referral IDStatusReasonStart DateExpiration DateVisits RequestedVisits [id number] Check FOR RECORDS PERTAINING TO PATIENTS WHO [...] BE BASED ON THE PRIMARY CLINICAL RECORDS. [facility] [employer] [facility]. provides no warranty or guarantee of the accuracy or completeness of information in this document.
== END 2025-02-09 10:06 | disposition home or self-care (01) ==
LOC: RAD 10:08
PROVIDERS: PCP Internal Medicine; Visit Provider Internal Medicine
DX: M54.50 Low back pain, unspecified (principal); M79.605 Pain in left leg; M85.88 Other specified disorders of bone density and structure, other site; M41.86 Other forms of scoliosis, lumbar region; M51.369 Other intervertebral disc degeneration, lumbar region without mention of lumbar back pain or lower extremity pain
CPT/HCPCS: 72114

== ENCOUNTER 2025-02-21 09:53 | Outpatient (RCR) | payer MEDICARE, SELFPAY | END 2025-03-22 07:36 | disposition home or self-care (01) | LOC: PT 09:53 | PROVIDERS: PCP Internal Medicine; Visit Provider Internal Medicine | DX: M54.50 Low back pain, unspecified (principal) | CPT/HCPCS: 97012; 97110; 97162 ==